=== PATIENT | female | born 1950 | race Caucasian/White ===

== ENCOUNTER 2021-10-16 11:41 | Emergency (ER) | payer MEDICARE, BC, SELFPAY ==
[2021-10-16 11:51] VITALS: BP 120/69; PULSE 83; RESP 14; TEMP 36.3; O2SAT 97; BMI 27.3
--- NOTE | 2021-10-16 12:01 | ED.GENADULT ---
HPI - General Adult General Time Seen by Provider: 12:01 Date Seen: 10/16/21 Chief complaint: Diarrhea Stated complaint: Diarrhea, dehydration concern Time Seen by Provider: 10/16/21 11:47 Source: patient and RN notes reviewed Mode of arrival: ambulatory Limitations: no limitations History of Present Illness HPI narrative: Patient is a 70-year-old female that is ambulatory to the ED of her own accord with concern of diarrhea. The clinic had advised her to come in. She states she has had about 2-3 days of diarrhea after eating. She noted 1 drop of blood maybe last night in the toilet but otherwise has not had any bleeding. She is having no severe abdominal pain. She originally had some nausea the 1st day of symptoms but that has gone away. She is able to drink about 8 glasses of water a day in she feels she is staying hydrated. No urinary symptoms. She has had no fevers or chills. She has people coming in to help her as she broke her left shoulder. She is not aware of any ill contacts or anyone around her being sick. She denies any history of colitis. She had a flexible sigmoidoscopy once early on but has had no follow-up as far as scopes. There has been no travel. She states that she can eat and drink fine but she just has diarrhea after every time she eats. She denies any symptoms of feeling lightheaded or dizzy or weak, does not feel she has any symptoms of being dehydrated. MD complaint: New onset diarrhea after eating Related Data Home Medications Medication Instructions Recorded Confirmed acetaminophen 500 mg tablet 1,000 mg PO Q6H PRN 10/16/21 10/16/21 blood sugar diagnostic (Contour 10/16/21 10/16/21 Test Strips) hydrochlorothiazide 25 mg tablet 25 mg PO DAILY 10/16/21 10/16/21 levothyroxine 112 mcg tablet 112 mcg PO DAILY 10/16/21 10/16/21 lorazepam 0.5 mg tablet 0.5 mg PO DAILY PRN anxiety 10/16/21 10/16/21 metformin 500 mg tablet 1,000 mg PO DAILY 10/16/21 10/16/21 naproxen 500 mg tablet 500 mg PO BID PRN pain 10/16/21 10/16/21 nortriptyline 25 mg capsule 25 mg PO DAILY 10/16/21 10/16/21 potassium chloride 10 mEq 10 meq PO DAILY 10/16/21 10/16/21 tablet,extended release risperidone 1 mg tablet 1 mg PO DAILY 10/16/21 10/16/21 risperidone 2 mg tablet 2 mg PO HS 10/16/21 10/16/21 simvastatin 40 mg tablet 40 mg PO HS 10/16/21 10/16/21 Allergies Allergy/AdvReac Type Severity Reaction Status Date / Time cholecalciferol (vitamin D3) Allergy Unknown Confusion Verified 10/16/21 12:20 [From Vitamin D3] cyanocobalamin (vitamin B12) Allergy Unknown Verified 10/16/21 12:20 grapefruit Allergy Unknown Verified 10/16/21 12:20 Penicillins Allergy Unknown Verified 10/16/21 12:20 Sulfa (Sulfonamide Allergy Unknown Verified 10/16/21 12:20 Antibiotics) eucalyptus AdvReac Unknown Verified 10/16/21 12:20 lisinopril AdvReac Confusion Verified 10/16/21 12:20 Review of Systems Status of ROS: Reports: 10 or more systems reviewed and unremarkable except as noted in History and below PFSH PFSH Social History Smoking Status: Former smoker Do you use any of these nicotine containing products: None Second hand tobacco smoke exposure: No How often do you have a drink containing alcohol: never How often do you have six or more drinks on one occasion: Never AUDIT-C Alcohol total score: 0 Non-prescribed substance use: denies use Exam Const: Vital Signs, click to edit/add: Vital Signs - 24 hr 10/16/21 11:51 Temperature 97.3 F L Pulse Rate [Pulse Oximeter] 83 Respiratory Rate 14 Blood Pressure [Ri ght Upper Arm] 120/69 Pulse Oximetry 97 Oxygen Delivery Me thod Room Air Documenting provider has reviewed patient's vital signs: yes Common normals: no apparent distress, oriented x3, no limitations, healthy appearing, alert and well nourished General appearance: cooperative, comfortable and well kempt Nutritional appearance: overweight HENMT: Common normals: normocephalic, head/scalp atraumatic, hearing grossly normal bilaterally, external ears normal, external nose normal, nasal mucous membranes and turbinates normal, moist oral mucous membranes and oropharynx normal Head and scalp: normocephalic and atraumatic Nose: external nose normal and nasal mucous membranes and turbinates normal External ear: external ears normal Eye: Common normals: PERRL, EOMs intact bilaterally, conjunctivae normal and no scleral icterus Conjunctiva: conjunctiva(e) normal Pupil: PERRL Neck & C-Spine: Common normals: full ROM, no lymphadenopathy, supple, no meningeal signs, no JVD and thyroid normal Thyroid: thyroid normal Resp: Common normals: normal respiratory effort, no retractions, no use of accessory muscles and clear to auscultation bilaterally Auscultation: clear to auscultation bilaterally Cardio: Common normals: no JVD, regular rate, regular rhythm, S1 normal heart sound, S2 normal heart sound, no gallops, no clicks and no murmurs Rate: regular rate Rhythm: regular rhythm Heart sounds: S1 normal and S2 normal GI: Common normals: Normal to inspection, nondistended, normoactive bowel sounds present, soft to palpation, non-tender, no hepatosplenomegaly, no masses and no bruits Palpation: soft and no hepatosplenomegaly Neuro: Common normals: oriented x3 Sensorium/orientation: alert Meningeal signs: no meningeal signs Speech: speech normal Gait (neuro): normal gait Psych: Appearance: well kempt Course Course Hospital Course: Clinically, this patient looks quite well and is given a history where she sounds stable. Reviewed the multiple etiologies for diarrhea stemming from viral infectious etiologies, bacterial pathogens, colitis. Right now at this time, she is having no warning symptoms that would tele she needs emergent imaging. She does understand if diarrhea continues or it progresses to other symptoms such as abdominal pain or fevers, abdominal imaging may be needed. In some cases of more chronic diarrhea colonoscopy may be indicated and biopsies obtained. This point in time, we have no idea what her course is going to be. We can hope that this is a self-limited viral entity that will settle down. I have discussed our options from doing some basic blood work to proceeding with CT imaging. She would like to see some basic blood work and then likely discharge to home. I think that is reasonable. I agree at this time that she does not need any IV fluids, clinically sounds quite stable from that standpoint. Reevaluation(s) Reevaluation #1: Reviewed with patient that her labs are looking stable. I do think she is fine to continue with outpatient management. We did discuss antidiarrheals but at this point I would still recommend avoidance. This certainly could be a self-limited gastroenteritis. If this is the diagnosis I would anticipate that symptoms are going to improve in the next couple days. If this is more of a colitis type picture, she may have ongoing diarrhea and will need further evaluation and follow-up. Time: 13:13 Vital Signs Vital signs: Initial Vital Signs Temperature 97.3 F L 10/16/21 11:51 Temperature Source Temporal Artery Scan 10/16/21 11:51 Pulse Rate 83 10/16/21 11:51 Pulse Rhythm 10/16/21 11:51 Respiratory Rate 14 10/16/21 11:51 Blood Pressure 120/69 10/16/21 11:51 Blood Pressure Mean 86 10/16/21 11:51 Blood Pressure Position Sitting 10/16/21 11:51 Pulse Oximetry 97 10/16/21 11:51 Oxygen Delivery Method 10/16/21 11:51 Vital Signs Temperature 97.3 F L 10/16/21 11:51 Pulse Rate 83 10/16/21 11:51 Respiratory Rate 14 10/16/21 11:51 Blood Pressure 120/69 10/16/21 11:51 Pulse Oximetry 97 10/16/21 11:51 Oxygen Delivery Method 10/16/21 11:51 Temperature 97.3 F L 10/16/21 11:51 Pulse Rate 83 10/16/21 11:51 Respiratory Rate 14 10/16/21 11:51 Blood Pressure 120/69 10/16/21 11:51 Pulse Oximetry 97 10/16/21 11:51 Oxygen Delivery Method 10/16/21 11:51 Medical Decision Making Lab Data Labs: Lab Results 10/16/21 10/16/21 Range/Units 12:33 12:33 WBC 6.81 (4.50-11.00) K/uL RBC 4.27 (4.00-5.20) m/uL Hgb 11.8 L (12.0-16.0) gm/dL Hct 36.3 (33.0-51.0) % MCV 85 (80-100) fL MCH 28 (26-34) pg MCHC 33 (32-36) gm/dL RDW Coeff of Emily 14.5 (11.5-15.5) % Plt Count 340 (140-440) K/uL Neut % (Auto) 74.6 H (42.0-72.0) % Lymph % (Auto) 15.3 L (20-44) % [place] % (Auto) 9.1 (0.0-11.0) % Eos % (Auto) 0.6 (0.0-7.0) % Baso % (Auto) 0.4 (0.0-3.0) % Neut # (Auto) 5.10 (1.7-7.0) K/uL Lymph # (Auto) 1.00 (0.90-2.90) K/uL [place] # (Auto) 0.60 (0.00-0.90) K/UL Eos # (Auto) 0.04 (0.00-0.50) K/uL Baso # (Auto) 0.03 (0.00-0.30) K/uL Abs Immat Gran (auto) 0.00 (0.00-0.30) K/uL Sodium 133 L (135-149) mmol/L Potassium 3.6 (3.6-5.1) mmol/L Chloride 97 (96-114) mmol/L Carbon Dioxide 27 (20-32) mmol/L BUN 15 (7-30) mg/dL Creatinine 0.6 (0.5-1.5) mg/dL Estimated Creat Clear 42.68 Estimated GFR 96 ml/min Glucose 128 H (60-115) mg/dL Calcium 9.2 (8.4-10.6) mg/dL Critical Care Time Critical Care Time Critical Care Time: No Discharge Plan Discharge Clinical Impression: Acute diarrhea Patient Disposition: Home, Self-Care Condition: Stable Instructions: Acute Diarrhea (ED), Nutrition Tips for Relief of Diarrhea (ED) Additional Instructions: Continue with fluids as you have been, you are doing a good job staying hydrated. As far as food is concerned, reviewed the handout as this may have some helpful tips on avoiding foods that will make diarrhea certainly worse. I do recommend that you get scheduled for clinic follow-up this week. If at any point you develop bloody diarrhea that is consistently bloody, have fever, have recurrent vomiting or severe abdominal pain with this, do need to seek re-evaluation in the ER. If your diarrhea is ongoing but no worrisome findings as outlined, do need to follow up in the clinic. Activity Level: Activity as Tolerated Prescriptions: No Action metformin 500 mg tablet 1,000 mg PO DAILY Label Comments: TAKE TWO TABLETS BY MOUTH TWICE DAILY WITH MEALS potassium chloride 10 mEq tablet extended release 10 meq PO DAILY Label Comments: TAKE ONE TABLET BY MOUTH ONE TIME DAILY WITH A MEAL. (DME) Contour Test Strips Strip MISCELLANEOUS Label Comments: USE TO TEST BLOOD GLUCOSE 2 TIMES DAILY DIRECTED simvastatin 40 mg tablet 40 mg PO HS nortriptyline 25 mg capsule 25 mg PO DAILY Label Comments: TAKE ONE CAPSULE BY MOUTH ONE TIME DAILY AT BEDTIME risperidone 2 mg tablet 2 mg PO HS Label Comments: TAKE ONE TABLET BY MOUTH ONE TIME DAILY AT BEDTIME lorazepam 0.5 mg tablet 0.5 mg PO DAILY PRN (Reason: anxiety) Label Comments: TAKE ONE TABLET BY MOUTH DAILY NEEDED hydrochlorothiazide 25 mg tablet 25 mg PO DAILY risperidone 1 mg tablet 1 mg PO DAILY naproxen 500 mg tablet 500 mg PO BID PRN (Reason: pain) Label Comments: with meals levothyroxine 112 mcg tablet 112 mcg PO DAILY Label Comments: TAKE ONE TABLET BY MOUTH ONE TIME DAILY acetaminophen 500 mg tablet 1,000 mg PO Q6H PRN Follow Up/Referrals: Rylee Curz MD [Primary Care Provider] - Stand Alone Forms: [facility] Info Instructions
[2021-10-16 12:46] LABS: Basophils Absolute Auto 0.03 K/uL (0.00-0.30); Basophils Percent Auto 0.4 % (0.0-3.0); Eosinophils Absolute Auto 0.04 K/uL (0.00-0.50); Eosinophils Percent Auto 0.6 % (0.0-7.0); Hematocrit 36.3 % (33.0-51.0); Hemoglobin* 11.8 gm/dL (12.0-16.0); Lymphocytes Percent Auto 15.3 % (20-44); Mean Corpuscular HGB Conc 33 gm/dL (32-36); Mean Corpuscular Hemoglobin 28 pg (26-34); Mean Corpuscular Volume 85 fL (80-100); Monocytes Percent Auto 9.1 % (0.0-11.0); Neutrophils Percent Auto 74.6 % (42.0-72.0); Platelet Count* 340 K/uL (140-440); RDW Coefficient of Variation % 14.5 % (11.5-15.5); Red Blood Count 4.27 m/uL (4.00-5.20); Slide Review Reflex No; White Blood Count* 6.81 K/uL (4.50-11.00)
[2021-10-16 12:56] LABS: Chloride* 97 mmol/L (96-114); Potassium* 3.6 mmol/L (3.6-5.1); Sodium* 133 mmol/L (135-149)
[2021-10-16 12:59] LABS: Blood Urea Nitrogen* 15 mg/dL (7-30); Carbon Dioxide* 27 mmol/L (20-32); Creatinine* 0.6 mg/dL (0.5-1.5); Est. Creatinine Clearance* 42.68; Estimated Glomerular Filt Rate 96 ml/min
[2021-10-16 13:00] LABS: Calcium* 9.2 mg/dL (8.4-10.6); Glucose* 128 mg/dL (60-115)
== END 2021-10-16 13:19 | disposition home or self-care (01) ==
PROVIDERS: Emergency Provider Family Medicine; PCP Family Medicine
DX: R19.7 Diarrhea, unspecified (principal)
CPT/HCPCS: 36415; 80048; 85025; 99282; 99283

== ENCOUNTER 2022-03-17 22:42 | Outpatient (CLI) | payer MEDICARE, BC, SELFPAY | END 2022-03-17 22:43 | disposition home or self-care (01) | LOC: AMB 03-18 02:01 | PROVIDERS: PCP Family Medicine; Visit Provider Family Medicine | DX: S09.90XA Unspecified injury of head, initial encounter (principal); W18.30XA Fall on same level, unspecified, initial encounter; Y92.009 Unspecified place in unspecified non-institutional (private) residence as the place of occurrence of the external cause | CPT/HCPCS: A0425; A0427 ==

== ENCOUNTER 2022-03-17 23:26 | Emergency (ER) | payer MEDICARE, BC, SELFPAY ==
[2022-03-17 23:32] VITALS: BP 112/68; PULSE 74; RESP 14; TEMP 36.7; O2SAT 99; BMI 28.3
[2022-03-17 23:33] VITALS: O2SAT 95
--- NOTE | 2022-03-17 23:34 | CRLHL7_ITS ---
For Patients: As a result of the Century Cures Act, medical imaging exams and procedure reports are released immediately into your electronic medical record. You may view this report before your referring provider. If you have questions, please contact your health care provider. INDICATION: Fall, head pain. TECHNIQUE: CT head without contrast. COMPARISON: None. FINDINGS: CSF spaces: Within normal limits for age. Brain parenchyma and extra-axial spaces: 6 mm hyperdense focus within the awan radiata of the posterior left frontal lobe adjacent to the lateral ventricle with subtle surrounding hypoattenuation. No midline shift or herniation. No intraventricular extension.The gaffney-white differentiation is normal. Mild bilateral periventricular and deep white matter areas of hypoattenuation, consistent with chronic small vessel ischemic disease. No extra-axial fluid collection. Skull base and calvarium: The visualized paranasal sinuses and mastoid air cells demonstrate no acute or significant findings. The visualized orbits are grossly unremarkable. No skull fractures. Hyperostosis frontalis. Atherosclerotic calcification of the bilateral carotid siphons. IMPRESSION: 6 mm hyperdense focus within the left posterior frontal lobe awan radiata, concerning for a small intraparenchymal hemorrhage with mild surrounding edema. No intraventricular extension or significant mass effect. Findings discussed with Dr. Villarreal at 10:25 PM PST on 03/17/2022. Please note that all CT scans at this facility use dose modulation, iterative reconstruction, and/or weight-based dosing when appropriate to reduce radiation dose to as low as reasonably achievable. Dictated by Mat Long MD @ 03/18/2022 12:25:44 AM (Electronically Signed)
--- NOTE | 2022-03-17 23:34 | CRLHL7_ITS ---
For Patients: As a result of the Century Cures Act, medical imaging exams and procedure reports are released immediately into your electronic medical record. You may view this report before your referring provider. If you have questions, please contact your health care provider. INDICATION: Neck pain. TECHNIQUE: CT cervical spine without contrast. COMPARISON: None. FINDINGS: Vertebrae: Alignment is normal apart from trace anterolisthesis of C4 on C5. There are no fractures or suspicious bony lesions. 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 Mild multilevel degenerative changes of the disc spaces and facet joints. Extraspinal findings: Right apical calcified granuloma. Presumed cerumen within the bilateral external auditory canals. IMPRESSION: 1. No sign of acute injury. 2. Multilevel degenerative spondylosis. Please note that all CT scans at this facility use dose modulation, iterative reconstruction, and/or weight-based dosing when appropriate to reduce radiation dose to as low as reasonably achievable. Dictated by Mat Long MD @ 03/18/2022 12:28:53 AM (Electronically Signed)
[2022-03-17 23:44] VITALS: BP 110/68; PULSE 85; RESP 14; O2SAT 96
[2022-03-18 00:30] VITALS: BP 114/68; PULSE 72; RESP 16; O2SAT 96
--- NOTE | 2022-03-18 00:55 | ED.GENADULT ---
HPI - General Adult General Chief complaint: Dizziness/Vertigo Stated complaint: Dizziness Time Seen by Provider: 03/17/22 23:28 Source: patient and EMS Mode of arrival: EMS Limitations: no limitations History of Present Illness HPI narrative: Patient is a 71-year-old female coming in today after falling at home. She states that she was getting up to turn off the lights to go to bed when she became very lightheaded and fell backwards striking her head on the way down. She is complaining of a very mild headache. Denies any neck pain or back pain. Per EMS, when they arrived her blood pressure was rather low at 68 systolic. She has received about 200 mL of normal saline and her blood pressure upon arrival is in the 1 teens. She is no longer dizzy. She does feel a little bit weaker than normal. Patient's past medical history is significant for coronary artery disease, diabetes, hypertension, hyperlipidemia, schizophrenia, hypothyroidism, vitamin-D deficiency, osteopenia. She lives independently with a roommate. Related Data Home Medications Medication Instructions Recorded Confirmed acetaminophen 500 mg tablet 1,000 mg PO Q6H PRN 10/16/21 10/16/21 blood sugar diagnostic (Contour 10/16/21 10/16/21 Test Strips) hydrochlorothiazide 25 mg tablet 25 mg PO DAILY 10/16/21 10/16/21 levothyroxine 112 mcg tablet 112 mcg PO DAILY 10/16/21 10/16/21 lorazepam 0.5 mg tablet 0.5 mg PO DAILY PRN anxiety 10/16/21 10/16/21 metformin 500 mg tablet 1,000 mg PO DAILY 10/16/21 10/16/21 naproxen 500 mg tablet 500 mg PO BID PRN pain 10/16/21 10/16/21 nortriptyline 25 mg capsule 25 mg PO DAILY 10/16/21 10/16/21 potassium chloride 10 mEq 10 meq PO DAILY 10/16/21 10/16/21 tablet,extended release risperidone 1 mg tablet 1 mg PO DAILY 10/16/21 10/16/21 risperidone 2 mg tablet 2 mg PO HS 10/16/21 10/16/21 simvastatin 40 mg tablet 40 mg PO HS 10/16/21 10/16/21 Allergies Allergy/AdvReac Type Severity Reaction Status Date / Time cholecalciferol (vitamin D3) Allergy Unknown Confusion Verified 03/17/22 23:37 [From Vitamin D3] cyanocobalamin (vitamin B12) Allergy Unknown Verified 03/17/22 23:37 grapefruit Allergy Unknown Verified 03/17/22 23:37 Penicillins Allergy Unknown Verified 03/17/22 23:37 Sulfa (Sulfonamide Allergy Unknown Verified 03/17/22 23:37 Antibiotics) eucalyptus AdvReac Unknown Verified 03/17/22 23:37 lisinopril AdvReac Confusion Verified 03/17/22 23:37 Review of Systems Status of ROS: Reports: 10 or more systems reviewed and unremarkable except as noted in History and below [facility] Social History Smoking Status: Former smoker Do you use any of these nicotine containing products: None Second hand tobacco smoke exposure: No How often do you have a drink containing alcohol: never How often do you have six or more drinks on one occasion: Never AUDIT-C Alcohol total score: 0 Non-prescribed substance use: denies use Exam Narrative: Exam Narrative: Well-nourished well-developed patient in no acute distress. Alert and oriented x3. Answers questions appropriately. Mood and affect are appropriate. Thoughts are goal oriented and rational. No tangential or magical thinking noted. Patient speaks in full sentences without needing to catch her breath. GCS is 15. HEENT: Normocephalic, small area of erythema/early bruising to the back of the head. Pupils are equally round reactive to light. Extraocular muscles are intact. Conjunctivae are moist without any icterus noted. Moist mucous membranes. Posterior pharynx is normal. Neck is soft without any lymphadenopathy or thyromegaly. No masses are appreciated. No tenderness to palpation at the neck. Good range of motion with flexion, extension, side way bending and rotation without discomfort. Cardiovascular: Heart is regular rate and rhythm S1 and S2 are present without any murmurs. Lungs: Clear to auscultation bilaterally no wheezes rhonchi or rales are appreciated. Patient takes deep breaths without any discomfort. Abdomen: Soft and nontender nondistended with normal bowel sounds. No guarding or rebound. Extremities: Bilateral lower extremities are without edema. Normal DP and PT pulses. Skin: Well perfused without any obvious rashes. Back: Small ecchymosis to the low/mid thoracic region, , however area is not tender. She has no tenderness over the thoracic or lumbar spine. There are no step-offs appreciated. Const: Vital Signs, click to edit/add: Vital Signs - 24 hr 03/17/22 23:32 03/17/22 23:33 03/18/22 01:00 Temperature 98.1 F 97.8 F Pulse Rate Pulse Rate [Pulse Oximeter] 74 77 Respiratory Rate 14 18 Blood Pressure [Le ft Upper Arm] 112/68 121/71 Pulse Oximetry 99 95 94 Oxygen Delivery Me thod Room Air Room Air 03/18/22 00:58 03/18/22 01:00 03/17/22 23:44 Temperature Pulse Rate 76 74 Pulse Rate [Pulse Oximeter] 85 Respiratory Rate 14 Blood Pressure [Le ft Upper Arm] 110/68 Pulse Oximetry 95 96 96 Oxygen Delivery Me thod Room Air Room Air 03/18/22 00:30 Temperature Pulse Rate Pulse Rate [Pulse Oximeter] 72 Respiratory Rate 16 Blood Pressure [Le ft Upper Arm] 114/68 Pulse Oximetry 96 Oxygen Delivery Me thod Room Air Course Course Hospital Course: Patient proceeded immediately to head and neck CT. Head CT did show a 6 mm intraparenchymal hemorrhage, report below. Neck CT was unremarkable. EKG, read by me, shows normal sinus rhythm with a pulse of 71 and a left axis deviation. CBC shows a slightly elevated white cell count 13.6, hemoglobin is low at 10.6. Lactate was elevated at 2.6. Negative COVID and flu. Normal troponin. Remainder of labs pending at this time. Spoke with Dr. Vazquez at [facility] who has it in available medical/surg bed with both Trauma and Neurosurgery consultations available, patient was accepted for transfer. Vital Signs Vital signs: Initial Vital Signs Temperature 98.1 F 03/17/22 23:32 Temperature Source Temporal Artery Scan 03/17/22 23:32 Pulse Rate 74 03/17/22 23:32 Respiratory Rate 14 03/17/22 23:32 Blood Pressure 112/68 03/17/22 23:32 Blood Pressure Mean 82 03/17/22 23:32 Blood Pressure Position Supine 03/17/22 23:32 Pulse Oximetry 99 03/17/22 23:32 Oxygen Delivery Method 03/17/22 23:32 Vital Signs Temperature 98.1 F 03/17/22 23:32 Pulse Rate 74 03/17/22 23:32 Respiratory Rate 14 03/17/22 23:32 Blood Pressure 112/68 03/17/22 23:32 Pulse Oximetry 99 03/17/22 23:32 Oxygen Delivery Method 03/17/22 23:32 Temperature 97.8 F 03/18/22 01:00 Pulse Rate 77 03/18/22 01:00 Respiratory Rate 18 03/18/22 01:00 Blood Pressure 121/71 03/18/22 01:00 Pulse Oximetry 94 03/18/22 01:00 Oxygen Delivery Method 03/18/22 01:00 Medical Decision Making MDM Narrative Medical decision making narrative: 71-year-old female with an episode of dizziness, continued mild weakness and an intraparenchymal hemorrhage. Patient will be transferred for further management. Medical Records Medical records reviewed: Yes I reviewed the patient's medical records Lab Data Lab results reviewed: Yes I reviewed the patient's lab results Labs: Lab Results 03/17/22 03/17/22 03/17/22 Range/Units 23:34 23:34 23:34 WBC 13.60 H (4.50-11.00) K/uL RBC 4.08 (4.00-5.20) m/uL Hgb 10.6 L (12.0-16.0) gm/dL Hct 31.8 L (33.0-51.0) % MCV 78 L (80-100) fL MCH 26 (26-34) pg MCHC 33 (32-36) gm/dL RDW Coeff of Emily 14.7 (11.5-15.5) % Plt Count 343 (140-440) K/uL Neut % (Auto) 88.1 H (42.0-72.0) % Lymph % (Auto) 3.8 L (20-44) % Banner % (Auto) 7.4 (0.0-11.0) % Eos % (Auto) 0.4 (0.0-7.0) % Baso % (Auto) 0.1 (0.0-3.0) % Neut # (Auto) 12.00 H (1.7-7.0) K/uL Lymph # (Auto) 0.50 L (0.90-2.90) K/uL Banner # (Auto) 1.00 H (0.00-0.90) K/UL Eos # (Auto) 0.10 (0.00-0.50) K/uL Baso # (Auto) 0.00 (0.00-0.30) K/uL Lactate 2.6 H (0.5-1.9) mmol/L SARS-CoV-2 (PCR) (Negative) Influenza Type A (PCR) (Negative) Influenza Type B (PCR) (Negative) POC Troponin I 0.02 (0.01-0.04) ng/ml 03/17/22 Range/Units 23:34 WBC (4.50-11.00) K/uL RBC (4.00-5.20) m/uL Hgb (12.0-16.0) gm/dL Hct (33.0-51.0) % MCV (80-100) fL MCH (26-34) pg MCHC (32-36) gm/dL RDW Coeff of Emily (11.5-15.5) % Plt Count (140-440) K/uL Neut % (Auto) (42.0-72.0) % Lymph % (Auto) (20-44) % Banner % (Auto) (0.0-11.0) % Eos % (Auto) (0.0-7.0) % Baso % (Auto) (0.0-3.0) % Neut # (Auto) (1.7-7.0) K/uL Lymph # (Auto) (0.90-2.90) K/uL Banner # (Auto) (0.00-0.90) K/UL Eos # (Auto) (0.00-0.50) K/uL Baso # (Auto) (0.00-0.30) K/uL Lactate (0.5-1.9) mmol/L SARS-CoV-2 (PCR) Negative SARS-CoV-2 (Negative) Influenza Type A (PCR) Negative PCR FLU A (Negative) Influenza Type B (PCR) Negative PCR FLU B (Negative) POC Troponin I (0.01-0.04) ng/ml Imaging Data CT scan - head: Attestation: I have reviewed the pertinent imaging results. Radiologist's impression: CT head without contrast. COMPARISON: None. FINDINGS: CSF spaces: Within normal limits for age. Brain parenchyma and extra-axial spaces: 6 mm hyperdense focus within the awan radiata of the posterior left frontal lobe adjacent to the lateral ventricle with subtle surrounding hypoattenuation. No midline shift or herniation. No intraventricular extension.The gaffney-white differentiation is normal. Mild bilateral periventricular and deep white matter areas of hypoattenuation, consistent with chronic small vessel ischemic disease. No extra-axial fluid collection. Skull base and calvarium: The visualized paranasal sinuses and mastoid air cells demonstrate no acute or significant findings. The visualized orbits are grossly unremarkable. No skull fractures. Hyperostosis frontalis. Atherosclerotic calcification of the bilateral carotid siphons. IMPRESSION: 6 mm hyperdense focus within the left posterior frontal lobe awan radiata, concerning for a small intraparenchymal hemorrhage with mild surrounding edema. No intraventricular extension or significant mass effect. Cervical spine CT: Attestation: I have reviewed the pertinent imaging results. Radiologist's impression: CT cervical spine without contrast. COMPARISON: None. FINDINGS: Vertebrae: Alignment is normal apart from trace anterolisthesis of C4 on C5. There are no fractures or suspicious bony lesions. 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 Mild multilevel degenerative changes of the disc spaces and facet joints. Extraspinal findings: Right apical calcified granuloma. Presumed cerumen within the bilateral external auditory canals. IMPRESSION: 1. No sign of acute injury. 2. Multilevel degenerative spondylosis. ECG Data Attestation: I personally reviewed and interpreted this ECG as follows: Discharge Plan Discharge Clinical Impression: Intraparenchymal hemorrhage of brain, Weakness Patient Disposition: Xfer Other Discharge Location: [facility] Condition: Stable Prescriptions: No Action metformin 500 mg tablet 1,000 mg PO DAILY Label Comments: TAKE TWO TABLETS BY MOUTH TWICE DAILY WITH MEALS potassium chloride 10 mEq tablet extended release 10 meq PO DAILY Label Comments: TAKE ONE TABLET BY MOUTH ONE TIME DAILY WITH A MEAL. (DME) Contour Test Strips Strip MISCELLANEOUS Label Comments: USE TO TEST BLOOD GLUCOSE 2 TIMES DAILY DIRECTED simvastatin 40 mg tablet 40 mg PO HS nortriptyline 25 mg capsule 25 mg PO DAILY Label Comments: TAKE ONE CAPSULE BY MOUTH ONE TIME DAILY AT BEDTIME risperidone 2 mg tablet 2 mg PO HS Label Comments: TAKE ONE TABLET BY MOUTH ONE TIME DAILY AT BEDTIME lorazepam 0.5 mg tablet 0.5 mg PO DAILY PRN (Reason: anxiety) Label Comments: TAKE ONE TABLET BY MOUTH DAILY NEEDED hydrochlorothiazide 25 mg tablet 25 mg PO DAILY risperidone 1 mg tablet 1 mg PO DAILY naproxen 500 mg tablet 500 mg PO BID PRN (Reason: pain) Label Comments: with meals levothyroxine 112 mcg tablet 112 mcg PO DAILY Label Comments: TAKE ONE TABLET BY MOUTH ONE TIME DAILY acetaminophen 500 mg tablet 1,000 mg PO Q6H PRN Follow Up/Referrals: Rylee Cruz MD [Primary Care Provider] - Stand Alone Forms: [employer] Info Instructions
[2022-03-18 00:58] VITALS: PULSE 76; O2SAT 95
[2022-03-18 01:00] VITALS: BP 121/71; PULSE 74; PULSE 77; RESP 18; TEMP 36.6; O2SAT 94; O2SAT 96
[2022-03-18 01:06] LABS: Troponin, Point-of-Care* 0.02 ng/ml (0.01-0.04)
[2022-03-18 01:08] LABS: Lactate* 2.6 mmol/L (0.5-1.9)
[2022-03-18 01:11] LABS: Basophils Percent Auto 0.1 % (0.0-3.0); Eosinophils Percent Auto 0.4 % (0.0-7.0); Hematocrit 31.8 % (33.0-51.0); Hemoglobin* 10.6 gm/dL (12.0-16.0); Immature Granulocytes Pct Auto 0.2 %; Lymphocytes Percent Auto 3.8 % (20-44); Mean Corpuscular HGB Conc 33 gm/dL (32-36); Mean Corpuscular Hemoglobin 26 pg (26-34); Mean Corpuscular Volume 78 fL (80-100); Monocytes Percent Auto 7.4 % (0.0-11.0); Neutrophils Percent Auto 88.1 % (42.0-72.0); Platelet Count* 343 K/uL (140-440); RDW Coefficient of Variation % 14.7 % (11.5-15.5); Red Blood Count 4.08 m/uL (4.00-5.20)
[2022-03-18 01:16] LABS: PCR FLU A Negative PCR FLU A (Negative); PCR FLU B Negative PCR FLU B (Negative); SARS PCR* Negative SARS-CoV-2 (Negative)
[2022-03-18 01:17] LABS: Slide Review Reflex No
--- NOTE | 2022-03-18 01:18 | ED.NURSE ---
Dispatch called for EMS transport to [facility] ER. This nurse called report to [facility] ER charge nurse.
[2022-03-18 01:28] LABS: Albumin* 3.4 g/dL (3.3-5.0); Chloride* 100 mmol/L (96-114); Sodium* 131 mmol/L (135-149)
[2022-03-18 01:29] LABS: C.Difficile Negative (Negative); CDIFFEPI 027 PRESUMPTIVE NEGATIVE (Negative)
[2022-03-18 01:29] LABS: Potassium* 3.3 mmol/L (3.6-5.1)
[2022-03-18 01:31] LABS: Creatinine* 0.4 mg/dL (0.5-1.5); Est. Creatinine Clearance* 38.37; Estimated Glomerular Filt Rate 105 ml/min
[2022-03-18 01:32] LABS: Alanine Aminotransferase* 22 U/L (4-35); Alkaline Phosphatase* 52 U/L (40-150); Aspartate Amino Transferase* 19 U/L (12-35); Bilirubin Direct* 0.1 mg/dL (0.0-0.5); Bilirubin Total* 0.3 mg/dL (0.1-1.5); Blood Urea Nitrogen* 11 mg/dL (7-30); Calcium* 8.2 mg/dL (8.4-10.6); Carbon Dioxide* 23 mmol/L (20-32); Glucose* 132 mg/dL (60-115)
--- NOTE | 2022-03-18 01:32 | ED.NURSE ---
Next of kin updated with patient transfer information. Patient notified.
[2022-03-18 01:35] LABS: C Reactive Protein* < 0.5 mg/dL (0.5-1.0)
[2022-03-18 01:52] LABS: Erythrocyte SedimentationRate* 11 mm/hr (2-20)
== END 2022-03-18 01:41 | disposition other institution (70) ==
PROVIDERS: Emergency Provider Family Medicine; PCP Family Medicine
DX: I61.8 Other nontraumatic intracerebral hemorrhage (principal)
CPT/HCPCS: 36415; 70450; 72125; 80048; 80076; 81001; 83605; 84484; 85025; 85651; 86140; 87086; 87493; 87631; 93005; 94761; 99284; 99285

== ENCOUNTER 2022-03-18 01:23 | Outpatient (CLI) | payer MEDICARE, BC, SELFPAY | END 2022-03-18 01:24 | disposition home or self-care (01) | LOC: AMB 03:54 | PROVIDERS: PCP Family Medicine; Visit Provider Family Medicine | DX: S06.30AS Unspecified focal traumatic brain injury with loss of consciousness status unknown, sequela (principal) | CPT/HCPCS: A0425; A0427 ==

== ENCOUNTER 2022-03-22 07:01 | Outpatient (CLI) | payer MEDICARE, BC, SELFPAY | END 2022-03-22 07:02 | disposition home or self-care (01) | LOC: AMB 17:37 | PROVIDERS: PCP Family Medicine; Visit Provider Family Medicine | DX: R53.1 Weakness (principal) | CPT/HCPCS: A0425; A0427 ==

== ENCOUNTER 2022-03-22 07:33 | Emergency (ER) | payer MEDICARE, BC, SELFPAY ==
[2022-03-22] VITALS (17 sets, daily range): BP systolic 112–135; BP diastolic 62–78; PULSE 78–219; RESP 16–18; TEMP 36.7; O2SAT 84–99; BMI 27.9
--- NOTE | 2022-03-22 08:08 | CRLHL7_ITS ---
For Patients: As a result of the Century Cures Act, medical imaging exams and procedure reports are released immediately into your electronic medical record. You may view this report before your referring provider. If you have questions, please contact your health care provider. INDICATION: SYNCOPE TECHNIQUE: Head CT without contrast. COMPARISON: CT head March 17, 2022. FINDINGS: Similar appearance of 6 mm hyperdense focus within the left posterior frontal lobe awan radiata, with mild surrounding edema. There are nonspecific low attenuation white matter changes consistent with chronic microvascular disease. No evidence of extra-axial fluid collection. No midline shift. The basilar cisterns are patent. The visualized paranasal sinuses and mastoid air cells demonstrate no acute or significant findings. The visualized orbits are grossly unremarkable. No skull fractures. IMPRESSION: Similar appearance of 6 mm hyperdense focus within the left posterior frontal lobe awan radiata, with mild surrounding edema. Finding is suspicious for intraparenchymal hemorrhage. Underlying mass lesion or vascular malformation (ie AVM), cannot be excluded. Consider CTA head and/or MRI to further evaluate if clinically indicated. Please note that all CT scans at this facility use dose modulation, iterative reconstruction, and/or weight-based dosing when appropriate to reduce radiation dose to as low as reasonably achievable. Dictated by Martín Adame MD @ 03/22/2022 8:54:03 AM (Electronically Signed)
--- NOTE | 2022-03-22 08:43 | ED_ITS ---
HPI - Weakness General Chief complaint: Weakness Stated complaint: Weakness Time Seen by Provider: 03/22/22 07:53 History of Present Illness HPI Narrative: Pt is a 71 year old woman who fell 5 days ago and suffered a small intraparenchymal hemorrhage in the frontal awan radiata who presents today with a presyncopal event while on the toilet. Pt got up this morning feeling fine. She sat on the toilet and after having a bowel movement felt extremely weak. Pt had no LOC. Pt had no palpitations. Pt was unable to get up and, as a result, her friend who lives with called an ambulance who brought her to the hospital. Pt was noted to be hypotensive at the scene but blood pressure is now improved. Pt has no complaints currently and does not feel dizzy. Pt was hospitalized after the fall leading to her intraparenchymal hemorrhage at [facility] but no intervention was needed. Pt has been feeling fine since discharge. Related Data Home Medications Medication Instructions Recorded Confirmed acetaminophen 500 mg tablet 1,000 mg PO Q6H PRN 10/16/21 03/22/22 blood sugar diagnostic (Contour 10/16/21 10/16/21 Test Strips) hydrochlorothiazide 25 mg tablet 25 mg PO DAILY 10/16/21 03/22/22 levothyroxine 112 mcg tablet 112 mcg PO DAILY 10/16/21 03/22/22 lorazepam 0.5 mg tablet 0.5 mg PO DAILY PRN anxiety 10/16/21 03/22/22 metformin 500 mg tablet 1,000 mg PO DAILY 10/16/21 03/22/22 naproxen 500 mg tablet 500 mg PO BID PRN pain 10/16/21 10/16/21 nortriptyline 25 mg capsule 25 mg PO DAILY 10/16/21 03/22/22 potassium chloride 10 mEq 10 meq PO DAILY 10/16/21 03/22/22 tablet,extended release risperidone 1 mg tablet 1 mg PO DAILY 10/16/21 03/22/22 risperidone 2 mg tablet 2 mg PO HS 10/16/21 03/22/22 simvastatin 40 mg tablet 40 mg PO HS 10/16/21 03/22/22 Allergies Allergy/AdvReac Type Severity Reaction Status Date / Time cholecalciferol (vitamin D3) Allergy Unknown Confusion Verified 03/22/22 07:50 [From Vitamin D3] cyanocobalamin (vitamin B12) Allergy Unknown Verified 03/22/22 07:50 grapefruit Allergy Unknown Verified 03/22/22 07:50 Penicillins Allergy Unknown Verified 03/22/22 07:50 Sulfa (Sulfonamide Allergy Unknown Verified 03/22/22 07:50 Antibiotics) eucalyptus AdvReac Unknown Verified 03/22/22 07:50 lisinopril AdvReac Confusion Verified 03/22/22 07:50 Review of Systems Status of ROS: Reports: 10 or more systems reviewed and unremarkable except as noted in History and below [facility] Medical History (Updated 03/22/22 @ 10:30 by Everardo Avendaño MD) Anxiety Diabetes mellitus Hyperlipidemia Hypertension Hypothyroidism Intraparenchymal hemorrhage of brain Tremor Social History Smoking Status: Former smoker Do you use any of these nicotine containing products: None Second hand tobacco smoke exposure: No How often do you have a drink containing alcohol: never How often do you have six or more drinks on one occasion: Never AUDIT-C Alcohol total score: 0 Non-prescribed substance use: denies use Exam Narrative: Exam Narrative: EXAM GENERAL: Patient appears comfortable and well. Left upper extremity resting tremor noted. EYES: No scleral icterus. THYROID: no thyroid nodules or thyromegaly. LYMPH: No supraclavicular or cervical lymphadenopathy. SKIN: Visible skin seen during exam normal or with benign process only. EXT: No dependent lower extremity pedal edema. HEART: Regular rate and rhythm with no murmurs, rubs, or gallops. LUNGS: Clear to auscultation bilaterally with no crackles or wheezes. ABD: Soft, non tender, non distended. PSYCH: Good eye contact, speech is not pressured. Neurologic: CN2-12 intact no focal defects. Const: Vital Signs, click to edit/add: Vital Signs - 24 hr 03/22/22 07:43 03/22/22 07:49 03/22/22 08:00 Temperature 98.0 F Pulse Rate 83 85 Pulse Rate [Right Pulse Oximeter] 96 Pulse Rate [orthos tatic lying Pulse Oximeter] Pulse Rate [orthos tatic sitting Puls e Oximeter] Pulse Rate [orthos tatic standing Pul se Oximeter] Respiratory Rate 18 Blood Pressure Blood Pressure [Ri ght Upper Arm] 115/67 Blood Pressure [or thostatic lying Ri ght Arm] Blood Pressure [or thostatic sitting Right Arm] Blood Pressure [or thostatic standing Right Arm] Pulse Oximetry 98 96 95 Oxygen Delivery Me thod Room Air 03/22/22 08:15 03/22/22 08:35 03/22/22 08:40 Temperature Pulse Rate 87 89 92 Pulse Rate [Right Pulse Oximeter] Pulse Rate [orthos tatic lying Pulse Oximeter] Pulse Rate [orthos tatic sitting Puls e Oximeter] Pulse Rate [orthos tatic standing Pul se Oximeter] Respiratory Rate 16 Blood Pressure 118/67 Blood Pressure [Ri ght Upper Arm] Blood Pressure [or thostatic lying Ri ght Arm] Blood Pressure [or thostatic sitting Right Arm] Blood Pressure [or thostatic standing Right Arm] Pulse Oximetry 97 96 97 Oxygen Delivery Me thod 03/22/22 08:45 03/22/22 09:55 03/22/22 09:00 Temperature Pulse Rate 87 82 Pulse Rate [Right Pulse Oximeter] Pulse Rate [orthos tatic lying Pulse Oximeter] 92 Pulse Rate [orthos tatic sitting Puls e Oximeter] 97 Pulse Rate [orthos tatic standing Pul se Oximeter] 101 H Respiratory Rate Blood Pressure Blood Pressure [Ri ght Upper Arm] Blood Pressure [or thostatic lying Ri ght Arm] 135/71 Blood Pressure [or thostatic sitting Right Arm] 126/73 Blood Pressure [or thostatic standing Right Arm] 112/62 Pulse Oximetry 97 96 Oxygen Delivery Me thod 03/22/22 09:01 03/22/22 09:15 03/22/22 09:30 Temperature Pulse Rate 87 84 78 Pulse Rate [Right Pulse Oximeter] Pulse Rate [orthos tatic lying Pulse Oximeter] Pulse Rate [orthos tatic sitting Puls e Oximeter] Pulse Rate [orthos tatic standing Pul se Oximeter] Respiratory Rate Blood Pressure 127/64 Blood Pressure [Ri ght Upper Arm] Blood Pressure [or thostatic lying Ri ght Arm] Blood Pressure [or thostatic sitting Right Arm] Blood Pressure [or thostatic standing Right Arm] Pulse Oximetry 89 97 97 Oxygen Delivery Me thod 03/22/22 09:32 03/22/22 09:45 03/22/22 09:49 Temperature Pulse Rate 219 H 92 96 Pulse Rate [Right Pulse Oximeter] Pulse Rate [orthos tatic lying Pulse Oximeter] Pulse Rate [orthos tatic sitting Puls e Oximeter] Pulse Rate [orthos tatic standing Pul se Oximeter] Respiratory Rate Blood Pressure 135/71 126/73 Blood Pressure [Ri ght Upper Arm] Blood Pressure [or thostatic lying Ri ght Arm] Blood Pressure [or thostatic sitting Right Arm] Blood Pressure [or thostatic standing Right Arm] Pulse Oximetry 84 L 99 97 Oxygen Delivery Me thod 03/22/22 09:51 03/22/22 10:01 Temperature Pulse Rate 103 H 93 Pulse Rate [Right Pulse Oximeter] Pulse Rate [orthos tatic lying Pulse Oximeter] Pulse Rate [orthos tatic sitting Puls e Oximeter] Pulse Rate [orthos tatic standing Pul se Oximeter] Respiratory Rate Blood Pressure 112/62 128/78 Blood Pressure [Ri ght Upper Arm] Blood Pressure [or thostatic lying Ri ght Arm] Blood Pressure [or thostatic sitting Right Arm] Blood Pressure [or thostatic standing Right Arm] Pulse Oximetry 99 95 Oxygen Delivery Me thod Course Course Hospital Course: Pt seen and examined. CT of head without contrast, cbc, electrolytes, d dimer, ekg, troponin, lactate, amylase ordered. Normal saline bolus given. Reevaluation(s) Reevaluation #1: Pt still feeling fine. CT of head unchanged from previous. D dimer relatively low at 0.79. Troponin neg. WBC 13.75, Hgb 11.2. Lactate 2.7. Pt given bolus of fluids. Orthostatics collected. Time: 09:49 Vital Signs Vital signs: Initial Vital Signs Temperature 98.0 F 03/22/22 07:43 Temperature Source Temporal Artery Scan 03/22/22 07:43 Pulse Rate 96 03/22/22 07:43 Respiratory Rate 18 03/22/22 07:43 Blood Pressure 115/67 03/22/22 07:43 Blood Pressure Mean 83 03/22/22 07:43 Blood Pressure Position Sitting 03/22/22 07:43 Pulse Oximetry 98 03/22/22 07:43 Oxygen Delivery Method 03/22/22 07:43 Vital Signs Temperature 98.0 F 03/22/22 07:43 Pulse Rate 96 03/22/22 07:43 Respiratory Rate 18 03/22/22 07:43 Blood Pressure 115/67 03/22/22 07:43 Pulse Oximetry 98 03/22/22 07:43 Oxygen Delivery Method 03/22/22 07:43 Temperature 98.0 F 03/22/22 07:43 Pulse Rate 93 03/22/22 10:01 Respiratory Rate 16 03/22/22 08:40 Blood Pressure 128/78 03/22/22 10:01 Pulse Oximetry 95 03/22/22 10:01 Oxygen Delivery Method 03/22/22 07:43 MDM - Weakness MDM Narrative Medical decision making narrative: Pt presents with a presyncopal episode on the toilet. Pt comes in with stable vital signs and a normal exam. Labs reviewed by me showed mild leukocytosis and mild anemia. D dimer borderline but with normal sat and resp effort. PE is unlikely. EKG negative upon my review. Head CT shows unchanged intraparenchymal hemorrhage. Pt feeling well and ambulates well. We will let her go home with PCP follow up. Differential Diagnosis Differential diagnosis: Likely acute myocardial infarction, anemia, hypoglycemia, hypothyroidism, rhabdomyolysis, sepsis and dehydration Lab Data Labs: Lab Results 03/22/22 03/22/22 03/22/22 Range/Units 08:06 08:50 08:50 WBC 13.75 H (4.50-11.00) K/uL RBC 4.34 (4.00-5.20) m/uL Hgb 11.2 L (12.0-16.0) gm/dL Hct 35.1 (33.0-51.0) % MCV 81 (80-100) fL MCH 26 (26-34) pg MCHC 32 (32-36) gm/dL RDW Coeff of Emily 15.5 (11.5-15.5) % Plt Count 409 (140-440) K/uL Neut % (Auto) 88.9 H (42.0-72.0) % Lymph % (Auto) 5.2 L (20-44) % [place] % (Auto) 5.3 (0.0-11.0) % Eos % (Auto) 0.2 (0.0-7.0) % Baso % (Auto) 0.1 (0.0-3.0) % Neut # (Auto) 12.20 H (1.7-7.0) K/uL Lymph # (Auto) 0.70 L (0.90-2.90) K/uL [place] # (Auto) 0.70 (0.00-0.90) K/UL Eos # (Auto) 0.00 (0.00-0.50) K/uL Baso # (Auto) 0.00 (0.00-0.30) K/uL D-Dimer Quant (PE/DVT) 0.79 H (0.00-0.50) ug/ml Sodium (135-149) mmol/L Potassium (3.6-5.1) mmol/L Chloride (96-114) mmol/L Carbon Dioxide (20-32) mmol/L BUN (7-30) mg/dL Creatinine (0.5-1.5) mg/dL Estimated Creat Clear Estimated GFR ml/min Glucose (60-115) mg/dL Lactate (0.5-1.9) mmol/L Calcium (8.4-10.6) mg/dL Total Bilirubin (0.1-1.5) mg/dL AST (12-35) U/L ALT (4-35) U/L Alkaline Phosphatase (40-150) U/L Troponin I (0.01-0.04) ng/mL Total Protein (6.0-8.3) g/dL Albumin (3.3-5.0) g/dL Amylase (18-89) U/L Urine Color (Yellow) Urine Appearance (Clear) Urine pH (5.0-8.5) Ur Specific [place] (1.000-1.030) Urine Protein (Negative) Urine Glucose (UA) (Negative) Urine Ketones (Negative) Urine Blood (Negative) Urine Nitrite (Negative) Urine Bilirubin (Negative) Urine Urobilinogen (0.2-1.0) Ur Leukocyte Esterase (Negative) SARS-CoV-2 (PCR) Negative SARS-CoV-2 (Negative) Influenza Type A (PCR) Negative PCR FLU A (Negative) Influenza Type B (PCR) Negative PCR FLU B (Negative) RSV (PCR) Negative PCR RSV (Negative) 03/22/22 03/22/22 03/22/22 Range/Units 08:50 08:50 09:38 WBC (4.50-11.00) K/uL RBC (4.00-5.20) m/uL Hgb (12.0-16.0) gm/dL Hct (33.0-51.0) % MCV (80-100) fL MCH (26-34) pg MCHC (32-36) gm/dL RDW Coeff of Emily (11.5-15.5) % Plt Count (140-440) K/uL Neut % (Auto) (42.0-72.0) % Lymph % (Auto) (20-44) % [place] % (Auto) (0.0-11.0) % Eos % (Auto) (0.0-7.0) % Baso % (Auto) (0.0-3.0) % Neut # (Auto) (1.7-7.0) K/uL Lymph # (Auto) (0.90-2.90) K/uL [place] # (Auto) (0.00-0.90) K/UL Eos # (Auto) (0.00-0.50) K/uL Baso # (Auto) (0.00-0.30) K/uL D-Dimer Quant (PE/DVT) (0.00-0.50) ug/ml Sodium 134 L (135-149) mmol/L Potassium 3.7 (3.6-5.1) mmol/L Chloride 101 (96-114) mmol/L Carbon Dioxide 24 (20-32) mmol/L BUN 14 (7-30) mg/dL Creatinine 0.6 (0.5-1.5) mg/dL Estimated Creat Clear 38.37 Estimated GFR 95 ml/min Glucose 162 H (60-115) mg/dL Lactate 2.7 H (0.5-1.9) mmol/L Calcium 8.9 (8.4-10.6) mg/dL Total Bilirubin 0.3 (0.1-1.5) mg/dL AST 20 (12-35) U/L ALT 22 (4-35) U/L Alkaline Phosphatase 53 (40-150) U/L Troponin I < 0.01 L (0.01-0.04) ng/mL Total Protein 6.5 (6.0-8.3) g/dL Albumin 3.8 (3.3-5.0) g/dL Amylase 69 (18-89) U/L Urine Color Yellow (Yellow) Urine Appearance Clear (Clear) Urine pH 7.5 (5.0-8.5) Ur Specific [place] 1.020 (1.000-1.030) Urine Protein Negative (Negative) Urine Glucose (UA) Negative (Negative) Urine Ketones Negative (Negative) Urine Blood Negative (Negative) Urine Nitrite Negative (Negative) Urine Bilirubin Negative (Negative) Urine Urobilinogen 0.2 (0.2-1.0) Ur Leukocyte Esterase Negative (Negative) SARS-CoV-2 (PCR) (Negative) Influenza Type A (PCR) (Negative) Influenza Type B (PCR) (Negative) RSV (PCR) (Negative) Discharge Plan Discharge Clinical Impression: Pre-syncope Condition: Stable Instructions: Near Syncope (ED) Activity Level: No Restrictions Discharge Diet: Regular Prescriptions: No Action metformin 500 mg tablet 1,000 mg PO DAILY Label Comments: TAKE TWO TABLETS BY MOUTH TWICE DAILY WITH MEALS potassium chloride 10 mEq tablet extended release 10 meq PO DAILY Label Comments: TAKE ONE TABLET BY MOUTH ONE TIME DAILY WITH A MEAL. (DME) Contour Test Strips Strip MISCELLANEOUS Label Comments: USE TO TEST BLOOD GLUCOSE 2 TIMES DAILY DIRECTED simvastatin 40 mg tablet 40 mg PO HS nortriptyline 25 mg capsule 25 mg PO DAILY Label Comments: TAKE ONE CAPSULE BY MOUTH ONE TIME DAILY AT BEDTIME risperidone 2 mg tablet 2 mg PO HS Label Comments: TAKE ONE TABLET BY MOUTH ONE TIME DAILY AT BEDTIME lorazepam 0.5 mg tablet 0.5 mg PO DAILY PRN (Reason: anxiety) Label Comments: TAKE ONE TABLET BY MOUTH DAILY NEEDED hydrochlorothiazide 25 mg tablet 25 mg PO DAILY risperidone 1 mg tablet 1 mg PO DAILY naproxen 500 mg tablet 500 mg PO BID PRN (Reason: pain) Label Comments: with meals levothyroxine 112 mcg tablet 112 mcg PO DAILY Label Comments: TAKE ONE TABLET BY MOUTH ONE TIME DAILY acetaminophen 500 mg tablet 1,000 mg PO Q6H PRN Follow Up/Referrals: Rylee Cruz MD [Primary Care Provider] - Stand Alone Forms: [email or web address] Info Instructions
[2022-03-22] MEDS: 0.9 % SODIUM CHLORIDE 1000 ml 1,000 ML IV (08:57)
[2022-03-22 08:59] LABS: Lactate* 2.7 mmol/L (0.5-1.9)
[2022-03-22 09:00] LABS: Basophils Percent Auto 0.1 % (0.0-3.0); Eosinophils Percent Auto 0.2 % (0.0-7.0); Hematocrit 35.1 % (33.0-51.0); Hemoglobin* 11.2 gm/dL (12.0-16.0); Immature Granulocytes Pct Auto 0.3 %; Lymphocytes Percent Auto 5.2 % (20-44); Mean Corpuscular HGB Conc 32 gm/dL (32-36); Mean Corpuscular Hemoglobin 26 pg (26-34); Mean Corpuscular Volume 81 fL (80-100); Monocytes Percent Auto 5.3 % (0.0-11.0); Neutrophils Percent Auto 88.9 % (42.0-72.0); Platelet Count* 409 K/uL (140-440); RDW Coefficient of Variation % 15.5 % (11.5-15.5); Red Blood Count 4.34 m/uL (4.00-5.20); White Blood Count* 13.75 K/uL (4.50-11.00)
[2022-03-22 09:01] LABS: Slide Review Reflex No
[2022-03-22 09:04] LABS: PCR FLU A Negative PCR FLU A (Negative); PCR FLU B Negative PCR FLU B (Negative); PCR RSV Negative PCR RSV (Negative)
[2022-03-22 09:17] LABS: SARS PCR* Negative SARS-CoV-2 (Negative)
[2022-03-22 09:17] LABS: Albumin* 3.8 g/dL (3.3-5.0)
[2022-03-22 09:18] LABS: Chloride* 101 mmol/L (96-114); Potassium* 3.7 mmol/L (3.6-5.1); Sodium* 134 mmol/L (135-149)
[2022-03-22 09:20] LABS: Bilirubin Total* 0.3 mg/dL (0.1-1.5); Creatinine* 0.6 mg/dL (0.5-1.5); Est. Creatinine Clearance* 38.37; Estimated Glomerular Filt Rate 95 ml/min
[2022-03-22 09:21] LABS: Alanine Aminotransferase* 22 U/L (4-35); Alkaline Phosphatase* 53 U/L (40-150); Aspartate Amino Transferase* 20 U/L (12-35); Blood Urea Nitrogen* 14 mg/dL (7-30); Calcium* 8.9 mg/dL (8.4-10.6); Carbon Dioxide* 24 mmol/L (20-32); Glucose* 162 mg/dL (60-115); Total Protein* 6.5 g/dL (6.0-8.3)
[2022-03-22 09:22] LABS: D Dimer Quantitative* 0.79 ug/ml (0.00-0.50)
[2022-03-22 09:36] LABS: Amylase* 69 U/L (18-89)
[2022-03-22 09:40] LABS: Troponin I* < 0.01 ng/mL (0.01-0.04)
[2022-03-22 09:52] LABS: Appearance Urine Clear (Clear); Bilirubin Urine Negative (Negative); Blood Urine Negative (Negative); Color Urine Yellow (Yellow); Glucose Urine Negative (Negative); Ketones Urine Negative (Negative); Leukocyte Esterase Urine Negative (Negative); Nitrite Urine Negative (Negative); Protein Urine Negative (Negative); Urobilinogen Urine 0.2 (0.2-1.0); pH Urine 7.5 (5.0-8.5)
--- NOTE | 2022-03-22 10:46 | PC.NURSE ---
Ambulated around unit with walker and a gait belt. Patient stated that she has PT/OT and HHC at home already. Has a walker that is to be delivered any day. Lives with a roommate as well. Patient was discharged home with friend, Sharri. All questions answered.
== END 2022-03-22 10:49 | disposition home or self-care (01) ==
PROVIDERS: Emergency Provider Internal Medicine; PCP Family Medicine
DX: R55 Syncope and collapse (principal)
CPT/HCPCS: 36415; 70450; 80053; 81003; 82150; 83605; 84484; 85025; 85379; 87502; 87634; 87635; 93005; 96360; 99283; 99284; 99285; J7030

== ENCOUNTER 2022-12-04 02:30 | Outpatient (CLI) | payer MEDICARE, BC, SELFPAY | END 2022-12-04 02:31 | disposition home or self-care (01) | LOC: AMB 12-08 14:27 | PROVIDERS: PCP Family Medicine; Visit Provider Family Medicine | DX: R53.1 Weakness (principal) | CPT/HCPCS: A0998 ==

== ENCOUNTER 2022-12-04 10:00 | Outpatient (CLI) | payer MEDICARE, BC, SELFPAY | END 2022-12-04 10:01 | disposition home or self-care (01) | LOC: AMB 12-08 14:30 | PROVIDERS: PCP Family Medicine; Visit Provider Emergency Medicine | DX: R53.1 Weakness (principal) | CPT/HCPCS: A0425; A0427; A0998 ==

== ENCOUNTER 2022-12-04 10:24 | Emergency (ER) | payer MEDICARE, BC, SELFPAY ==
[2022-12-04] VITALS (9 sets, daily range): BP systolic 111–137; BP diastolic 68–83; PULSE 82–103; RESP 10–19; TEMP 36.2; O2SAT 7–98; BMI 27.2
[2022-12-04 11:16] LABS: Troponin, Point-of-Care* 0.02 ng/ml (0.01-0.04)
[2022-12-04 11:20] LABS: Lactate* 2.7 mmol/L (0.5-1.9)
--- NOTE | 2022-12-04 11:21 | ED_ITS ---
HPI - General Adult General Chief complaint: Weakness Stated complaint: Altered Mental status Time Seen by Provider: 12/04/22 11:06 Source: patient and EMS Mode of arrival: EMS Limitations: no limitations History of Present Illness HPI narrative: Patient is a 72-year-old woman who arrives via EMS after a couple of falls, noting some generalized weakness. She says this is not a new problem for her, she was here back in February she says and at that time was given some exercises to do to work on strengthening. She notes that she has kind of fallen off the wagon with those exercises and has noted increased generalized weakness and weakness in her legs. She had a fall last night, EMS was called and she did not want come in. She says this morning she had gotten up to go to the bathroom, on the way back started to feel lightheaded and went to sit down on the bed, slipped off the edge and landed on the ground. She was not able to get up and EMS was called again. She denies any injuries from either of these falls. She does not have any focal weakness, denies any recent illness, fevers, chest pain, palpitations, fainting, shortness of breath, abdominal or back pain, vomiting, black or bloody stools. She says she has problems intermittently with diarrhea if she isn't careful what she eats. She lives with a roommate of 30 years, woman in her 80s, who she says is in very good health. She does not smoke or drink. Related Data Home Medications Medication Instructions Recorded Confirmed acetaminophen 500 mg tablet 1,000 mg PO Q6H PRN 10/16/21 03/22/22 blood sugar diagnostic (Contour 10/16/21 10/16/21 Test Strips) hydrochlorothiazide 25 mg tablet 25 mg PO DAILY 10/16/21 03/22/22 levothyroxine 112 mcg tablet 112 mcg PO DAILY 10/16/21 03/22/22 lorazepam 0.5 mg tablet 0.5 mg PO DAILY PRN anxiety 10/16/21 03/22/22 metformin 500 mg tablet 1,000 mg PO DAILY 10/16/21 03/22/22 naproxen 500 mg tablet 500 mg PO BID PRN pain 10/16/21 10/16/21 nortriptyline 25 mg capsule 25 mg PO DAILY 10/16/21 03/22/22 potassium chloride 10 mEq 10 meq PO DAILY 10/16/21 03/22/22 tablet,extended release risperidone 1 mg tablet 1 mg PO DAILY 10/16/21 03/22/22 risperidone 2 mg tablet 2 mg PO HS 10/16/21 03/22/22 simvastatin 40 mg tablet 40 mg PO 10/16/21 03/22/22 Allergies Allergy/AdvReac Type Severity Reaction Status Date / Time cholecalciferol (vitamin D3) Allergy Unknown Confusion Verified 03/22/22 07:50 [From Vitamin D3] cyanocobalamin (vitamin B12) Allergy Unknown Verified 03/22/22 07:50 grapefruit Allergy Unknown Verified 03/22/22 07:50 Penicillins Allergy Unknown Verified 03/22/22 07:50 Sulfa (Sulfonamide Allergy Unknown Verified 03/22/22 07:50 Antibiotics) eucalyptus AdvReac Unknown Verified 03/22/22 07:50 lisinopril AdvReac Confusion Verified 03/22/22 07:50 Review of Systems Status of ROS: Reports: 10 or more systems reviewed and unremarkable except as noted in History and below [facility] Medical History Hyperlipidemia ?E78.5 - Hyperlipidemia, unspecified (ICD-10) Tremor ?R25.1 - Tremor, unspecified (ICD-10) Diabetes mellitus ?E11.9 - Type 2 diabetes mellitus without complications (ICD-10) Hypothyroidism ?E03.9 - Hypothyroidism, unspecified (ICD-10) Hypertension ?I10 - Essential (primary) hypertension (ICD-10) Anxiety ?F41.9 - Anxiety disorder, unspecified (ICD-10) Intraparenchymal hemorrhage of brain ?I61.9 - Nontraumatic intracerebral hemorrhage, unspecified (ICD-10) Social History Smoking Status: Former smoker Do you use any of these nicotine containing products: None Second hand tobacco smoke exposure: No How often do you have a drink containing alcohol: never How often do you have six or more drinks on one occasion: Never AUDIT-C Alcohol total score: 0 Non-prescribed substance use: denies use Exam Const: Vital Signs, click to edit/add: Vital Signs - 24 hr 12/04/22 10:30 12/04/22 10:30 12/04/22 11:00 Temperature 97.2 F L Pulse Rate [Right Pulse Oximeter] 103 H 95 95 Respiratory Rate 18 19 19 Blood Pressure [Ri ght Upper Arm] 132/76 112/79 112/74 Pulse Oximetry 98 93 96 Oxygen Delivery Me thod Room Air Room Air Room Air 12/04/22 11:30 12/04/22 12:00 12/04/22 12:30 Temperature Pulse Rate [Right Pulse Oximeter] 91 82 89 Respiratory Rate 11 L 10 L 14 Blood Pressure [Ri ght Upper Arm] 111/69 118/68 121/72 Pulse Oximetry 96 98 97 Oxygen Delivery Me thod Room Air Room Air Room Air 12/04/22 12:55 Temperature Pulse Rate [Right Pulse Oximeter] 87 Respiratory Rate 16 Blood Pressure [Ri ght Upper Arm] 137/83 Pulse Oximetry 7 L Oxygen Delivery Me thod Room Air Course Course ED Course: Following initial evaluation, I have ordered an IV and a L of normal saline. EKG was done by my review shows normal sinus rhythm, ventricular rate of 99 beats per minute. No acute ST segment changes, T-waves are unremarkable. Point of care troponin is 0.02. Thus far, labs are notable for a white count of 8.92, hemoglobin of 10.4, baseline seems to run between 10 and half to 11. Her sodium was mildly low 129, chloride 95, potassium normal. BUN and creatinine normal. Blood sugar was 203, known history of diabetes on metformin. Lactate was elevated at 2.7, will repeat this after fluids. No complaints on history or findings on exam to suggest likely sepsis. LFTs unremarkable, CRP is 1.2. COVID and TSH are still pending, as is a UA. She has had a meal here and has been drinking fluids without difficulty. COVID was negative, TSH was depressed at .138, and free T4 was elevated at 3.2. UA was unremarkable aside from ketones. I repeated a lactate after fluids and is improved. She was ambulatory here without difficulty, would prefer to go home which I think is reasonable. I did discuss her lab findings with her. She does not show any evidence of severe symptomology from her elevated T4, discussed with her that this does need to be followed up, worked up further and likely treated, but this can be done through her primary clinic. If at any time she is acutely worsening, develops new symptoms such as fever, palpitations, lightheadedness or fainting, chest pain, difficulty breathing etcetera return to the emergency department. Primary care follow-up in the next week for further evaluation of hyperthyroidism. Vital Signs Vital signs: Initial Vital Signs Temperature 97.2 F L 12/04/22 10:30 Temperature Source Temporal Artery Scan 12/04/22 10:30 Pulse Rate 103 H 12/04/22 10:30 Respiratory Rate 18 12/04/22 10:30 Respiratory Effort Normal 12/04/22 10:30 Respiratory Depth Normal 12/04/22 10:30 Blood Pressure 132/76 12/04/22 10:30 Blood Pressure Mean 94 12/04/22 10:30 Blood Pressure Position Sitting 12/04/22 10:30 Pulse Oximetry 98 12/04/22 10:30 Oxygen Delivery Method Room Air 12/04/22 10:30 Vital Signs Temperature 97.2 F L 12/04/22 10:30 Pulse Rate 103 H 12/04/22 10:30 Respiratory Rate 18 12/04/22 10:30 Blood Pressure 132/76 12/04/22 10:30 Pulse Oximetry 98 12/04/22 10:30 Oxygen Delivery Method Room Air 12/04/22 10:30 Temperature 97.2 F L 12/04/22 10:30 Pulse Rate 87 12/04/22 12:55 Respiratory Rate 16 12/04/22 12:55 Blood Pressure 137/83 12/04/22 12:55 Pulse Oximetry 7 L 12/04/22 12:55 Oxygen Delivery Method Room Air 12/04/22 12:55 Medical Decision Making Lab Data Labs: Lab Results 12/04/22 12/04/22 12/04/22 Range/Units 10:49 11:14 11:20 WBC 8.92 (4.50-11.00) K/uL RBC 4.49 (4.00-5.20) m/uL Hgb 10.4 L (12.0-16.0) gm/dL Hct 32.9 L (33.0-51.0) % MCV 73 L (80-100) fL MCH 23 L (26-34) pg MCHC 32 (32-36) gm/dL RDW Coeff of Emily 17.1 H (11.5-15.5) % Plt Count 411 (140-440) K/uL Neut % (Auto) 80.1 H (42.0-72.0) % Lymph % (Auto) 8.3 L (20-44) % [place] % (Auto) 11.0 (0.0-11.0) % Eos % (Auto) 0.2 (0.0-7.0) % Baso % (Auto) 0.3 (0.0-3.0) % Neut # (Auto) 7.10 H (1.7-7.0) K/uL Lymph # (Auto) 0.70 L (0.90-2.90) K/uL [place] # (Auto) 1.00 H (0.00-0.90) K/UL Eos # (Auto) 0.02 (0.00-0.50) K/uL Baso # (Auto) 0.03 (0.00-0.30) K/uL Abs Immat Gran (auto) 0.01 (0.00-0.30) K/uL Imm/Tot Granulo (auto) 0.1 % Sodium 129 L (135-149) mmol/L Potassium 4.5 (3.6-5.1) mmol/L Chloride 95 L (96-114) mmol/L Carbon Dioxide 22 (20-32) mmol/L Anion Gap 12 (7-15) mEq/L BUN 7 (7-30) mg/dL Creatinine 0.5 (0.5-1.5) mg/dL Estimated Creat Clear 37.81 Estimated GFR 99 ml/min Glucose 203 H (60-115) mg/dL Lactate 2.7 H (0.5-1.9) mmol/L Calcium 9.1 (8.4-10.6) mg/dL Total Bilirubin 0.7 (0.1-1.5) mg/dL Direct Bilirubin 0.3 (0.0-0.5) mg/dL AST 67 H (12-35) U/L ALT 22 (4-35) U/L Alkaline Phosphatase 47 (40-150) U/L C-Reactive Protein 1.2 H (0.5-1.0) mg/dL Total Protein 7.1 (6.0-8.3) g/dL Albumin 3.9 (3.3-5.0) g/dL TSH 0.138 L (0.270-4.200) uIU/mL Free T4 3.20 H (0.70-1.85) ng/dL Urine Color Yellow (Yellow) Urine Appearance Clear (Clear) Urine pH 8.0 (5.0-8.5) Ur Specific [place] 1.015 (1.000-1.030) Urine Protein Negative (Negative) Urine Glucose (UA) Negative (Negative) Urine Ketones 2+ A (Negative) Urine Blood Negative (Negative) Urine Nitrite Negative (Negative) Urine Bilirubin Negative (Negative) Urine Urobilinogen 0.2 (0.2-1.0) Ur Leukocyte Esterase Trace A (Negative) Urine RBC 0-2 (0-2) Urine WBC 2-5 (0-5) Ur Squamous Epith Cells Few (None-Few) Amorphous Sediment Moderate A (None) Urine Bacteria None (None) SARS-CoV-2 (PCR) Negative SARS-CoV-2 (Negative) Influenza Type A (PCR) Negative PCR FLU A (Negative) Influenza Type B (PCR) Negative PCR FLU B (Negative) RSV (PCR) Negative PCR RSV (Negative) POC Troponin I 0.02 (0.01-0.04) ng/ml 12/04/22 Range/Units 12:48 WBC (4.50-11.00) K/uL RBC (4.00-5.20) m/uL Hgb (12.0-16.0) gm/dL Hct (33.0-51.0) % MCV (80-100) fL MCH (26-34) pg MCHC (32-36) gm/dL RDW Coeff of Emily (11.5-15.5) % Plt Count (140-440) K/uL Neut % (Auto) (42.0-72.0) % Lymph % (Auto) (20-44) % [place] % (Auto) (0.0-11.0) % Eos % (Auto) (0.0-7.0) % Baso % (Auto) (0.0-3.0) % Neut # (Auto) (1.7-7.0) K/uL Lymph # (Auto) (0.90-2.90) K/uL [place] # (Auto) (0.00-0.90) K/UL Eos # (Auto) (0.00-0.50) K/uL Baso # (Auto) (0.00-0.30) K/uL Abs Immat Gran (auto) (0.00-0.30) K/uL Imm/Tot Granulo (auto) % Sodium (135-149) mmol/L Potassium (3.6-5.1) mmol/L Chloride (96-114) mmol/L Carbon Dioxide (20-32) mmol/L Anion Gap (7-15) mEq/L BUN (7-30) mg/dL Creatinine (0.5-1.5) mg/dL Estimated Creat Clear Estimated GFR ml/min Glucose (60-115) mg/dL Lactate 2.0 H (0.5-1.9) mmol/L Calcium (8.4-10.6) mg/dL Total Bilirubin (0.1-1.5) mg/dL Direct Bilirubin (0.0-0.5) mg/dL AST (12-35) U/L ALT (4-35) U/L Alkaline Phosphatase (40-150) U/L C-Reactive Protein (0.5-1.0) mg/dL Total Protein (6.0-8.3) g/dL Albumin (3.3-5.0) g/dL TSH (0.270-4.200) uIU/mL Free T4 (0.70-1.85) ng/dL Urine Color (Yellow) Urine Appearance (Clear) Urine pH (5.0-8.5) Ur Specific [place] (1.000-1.030) Urine Protein (Negative) Urine Glucose (UA) (Negative) Urine Ketones (Negative) Urine Blood (Negative) Urine Nitrite (Negative) Urine Bilirubin (Negative) Urine Urobilinogen (0.2-1.0) Ur Leukocyte Esterase (Negative) Urine RBC (0-2) Urine WBC (0-5) Ur Squamous Epith Cells (None-Few) Amorphous Sediment (None) Urine Bacteria (None) SARS-CoV-2 (PCR) (Negative) Influenza Type A (PCR) (Negative) Influenza Type B (PCR) (Negative) RSV (PCR) (Negative) POC Troponin I (0.01-0.04) ng/ml Discharge Plan Discharge Clinical Impression: Hyperthyroidism, Weakness Patient Disposition: Home, Self-Care Condition: Improved Instructions: Hyperthyroidism (ED) Additional Instructions: Please follow-up with your regular clinic in the next week for further evaluation/possible treatment of elevated thyroid hormone levels. If you have worsening weakness, recurrent falls, develop new symptoms such as fever, chest pain, difficulty breathing, palpitations, fainting etcetera return to the emergency department. Prescriptions: No Action metformin 500 mg tablet 1,000 mg PO DAILY Patient Comments: TAKE TWO TABLETS BY MOUTH TWICE DAILY WITH MEALS potassium chloride 10 mEq tablet extended release 10 meq PO DAILY Patient Comments: TAKE ONE TABLET BY MOUTH ONE TIME DAILY WITH A MEAL. (DME) Contour Test Strips Strip MISCELLANEOUS Patient Comments: USE TO TEST BLOOD GLUCOSE 2 TIMES DAILY DIRECTED simvastatin 40 mg tablet 40 mg PO HS nortriptyline 25 mg capsule 25 mg PO DAILY Patient Comments: TAKE ONE CAPSULE BY MOUTH ONE TIME DAILY AT BEDTIME risperidone 2 mg tablet 2 mg PO HS Patient Comments: TAKE ONE TABLET BY MOUTH ONE TIME DAILY AT BEDTIME lorazepam 0.5 mg tablet 0.5 mg PO DAILY PRN (Reason: anxiety) Patient Comments: TAKE ONE TABLET BY MOUTH DAILY NEEDED hydrochlorothiazide 25 mg tablet 25 mg PO DAILY risperidone 1 mg tablet 1 mg PO DAILY naproxen 500 mg tablet 500 mg PO BID PRN (Reason: pain) Patient Comments: with meals levothyroxine 112 mcg tablet 112 mcg PO DAILY Patient Comments: TAKE ONE TABLET BY MOUTH ONE TIME DAILY acetaminophen 500 mg tablet 1,000 mg PO Q6H PRN Follow Up/Referrals: Rylee Cruz MD [Primary Care Provider] - Stand Alone Forms: [employer] Info Instructions
[2022-12-04 11:26] LABS: Basophils Absolute Auto 0.03 K/uL (0.00-0.30); Basophils Percent Auto 0.3 % (0.0-3.0); Eosinophils Absolute Auto 0.02 K/uL (0.00-0.50); Eosinophils Percent Auto 0.2 % (0.0-7.0); Hematocrit 32.9 % (33.0-51.0); Hemoglobin* 10.4 gm/dL (12.0-16.0); Immature Granulocytes Abs Auto 0.01 K/uL (0.00-0.30); Immature Granulocytes Pct Auto 0.1 %; Lymphocytes Percent Auto 8.3 % (20-44); Mean Corpuscular HGB Conc 32 gm/dL (32-36); Mean Corpuscular Hemoglobin 23 pg (26-34); Mean Corpuscular Volume 73 fL (80-100); Neutrophils Percent Auto 80.1 % (42.0-72.0); Platelet Count* 411 K/uL (140-440); RDW Coefficient of Variation % 17.1 % (11.5-15.5); Red Blood Count 4.49 m/uL (4.00-5.20); White Blood Count* 8.92 K/uL (4.50-11.00)
[2022-12-04] MEDS: 0.9 % SODIUM CHLORIDE 1000 ml 1,000 ML IV (11:27)
[2022-12-04 11:30] LABS: Slide Review Reflex No
[2022-12-04 11:46] LABS: Chloride* 95 mmol/L (96-114)
[2022-12-04 11:47] LABS: Albumin* 3.9 g/dL (3.3-5.0); Sodium* 129 mmol/L (135-149)
[2022-12-04 11:48] LABS: Potassium* 4.5 mmol/L (3.6-5.1)
[2022-12-04 11:49] LABS: Creatinine* 0.5 mg/dL (0.5-1.5); Est. Creatinine Clearance* 37.81; Estimated Glomerular Filt Rate 99 ml/min
[2022-12-04 11:50] LABS: Alanine Aminotransferase* 22 U/L (4-35); Alkaline Phosphatase* 47 U/L (40-150); Anion Gap 12 mEq/L (7-15); Aspartate Amino Transferase* 67 U/L (12-35); Bilirubin Direct* 0.3 mg/dL (0.0-0.5); Bilirubin Total* 0.7 mg/dL (0.1-1.5); Blood Urea Nitrogen* 7 mg/dL (7-30); Carbon Dioxide* 22 mmol/L (20-32); Glucose* 203 mg/dL (60-115); Total Protein* 7.1 g/dL (6.0-8.3)
[2022-12-04 11:51] LABS: Calcium* 9.1 mg/dL (8.4-10.6)
[2022-12-04 11:53] LABS: C Reactive Protein* 1.2 mg/dL (0.5-1.0)
[2022-12-04 12:21] LABS: TSH With Reflex to FT4* 0.138 uIU/mL (0.270-4.200)
[2022-12-04 12:23] LABS: PCR FLU A Negative PCR FLU A (Negative); PCR FLU B Negative PCR FLU B (Negative); PCR RSV Negative PCR RSV (Negative)
[2022-12-04 12:32] LABS: SARS PCR* Negative SARS-CoV-2 (Negative)
[2022-12-04 12:51] LABS: Appearance Urine Clear (Clear); Bilirubin Urine Negative (Negative); Blood Urine Negative (Negative); Color Urine Yellow (Yellow); Glucose Urine Negative (Negative); Ketones Urine 2+ (Negative); Leukocyte Esterase Urine Trace (Negative); Nitrite Urine Negative (Negative); Protein Urine Negative (Negative); Specific Gravity Urine 1.015 (1.000-1.030); Urobilinogen Urine 0.2 (0.2-1.0)
[2022-12-04 13:08] LABS: Amorphous Sediment Urine Moderate; RBC Urine 0-2 (0-2); Squamous Epithelial Cell Urine Few (None-Few)
== END 2022-12-04 14:28 | disposition home or self-care (01) ==
PROVIDERS: Emergency Provider Emergency Medicine; PCP Family Medicine
DX: E03.9 Hypothyroidism, unspecified (principal); R53.1 Weakness
CPT/HCPCS: 36415; 80048; 80076; 81001; 83605; 84439; 84443; 84484; 85025; 86140; 87631; 93005; 99284; J7030

== ENCOUNTER 2023-04-26 08:32 | Outpatient (CLI) | payer MEDICARE, BC, SELFPAY | END 2023-04-26 08:33 | disposition home or self-care (01) | LOC: AMB 04-30 12:23 | PROVIDERS: PCP Family Medicine; Visit Provider Emergency Medicine Emergency Medical Services | DX: R55 Syncope and collapse (principal); R19.7 Diarrhea, unspecified | CPT/HCPCS: A0425; A0427 ==

== ENCOUNTER 2023-04-26 09:01 | Emergency (ER) | payer MEDICARE, BC, SELFPAY ==
[2023-04-26] VITALS (15 sets, daily range): BP systolic 126–162; BP diastolic 76–87; PULSE 65–78; RESP 18; TEMP 36.6; O2SAT 98–100; BMI 26.5
--- NOTE | 2023-04-26 09:58 | ED.GENADULT ---
HPI - General Adult General Chief complaint: Syncope/Fainted Stated complaint: near syncope Time Seen by Provider: 04/26/23 09:45 History of Present Illness HPI narrative: This 72-year-old female comes in by ambulance because of a near syncopal event. She was on the toilet with some diarrhea and became lightheaded. She did not lose consciousness. EMS reported that her blood pressure was low upon their arrival. At the time of my visit she feels back to normal and has normal vital signs. She states that she has been having episodes of diarrhea and has had symptoms like this in the past when sitting on the toilet. Related Data Home Medications Medication Instructions Recorded Confirmed acetaminophen 500 mg tablet 1,000 mg PO Q6H PRN 10/16/21 03/22/22 blood sugar diagnostic (Contour 10/16/21 04/26/23 Test Strips) hydrochlorothiazide 25 mg tablet 25 mg PO DAILY 10/16/21 04/26/23 levothyroxine 112 mcg tablet 112 mcg PO DAILY 10/16/21 04/26/23 lorazepam 0.5 mg tablet 0.5 mg PO DAILY PRN anxiety 10/16/21 03/22/22 metformin 500 mg tablet 1,000 mg PO DAILY 10/16/21 04/26/23 naproxen 500 mg tablet 500 mg PO BID PRN pain 10/16/21 10/16/21 nortriptyline 25 mg capsule 25 mg PO DAILY 10/16/21 04/26/23 potassium chloride 10 mEq 10 meq PO DAILY 10/16/21 04/26/23 tablet,extended release risperidone 1 mg tablet 1 mg PO DAILY 10/16/21 04/26/23 risperidone 2 mg tablet 2 mg PO HS 10/16/21 03/22/22 simvastatin 40 mg tablet 40 mg PO HS 10/16/21 04/26/23 levothyroxine 100 mcg tablet 100 mcg PO QAM 04/26/23 04/26/23 Previous Rx's Medication Instructions Recorded ferrous sulfate 325 mg (65 mg 325 mg PO DAILY #10 tabs 04/26/23 iron) tablet (Iron (ferrous sulfate)) Allergies Allergy/AdvReac Type Severity Reaction Status Date / Time cholecalciferol (vitamin D3) Allergy Unknown Confusion Verified 04/26/23 09:10 [From Vitamin D3] cyanocobalamin (vitamin B12) Allergy Unknown Verified 04/26/23 09:10 grapefruit Allergy Unknown Verified 04/26/23 09:10 Penicillins Allergy Unknown Verified 04/26/23 09:10 Sulfa (Sulfonamide Allergy Unknown Verified 04/26/23 09:10 Antibiotics) eucalyptus AdvReac Unknown Verified 04/26/23 09:10 lisinopril AdvReac Confusion Verified 04/26/23 09:10 Review of Systems Status of ROS: Reports: 10 or more systems reviewed and unremarkable except as noted in History and below Narrative: Constitutional: No fevers, no weight gain or loss. Eyes: No discharge. No vision changes. HENT: No congestion, no sore throat, no ear pain. Cardiovascular: No chest pain, no palpitations. Respiratory: No shortness of breath, no wheezes, no cough. Gastrointestinal: No abdominal pain, no vomiting. Recurrent diarrhea. Genitourinary: No dysuria, no hematuria. Musculoskeletal: Normal range of motion. Skin: No rashes, no pruritis. Neurological: No weakness, sensory change, speech change. Endo/Heme/Allergies: No bruising or bleeding. No polydipsia. Pysch: no suicidality, no anxiety, no insomnia. All other systems reviewed and are negative. [facility] Medical History Hyperlipidemia ?E78.5 - Hyperlipidemia, unspecified (ICD-10) Tremor ?R25.1 - Tremor, unspecified (ICD-10) Diabetes mellitus ?E11.9 - Type 2 diabetes mellitus without complications (ICD-10) Hypothyroidism ?E03.9 - Hypothyroidism, unspecified (ICD-10) Hypertension ?I10 - Essential (primary) hypertension (ICD-10) Anxiety ?F41.9 - Anxiety disorder, unspecified (ICD-10) Intraparenchymal hemorrhage of brain ?I61.9 - Nontraumatic intracerebral hemorrhage, unspecified (ICD-10) Social History Smoking Status: Former smoker Do you use any of these nicotine containing products: None Second hand tobacco smoke exposure: No How often do you have a drink containing alcohol: never How often do you have six or more drinks on one occasion: Never AUDIT-C Alcohol total score: 0 Non-prescribed substance use: denies use Exam Narrative: Exam Narrative: Constitutional: Well-developed, well-nourished, no acute distress. HEENT: Normocephalic, atraumatic. Neck: Normal range of motion. Nontender. Supple. Heart: Regular. No murmurs. Normal rate. Intact distal pulses. Lungs: Clear to auscultation. No chest discomfort. No wheezes, rhonchi, or rales. Abdomen: Normal bowel sounds. Nontender. No rebound tenderness. Genitalia: Deferred. Back: No midline tenderness. Normal range of motion. Extremities: Normal range of motion. No injury. Skin: Intact. No rash. Warm. No erythema or pallor. Neurologic: No altered sensation. No weakness. Alert and oriented. Tremor in her left arm. Psychiatric: No suicidality. No anxiety or depression. No insomnia. Nursing notes and vitals signs are reviewed. Const: Vital Signs, click to edit/add: Vital Signs - 24 hr 04/26/23 09:06 04/26/23 09:20 04/26/23 09:30 Temperature 97.8 F Pulse Rate 78 75 Pulse Rate [Right Pulse Oximeter] 75 Respiratory Rate 18 Blood Pressure Blood Pressure [Ri ght Upper Arm] 131/76 Pulse Oximetry 99 99 99 Oxygen Delivery Me thod Room Air 04/26/23 09:31 04/26/23 09:45 04/26/23 10:00 Temperature Pulse Rate 65 66 67 Pulse Rate [Right Pulse Oximeter] Respiratory Rate Blood Pressure 126/76 Blood Pressure [Ri ght Upper Arm] Pulse Oximetry 99 99 99 Oxygen Delivery De thod 04/26/23 10:01 04/26/23 10:15 04/26/23 10:30 Temperature Pulse Rate 68 67 67 Pulse Rate [Right Pulse Oximeter] Respiratory Rate Blood Pressure 139/84 Blood Pressure [Ri ght Upper Arm] Pulse Oximetry 99 100 98 Oxygen Delivery De thod 04/26/23 10:31 04/26/23 10:45 04/26/23 11:00 Temperature Pulse Rate 67 71 71 Pulse Rate [Right Pulse Oximeter] Respiratory Rate Blood Pressure 147/84 H Blood Pressure [Ri ght Upper Arm] Pulse Oximetry 98 100 99 Oxygen Delivery De thod 04/26/23 11:01 04/26/23 11:02 04/26/23 11:15 Temperature Pulse Rate 73 72 70 Pulse Rate [Right Pulse Oximeter] Respiratory Rate Blood Pressure 162/87 H Blood Pressure [Ri ght Upper Arm] Pulse Oximetry 99 99 100 Oxygen Delivery Me thod Course Vital Signs Vital signs: Initial Vital Signs Temperature 97.8 F 04/26/23 09:06 Temperature Source Temporal Artery Scan 04/26/23 09:06 Pulse Rate 75 04/26/23 09:06 Pulse Rhythm Regular 04/26/23 09:06 Respiratory Rate 18 04/26/23 09:06 Blood Pressure 131/76 04/26/23 09:06 Blood Pressure Mean 94 04/26/23 09:06 Blood Pressure Position Semi-Fowlers 04/26/23 09:06 Pulse Oximetry 99 04/26/23 09:06 Oxygen Delivery Method Room Air 04/26/23 09:06 Vital Signs Temperature 97.8 F 04/26/23 09:06 Pulse Rate 75 04/26/23 09:06 Respiratory Rate 18 04/26/23 09:06 Blood Pressure 131/76 04/26/23 09:06 Pulse Oximetry 99 04/26/23 09:06 Oxygen Delivery Method Room Air 04/26/23 09:06 Temperature 97.8 F 04/26/23 09:06 Pulse Rate 70 04/26/23 11:15 Respiratory Rate 18 04/26/23 09:06 Blood Pressure 162/87 H 04/26/23 11:01 Pulse Oximetry 100 04/26/23 11:15 Oxygen Delivery Method Room Air 04/26/23 09:06 Medications Administered Medications: Discontinued Medications Generic Name Dose Route Start Last Admin Trade Name Freq PRN Reason Stop Dose Admin Sodium Chloride 1,000 mls @ 1,000 mls/hr 04/26/23 10:00 04/26/23 11:05 0.9 % Sodium Chloride 1000 Ml IV 04/26/23 10:59 Infused .Q1H LARRY Infusion Medical Decision Making MDM Narrative Medical decision making narrative: This patient comes in because of a lightheadedness episode that occurred while on the toilet with diarrhea. She states that she has been having recurrent diarrhea episodes. She also has had lightheadedness during passage of stool. An IV is established with the patient did receive a L of normal saline intravenously. She was able to get up and ambulate to the bathroom without any difficulty. Labs are acquired and they do return with finding that contributes to her symptoms. Her hemoglobin today is at 8.5. The previous result we have is from 5 months ago where she was at 10.4. Additionally her mean cell volume is rather low suggesting iron deficiency anemia. The patient does not report any blood loss. She is okay to be discharged home and I did provide a prescription for iron tablets but indicated that she will need to have further workup regarding this from her primary physician. I advised her to return if symptoms are recurrent or worsening. Lab Data Labs: Lab Results 04/26/23 Range/Units 10:16 WBC 9.08 (4.50-11.00) K/uL RBC 4.15 (4.00-5.20) m/uL Hgb 8.5 L (12.0-16.0) gm/dL Hct 28.0 L (33.0-51.0) % MCV 68 L (80-100) fL MCH 21 L (26-34) pg MCHC 30 L (32-36) gm/dL RDW Coeff of Emily 19.3 H (11.5-15.5) % Plt Count 513 H (140-440) K/uL Neut % (Auto) 81.9 H (42.0-72.0) % Lymph % (Auto) 6.9 L (20-44) % [place] % (Auto) 8.9 (0.0-11.0) % Eos % (Auto) 1.2 (0.0-7.0) % Baso % (Auto) 0.9 (0.0-3.0) % Neut # (Auto) 7.40 H (1.7-7.0) K/uL Lymph # (Auto) 0.60 L (0.90-2.90) K/uL [place] # (Auto) 0.80 (0.00-0.90) K/UL Eos # (Auto) 0.11 (0.00-0.50) K/uL Baso # (Auto) 0.08 (0.00-0.30) K/uL Abs Immat Gran (auto) 0.02 (0.00-0.30) K/uL Imm/Tot Granulo (auto) 0.2 % Sodium 130 L (135-149) mmol/L Potassium 3.3 L (3.6-5.1) mmol/L Chloride 98 (96-114) mmol/L Carbon Dioxide 25 (20-32) mmol/L Anion Gap 7 (7-15) mEq/L BUN 15 (7-30) mg/dL Creatinine 0.4 L (0.5-1.5) mg/dL Estimated Creat Clear 39.63 Estimated GFR 104 ml/min Glucose 135 H (60-115) mg/dL Calcium 8.9 (8.4-10.6) mg/dL ECG Data Attestation: I personally reviewed and interpreted this ECG as follows: Interpretation: Normal sinus rhythm. Rate is 74 beats per minute. There are no ST or T-wave abnormalities. Discharge Plan Discharge Clinical Impression: Episodic lightheadedness, Anemia, Acute diarrhea Patient Disposition: Home w/ Parent or Adult Condition: Stable Additional Instructions: Take medication as prescribed. Follow up with primary physician for further workup of anemia. Return if symptoms are recurrent or worsening. Prescriptions: New ferrous sulfate [Iron (ferrous sulfate)] 325 mg (65 mg iron) tablet 325 mg PO DAILY Qty: 10 0RF No Action metformin 500 mg tablet 1,000 mg PO DAILY Patient Comments: TAKE TWO TABLETS BY MOUTH TWICE DAILY WITH MEALS potassium chloride 10 mEq tablet extended release 10 meq PO DAILY Patient Comments: TAKE ONE TABLET BY MOUTH ONE TIME DAILY WITH A MEAL. (DME) Contour Test Strips Strip MISCELLANEOUS Patient Comments: USE TO TEST BLOOD GLUCOSE 2 TIMES DAILY DIRECTED simvastatin 40 mg tablet 40 mg PO HS nortriptyline 25 mg capsule 25 mg PO DAILY Patient Comments: TAKE ONE CAPSULE BY MOUTH ONE TIME DAILY AT BEDTIME risperidone 2 mg tablet 2 mg PO HS Patient Comments: TAKE ONE TABLET BY MOUTH ONE TIME DAILY AT BEDTIME lorazepam 0.5 mg tablet 0.5 mg PO DAILY PRN (Reason: anxiety) Patient Comments: TAKE ONE TABLET BY MOUTH DAILY NEEDED hydrochlorothiazide 25 mg tablet 25 mg PO DAILY risperidone 1 mg tablet 1 mg PO DAILY naproxen 500 mg tablet 500 mg PO BID PRN (Reason: pain) Patient Comments: with meals levothyroxine 112 mcg tablet 112 mcg PO DAILY Patient Comments: TAKE ONE TABLET BY MOUTH ONE TIME DAILY acetaminophen 500 mg tablet 1,000 mg PO Q6H PRN levothyroxine 100 mcg tablet 100 mcg PO QAM Follow Up/Referrals: Rylee Cruz MD [Primary Care Provider] - Stand Alone Forms: [employer] Info Instructions
[2023-04-26] MEDS: 0.9 % SODIUM CHLORIDE 1000 ml 1,000 ML IV (10:05)
[2023-04-26 10:29] LABS: Basophils Absolute Auto 0.08 K/uL (0.00-0.30); Basophils Percent Auto 0.9 % (0.0-3.0); Eosinophils Absolute Auto 0.11 K/uL (0.00-0.50); Eosinophils Percent Auto 1.2 % (0.0-7.0); Hemoglobin* 8.5 gm/dL (12.0-16.0); Immature Granulocytes Abs Auto 0.02 K/uL (0.00-0.30); Immature Granulocytes Pct Auto 0.2 %; Lymphocytes Percent Auto 6.9 % (20-44); Mean Corpuscular HGB Conc 30 gm/dL (32-36); Mean Corpuscular Hemoglobin 21 pg (26-34); Mean Corpuscular Volume 68 fL (80-100); Monocytes Percent Auto 8.9 % (0.0-11.0); Neutrophils Percent Auto 81.9 % (42.0-72.0); Platelet Count* 513 K/uL (140-440); RDW Coefficient of Variation % 19.3 % (11.5-15.5); Red Blood Count 4.15 m/uL (4.00-5.20); White Blood Count* 9.08 K/uL (4.50-11.00)
[2023-04-26 10:30] LABS: Slide Review Reflex No
[2023-04-26 10:40] LABS: Chloride* 98 mmol/L (96-114); Potassium* 3.3 mmol/L (3.6-5.1); Sodium* 130 mmol/L (135-149)
[2023-04-26 10:43] LABS: Anion Gap 7 mEq/L (7-15); Blood Urea Nitrogen* 15 mg/dL (7-30); Calcium* 8.9 mg/dL (8.4-10.6); Carbon Dioxide* 25 mmol/L (20-32); Creatinine* 0.4 mg/dL (0.5-1.5); Est. Creatinine Clearance* 39.63; Estimated Glomerular Filt Rate 104 ml/min; Glucose* 135 mg/dL (60-115)
== END 2023-04-26 12:05 | disposition home or self-care (01) ==
PROVIDERS: Emergency Provider Emergency Medicine Emergency Medical Services; PCP Family Medicine
DX: R42 Dizziness and giddiness (principal); D64.9 Anemia, unspecified; R19.7 Diarrhea, unspecified
CPT/HCPCS: 36415; 80048; 85025; 93005; 96360; 99284; J7030

== ENCOUNTER 2023-04-28 14:45 | Outpatient (CLI) | payer MEDICARE, BC, SELFPAY | END 2023-04-28 14:46 | disposition home or self-care (01) | LOC: AMB 05-01 11:47 | PROVIDERS: PCP Family Medicine; Visit Provider Emergency Medicine | DX: R53.1 Weakness (principal) | CPT/HCPCS: A0425; A0427 ==

== ENCOUNTER 2023-04-28 15:22 | Emergency (ER) | payer MEDICARE, BC, SELFPAY ==
[2023-04-28] VITALS (12 sets, daily range): BP systolic 159–186; BP diastolic 87–115; PULSE 71–99; RESP 16; TEMP 36.4; O2SAT 89–100; BMI 29.3
[2023-04-28 16:34] LABS: Basophils Absolute Auto 0.05 K/uL (0.00-0.30); Basophils Percent Auto 0.6 % (0.0-3.0); Eosinophils Absolute Auto 0.35 K/uL (0.00-0.50); Hematocrit 28.6 % (33.0-51.0); Hemoglobin* 8.8 gm/dL (12.0-16.0); Immature Granulocytes Abs Auto 0.02 K/uL (0.00-0.30); Immature Granulocytes Pct Auto 0.2 %; Lymphocytes Percent Auto 14.3 % (20-44); Mean Corpuscular HGB Conc 31 gm/dL (32-36); Mean Corpuscular Hemoglobin 20 pg (26-34); Mean Corpuscular Volume 66 fL (80-100); Monocytes Percent Auto 10.3 % (0.0-11.0); Neutrophils Absolute Auto 6.17 K/uL (1.7-7.0); Neutrophils Percent Auto 70.6 % (42.0-72.0); Platelet Count* 557 K/uL (140-440); RDW Coefficient of Variation % 19.7 % (11.5-15.5); Red Blood Count 4.31 m/uL (4.00-5.20); White Blood Count* 8.74 K/uL (4.50-11.00)
[2023-04-28 16:39] LABS: Slide Review Reflex No
--- NOTE | 2023-04-28 16:39 | ED_ITS ---
HPI - General Adult General Chief complaint: Weakness Stated complaint: generalized weakness Time Seen by Provider: 04/28/23 15:26 Source: patient Mode of arrival: ambulatory Limitations: no limitations History of Present Illness HPI narrative: 72-year-old female coming in today complaining of not feeling well. She stated that she was at home today felt very weak. [place] weak yesterday as well. Today while she was sitting in her chair she felt very lightheaded. She went to lay down in her friend called the ambulance. She denies chest pain or shortness of breath. She was seen here 2 days ago with similar symptoms and was found have a hemoglobin of 8.5 which was about a 2 point drop from previous. She denies any dark tarry stools, no blood in her stool or urine. She has not been vomiting. States her appetite has been normal. She denies chest pain or shortness of breath. She denies a headache. She denies fevers or chills. She denies coughing. Does endorse increased urinary frequency, no dysuria or urgency. She is very concerned about her low hemoglobin today. She did start taking iron tablets 2 days ago and has noticed that her stool has turned dark since. Related Data Home Medications Medication Instructions Recorded Confirmed acetaminophen 500 mg tablet 1,000 mg PO Q6H PRN 10/16/21 04/28/23 blood sugar diagnostic (Contour 10/16/21 04/26/23 Test Strips) hydrochlorothiazide 25 mg tablet 25 mg PO DAILY 10/16/21 04/28/23 lorazepam 0.5 mg tablet 0.5 mg PO DAILY PRN anxiety 10/16/21 04/28/23 metformin 500 mg tablet 1,000 mg PO DAILY 10/16/21 04/28/23 naproxen 500 mg tablet 500 mg PO BID PRN pain 10/16/21 10/16/21 nortriptyline 25 mg capsule 25 mg PO DAILY 10/16/21 04/28/23 potassium chloride 10 mEq 10 meq PO DAILY 10/16/21 04/28/23 tablet,extended release risperidone 1 mg tablet 1 mg PO DAILY 10/16/21 04/28/23 risperidone 2 mg tablet 2 mg PO HS 10/16/21 04/28/23 simvastatin 40 mg tablet 40 mg PO HS 10/16/21 04/28/23 levothyroxine 100 mcg tablet 100 mcg PO QAM 04/26/23 04/28/23 Previous Rx's Medication Instructions Recorded ferrous sulfate 325 mg (65 mg 325 mg PO DAILY #10 tabs 04/26/23 iron) tablet (Iron (ferrous sulfate)) cephalexin 500 mg capsule 500 mg PO TID 5 days #15 caps 04/28/23 Allergies Allergy/AdvReac Type Severity Reaction Status Date / Time cholecalciferol (vitamin D3) Allergy Unknown Confusion Verified 04/28/23 15:41 [From Vitamin D3] cyanocobalamin (vitamin B12) Allergy Unknown Verified 04/28/23 15:41 grapefruit Allergy Unknown Verified 04/28/23 15:41 Penicillins Allergy Unknown Verified 04/28/23 15:41 Sulfa (Sulfonamide Allergy Unknown Verified 04/28/23 15:41 Antibiotics) eucalyptus AdvReac Unknown Verified 04/28/23 15:41 lisinopril AdvReac Confusion Verified 04/28/23 15:41 Review of Systems Status of ROS: Reports: 10 or more systems reviewed and unremarkable except as noted in History and below [facility] Medical History Hyperlipidemia ?E78.5 - Hyperlipidemia, unspecified (ICD-10) Tremor ?R25.1 - Tremor, unspecified (ICD-10) Diabetes mellitus ?E11.9 - Type 2 diabetes mellitus without complications (ICD-10) Hypothyroidism ?E03.9 - Hypothyroidism, unspecified (ICD-10) Hypertension ?I10 - Essential (primary) hypertension (ICD-10) Anxiety ?F41.9 - Anxiety disorder, unspecified (ICD-10) 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 Alert and oriented. Answers questions appropriately. Mood and affect are appropriate. Thoughts are goal oriented and rational. No tangential or magical thinking noted. Patient speaks in full sentences without needing to catch her breath. She does appear pale. HEENT: Normocephalic atraumatic. Pupils are equally round reactive to light. Extraocular muscles are intact. Conjunctivae are moist without any icterus noted, conjunctivae are pale. Moist mucous membranes. Posterior pharynx is normal. Neck is soft without any lymphadenopathy or thyromegaly. No masses are appreciated. Cardiovascular: Heart is regular rate and rhythm S1 and S2 are present without any murmurs. Lungs: Clear to auscultation bilaterally no wheezes rhonchi or rales are appreciated. Patient takes deep breaths without any discomfort. Abdomen: Soft and nontender nondistended with normal bowel sounds. No guarding or rebound. Extremities: Bilateral lower extremities are without edema. Skin: Well perfused without any obvious rashes. Const: Vital Signs, click to edit/add: Vital Signs - 24 hr 04/28/23 15:34 04/28/23 15:35 04/28/23 15:35 Temperature 97.5 F L Pulse Rate 78 75 Pulse Rate [Pulse Oximeter] 99 Respiratory Rate 16 Blood Pressure 175/87 H Blood Pressure [Ri ght Upper Arm] 175/87 H Pulse Oximetry 89 99 92 Oxygen Delivery Me thod Room Air 04/28/23 15:45 04/28/23 16:00 04/28/23 16:08 Temperature Pulse Rate 74 73 Pulse Rate [Pulse Oximeter] Respiratory Rate Blood Pressure Blood Pressure [Ri ght Upper Arm] Pulse Oximetry 98 98 97 Oxygen Delivery Me thod 04/28/23 16:15 04/28/23 16:28 04/28/23 16:30 Temperature Pulse Rate 77 74 71 Pulse Rate [Pulse Oximeter] Respiratory Rate Blood Pressure 159/115 H Blood Pressure [Ri ght Upper Arm] Pulse Oximetry 97 99 99 Oxygen Delivery Nm thod 04/28/23 16:32 04/28/23 16:45 04/28/23 17:01 Temperature Pulse Rate 73 73 72 Pulse Rate [Pulse Oximeter] Respiratory Rate Blood Pressure 170/93 H Blood Pressure [Ri ght Upper Arm] Pulse Oximetry 98 98 97 Oxygen Delivery Nm thod 04/28/23 17:02 Temperature Pulse Rate 74 Pulse Rate [Pulse Oximeter] Respiratory Rate Blood Pressure 186/112 H Blood Pressure [Ri ght Upper Arm] Pulse Oximetry 100 Oxygen Delivery Me thod Course Course ED Course: Patient was placed on a compliance monitor, IV was established and labs were drawn. EKG, read by me, shows normal sinus rhythm with a pulse of 70. Hemoglobin shows slight improvement at a 0.8, hematocrit 28.6, platelet count 557. Sodium was unchanged at 130, potassium improved to 3.7. Chloride slightly low at 93. Normal kidney function. Normal troponin. TSH mildly elevated at 5.15. UA did show evidence of a UTI with 3+ leukocyte esterase, greater than 100 wbc's. While on the compliance monitor it appeared that the patient had about a 30 beat run of V-tach. She was asymptomatic at the time and monitor continue to read her pulse at 70. Did discuss this with cardiology, Dr. Penaloza at [facility], who was able to see the printout of that run and it was decided that this was not in fact V-tach but was artifact. Vital Signs Vital signs: Initial Vital Signs Pulse Rate 78 04/28/23 15:34 Blood Pressure 175/87 H 04/28/23 15:34 Blood Pressure Mean 116 H 04/28/23 15:34 Pulse Oximetry 89 04/28/23 15:34 Vital Signs Pulse Rate 78 04/28/23 15:34 Blood Pressure 175/87 H 04/28/23 15:34 Pulse Oximetry 89 04/28/23 15:34 Temperature 97.5 F L 04/28/23 15:35 Pulse Rate 74 04/28/23 17:02 Respiratory Rate 16 04/28/23 15:35 Blood Pressure 186/112 H 04/28/23 17:02 Pulse Oximetry 100 04/28/23 17:02 Oxygen Delivery Method Room Air 04/28/23 15:35 Medical Decision Making MDM Narrative Medical decision making narrative: 72-year-old female with generalized feelings of weakness going on for a few days now, episodes of lightheadedness. She does have a UTI. At this time will treat with an antibiotic. As far as her hemoglobin, it is stable at this time she will follow up with her primary care provider and discuss a colonoscopy. Medical Records Medical records reviewed: Yes I reviewed the patient's medical records Lab Data Lab results reviewed: Yes I reviewed the patient's lab results Labs: Lab Results 04/28/23 04/28/23 Range/Units 16:27 17:00 WBC 8.74 (4.50-11.00) K/uL RBC 4.31 (4.00-5.20) m/uL Hgb 8.8 L (12.0-16.0) gm/dL Hct 28.6 L (33.0-51.0) % MCV 66 L (80-100) fL MCH 20 L (26-34) pg MCHC 31 L (32-36) gm/dL RDW Coeff of Emily 19.7 H (11.5-15.5) % Plt Count 557 H (140-440) K/uL Neut % (Auto) 70.6 (42.0-72.0) % Lymph % (Auto) 14.3 L (20-44) % [place] % (Auto) 10.3 (0.0-11.0) % Eos % (Auto) 4.0 (0.0-7.0) % Baso % (Auto) 0.6 (0.0-3.0) % Neut # (Auto) 6.17 (1.7-7.0) K/uL Lymph # (Auto) 1.20 (0.90-2.90) K/uL [place] # (Auto) 0.90 (0.00-0.90) K/UL Eos # (Auto) 0.35 (0.00-0.50) K/uL Baso # (Auto) 0.05 (0.00-0.30) K/uL Abs Immat Gran (auto) 0.02 (0.00-0.30) K/uL Imm/Tot Granulo (auto) 0.2 % Sodium 130 L (135-149) mmol/L Potassium 3.7 (3.6-5.1) mmol/L Chloride 93 L (96-114) mmol/L Carbon Dioxide 26 (20-32) mmol/L Anion Gap 11 (7-15) mEq/L BUN 14 (7-30) mg/dL Creatinine 0.5 (0.5-1.5) mg/dL Estimated Creat Clear 37.81 Estimated GFR 99 ml/min Glucose 114 (60-115) mg/dL Calcium 9.4 (8.4-10.6) mg/dL Troponin I < 0.01 L (0.01-0.04) ng/mL TSH 5.150 H (0.270-4.20) uIU/mL Urine Color Yellow (Yellow) Urine Appearance Slightly Cloudy A (Clear) Urine pH 7.5 (5.0-8.5) Ur Specific [place] 1.020 (1.000-1.030) Urine Protein Negative (Negative) Urine Glucose (UA) Negative (Negative) Urine Ketones Negative (Negative) Urine Blood Trace-lysed A (Negative) Urine Nitrite Negative (Negative) Urine Bilirubin Negative (Negative) Urine Urobilinogen 0.2 (0.2-1.0) Ur Leukocyte Esterase 3+ A (Negative) Urine RBC 5-10 A (0-2) Urine WBC >100 A (0-5) Ur Squamous Epith Cells Few (None-Few) Urine Bacteria Moderate A (None) ECG Data Attestation: I personally reviewed and interpreted this ECG as follows: Discharge Plan Discharge Clinical Impression: Anemia, Acute UTI Patient Disposition: Home, Self-Care Condition: Stable Additional Instructions: Discussed getting colonoscopy with your primary care provider tomorrow. Take all antibiotics for a bladder infection as directed. Make sure to rest, stay well-hydrated, and eat nutritious meals. Prescriptions: New cephalexin 500 mg capsule 500 mg PO TID 5 Days Qty: 15 0RF No Action metformin 500 mg tablet 1,000 mg PO DAILY Patient Comments: TAKE TWO TABLETS BY MOUTH TWICE DAILY WITH MEALS potassium chloride 10 mEq tablet extended release 10 meq PO DAILY Patient Comments: TAKE ONE TABLET BY MOUTH ONE TIME DAILY WITH A MEAL. (DME) Contour Test Strips Strip MISCELLANEOUS Patient Comments: USE TO TEST BLOOD GLUCOSE 2 TIMES DAILY DIRECTED simvastatin 40 mg tablet 40 mg PO HS nortriptyline 25 mg capsule 25 mg PO DAILY Patient Comments: TAKE ONE CAPSULE BY MOUTH ONE TIME DAILY AT BEDTIME risperidone 2 mg tablet 2 mg PO HS Patient Comments: TAKE ONE TABLET BY MOUTH ONE TIME DAILY AT BEDTIME lorazepam 0.5 mg tablet 0.5 mg PO DAILY PRN (Reason: anxiety) Patient Comments: TAKE ONE TABLET BY MOUTH DAILY NEEDED hydrochlorothiazide 25 mg tablet 25 mg PO DAILY risperidone 1 mg tablet 1 mg PO DAILY naproxen 500 mg tablet 500 mg PO BID PRN (Reason: pain) Patient Comments: with meals acetaminophen 500 mg tablet 1,000 mg PO Q6H PRN levothyroxine 100 mcg tablet 100 mcg PO QAM ferrous sulfate [Iron (ferrous sulfate)] 325 mg (65 mg iron) tablet 325 mg PO DAILY Qty: 10 0RF Follow Up/Referrals: Rylee Cruz MD [Primary Care Provider] - Stand Alone Forms: [employer] Info Instructions
[2023-04-28 16:48] LABS: Chloride* 93 mmol/L (96-114); Potassium* 3.7 mmol/L (3.6-5.1); Sodium* 130 mmol/L (135-149)
[2023-04-28 16:51] LABS: Anion Gap 11 mEq/L (7-15); Blood Urea Nitrogen* 14 mg/dL (7-30); Carbon Dioxide* 26 mmol/L (20-32); Creatinine* 0.5 mg/dL (0.5-1.5); Est. Creatinine Clearance* 37.81; Estimated Glomerular Filt Rate 99 ml/min
[2023-04-28 16:52] LABS: Calcium* 9.4 mg/dL (8.4-10.6); Glucose* 114 mg/dL (60-115)
[2023-04-28 17:04] LABS: Troponin I* < 0.01 ng/mL (0.01-0.04)
[2023-04-28 17:09] LABS: Appearance Urine Slightly Cloudy (Clear); Bilirubin Urine Negative (Negative); Blood Urine Trace-lysed (Negative); Color Urine Yellow (Yellow); Glucose Urine Negative (Negative); Ketones Urine Negative (Negative); Leukocyte Esterase Urine 3+ (Negative); Nitrite Urine Negative (Negative); Protein Urine Negative (Negative); Urobilinogen Urine 0.2 (0.2-1.0); pH Urine 7.5 (5.0-8.5)
[2023-04-28 17:17] LABS: Bacteria Urine Moderate; Squamous Epithelial Cell Urine Few (None-Few); WBC Urine >100 (0-5)
== END 2023-04-28 17:55 | disposition home or self-care (01) ==
PROVIDERS: Emergency Provider Family Medicine; PCP Family Medicine
DX: N39.0 Urinary tract infection, site not specified (principal); D64.9 Anemia, unspecified
CPT/HCPCS: 36415; 80048; 81001; 84443; 84484; 85025; 87086; 87186; 93005; 94761; 99284

== ENCOUNTER 2023-05-01 03:47 | Outpatient (CLI) | payer MEDICARE, BC, SELFPAY | END 2023-05-01 03:48 | disposition home or self-care (01) | LOC: AMB 05-03 18:37 | PROVIDERS: PCP Family Medicine; Visit Provider Family Medicine | DX: R41.82 Altered mental status, unspecified (principal) | CPT/HCPCS: A0425; A0427 ==

== ENCOUNTER 2023-05-01 04:17 | Inpatient (IN) | payer MEDICARE, BC, SELFPAY ==
[2023-05-01] VITALS (48 sets, daily range): BP systolic 131–201; BP diastolic 68–104; PULSE 78–106; RESP 16–22; TEMP 36.4–37.3; O2SAT 93–97; BMI 25.8
--- NOTE | 2023-05-01 04:29 | ED_ITS ---
HPI - Altered Mental Status General Time Seen by Provider: 04:29 Date Seen: 05/01/23 Chief Complaint: Altered Mental Status Stated Complaint: UTI Time Seen by Provider: 05/01/23 04:29 Source: patient, EMS and RN notes reviewed Mode of arrival: EMS Limitations: altered mental status History of Present Illness HPI narrative: Kyle is a 72-year-old female with recent treatment for UTI with cephalexin who is brought to the emergency room by [facility] after being found by a friend with weakness and confusion. Kyle was initially seen on April 25 with diarrhea and at that time had a low hemoglobin of 8.5. She returned on April 27 was found to have a urinary tract infection and was placed on Keflex. Patient agrees that she has been taking her medications. She is unable to give me any lengthy answers to my questions. It appears that she has had low sodium in the past. She denies diarrhea tonight. She denies any abdominal pain nausea or vomiting. She does smell of urine as if she has been incontinent. Kyle denies that she fell. She was checked on by a friend who lives upstairs in her home and there are no reports of any trauma. She denies fevers or coughs. She is having a hard time answering complicated questions. Note hemoglobin on April 25 was 8.5 which had been a drop from over 10 in November of 2022. A recheck of hemoglobin on April 27 was 8.8. Urine culture grew out Pseudomonas aeruginosa sensitive to cefepime, imipenem and Levaquin. According to chart patient has a history of it intracranial bleed. Related Data Home Medications Medication Instructions Recorded Confirmed acetaminophen 500 mg tablet 1,000 mg PO Q6H PRN 10/16/21 05/01/23 blood sugar diagnostic (Contour 10/16/21 04/26/23 Test Strips) hydrochlorothiazide 25 mg tablet 25 mg PO DAILY 10/16/21 05/01/23 lorazepam 0.5 mg tablet 0.5 mg PO DAILY PRN anxiety 10/16/21 05/01/23 metformin 500 mg tablet 1,000 mg PO BID 10/16/21 05/01/23 nortriptyline 25 mg capsule 25 mg PO HS 10/16/21 05/01/23 potassium chloride 10 mEq 10 meq PO DAILY 10/16/21 05/01/23 tablet,extended release risperidone 1 mg tablet 1 mg PO DAILY 10/16/21 05/01/23 risperidone 2 mg tablet 2 mg PO HS 10/16/21 05/01/23 simvastatin 40 mg tablet 40 mg PO HS 10/16/21 05/01/23 levothyroxine 100 mcg tablet 100 mcg PO QAM 04/26/23 05/01/23 aspirin 81 mg tablet,delayed 81 mg PO DAILY 05/01/23 05/01/23 release (Adult Aspirin Regimen) Previous Rx's Medication Instructions Recorded ferrous sulfate 325 mg (65 mg 325 mg PO DAILY #10 tabs 04/26/23 iron) tablet (Iron (ferrous sulfate)) cephalexin 500 mg capsule 500 mg PO TID 5 days #15 caps 04/28/23 Allergies Allergy/AdvReac Type Severity Reaction Status Date / Time cholecalciferol (vitamin D3) Allergy Unknown Confusion Verified 04/28/23 15:41 [From Vitamin D3] cyanocobalamin (vitamin B12) Allergy Unknown Verified 04/28/23 15:41 grapefruit Allergy Unknown Verified 04/28/23 15:41 Penicillins Allergy Unknown Verified 04/28/23 15:41 Sulfa (Sulfonamide Allergy Unknown Verified 04/28/23 15:41 Antibiotics) eucalyptus AdvReac Unknown Verified 04/28/23 15:41 lisinopril AdvReac Confusion Verified 04/28/23 15:41 Review of Systems Status of ROS: Reports: 10 or more systems reviewed and unremarkable except as noted in History and below Const: Denies: fever or chills ENMT: Denies: throat pain or neck pain Cardio: Denies: chest pain or shortness of breath with exertion Resp: Denies: shortness of breath or cough GI: Denies: abdominal pain, nausea or vomiting : Denies: painful urination, urinary frequency or urinary urgency Musculo: Denies: neck pain PFSH PFS Medical History Hyperlipidemia ?E78.5 - Hyperlipidemia, unspecified (ICD-10) Tremor ?R25.1 - Tremor, unspecified (ICD-10) Diabetes mellitus ?E11.9 - Type 2 diabetes mellitus without complications (ICD-10) Hypothyroidism ?E03.9 - Hypothyroidism, unspecified (ICD-10) Hypertension ?I10 - Essential (primary) hypertension (ICD-10) Anxiety ?F41.9 - Anxiety disorder, unspecified (ICD-10) Intraparenchymal hemorrhage of brain ?I61.9 - Nontraumatic intracerebral hemorrhage, unspecified (ICD-10) Social History Smoking Status: Former smoker Do you use any of these nicotine containing products: None Second hand tobacco smoke exposure: No How often do you have a drink containing alcohol: never How often do you have six or more drinks on one occasion: Never AUDIT-C Alcohol total score: 0 Non-prescribed substance use: denies use service: No Exam Narrative: Exam Narrative: Kyle alanis presents by EMS. She is answering questions but certainly seems somewhat confused and is not able to follow any complex or 2 part questions. Her eyes are clear. If I flip her lower lids she does have some pallor in the conjunctiva. Otherwise pupils are equal round reactive. Head is without evidence of trauma. No tenderness. No cervical midline tenderness. Her lips are very dry and cracked. Her neck is supple. There is no other rash noted on her neck her upper chest. No evidence of strawberry type tongue. Heart with a tachycardic rate but normal rhythm. Lungs are clear bilaterally. Abdomen is soft nontender. She is moving her lower extremities. Able to follow commands. No sore CVA tenderness with percussion Const: Vital Signs, click to edit/add: Vital Signs - 24 hr 05/01/23 04:24 05/01/23 04:26 05/01/23 04:30 Temperature 97.5 F L Pulse Rate Pulse Rate [Right Pulse Oximeter] 100 97 95 Respiratory Rate 18 18 18 Blood Pressure Blood Pressure [Le ft Upper Arm] 153/95 H 156/98 H 155/80 H Pulse Oximetry 97 97 96 Oxygen Delivery Me thod Room Air Room Air 05/01/23 04:40 05/01/23 04:50 05/01/23 04:52 Temperature Pulse Rate 101 H Pulse Rate [Right Pulse Oximeter] 94 95 Respiratory Rate 18 18 Blood Pressure 201/104 H Blood Pressure [Le ft Upper Arm] 165/95 H 159/87 H Pulse Oximetry 95 96 97 Oxygen Delivery Me thod Room Air Room Air 05/01/23 04:53 05/01/23 04:55 05/01/23 05:00 Temperature Pulse Rate 96 94 Pulse Rate [Right Pulse Oximeter] 93 Respiratory Rate 18 Blood Pressure 159/87 H Blood Pressure [Le ft Upper Arm] 157/89 H Pulse Oximetry 96 95 96 Oxygen Delivery Me thod Room Air 05/01/23 05:00 05/01/23 05:01 05/01/23 05:10 Temperature Pulse Rate 93 92 94 Pulse Rate [Right Pulse Oximeter] Respiratory Rate Blood Pressure 157/89 H Blood Pressure [Le ft Upper Arm] Pulse Oximetry 96 95 95 Oxygen Delivery Me thod 05/01/23 05:11 05/01/23 05:20 05/01/23 05:22 Temperature Pulse Rate 94 101 H 100 Pulse Rate [Right Pulse Oximeter] Respiratory Rate Blood Pressure 158/91 H 157/89 H Blood Pressure [Le ft Upper Arm] Pulse Oximetry 95 95 95 Oxygen Delivery Me thod 05/01/23 05:30 05/01/23 05:45 05/01/23 05:46 Temperature Pulse Rate 106 H 95 96 Pulse Rate [Right Pulse Oximeter] Respiratory Rate Blood Pressure Blood Pressure [Le ft Upper Arm] Pulse Oximetry 97 96 96 Oxygen Delivery Me thod 05/01/23 05:50 05/01/23 05:52 05/01/23 06:00 Temperature Pulse Rate 103 H 100 97 Pulse Rate [Right Pulse Oximeter] Respiratory Rate Blood Pressure 167/84 H Blood Pressure [Le ft Upper Arm] Pulse Oximetry 94 96 94 Oxygen Delivery Me thod 05/01/23 06:02 05/01/23 06:10 05/01/23 06:11 Temperature Pulse Rate 98 100 98 Pulse Rate [Right Pulse Oximeter] Respiratory Rate Blood Pressure 140/76 H 139/68 Blood Pressure [Le ft Upper Arm] Pulse Oximetry 95 94 93 Oxygen Delivery Me thod 05/01/23 06:20 05/01/23 06:21 05/01/23 06:30 Temperature Pulse Rate 100 99 103 H Pulse Rate [Right Pulse Oximeter] Respiratory Rate Blood Pressure 142/74 H Blood Pressure [Le ft Upper Arm] Pulse Oximetry 93 93 93 Oxygen Delivery Me thod 05/01/23 06:31 05/01/23 06:40 05/01/23 06:42 Temperature Pulse Rate 103 H 99 99 Pulse Rate [Right Pulse Oximeter] Respiratory Rate Blood Pressure 164/88 H 149/81 H Blood Pressure [Le ft Upper Arm] Pulse Oximetry 93 94 94 Oxygen Delivery Me thod 05/01/23 06:50 05/01/23 06:51 05/01/23 07:00 Temperature Pulse Rate 102 H 102 H 101 H Pulse Rate [Right Pulse Oximeter] Respiratory Rate Blood Pressure 159/88 H Blood Pressure [Le ft Upper Arm] Pulse Oximetry 95 95 96 Oxygen Delivery Me thod 05/01/23 07:01 05/01/23 07:10 05/01/23 07:11 Temperature Pulse Rate 102 H 99 100 Pulse Rate [Right Pulse Oximeter] Respiratory Rate Blood Pressure 151/84 H 144/74 H Blood Pressure [Le ft Upper Arm] Pulse Oximetry 93 94 94 Oxygen Delivery Me thod Documenting provider has reviewed patient's vital signs: yes Course Course ED Course: At this time differential diagnosis includes but is not limited to sepsis, viral infection, dehydration, C diff, stroke, anemia, acute coronary event. Patient will be given fluids cautiously while awaiting hemoglobin. Will check CBC, comprehensive panel, CRP, blood cultures, urinalysis. Reevaluation(s) Reevaluation #1: Patient seems to be improved after IV fluids. Have noted that patient was placed on Keflex. While Pseudomonas on her culture is sensitive to 4th generation cephalosporin it is not appropriate to be treated with 1st generation cephalosporin. There force will speak to hospitalist about the use of 4th generation cephalosporin verses imipenem. Blood cultures are pending. There is no evidence of sepsis at this time with normal blood pressure. Consultations Consultation #1: I did consult with hospitalist from [facility]. At this time he does recommend i mipenem for antibiotic. Will await oncoming hospitalist at 0700 hours to admit patient. Vital Signs Vital signs: Initial Vital Signs Temperature 97.5 F L 05/01/23 04:24 Temperature Source Temporal Artery Scan 05/01/23 04:24 Pulse Rate 100 05/01/23 04:24 Pulse Rhythm Regular 05/01/23 04:24 Respiratory Rate 18 05/01/23 04:24 Blood Pressure 153/95 H 05/01/23 04:24 Blood Pressure Mean 114 H 05/01/23 04:24 Blood Pressure Position Semi-Fowlers 05/01/23 04:24 Pulse Oximetry 97 05/01/23 04:24 Oxygen Delivery Method Room Air 05/01/23 04:24 Vital Signs Temperature 97.5 F L 05/01/23 04:24 Pulse Rate 100 05/01/23 04:24 Respiratory Rate 18 05/01/23 04:24 Blood Pressure 153/95 H 05/01/23 04:24 Pulse Oximetry 97 05/01/23 04:24 Oxygen Delivery Method Room Air 05/01/23 04:24 Temperature 97.5 F L 05/01/23 04:24 Pulse Rate 100 05/01/23 07:11 Respiratory Rate 18 05/01/23 05:00 Blood Pressure 144/74 H 05/01/23 07:11 Pulse Oximetry 94 05/01/23 07:11 Oxygen Delivery Method Room Air 05/01/23 05:00 Medications Administered Medications: Discontinued Medications Generic Name Dose Route Start Last Admin Trade Name Freq PRN Reason Stop Dose Admin Sodium Chloride 500 mls @ 500 mls/hr 05/01/23 04:37 05/01/23 06:08 0.9 % Sodium Chloride 500 Ml IV 05/01/23 05:36 Infused .Q1H ONE Infusion Imipenem/Cilastatin Sodium 500 100 mls @ 200 mls/hr 05/01/23 05:40 05/01/23 06:44 mg/ Sodium Chloride IVPB 05/01/23 05:41 Infused ONCE ONE Infusion MDM - Altered Mental Status MDM Narrative Medical decision making narrative: 1. UTI-patient was treated for UTI on April 27 with Keflex. First generation cephalosporin is not active against Pseudomonas which is what has grown out on the culture. Patient will be treated with imipenem 500 mg IV in the ED. patient is penicillin allergic. I did consult with hospitalist in regards to antibiotic choices as 4th generation cephalosporin also had activity against this parti cular bacteria on culture. Patient will be given a total of 1 L normal saline as well. At this time she has no fever, no evidence of hypotension and therefore not considered to be septic but certainly she is ill from this infection as white count is elevated compared to 48 hours ago and patient is tachycardic and somewhat confused. A head CT was accomplished as patient does have a history of intracranial bleed according to her chart. This was noted to show a 6 mm hyperdense lesion. Concerns regarding a VM verses mass noted by radiologist but then states that this is likely stable. 2. Weakness-likely secondary to UTI. Seems to be improved after fluids. 3. Anemia-9.4 hemoglobin today which is actually an improvement from April 27. 4. Hyponatremia-this appears to be a chronic problem looking back at previous values. Sodium today 131. 5. Disposition-admit to [facility] for ongoing observation and IV antibiotics. Await the blood culture. This patient admitted under the care of Dr. Canchola Second lactate scheduled for 0700 hours should have been a reflex order. However, this is not appearing in the system and therefore I have ordered a 2nd lactate at 0734. Medical Records Attestation: I reviewed the patient's medical records. Lab Data Attestation: I reviewed the patient's lab results. Labs: Lab Results 05/01/23 05/01/23 Range/Units 04:37 04:40 WBC 11.29 H (4.50-11.00) K/uL RBC 4.60 (4.00-5.20) m/uL Hgb 9.4 L (12.0-16.0) gm/dL Hct 30.3 L (33.0-51.0) % MCV 66 L (80-100) fL MCH 20 L (26-34) pg MCHC 31 L (32-36) gm/dL RDW Coeff of Emily 19.9 H (11.5-15.5) % Plt Count 615 H (140-440) K/uL Neut % (Auto) 93.8 H (42.0-72.0) % Lymph % (Auto) 2.0 L (20-44) % [place] % (Auto) 3.8 (0.0-11.0) % Eos % (Auto) 0.0 (0.0-7.0) % Baso % (Auto) 0.2 (0.0-3.0) % Neut # (Auto) 10.60 H (1.7-7.0) K/uL Lymph # (Auto) 0.20 L (0.90-2.90) K/uL [place] # (Auto) 0.40 (0.00-0.90) K/UL Eos # (Auto) 0.00 (0.00-0.50) K/uL Baso # (Auto) 0.00 (0.00-0.30) K/uL Abs Immat Gran (auto) 0.00 (0.00-0.30) K/uL Imm/Tot Granulo (auto) 0.2 % Sodium 131 L (135-149) mmol/L Potassium 3.6 (3.6-5.1) mmol/L Chloride 98 (96-114) mmol/L Carbon Dioxide 24 (20-32) mmol/L Anion Gap 9 (7-15) mEq/L BUN 27 (7-30) mg/dL Creatinine 0.4 L (0.5-1.5) mg/dL Estimated GFR 104 ml/min Glucose 177 H (60-115) mg/dL Lactate 2.6 H (0.5-1.9) mmol/L Calcium 9.2 (8.4-10.6) mg/dL Total Bilirubin 0.3 (0.1-1.5) mg/dL AST 23 (12-35) U/L ALT 20 (4-35) U/L Alkaline Phosphatase 56 (40-150) U/L C-Reactive Protein 3.0 H (0.5-1.0) mg/dL Total Protein 7.5 (6.0-8.3) g/dL Albumin 3.9 (3.3-5.0) g/dL POC Troponin I 0.01 (0.01-0.04) ng/ml Imaging Data CT scan - head: Attestation: I have reviewed the pertinent imaging results. Radiologist's impression: Mild global parenchymal volume loss. Similar appearance of 6 millimeter hyperdense focus within the left posterior frontal lobe awan radiata, with mild surrounding hypodensity. There are nonspecific low attenuation white matter changes consistent with chronic microvascular disease. No sign of mass effect, hemorrhage, or midline shift. The visualized paranasal sinuses and mastoid air cells demonstrate no acute or significant findings. The visualized orbits are grossly unremarkable. No skull fractures. IMPRESSION: 1. No evidence of acute intracranial abnormality. 2. Similar appearance of 6 mm hyperdense focus within the left posterior frontal lobe awan radiata, with mild surrounding hypodensity. Underlying mass lesion or vascular malformation (ie AVM), cannot be excluded. Consider CTA head and/or MRI to further evaluate if clinically indicated. Alternatively, given stability finding may relate to calcification secondary to remote insult. ECG Data Attestation: I personally reviewed and interpreted this ECG as follows: ECG interpretation date: 05/01/23 Interpretation: EKG by my read shows sinus tachycardia at a rate of 104. I do not note any acute ST or T-wave changes [place] and QT intervals within normal limits Critical Care Time Critical Care Time Critical Care Time: Yes Attestation: The patient required my highest level preparedness to intervene emergently and I personally spent this critical care time directly and personally managing the patient. This critical care time included: Obtaining a history; Examining the patient; Pulse oximetry; Ordering and reviewing of studies; Arranging urgent treatment with development of a management plan; Evaluation of patients resp onse to treatment; Frequent reassessment discussions with other providers. This critical care time was performed to assess and manage the high probability of imminent life-threatening deterioration that could result in multiorgan failure. It was exclusive of separate billable procedures and treating other patients and teaching time. Total Critical Care Time in Minutes: 30 Discharge Plan Discharge Clinical Impression: Acute alteration in mental status, Weakness UTI (urinary tract infection) Qualifiers: Urinary tract infection type: site unspecified Anemia Qualifiers: Anemia type: unspecified type Qualified Code(s): D64.9 - Anemia, unspecified Patient Disposition: Admitted As Observation Condition: Stable
[2023-05-01 04:51] LABS: Lactate* 2.6 mmol/L (0.5-1.9)
[2023-05-01 04:52] LABS: Basophils Percent Auto 0.2 % (0.0-3.0); Hematocrit 30.3 % (33.0-51.0); Hemoglobin* 9.4 gm/dL (12.0-16.0); Immature Granulocytes Pct Auto 0.2 %; Mean Corpuscular HGB Conc 31 gm/dL (32-36); Mean Corpuscular Hemoglobin 20 pg (26-34); Mean Corpuscular Volume 66 fL (80-100); Monocytes Percent Auto 3.8 % (0.0-11.0); Neutrophils Percent Auto 93.8 % (42.0-72.0); Platelet Count* 615 K/uL (140-440); RDW Coefficient of Variation % 19.9 % (11.5-15.5); White Blood Count* 11.29 K/uL (4.50-11.00)
[2023-05-01 04:53] LABS: Slide Review Reflex No
[2023-05-01] MEDS: 0.9 % SODIUM CHLORIDE 500 ML 500 ML IV (05:00)
[2023-05-01 05:06] LABS: Albumin* 3.9 g/dL (3.3-5.0); Chloride* 98 mmol/L (96-114); Sodium* 131 mmol/L (135-149)
[2023-05-01 05:07] LABS: Potassium* 3.6 mmol/L (3.6-5.1)
[2023-05-01 05:09] LABS: Alanine Aminotransferase* 20 U/L (4-35); Alkaline Phosphatase* 56 U/L (40-150); Anion Gap 9 mEq/L (7-15); Aspartate Amino Transferase* 23 U/L (12-35); Bilirubin Total* 0.3 mg/dL (0.1-1.5); Blood Urea Nitrogen* 27 mg/dL (7-30); Carbon Dioxide* 24 mmol/L (20-32); Creatinine* 0.4 mg/dL (0.5-1.5); Estimated Glomerular Filt Rate 104 ml/min; Glucose* 177 mg/dL (60-115); Total Protein* 7.5 g/dL (6.0-8.3)
--- NOTE | 2023-05-01 05:09 | CT_ITS ---
Patient: MICHELLE ALONSO Facility:?[facility] Patient ID:?[id number] Site Patient ID:?[id number]. Site :?[id number] Study:?CT-Head W/O-05/01/2023 5:50:36 AM Ordering Physician:GREGORIO Final Report: INDICATION: Altered mentation TECHNIQUE: Head CT without contrast. COMPARISON: CT head March 22, 2022. FINDINGS: Mild global parenchymal volume loss. Similar appearance of 6 millimeter hyperdense focus within the left posterior frontal lobe awan radiata, with mild surrounding hypodensity. There are nonspecific low attenuation white matter changes consistent with chronic microvascular disease. No sign of mass effect, hemorrhage, or midline shift. The visualized paranasal sinuses and mastoid air cells demonstrate no acute or significant findings. The visualized orbits are grossly unremarkable. No skull fractures. IMPRESSION: 1. No evidence of acute intracranial abnormality. 2. Similar appearance of 6 mm hyperdense focus within the left posterior frontal lobe awan radiata, with mild surrounding hypodensity. Underlying mass lesion or vascular malformation (ie AVM), cannot be excluded. Consider CTA head and/or MRI to further evaluate if clinically indicated. Alternatively, given stability finding may relate to calcification secondary to remote insult. Please note that all CT scans at this facility use dose modulation, iterative reconstruction, and/or weight-based dosing when appropriate to reduce radiation dose to as low as reasonably achievable. Dictated by Martín Adame MD @ 05/01/2023 6:43:41 AM Signed by:?Martín Adame MD @05/01/2023 6:43:41 AM (Electronic Signature)
[2023-05-01 05:10] LABS: Calcium* 9.2 mg/dL (8.4-10.6)
[2023-05-01 05:33] LABS: Troponin, Point-of-Care* 0.01 ng/ml (0.01-0.04)
--- NOTE | 2023-05-01 05:35 | ED.NURSE ---
pt with radio journalist to ct
[2023-05-01 07:46] LABS: Lactate* 2.8 mmol/L (0.5-1.9)
[2023-05-01] MEDS: 0.9 % SODIUM CHLORIDE 1000 ml 1,000 ML 125 ML IV ×2 (08:54→19:30)
[2023-05-01] MEDS: LEVOTHYROXINE 100 MCG TABLET PO (08:54)
[2023-05-01] MEDS: SODIUM CHLORIDE 0.9 % (FLUSH) 10 ML SYRINGE 5 ML IVF (09:01)
[2023-05-01] MEDS: POTASSIUM CHLORIDE 10 MEQ CAPSULE ER PO (09:11)
[2023-05-01] MEDS: ASPIRIN 81 MG TABLET EC PO (09:11)
[2023-05-01] MEDS: risperiDONE 1 MG TABLET PO (09:12)
[2023-05-01] MEDS: PIPERACILLIN/TAZOBACTAM 2.25 GM in 0.9 % SODIUM CHLORIDE Mini-bag 100 ML IVPB ×3 (09:46→21:37)
[2023-05-01 12:01] LABS: Appearance Urine Cloudy (Clear); Bilirubin Urine Negative (Negative); Blood Urine Negative (Negative); Color Urine Dark yellow (Yellow); Glucose Urine Negative (Negative); Ketones Urine Negative (Negative); Leukocyte Esterase Urine Negative (Negative); Nitrite Urine Negative (Negative); Protein Urine 1+ (Negative); Specific Gravity Urine 1.025 (1.000-1.030); Urobilinogen Urine 0.2 (0.2-1.0); pH Urine 5.5 (5.0-8.5)
[2023-05-01 12:28] LABS: Amorphous Sediment Urine Moderate; Bacteria Urine Moderate; RBC Urine 0-2 (0-2); Squamous Epithelial Cell Urine Few (None-Few)
--- NOTE | 2023-05-01 15:11 | P.IMHP_ITS ---
Hospitalist- H&P: HPI History of Present Illness Date Seen: 05/01/23 Chief complaint: UTI Narrative: Kyle Yañez is a 72 year old woman was brought into the emergency department by EMS after her roommate found her in her room confused and weak. This is the patient's 3rd visit to the emergency department in the last 5 days. Presented with similar symptoms previously. Thought to have urinary tract infection when she presented on 04/28/2023, placed empirically on cephalexin orally. When she comes in today it is apparent that she did in fact have a urinary tract infection, urine culture grew out Pseudomonas aeruginosa, not sensitive to cephalexin. It appears patient has had a urinary tract infection which has been inadequately treated. Review of Systems Status of ROS: Reports: 10 or more systems reviewed and unremarkable except as noted in History and below Narrative: Difficult to obtain meaningful review of systems from patient due to her altered mental status. Very slow to respond to questions. Seems to respond appropriately to the questions when she does respond. Denies recent trauma or injury. No recent blood loss. Uncertain if she has had a fever. Denies rigors or diaphoresis. Acknowledges increasing weakness and inability to even transfer or ambulate safely. No recent falls. Denies angina or anginal equivalent, syncope or near syncope, nausea or vomiting, palpitations or chest fluttering, diaphoresis, dyspnea at rest, paroxysmal nocturnal dyspnea, orthopnea. Acknowledges increased urinary incontinence, urgency, frequency. Denies hematuria. Denies blood loss of any sort. Denies flank pain or abdominal pain. Lives with a room mate who I understand is planning on moving out in a short period of time. Patient has relied on the roommate to help her with her cares in needs. Unclear what patient's plans for living are after her roommate moves out. [facility] Medical History (Updated 05/01/23 @ 15:32 by Lexa Mccann MD) Chronic diarrhea ?K52.9 - Noninfective gastroenteritis and colitis, unspecified (ICD-10) Unstable gait ?R26.81 - Unsteadiness on feet (ICD-10) History of intracranial hemorrhage ?Z86.79 - Personal history of other diseases of the circulatory system (ICD- 10) Osteopenia ?M85.80 - Other specified disorders of bone density and structure, unspecified site (ICD-10) Vitamin D deficiency ?E55.9 - Vitamin D deficiency, unspecified (ICD-10) Chronic schizophrenia ?F20.9 - Schizophrenia, unspecified (ICD-10) Diabetes mellitus type 2 in nonobese ?E11.9 - Type 2 diabetes mellitus without complications (ICD-10) Hyperlipidemia ?E78.5 - Hyperlipidemia, unspecified (ICD-10) Tremor ?R25.1 - Tremor, unspecified (ICD-10) Diabetes mellitus ?E11.9 - Type 2 diabetes mellitus without complications (ICD-10) Hypothyroidism ?E03.9 - Hypothyroidism, unspecified (ICD-10) Hypertension ?I10 - Essential (primary) hypertension (ICD-10) Anxiety ?F41.9 - Anxiety disorder, unspecified (ICD-10) Intraparenchymal hemorrhage of brain ?I61.9 - Nontraumatic intracerebral hemorrhage, unspecified (ICD-10) Surgical History History of tonsillectomy and adenoidectomy ?Z90.89 - Acquired absence of other organs (ICD-10) History of breast biopsy ?Z98.890 - Other specified postprocedural states (ICD-10) Family History Mother Alcohol dependence Asthma Heart disease Paternal Grandfather Alcohol dependence Paternal Grandmother Diabetes Brother Down syndrome Alzheimers disease Father Heart disease Maternal Grandmother High blood pressure Social History What is your current living situation?: I presently have a place to live Problems where you live: no known problems Problems where you live details: N/A In the past 12 months, utilities in danger of being shut off: no In past 12 months, lack of transportation kept you from medical appts, meetings, work, or getting things needed for daily living: no In the past 12 mos, have been you worried that your food would run out before you had money to buy more?: never true In the past 12 mos, the food you bought just didn't last and you didn't have money to buy more?: never true Highest level of school completed/degree received: Master's degree Smoking Status: Former smoker Do you use any of these nicotine containing products: None Second hand tobacco smoke exposure: No How often do you have a drink containing alcohol: never How often do you have six or more drinks on one occasion: Never AUDIT-C Alcohol total score: 0 Non-prescribed substance use: denies use Caffeine: Yes (1 cup daily) How often does anyone, including family, friends and others, physically hurt you : never How often does anyone, including family, friends and others, insult or talk down to you: never How often does anyone, including family, friends and others, threaten you with harm: never How often does anyone, including family, friends and others, scream or curse at you: never service: No Meds Home Medications and Allergies Home Medications Medication Instructions Recorded Confirmed Type acetaminophen 500 mg tablet 1,000 mg PO Q6H PRN 10/16/21 05/01/23 History blood sugar diagnostic (Contour 10/16/21 04/26/23 History Test Strips) hydrochlorothiazide 25 mg tablet 25 mg PO DAILY 10/16/21 05/01/23 History lorazepam 0.5 mg tablet 0.5 mg PO DAILY PRN anxiety 10/16/21 05/01/23 History metformin 500 mg tablet 1,000 mg PO BID 10/16/21 05/01/23 History nortriptyline 25 mg capsule 25 mg PO HS 10/16/21 05/01/23 History potassium chloride 10 mEq 10 meq PO DAILY 10/16/21 05/01/23 History tablet,extended release risperidone 1 mg tablet 1 mg PO DAILY 10/16/21 05/01/23 History risperidone 2 mg tablet 2 mg PO HS 10/16/21 05/01/23 History simvastatin 40 mg tablet 40 mg PO HS 10/16/21 05/01/23 History levothyroxine 100 mcg tablet 100 mcg PO QAM 04/26/23 05/01/23 History aspirin 81 mg tablet,delayed 81 mg PO DAILY 05/01/23 05/01/23 History release (Adult Aspirin Regimen) Allergies Allergy/AdvReac Type Severity Reaction Status Date / Time cholecalciferol (vitamin D3) Allergy Unknown Confusion Verified 04/28/23 15:41 [From Vitamin D3] cyanocobalamin (vitamin B12) Allergy Unknown Verified 04/28/23 15:41 grapefruit Allergy Unknown Verified 04/28/23 15:41 Penicillins Allergy Unknown Verified 04/28/23 15:41 Sulfa (Sulfonamide Allergy Unknown Verified 04/28/23 15:41 Antibiotics) eucalyptus AdvReac Unknown Verified 04/28/23 15:41 lisinopril AdvReac Confusion Verified 04/28/23 15:41 Exam Narrative: Exam Narrative: I examined patient emergency department. No acute distress. Appears comfortable. Vision and hearing are grossly normal. Alert and oriented to self, place, not so much to time or situation. She tells me she thought that EMS was just going to help her get up but instead they brought her in for assessment. Friendly, cooperative. Very slow to respond to questions. Sometimes her answers trial off and she does not fully answer a question. External auditory canals and tympanic membranes normal. Midline nasal septum. Dry buccal mucosa. Dentition in fair repair. Neck is supple. Midline trachea. No JVD or hepatojugular reflux. No lymphadenopathy in the pre or postauricular chains anterior or posterior cervical chains, supraclavicular or infraclavicular fossa, or axilla bilaterally. Lungs are clear to auscultation without wheezing, rhonchi, or rales. Chest wall excursions are full. No CVA tenderness. Heart tones with regular rhythm, normal S1-S2. Soft systolic murmur across precordium. No gallops or rubs. PMI is not laterally displaced. Abdomen with active bowel sounds, soft, nontender. No rebound or guarding. Able to transfer from supine to sitting independently. Moves all 4 extremities. No tremor, asterixis, or ataxia. Skin is warm, dry, intact. No petechiae, cyanosis, rashes, or jaundice. No icterus or conjunctival injection. Const: Vital Signs, click to edit/add: Vital Signs - 24 hr 05/01/23 04:24 05/01/23 04:26 05/01/23 04:30 Temperature 97.5 F L Pulse Rate Pulse Rate [Pulse Oximeter] Pulse Rate [Right Pulse Oximeter] 100 97 95 Respiratory Rate 18 18 18 Blood Pressure Blood Pressure [Le ft Upper Arm] 153/95 H 156/98 H 155/80 H Blood Pressure [Ri ght Arm] Pulse Oximetry 97 97 96 Oxygen Delivery Me thod Room Air Room Air 05/01/23 04:40 05/01/23 04:50 05/01/23 04:52 Temperature Pulse Rate 101 H Pulse Rate [Pulse Oximeter] Pulse Rate [Right Pulse Oximeter] 94 95 Respiratory Rate 18 18 Blood Pressure 201/104 H Blood Pressure [Le ft Upper Arm] 165/95 H 159/87 H Blood Pressure [Ri ght Arm] Pulse Oximetry 95 96 97 Oxygen Delivery Me thod Room Air Room Air 05/01/23 04:53 05/01/23 04:55 05/01/23 05:00 Temperature Pulse Rate 96 94 Pulse Rate [Pulse Oximeter] Pulse Rate [Right Pulse Oximeter] 93 Respiratory Rate 18 Blood Pressure 159/87 H Blood Pressure [Le ft Upper Arm] 157/89 H Blood Pressure [Ri ght Arm] Pulse Oximetry 96 95 96 Oxygen Delivery Me od Room Air 05/01/23 05:00 05/01/23 05:01 05/01/23 05:10 Temperature Pulse Rate 93 92 94 Pulse Rate [Pulse Oximeter] Pulse Rate [Right Pulse Oximeter] Respiratory Rate Blood Pressure 157/89 H Blood Pressure [Le ft Upper Arm] Blood Pressure [Ri ght Arm] Pulse Oximetry 96 95 95 Oxygen Delivery Pa thod 05/01/23 05:11 05/01/23 05:20 05/01/23 05:22 Temperature Pulse Rate 94 101 H 100 Pulse Rate [Pulse Oximeter] Pulse Rate [Right Pulse Oximeter] Respiratory Rate Blood Pressure 158/91 H 157/89 H Blood Pressure [Le ft Upper Arm] Blood Pressure [Ri ght Arm] Pulse Oximetry 95 95 95 Oxygen Delivery Me thod 05/01/23 05:30 05/01/23 05:45 05/01/23 05:46 Temperature Pulse Rate 106 H 95 96 Pulse Rate [Pulse Oximeter] Pulse Rate [Right Pulse Oximeter] Respiratory Rate Blood Pressure Blood Pressure [Le ft Upper Arm] Blood Pressure [Ri ght Arm] Pulse Oximetry 97 96 96 Oxygen Delivery Me thod 05/01/23 05:50 05/01/23 05:52 05/01/23 06:00 Temperature Pulse Rate 103 H 100 97 Pulse Rate [Pulse Oximeter] Pulse Rate [Right Pulse Oximeter] Respiratory Rate Blood Pressure 167/84 H Blood Pressure [Le ft Upper Arm] Blood Pressure [Ri ght Arm] Pulse Oximetry 94 96 94 Oxygen Delivery Pa thod 05/01/23 06:02 05/01/23 06:10 05/01/23 06:11 Temperature Pulse Rate 98 100 98 Pulse Rate [Pulse Oximeter] Pulse Rate [Right Pulse Oximeter] Respiratory Rate Blood Pressure 140/76 H 139/68 Blood Pressure [Le ft Upper Arm] Blood Pressure [Ri ght Arm] Pulse Oximetry 95 94 93 Oxygen Delivery Pa thod 05/01/23 06:20 05/01/23 06:21 05/01/23 06:30 Temperature Pulse Rate 100 99 103 H Pulse Rate [Pulse Oximeter] Pulse Rate [Right Pulse Oximeter] Respiratory Rate Blood Pressure 142/74 H Blood Pressure [Le ft Upper Arm] Blood Pressure [Ri ght Arm] Pulse Oximetry 93 93 93 Oxygen Delivery Pa thod 05/01/23 06:31 05/01/23 06:40 05/01/23 06:42 Temperature Pulse Rate 103 H 99 99 Pulse Rate [Pulse Oximeter] Pulse Rate [Right Pulse Oximeter] Respiratory Rate Blood Pressure 164/88 H 149/81 H Blood Pressure [Le ft Upper Arm] Blood Pressure [Ri ght Arm] Pulse Oximetry 93 94 94 Oxygen Delivery Pa thod 05/01/23 06:50 05/01/23 06:51 05/01/23 07:00 Temperature Pulse Rate 102 H 102 H 101 H Pulse Rate [Pulse Oximeter] Pulse Rate [Right Pulse Oximeter] Respiratory Rate Blood Pressure 159/88 H Blood Pressure [Le ft Upper Arm] Blood Pressure [Ri ght Arm] Pulse Oximetry 95 95 [facility] 07:01 05/01/23 07:10 05/01/23 07:11 Temperature Pulse Rate 102 H 99 100 Pulse Rate [Pulse Oximeter] Pulse Rate [Right Pulse Oximeter] Respiratory Rate Blood Pressure 151/84 H 144/74 H Blood Pressure [Le ft Upper Arm] Blood Pressure [Ri ght Arm] Pulse Oximetry 93 94 94 Oxygen Delivery Pa thod 05/01/23 07:12 05/01/23 07:20 05/01/23 07:22 Temperature Pulse Rate 99 101 H 103 H Pulse Rate [Pulse Oximeter] Pulse Rate [Right Pulse Oximeter] Respiratory Rate Blood Pressure 153/83 H Blood Pressure [Le ft Upper Arm] Blood Pressure [Ri ght Arm] Pulse Oximetry 94 95 95 Oxygen Delivery Pa thod 05/01/23 07:30 05/01/23 07:31 05/01/23 07:41 Temperature Pulse Rate 100 99 Pulse Rate [Pulse Oximeter] Pulse Rate [Right Pulse Oximeter] Respiratory Rate Blood Pressure 142/78 H 191/97 H Blood Pressure [Le ft Upper Arm] Blood Pressure [Ri ght Arm] Pulse Oximetry 94 93 Oxygen Delivery Me thod 05/01/23 07:43 05/01/23 07:45 05/01/23 08:19 Temperature 98.9 F Pulse Rate 98 99 Pulse Rate [Pulse Oximeter] 97 Pulse Rate [Right Pulse Oximeter] Respiratory Rate 18 Blood Pressure 144/77 H Blood Pressure [Le ft Upper Arm] Blood Pressure [Ri ght Arm] 136/77 Pulse Oximetry 96 94 97 Oxygen Delivery Pa thod Room Air 05/01/23 11:00 Temperature 98.6 F Pulse Rate Pulse Rate [Pulse Oximeter] 98 Pulse Rate [Right Pulse Oximeter] Respiratory Rate 20 Blood Pressure Blood Pressure [Le ft Upper Arm] Blood Pressure [Ri ght Arm] 131/83 Pulse Oximetry 95 Oxygen Delivery Pa thod Room Air Hospitalist - H&P: Result Labs Labs: Short CBC 05/01/23 Range/Units 04:40 WBC 11.29 H (4.50-11.00) K/uL Hgb 9.4 L (12.0-16.0) gm/dL Hct 30.3 L (33.0-51.0) % Plt Count 615 H (140-440) K/uL BMP 05/01/23 04:40 Sodium 131 L Potassium 3.6 Chloride 98 Carbon Dioxide 24 BUN 27 Creatinine 0.4 L Glucose 177 H Calcium 9.2 Liver Function 05/01/23 Range/Units 04:40 Total Bilirubin 0.3 (0.1-1.5) mg/dL AST 23 (12-35) U/L ALT 20 (4-35) U/L Alkaline Phosphatase 56 (40-150) U/L Albumin 3.9 (3.3-5.0) g/dL Urine 05/01/23 Range/Units Unknown Urine Color Dark yellow (Yellow) Urine Appearance Cloudy A (Clear) Urine pH 5.5 (5.0-8.5) Ur Specific [place] 1.025 (1.000-1.030) Urine Protein 1+ A (Negative) Urine Glucose (UA) Negative (Negative) ECG ECG interpretation date: 05/01/[address] scan - head: Attestation: I have reviewed the pertinent imaging results. Radiologist's impression: IMPRESSION: 1. No evidence of acute intracranial abnormality. 2. Similar appearance of 6 mm hyperdense focus within the left posterior frontal lobe awan radiata, with mild surrounding hypodensity. Underlying mass lesion or vascular malformation (ie AVM), cannot be excluded. Consider CTA head and/or MRI to further evaluate if clinically indicated. Alternatively, given stability finding may relate to calcification secondary to remote insult. Assessment and Plan Assessment and plan (1) UTI (urinary tract infection): Problem comment: - Pseudomonas aeruginosa, attempted treatment with cephalexin before obtaining urine culture ID and sensitivities - has UTI, tachycardia, altered mental status, leukocytosis - admit to hospital - received a single dose of imipenem IV in the emergency department - change to Zosyn, renally dosed - IV fluids Status: Acute (2) Altered mental status: Problem comment: - under reviewed outside records I do not see baseline cognitive impairment making me suspicious that her altered mental status in this acute setting is related to metabolic encephalopathy as a part of her early sepsis presentation Status: Acute (3) Chronic diarrhea: Status: Acute (4) Dehydration: Status: Acute (5) Weakness: Status: Acute (6) Anemia: Problem comment: - etiology not yet determined, but certainly hypochromic microcytic with widened RDW - check iron studies and stool for occult blood for now - serial hemoglobins for now Status: Acute (7) Protein calorie malnutrition: Problem comment: - Nutritional Services consultation Status: Acute Plan 1. Reviewed impression with patient 2. Continue supportive efforts 3. Involve physical therapy, dialysis social worker, occupational therapy 4. Patient agreeable with above stated plans and recommendations. Total Time Spent Total Time Spent: 60 minutes
[2023-05-01 17:34] LABS: Fecal Occult Blood* Positive (Negative)
--- NOTE | 2023-05-01 17:47 | PC.NURSE ---
End of Shift: Patient pleasant and cooperative, oriented to name and . Patient vitally stable, lungs clear, BS WNL, IV running NS at 125. Patient 1 assist/walker, patient denies pain. Patient incontinent of bowel and bladder but also used the toilet. Patient tolerating regular diet. Patient has been up in chair and also napping in bed. Patient is delayed at times when responding to questions.
[2023-05-01 17:56] LABS: Iron* 24 ug/dL (37-170)
[2023-05-01 18:05] LABS: Percent Iron Saturation 6 % (20-50); Total Iron Binding Capacity 404 ug/dL (265-497)
[2023-05-01] MEDS: risperiDONE 1 MG TABLET 2 MG PO (21:00)
[2023-05-01] MEDS: NORTRIPTYLINE HCL 25 MG CAPSULE PO (21:00)
[2023-05-01] MEDS: ENOXAPARIN 40 MG/0.4 ML INJ SUBCUT (21:01)
[2023-05-02 02:55] VITALS: BP 149/93; PULSE 87; RESP 18; TEMP 37.1; O2SAT 95
[2023-05-02] MEDS: PIPERACILLIN/TAZOBACTAM 2.25 GM in 0.9 % SODIUM CHLORIDE Mini-bag 100 ML IVPB ×4 (03:41→21:43)
[2023-05-02] MEDS: LEVOTHYROXINE 100 MCG TABLET PO (05:57)
[2023-05-02 06:32] LABS: HCO3 VBG 25 mmol/L (21-28); PCO2 VBG 46 mmHG (40-50); PO2 VBG 36.2 mmHG (25-47); pH VBG 7.348 (7.32-7.43)
[2023-05-02 06:36] LABS: Hematocrit 25.3 % (33.0-51.0); Mean Corpuscular HGB Conc 30 gm/dL (32-36); Mean Corpuscular Hemoglobin 21 pg (26-34); Mean Corpuscular Volume 68 fL (80-100); Platelet Count* 437 K/uL (140-440); White Blood Count* 8.17 K/uL (4.50-11.00)
--- NOTE | 2023-05-02 06:37 | PC.NURSE ---
End of shift [id number]: Alert to self but pleasant and cooperative. Hypertensive, VS otherwise stable. Pt has left arm and hand weakness. MD updated. Turn and repo while in bed. A1 w/ walker and gait belt to the bathroom. Pt needs prompting. No BM this shift. Bed alarm in place.
[2023-05-02 06:49] LABS: Albumin* 2.9 g/dL (3.3-5.0); Chloride* 104 mmol/L (96-114); Potassium* 3.5 mmol/L (3.6-5.1); Sodium* 133 mmol/L (135-149)
[2023-05-02 06:52] LABS: Anion Gap 5 mEq/L (7-15); Carbon Dioxide* 24 mmol/L (20-32); Creatinine* 0.5 mg/dL (0.5-1.5); Est. Creatinine Clearance* 39.63; Estimated Glomerular Filt Rate 99 ml/min
[2023-05-02 06:53] LABS: Blood Urea Nitrogen* 23 mg/dL (7-30); Calcium* 7.9 mg/dL (8.4-10.6); Glucose* 108 mg/dL (60-115); Magnesium* 1.9 mg/dL (1.5-2.6); Phosphorus* 3.1 mg/dL (2.5-4.5)
[2023-05-02 06:54] LABS: Hemoglobin* 7.6 gm/dL (12.0-16.0)
[2023-05-02 06:55] LABS: Slide Review Reflex No
[2023-05-02 07:43] VITALS: BP 134/78; PULSE 77; RESP 16; TEMP 37.1; O2SAT 93
[2023-05-02] MEDS: risperiDONE 1 MG TABLET PO (08:47)
[2023-05-02] MEDS: SODIUM CHLORIDE 0.9 % (FLUSH) 10 ML SYRINGE 5 ML IVF ×3 (08:47→21:43)
[2023-05-02] MEDS: ASPIRIN 81 MG TABLET EC PO (08:47)
[2023-05-02] MEDS: POTASSIUM CHLORIDE 10 MEQ CAPSULE ER PO (08:47)
[2023-05-02 12:09] LABS: Hematocrit 26.1 % (33.0-51.0); Mean Corpuscular HGB Conc 30 gm/dL (32-36); Mean Corpuscular Hemoglobin 21 pg (26-34); Mean Corpuscular Volume 69 fL (80-100); Platelet Count* 409 K/uL (140-440); Red Blood Count 3.81 m/uL (4.00-5.20); White Blood Count* 8.14 K/uL (4.50-11.00)
[2023-05-02 12:11] LABS: Hemoglobin* 7.8 gm/dL (12.0-16.0)
[2023-05-02 12:12] LABS: Slide Review Reflex No
[2023-05-02 12:17] VITALS: BP 130/72; PULSE 79; RESP 16; TEMP 36.9; O2SAT 94
[2023-05-02] MEDS: 0.9 % SODIUM CHLORIDE 1000 ml 1,000 ML 125 ML IV (12:21)
[2023-05-02] MEDS: POTASSIUM BICARB 25 MEQ EFFERVESCENT TAB PO (12:24)
[2023-05-02 15:36] VITALS: BP 143/82; PULSE 93; RESP 16; TEMP 36.8; O2SAT 93
--- NOTE | 2023-05-02 16:07 | PM.IMPN1 ---
Progress Note: A&P Assessment and plan (1) UTI (urinary tract infection): Problem details: - Pseudomonas aeruginosa, attempted treatment with cephalexin before obtaining urine culture ID and sensitivities - has UTI, tachycardia, altered mental status, leukocytosis consistent with early sepsis presentation - admit to hospital - received a single dose of imipenem IV in the emergency department - change to Zosyn, renally dosed - repeat urine culture negative thus far - saline lock IV and DC IV fluids. Advance diet as tolerated. Status: Acute (2) Altered mental status: Problem details: - under reviewed outside records I do not see baseline cognitive impairment making me suspicious that her altered mental status in this acute setting is related to metabolic encephalopathy as a part of her early sepsis presentation - 05/02/2023: Cognition improving compared to admission. Suspect acute toxic metabolic encephalopathy in association with her early sepsis presentation Status: Acute (3) Chronic diarrhea: Status: Acute (4) Dehydration: Problem details: - improved with IV fluids Status: Acute (5) Weakness: Problem details: - improved Status: Acute (6) Anemia: Problem details: - hypochromic microcytic with widened RDW - iron studies and stool for occult blood suggest gastrointestinal blood loss and iron deficiency anemia - serial hemoglobin assessments, with hemoglobin decreased to 7.6 and more recently 7.8, stabilizing - patient agreeable to esophagogastroduodenoscopy tomorrow Status: Acute (7) Protein calorie malnutrition: Problem details: - Nutritional Services consultation Status: Acute Plan 1. Patient agreeable with above stated plans and recommendations Time Spent With Patient Total time spent: 45 minutes Subjective Date Seen: 05/02/23 Interval history: History of present illness: 72 year old woman was brought into the emergency department by EMS after her roommate found her in her room confused and weak. This is the patient's 3rd visit to the emergency department in the last 5 days. Presented with similar symptoms previously. Thought to have urinary tract infection when she presented on 04/28/2023, placed empirically on cephalexin orally. When she comes in today it is apparent that she did in fact have a urinary tract infection, urine culture grew out Pseudomonas aeruginosa, not sensitive to cephalexin. It appears patient has had a urinary tract infection which has been inadequately treated. Hospital day 2. Patient states she is starting to feel little better. Still somewhat weak. Less confused. Able to engage more meaningfully in conversation today. Less pausing as she speaks and listens. Even lasts a little when speaking with me. Unaware of any blood loss of any sort including melena which we observe yesterday evening. Denies abdominal pain, nausea, vomiting. Denies dyspepsia. Tolerating increased activity with nursing, physical therapy, occupational therapy. Exam Narrative: Exam Narrative: Examine her in her hospital room. Appears comfortable in no acute distress. Hearing is somewhat diminished but adequate and vision is adequate as well. Alert and oriented to self, place, time, and in part to situation. Lungs are clear to auscultation. No CVA tenderness Heart tones with regular rhythm. Abdomen with active bowel sounds. Soft, nontender. Ambulates with walker and standby assist. Const: Vital Signs, click to edit/add: Vital Signs - 24 hr 05/01/23 19:33 05/01/23 23:28 05/02/23 02:55 Temperature 98.6 F 98.6 F 98.7 F Pulse Rate [Pulse Oximeter] 80 78 87 Respiratory Rate 16 18 18 Blood Pressure [Ri ght Arm] 169/84 H 162/88 H 149/93 H Pulse Oximetry 95 94 95 Oxygen Delivery Me thod Room Air Room Air Room Air 05/02/23 07:43 05/02/23 12:17 05/02/23 15:36 Temperature 98.8 F 98.4 F 98.2 F Pulse Rate [Pulse Oximeter] 77 79 93 Respiratory Rate 16 16 16 Blood Pressure [Ri ght Arm] 134/78 130/72 143/82 H Pulse Oximetry 93 94 93 Oxygen Delivery Me thod Room Air Room Air Room Air Documenting provider has reviewed patient's vital signs: yes Labs Labs: Laboratory Results - last 24 hr 05/01/23 05/01/23 05/02/23 04:40 15:32 05:49 WBC 8.17 RBC 3.70 L Hgb 7.6 L* Hct 25.3 L MCV 68 L MCH 21 L MCHC 30 L Plt Count 437 VBG pH 7.348 VBG pCO2 46 VBG pO2 36.2 VBG HCO3 25 Sodium 133 L Potassium 3.5 L Chloride 104 Carbon Dioxide 24 Anion Gap 5 L BUN 23 Creatinine 0.5 Estimated Creat Clear 39.63 Estimated GFR 99 Glucose 108 Calcium 7.9 L Phosphorus 3.1 Magnesium 1.9 Iron 24 L TIBC 404 % Saturation 6 L C-Reactive Protein 4.0 H Albumin 2.9 L Stool Occult Blood Positive A 05/02/23 11:53 WBC 8.14 RBC 3.81 L Hgb 7.8 L* Hct 26.1 L MCV 69 L MCH 21 L MCHC 30 L Plt Count 409 VBG pH VBG pCO2 VBG pO2 VBG HCO3 Sodium Potassium Chloride Carbon Dioxide Anion Gap BUN Creatinine Estimated Creat Clear Estimated GFR Glucose Calcium Phosphorus Magnesium Iron TIBC % Saturation C-Reactive Protein Albumin Stool Occult Blood
[2023-05-02] MEDS: PANTOPRAZOLE SODIUM 40 MG INJ IVP (16:41)
--- NOTE | 2023-05-02 17:42 | PC.NURSE ---
Shift Summary 15-19: Patient pleasant and cooperative. Up with one assist, walker and gait belt. Vitals stable, denies SOB or chest pain. Poor appetite with lunch, offered dinner and has refused for now. Able to feed self independently. Using call light appropriately.
[2023-05-02] MEDS: ACETAMINOPHEN 325 MG TABLET 650 MG PO (18:02)
[2023-05-02 18:47] LABS: Hemoglobin* 8.1 gm/dL (12.0-16.0)
[2023-05-02 19:32] VITALS: BP 161/76; PULSE 79; RESP 18; TEMP 36.3; O2SAT 97
[2023-05-02] MEDS: risperiDONE 1 MG TABLET 2 MG PO (21:02)
[2023-05-02] MEDS: NORTRIPTYLINE HCL 25 MG CAPSULE PO (21:02)
[2023-05-02 22:56] VITALS: BP 125/66; PULSE 72; RESP 16; TEMP 36.6; O2SAT 95
[2023-05-03] MEDS: PIPERACILLIN/TAZOBACTAM 2.25 GM in 0.9 % SODIUM CHLORIDE Mini-bag 100 ML IVPB ×2 (04:04→10:53)
[2023-05-03 04:06] VITALS: BP 135/89; PULSE 98; RESP 18; TEMP 36.8; O2SAT 92
[2023-05-03] MEDS: LEVOTHYROXINE 100 MCG TABLET PO (05:58)
--- NOTE | 2023-05-03 06:57 | PC.NURSE ---
End of shift [id number]: A&O with some forgetfulness but pleasant and cooperative. VSS w/ sats >90% on RA. Some right arm weakness. Up with A1 walker and GB. Voiding q2h. Occasionally incontinent of urine. No bowel movements this shift. Using call light appropriately.
[2023-05-03 07:02] LABS: Chloride* 106 mmol/L (96-114); Potassium* 3.3 mmol/L (3.6-5.1); Sodium* 133 mmol/L (135-149)
[2023-05-03 07:05] LABS: Anion Gap 4 mEq/L (7-15); Carbon Dioxide* 23 mmol/L (20-32); Creatinine* 0.4 mg/dL (0.5-1.5); Est. Creatinine Clearance* 39.63; Estimated Glomerular Filt Rate 104 ml/min
[2023-05-03 07:06] LABS: Blood Urea Nitrogen* 12 mg/dL (7-30); Glucose* 127 mg/dL (60-115)
[2023-05-03 07:49] VITALS: BP 126/71; PULSE 81; RESP 18; TEMP 36.8; O2SAT 97
[2023-05-03] MEDS: SODIUM CHLORIDE 0.9 % (FLUSH) 10 ML SYRINGE 5 ML IVF (07:50)
[2023-05-03] MEDS: PANTOPRAZOLE SODIUM 40 MG INJ IVP (07:50)
[2023-05-03] MEDS: ASPIRIN 81 MG TABLET EC PO (07:51)
[2023-05-03] MEDS: POTASSIUM CHLORIDE 10 MEQ CAPSULE ER PO (07:51)
[2023-05-03] MEDS: risperiDONE 1 MG TABLET PO (07:51)
--- NOTE | 2023-05-03 09:36 | P.ANES_ITS ---
Anesthesia Charges Start Date/Time Anesthesia Start Date: 05/03/23 Anesthesia Start Time: 09:18 Stop Date/Time Anesthesia Stop Date: 05/03/23 Anesthesia Stop Time: 09:32 Summary Extremes of Age - Over 70 or under 1: [employer]
--- NOTE | 2023-05-03 11:13 | W.ANESCHARGE ---
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
--- NOTE | 2023-05-03 14:06 | P.DS_ITS ---
DS: Providers Provider Date Seen: 05/03/23 Date of admission: 05/01/23 10:14 Primary care physician: Rylee Cruz MD Admitting Clinician: Lexa Mccann MD Consults: 05/01/23 08:07 Consult to Nutrition [CONS] Routine Comment: Reason for consult:: Miscellaneous Comment: PCM Consult to Occupational Therapy [CONS] Routine Comment: Reason(s) for OT Consult:: Evaluate and Treat Any Restrictions?:: No Restrictions Comment: AMS Consult to Physical Therapy [CONS] Routine Comment: Reason(s) for PT Consult:: Evaluate and Treat Any Restrictions?:: No Restrictions Attending Physician on discharge: Lexa Mccann MD Date of Discharge: 05/03/23 DS: Diagnosis Discharge Diagnosis (1) Altered mental status: Status: Acute Problem details: - under reviewed outside records I do not see baseline cognitive impairment making me suspicious that her altered mental status in this acute setting is related to metabolic encephalopathy as a part of her early sepsis presentation - 05/02/2023: Cognition improving compared to admission. Suspect acute toxic metabolic encephalopathy in association with her early sepsis presentation. - 05/03/2023: Cognition back to baseline. (2) Weakness: Status: Acute Problem details: - improving - will need home health care with PT and OT assessment and treatment (3) Dehydration: Status: Acute Problem details: - improved with IV fluids (4) UTI (urinary tract infection): Status: Acute Problem details: - Pseudomonas aeruginosa UTI, attempted empiric treatment with cephalexin before obtaining urine culture ID and sensitivities - has known UTI, tachycardia, altered mental status, leukocytosis consistent with early sepsis presentation - admit to hospital - received a single dose of imipenem/cilastatin IV in the emergency department - changed to Zosyn, renally dosed - repeat urine culture negative thus far - changed to ciprofloxacin 250 mg po bid x 10 days at discharge (5) Anemia: Status: Acute Problem details: - hypochromic microcytic with widened RDW - iron studies and stool for occult blood suggest gastrointestinal blood loss and iron deficiency anemia - 1 x episode of melena while in hospital - serial hemoglobin assessments, with hemoglobin decreased to 7.6 and stabilizing at 8 mg/dl on day of discharge - Inpatient esophagogastroduodenoscopy 05/03/2023 demonstrated to active bleeding or stigmata of recent UGI bleed - started PPI in hospital and will continue in outpatient setting for at least 4 weeks - consider additional outpatient testing and/or iron infusion treatment (6) GI bleed: Status: Acute Problem details: - iron deficiency anemia, with hemoglobin stabilized at 8 mg/dl in hospital (05/01/2023-05/03/2023) - 1 x episode of melena in hospital (05/01/2023) - Esophagogastroduodenoscopy (05/03/2023) did not reveal source of bleed - consider outpatient iron infusion therapy and additional testing (7) Protein calorie malnutrition: Status: Acute Problem details: - Nutritional Services consultation (8) Chronic diarrhea: Status: Acute DS: Summary Hospital Course Hospital Course: Details as specified above Status at Discharge Functional status at discharge: uses cane/walker Overall status at discharge: patient is progressing back to baseline Time Spent with Patient Time attestation: Total time spent providing and/or coordinating discharge services: Time spent: Greater than 30 minutes Exam 2 Narrative: Exam Narrative: Examine her in her hospital room. Appears comfortable in no acute distress. Hearing is somewhat diminished but adequate and vision is adequate as well. Alert and oriented to self, place, time, and in part to situation. Lungs are clear to auscultation. No CVA tenderness Heart tones with regular rhythm. Abdomen with active bowel sounds. Soft, nontender. Ambulates with walker and standby assist. Const: Vital Signs, click to edit/add: Vital Signs - 24 hr 05/02/23 15:36 05/02/23 19:32 05/02/23 22:56 Temperature 98.2 F 97.4 F L 97.9 F Pulse Rate [Pulse Oximeter] 93 79 72 Respiratory Rate 16 18 16 Blood Pressure [Ri ght Arm] 143/82 H 161/76 H 125/66 Pulse Oximetry 93 97 95 Oxygen Delivery Me thod Room Air Room Air Room Air 05/03/23 04:06 05/03/23 07:49 Temperature 98.3 F 98.2 F Pulse Rate [Pulse Oximeter] 98 81 Respiratory Rate 18 18 Blood Pressure [Ri ght Arm] 135/89 126/71 Pulse Oximetry 92 97 Oxygen Delivery Me thod Room Air Room Air DS: Data Data Completed and Pending Labs on day of discharge: Labs from last 24 hours 05/03/23 05/02/23 06:20 18:42 Hgb 8.1 L Sodium 133 L Potassium 3.3 L Chloride 106 Carbon Dioxide 23 Anion Gap 4 L BUN 12 Creatinine 0.4 L Estimated Creat Clear 39.63 Estimated GFR 104 Glucose 127 H Calcium 8.0 L Blood Type A Positive Antibody Screen NEGATIVE Preliminary micro results at discharge 05/01/23 05:30 Blood Culture - Preliminary Blood NO GROWTH AFTER 48 HOURS 05/01/23 04:40 Blood Culture - Preliminary Blood NO GROWTH AFTER 48 HOURS Discharge Plan Discharge Disposition: Home, Self-Care Date of Admission: 05/01/23 10:14 Attending Provider on Discharge: Lexa Mccann Primary Care Provider: Rylee Cruz Condition: Stable Anticipated Discharge Date/Time: 05/03/23 12:15 Discharge Medications: New omeprazole 20 mg capsule,delayed release(DR/EC) 20 mg PO DAILY Qty: 30 2RF ciprofloxacin HCl 250 mg tablet 250 mg PO BID Qty: 20 0RF Continued metformin 500 mg tablet 1,000 mg PO BID potassium chloride 10 mEq tablet extended release 10 meq PO DAILY simvastatin 40 mg tablet 40 mg PO HS nortriptyline 25 mg capsule 25 mg PO HS risperidone 2 mg tablet 2 mg PO HS lorazepam 0.5 mg tablet 0.5 mg PO DAILY PRN (Reason: anxiety) risperidone 1 mg tablet 1 mg PO DAILY acetaminophen 500 mg tablet 1,000 mg PO Q6H PRN levothyroxine 100 mcg tablet 100 mcg PO QAM ferrous sulfate [Iron (ferrous sulfate)] 325 mg (65 mg iron) tablet 325 mg PO DAILY Qty: 10 0RF Held aspirin [Adult Aspirin Regimen] 81 mg tablet,delayed release (DR/EC) 81 mg PO DAILY Hold Instructions: Resume on 05/17/23. May resume in 2 weeks, unless otherwise instructed by your physician(s) Discontinued hydrochlorothiazide 25 mg tablet 25 mg PO DAILY cephalexin 500 mg capsule 500 mg PO TID 5 Days Qty: 15 0RF No Action (DME) Contour Test Strips Strip MISCELLANEOUS Patient Comments: USE TO TEST BLOOD GLUCOSE 2 TIMES DAILY DIRECTED Discharge Orders: Discharge Order (Routine); Ordered 05/03/23 Ordered By: Lexa Mccann Patient Education: Ciprofloxacin (By mouth), Omeprazole (By mouth), Iron Rich Diet (DC), Iron Deficiency Anemia (GEN), Urinary Tract Infection in Older Adults (DC) Additional Instructions: 1. Home health care referral, PT and OT to evaluate and treat. Activity Level: Activity as Tolerated Discharge Diet: Regular Follow Up Appointments: Rylee Cruz MD [Primary Care Provider] - 05/14/23 9:30 am ([facility] post-hospitalization follow-up: pseudomonas UTI and GI bleed with blood loss anemia - please obtain pre-visit CBC) Forms: [facility] Info Instructions
--- NOTE | 2023-05-03 14:24 | PC.SOCIAL ---
Discharge planning- Per therapy, pt needs home care for nursing, PT, and OT. Pt reports she has a bath aide through [facility]. 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 Pt is receiving bathing assistance. The agency does not have skilled home care for Nursing, PT, and OT. Completed face to face home care order form. Phone call to Magaly at [facility] and there are no openings. Secure e-mail to Estefanía Hernandez with [facility] to inquire on home care availability. [facility] can accept pt for home care services and will reach out to pt to set up initial appointment. Phone call to pt to provide information on home care. Secure e-mailed discharge summary and packet to Estefanía at [facility] [employer]. Social work will follow up as needed.
== END 2023-05-03 13:52 | disposition home or self-care (01) | DRG 871 ==
LOC: ED 05:47 → MEDSURG 08:01
PROVIDERS: Admitting Provider Internal Medicine; Emergency Provider Family Medicine; PCP Family Medicine; Visit Provider Internal Medicine
DX: A41.9 Sepsis, unspecified organism (principal); G93.41 Metabolic encephalopathy; N39.0 Urinary tract infection, site not specified; E46 Unspecified protein-calorie malnutrition; K92.1 Melena; D50.0 Iron deficiency anemia secondary to blood loss (chronic); B96.5 Pseudomonas (aeruginosa) (mallei) (pseudomallei) as the cause of diseases classified elsewhere; F20.9 Schizophrenia, unspecified; E11.9 Type 2 diabetes mellitus without complications; I10 Essential (primary) hypertension; F41.9 Anxiety disorder, unspecified; E03.9 Hypothyroidism, unspecified; Z68.27 Body mass index [BMI] 27.0-27.9, adult
CPT/HCPCS: 00731; 36415; 43239; 70450; 80048; 80053; 80069; 81001; 82270; 82803; 83540; 83550; 83605; 83735; 84443; 84484; 85018; 85025; 85027; 86140; 86850; 86900; 86901; 87040; 87086; 87186; 88305; 93005; 94761; 97116; 97161; 97165; 97530; 97535; 99100; 99284; 99285; 99291; A9270; C9113; J0743; J1650; J2543; J2704; J7030

== ENCOUNTER 2023-05-04 06:48 | Outpatient (CLI) | payer MEDICARE, BC, SELFPAY | END 2023-05-04 06:49 | disposition home or self-care (01) | LOC: AMB 05-05 06:58 | PROVIDERS: PCP Family Medicine; Visit Provider Family Medicine | DX: R53.1 Weakness (principal) | CPT/HCPCS: A0425; A0429 ==

== ENCOUNTER 2023-05-04 07:28 | Observation (INO) | payer MEDICARE, BC, SELFPAY ==
[2023-05-04] VITALS (25 sets, daily range): BP systolic 118–163; BP diastolic 78–100; PULSE 77–127; RESP 16–20; TEMP 36.1–36.8; O2SAT 90–98; BMI 26.3
--- NOTE | 2023-05-04 08:29 | ED.WEAKNESS ---
HPI - Weakness General Date Seen: 05/04/23 Chief complaint: Weakness Stated complaint: weakness Time Seen by Provider: 05/04/23 07:58 Source: patient Mode of arrival: EMS Limitations: no limitations History of Present Illness HPI Narrative: Patient is a 72-year-old female with a history of diabetes, hypothyroidism presenting to the emergency department for weakness. She was discharged from the hospital yesterday. She states at that time she was still feeling weak but they thought that if she got supportive home she would be able to function. Woke up this morning and was too weak to get out of bed again. She was incontinent of urine because she states she was unable to get up fast enough to make it to the bathroom. She says that the sensation comes on suddenly. Nursing staff here states she has very weak for them into having a lot of difficulty standing and pivoting for them. Patient is home with her friend but her friend is not able to help her as much as the patient needs current they. Patient also states she feels like her mentation is delayed compared to baseline. These are the same symptoms she was here for over the past 3 days when she was admitted. This time she is not feels safe at home and is agreeable for sniff placement in the short term. She would like to get strong enough to be able to go back home. Denies chest pain, headache, shortness of breath, abdominal pain, diarrhea, constipation, fevers, chills, numbness, nausea. This is now her 4th ED visit in 8 days. Related Data Home Medications Medication Instructions Recorded Confirmed acetaminophen 500 mg tablet 1,000 mg PO Q6H PRN 10/16/21 05/01/23 blood sugar diagnostic (Contour 10/16/21 04/26/23 Test Strips) lorazepam 0.5 mg tablet 0.5 mg PO DAILY PRN anxiety 10/16/21 05/01/23 metformin 500 mg tablet 1,000 mg PO BID 10/16/21 05/04/23 nortriptyline 25 mg capsule 25 mg PO HS 10/16/21 05/04/23 potassium chloride 10 mEq 10 meq PO DAILY 10/16/21 05/04/23 tablet,extended release risperidone 1 mg tablet 1 mg PO DAILY 10/16/21 05/04/23 risperidone 2 mg tablet 2 mg PO HS 10/16/21 05/04/23 simvastatin 40 mg tablet 40 mg PO HS 10/16/21 05/04/23 levothyroxine 100 mcg tablet 100 mcg PO QAM 04/26/23 05/04/23 aspirin 81 mg tablet,delayed 81 mg PO DAILY 05/01/23 05/01/23 release (Adult Aspirin Regimen) amlodipine 5 mg tablet 5 mg PO DAILY 05/04/23 05/04/23 atorvastatin 20 mg tablet 20 mg PO QPM 05/04/23 05/04/23 hydrochlorothiazide 25 mg tablet 25 mg PO DAILY 05/04/23 05/04/23 Previous Rx's Medication Instructions Recorded ferrous sulfate 325 mg (65 mg 325 mg PO DAILY #10 tabs 04/26/23 iron) tablet (Iron (ferrous sulfate)) ciprofloxacin HCl 250 mg tablet 250 mg PO BID #20 tabs 05/03/23 omeprazole 20 mg capsule,delayed 20 mg PO DAILY #30 caps 05/03/23 release Allergies Allergy/AdvReac Type Severity Reaction Status Date / Time cholecalciferol (vitamin D3) Allergy Unknown Confusion Verified 04/28/23 15:41 [From Vitamin D3] cyanocobalamin (vitamin B12) Allergy Unknown Verified 04/28/23 15:41 grapefruit Allergy Unknown Verified 04/28/23 15:41 Penicillins Allergy Unknown Verified 04/28/23 15:41 Sulfa (Sulfonamide Allergy Unknown Verified 04/28/23 15:41 Antibiotics) eucalyptus AdvReac Unknown Verified 04/28/23 15:41 lisinopril AdvReac Confusion Verified 04/28/23 15:41 Review of Systems Status of ROS: Reports: 10 or more systems reviewed and unremarkable except as noted in History and below [facility] Medical History Altered mental status ?R41.82 - Altered mental status, unspecified (ICD-10) Chronic diarrhea ?K52.9 - Noninfective gastroenteritis and colitis, unspecified (ICD-10) Unstable gait ?R26.81 - Unsteadiness on feet (ICD-10) History of intracranial hemorrhage ?Z86.79 - Personal history of other diseases of the circulatory system (ICD-10) Osteopenia ?M85.80 - Other specified disorders of bone density and structure, unspecified site (ICD-10) Vitamin D deficiency ?E55.9 - Vitamin D deficiency, unspecified (ICD-10) Chronic schizophrenia ?F20.9 - Schizophrenia, unspecified (ICD-10) Diabetes mellitus type 2 in nonobese ?E11.9 - Type 2 diabetes mellitus without complications (ICD-10) Hyperlipidemia ?E78.5 - Hyperlipidemia, unspecified (ICD-10) Tremor ?R25.1 - Tremor, unspecified (ICD-10) Diabetes mellitus ?E11.9 - Type 2 diabetes mellitus without complications (ICD-10) Hypothyroidism ?E03.9 - Hypothyroidism, unspecified (ICD-10) Hypertension ?I10 - Essential (primary) hypertension (ICD-10) Anxiety ?F41.9 - Anxiety disorder, unspecified (ICD-10) Intraparenchymal hemorrhage of brain ?I61.9 - Nontraumatic intracerebral hemorrhage, unspecified (ICD-10) Surgical History History of tonsillectomy and adenoidectomy ?Z90.89 - Acquired absence of other organs (ICD-10) History of breast biopsy ?Z98.890 - Other specified postprocedural states (ICD-10) Family History Mother Alcohol dependence Asthma Heart disease Paternal Grandfather Alcohol dependence Paternal Grandmother Diabetes Brother Down syndrome Alzheimers disease Father Heart disease Maternal Grandmother High blood pressure Social History What is your current living situation?: I presently have a place to live Problems where you live: no known problems Problems where you live details: N/A In the past 12 months, utilities in danger of being shut off: no In past 12 months, lack of transportation kept you from medical appts, meetings, work, or getting things needed for daily living: no In the past 12 mos, have been you worried that your food would run out before you had money to buy more?: never true In the past 12 mos, the food you bought just didn't last and you didn't have money to buy more?: never true Highest level of school completed/degree received: Master's degree Smoking Status: Former smoker Do you use any of these nicotine containing products: None Second hand tobacco smoke exposure: No How often do you have a drink containing alcohol: never How often do you have six or more drinks on one occasion: Never AUDIT-C Alcohol total score: 0 Non-prescribed substance use: denies use Caffeine: Yes (1 cup daily) How often does anyone, including family, friends and others, physically hurt you: never How often does anyone, including family, friends and others, insult or talk down to you: never How often does anyone, including family, friends and others, threaten you with harm: never How often does anyone, including family, friends and others, scream or curse at you: never service: No Exam Narrative: Exam Narrative: Const: Well-nourished, Well-developed, in mild distress Eyes: PERRL, no conjunctival injection, and symmetrical lids HENT: Atraumatic external nose and ears. Moist mucous membranes. Neck: Symmetric, trachea midline, No thyromegaly. CVS: RRR, No murmurs or gallops. Peripheral pulses 2+ and equal in all extremities RESP: Unlabored respiratory effort. Clear to auscultation bilaterally. GI: Nontender/Nondistended, No rebound or guarding. MSK:Extremities w/o deformity, Normal Active ROM Skin: Warm, Dry. No rashes or lesions. Neuro: Normal Muscle tone, No focal neurological deficits. Psych: Awake, Alert, & Oriented x3. Slight delay in responses Const: Vital Signs, click to edit/add: Vital Signs - 24 hr 05/04/23 07:38 05/04/23 08:46 05/04/23 08:47 Temperature 97.7 F Pulse Rate 87 86 Pulse Rate [Right Pulse Oximeter] 87 Respiratory Rate 18 Blood Pressure 163/100 H Blood Pressure [Ri ght Upper Arm] 151/91 H Pulse Oximetry 95 96 96 Oxygen Delivery Me thod Room Air 05/04/23 09:00 05/04/23 09:01 05/04/23 09:02 Temperature Pulse Rate 95 103 H 101 H Pulse Rate [Right Pulse Oximeter] Respiratory Rate Blood Pressure 160/98 H Blood Pressure [Ri ght Upper Arm] Pulse Oximetry 94 96 95 Oxygen Delivery Me thod 05/04/23 09:22 05/04/23 09:30 05/04/23 09:45 Temperature Pulse Rate 91 89 89 Pulse Rate [Right Pulse Oximeter] Respiratory Rate Blood Pressure Blood Pressure [Ri ght Upper Arm] Pulse Oximetry 90 97 96 Oxygen Delivery Me thod 05/04/23 10:00 05/04/23 10:01 05/04/23 10:30 Temperature Pulse Rate 78 80 82 Pulse Rate [Right Pulse Oximeter] Respiratory Rate Blood Pressure 149/89 H Blood Pressure [Ri ght Upper Arm] Pulse Oximetry 94 97 95 Oxygen Delivery Me thod 05/04/23 11:00 05/04/23 11:01 05/04/23 11:47 Temperature 98.2 F Pulse Rate 84 82 Pulse Rate [Right Pulse Oximeter] Respiratory Rate Blood Pressure 159/92 H Blood Pressure [Ri ght Upper Arm] Pulse Oximetry 93 93 Oxygen Delivery Me thod 05/04/23 11:47 Temperature Pulse Rate Pulse Rate [Right Pulse Oximeter] Respiratory Rate 16 Blood Pressure Blood Pressure [Ri ght Upper Arm] Pulse Oximetry Oxygen Delivery Me thod Course Vital Signs Vital signs: Initial Vital Signs Temperature 97.7 F 05/04/23 07:38 Temperature Source Temporal Artery Scan 05/04/23 07:38 Pulse Rate 87 05/04/23 07:38 Respiratory Rate 18 05/04/23 07:38 Blood Pressure 151/91 H 05/04/23 07:38 Blood Pressure Mean 111 H 05/04/23 07:38 Blood Pressure Position Sitting 05/04/23 07:38 Pulse Oximetry 95 05/04/23 07:38 Oxygen Delivery Method Room Air 05/04/23 07:38 Vital Signs Temperature 97.7 F 05/04/23 07:38 Pulse Rate 87 05/04/23 07:38 Respiratory Rate 18 05/04/23 07:38 Blood Pressure 151/91 H 05/04/23 07:38 Pulse Oximetry 95 05/04/23 07:38 Oxygen Delivery Method Room Air 05/04/23 07:38 Temperature 98.2 F 05/04/23 11:47 Pulse Rate 82 05/04/23 11:01 Respiratory Rate 16 05/04/23 11:47 Blood Pressure 159/92 H 05/04/23 11:01 Pulse Oximetry 93 05/04/23 11:01 Oxygen Delivery Method Room Air 05/04/23 07:38 Medications Administered Medications: Discontinued Medications Generic Name Dose Route Start Last Admin Trade Name Freq PRN Reason Stop Dose Admin Lactated Ringer's 1,000 mls @ 1,000 mls/hr 05/04/23 08:22 05/04/23 10:15 Lactated Ringers 1000 Ml IV 05/04/23 09:21 Infused .Q1H ONE Infusion MDM - Weakness MDM Narrative Medical decision making narrative: Patient is a 72-year-old female presenting to emergency department for increased weakness. She was discharged from hospital yesterday for a UTI and similar symptoms. She continues to be weak and does not feel like she is safe at home. She is agreeable for short-term rehab to get strength up so she can go back home. At this time I will do a CBC, CMP, go/flu/RSV, troponin, EKG. Patient given L fluids. She is mildly tachycardic. With her tachycardia she meets 1 of sepsis criteria but we will also order a lactate and blood cultures. Heart rate improved after the fluids. CBC and CMP returned showing no acute concerning abnormalities. Lactate was within normal limits. Her sodium potassium actually look improved compared to previously along with her hemoglobin. And is mildly low labs seem very unlikely to be causing her symptoms. Her troponin returned at 0.07. EKG shows no signs of STEMI. Will repeat this troponin to make sure it is not rising. I do not believe any imaging is necessary at this time as she has had no falls and she was just discharged in the hospital yesterday. Urinalysis does not appear to show a persistent UTI. Would not treat with antibiotics at this time. COVID test flu/RSV is negative. Repeat troponin is stable at 0.07. Heart rate also improved into the 80s after the L of fluids. She will be admitted to the hospitalist service. She is agreeable to this plan Lab Data Labs: Lab Results 05/04/23 05/04/23 05/04/23 Range/Units 08:14 08:53 09:45 WBC 10.44 (4.50-11.00) K/uL RBC 5.02 (4.00-5.20) m/uL Hgb 10.2 L (12.0-16.0) gm/dL Hct 33.3 (33.0-51.0) % MCV 66 L (80-100) fL MCH 20 L (26-34) pg MCHC 31 L (32-36) gm/dL RDW Coeff of Emily 21.2 H (11.5-15.5) % Plt Count 534 H (140-440) K/uL Neut % (Auto) 82.7 H (42.0-72.0) % Lymph % (Auto) 6.6 L (20-44) % Merrick % (Auto) 10.0 (0.0-11.0) % Eos % (Auto) 0.1 (0.0-7.0) % Baso % (Auto) 0.3 (0.0-3.0) % Neut # (Auto) 8.60 H (1.7-7.0) K/uL Lymph # (Auto) 0.70 L (0.90-2.90) K/uL Merrick # (Auto) 1.00 H (0.00-0.90) K/UL Eos # (Auto) 0.01 (0.00-0.50) K/uL Baso # (Auto) 0.03 (0.00-0.30) K/uL Abs Immat Gran (auto) 0.03 (0.00-0.30) K/uL Imm/Tot Granulo (auto) 0.3 % Diff Slide Review Acceptable Review (Acceptable) Sodium 132 L (135-149) mmol/L Potassium 3.4 L (3.6-5.1) mmol/L Chloride 99 (96-114) mmol/L Carbon Dioxide 23 (20-32) mmol/L Anion Gap 10 (7-15) mEq/L BUN 6 L (7-30) mg/dL Creatinine 0.3 L (0.5-1.5) mg/dL Estimated GFR 112 ml/min Glucose 158 H (60-115) mg/dL Lactate 1.9 (0.5-1.9) mmol/L Calcium 8.7 (8.4-10.6) mg/dL Total Bilirubin 0.5 (0.1-1.5) mg/dL AST 27 (12-35) U/L ALT 20 (4-35) U/L Alkaline Phosphatase 65 (40-150) U/L Troponin I 0.07 H* (0.01-0.04) ng/mL Total Protein 7.5 (6.0-8.3) g/dL Albumin 3.9 (3.3-5.0) g/dL Urine Color Yellow (Yellow) Urine Appearance Clear (Clear) Urine pH 7.0 (5.0-8.5) Ur Specific Battiest 1.020 (1.000-1.030) Urine Protein Negative (Negative) Urine Glucose (UA) Negative (Negative) Urine Ketones 3+ A (Negative) Urine Blood 1+ A (Negative) Urine Nitrite Negative (Negative) Urine Bilirubin Negative (Negative) Urine Urobilinogen 0.2 (0.2-1.0) Ur Leukocyte Esterase Trace A (Negative) Urine RBC 2-5 A (0-2) Urine WBC 0-2 (0-5) Ur Squamous Epith Cells Few (None-Few) Urine Bacteria Moderate A (None) SARS-CoV-2 (PCR) Negative SARS-CoV-2 (Negative) Influenza Type A (PCR) Negative PCR FLU A (Negative) Influenza Type B (PCR) Negative PCR FLU B (Negative) RSV (PCR) Negative PCR RSV (Negative) 05/04/23 Range/Units 11:04 WBC (4.50-11.00) K/uL RBC (4.00-5.20) m/uL Hgb (12.0-16.0) gm/dL Hct (33.0-51.0) % MCV (80-100) fL MCH (26-34) pg MCHC (32-36) gm/dL RDW Coeff of Emily (11.5-15.5) % Plt Count (140-440) K/uL Neut % (Auto) (42.0-72.0) % Lymph % (Auto) (20-44) % Merrick % (Auto) (0.0-11.0) % Eos % (Auto) (0.0-7.0) % Baso % (Auto) (0.0-3.0) % Neut # (Auto) (1.7-7.0) K/uL Lymph # (Auto) (0.90-2.90) K/uL Merrick # (Auto) (0.00-0.90) K/UL Eos # (Auto) (0.00-0.50) K/uL Baso # (Auto) (0.00-0.30) K/uL Abs Immat Gran (auto) (0.00-0.30) K/uL Imm/Tot Granulo (auto) % Diff Slide Review (Acceptable) Sodium (135-149) mmol/L Potassium (3.6-5.1) mmol/L Chloride (96-114) mmol/L Carbon Dioxide (20-32) mmol/L Anion Gap (7-15) mEq/L BUN (7-30) mg/dL Creatinine (0.5-1.5) mg/dL Estimated GFR ml/min Glucose (60-115) mg/dL Lactate (0.5-1.9) mmol/L Calcium (8.4-10.6) mg/dL Total Bilirubin (0.1-1.5) mg/dL AST (12-35) U/L ALT (4-35) U/L Alkaline Phosphatase (40-150) U/L Troponin I 0.07 H* (0.01-0.04) ng/mL Total Protein (6.0-8.3) g/dL Albumin (3.3-5.0) g/dL Urine Color (Yellow) Urine Appearance (Clear) Urine pH (5.0-8.5) Ur Specific Battiest (1.000-1.030) Urine Protein (Negative) Urine Glucose (UA) (Negative) Urine Ketones (Negative) Urine Blood (Negative) Urine Nitrite (Negative) Urine Bilirubin (Negative) Urine Urobilinogen (0.2-1.0) Ur Leukocyte Esterase (Negative) Urine RBC (0-2) Urine WBC (0-5) Ur Squamous Epith Cells (None-Few) Urine Bacteria (None) SARS-CoV-2 (PCR) (Negative) Influenza Type A (PCR) (Negative) Influenza Type B (PCR) (Negative) RSV (PCR) (Negative) ECG Data Attestation: I personally reviewed and interpreted this ECG as follows: Prior ECG tracings: available for review Interpretation: Sinus tachycardia at the rate of 123 beats per minute, normal intervals, normal axis, no ST or T-wave abnormalities. Appears similar to previous EKGs on file Discharge Plan Discharge Clinical Impression: Weakness Patient Disposition: Admitted As Observation Condition: Stable Prescriptions: No Action metformin 500 mg tablet 1,000 mg PO BID potassium chloride 10 mEq tablet extended release 10 meq PO DAILY (DME) Contour Test Strips Strip MISCELLANEOUS Patient Comments: USE TO TEST BLOOD GLUCOSE 2 TIMES DAILY DIRECTED simvastatin 40 mg tablet 40 mg PO HS nortriptyline 25 mg capsule 25 mg PO HS risperidone 2 mg tablet 2 mg PO HS lorazepam 0.5 mg tablet 0.5 mg PO DAILY PRN (Reason: anxiety) risperidone 1 mg tablet 1 mg PO DAILY acetaminophen 500 mg tablet 1,000 mg PO Q6H PRN levothyroxine 100 mcg tablet 100 mcg PO QAM ferrous sulfate [Iron (ferrous sulfate)] 325 mg (65 mg iron) tablet 325 mg PO DAILY Qty: 10 0RF aspirin [Adult Aspirin Regimen] 81 mg tablet,delayed release (DR/EC) 81 mg PO DAILY Hold Instructions: Resume on 05/17/23. May resume in 2 weeks, unless otherwise instructed by your physician(s) omeprazole 20 mg capsule,delayed release(DR/EC) 20 mg PO DAILY Qty: 30 2RF ciprofloxacin HCl 250 mg tablet 250 mg PO BID Qty: 20 0RF atorvastatin 20 mg tablet 20 mg PO QPM amlodipine 5 mg tablet 5 mg PO DAILY hydrochlorothiazide 25 mg tablet 25 mg PO DAILY Follow Up/Referrals: Rylee Cruz MD [Primary Care Provider] -
[2023-05-04 09:01] LABS: Lactate* 1.9 mmol/L (0.5-1.9)
[2023-05-04 09:04] LABS: Basophils Absolute Auto 0.03 K/uL (0.00-0.30); Basophils Percent Auto 0.3 % (0.0-3.0); Eosinophils Absolute Auto 0.01 K/uL (0.00-0.50); Eosinophils Percent Auto 0.1 % (0.0-7.0); Hematocrit 33.3 % (33.0-51.0); Hemoglobin* 10.2 gm/dL (12.0-16.0); Immature Granulocytes Abs Auto 0.03 K/uL (0.00-0.30); Immature Granulocytes Pct Auto 0.3 %; Lymphocytes Percent Auto 6.6 % (20-44); Mean Corpuscular HGB Conc 31 gm/dL (32-36); Mean Corpuscular Hemoglobin 20 pg (26-34); Mean Corpuscular Volume 66 fL (80-100); Neutrophils Percent Auto 82.7 % (42.0-72.0); Platelet Count* 534 K/uL (140-440); RDW Coefficient of Variation % 21.2 % (11.5-15.5); Red Blood Count 5.02 m/uL (4.00-5.20); White Blood Count* 10.44 K/uL (4.50-11.00)
[2023-05-04] MEDS: LACTATED RINGERS 1000 ML 1,000 ML IV (09:05)
[2023-05-04 09:15] LABS: Slide Review Reflex Yes
[2023-05-04 09:18] LABS: Albumin* 3.9 g/dL (3.3-5.0); Chloride* 99 mmol/L (96-114); Potassium* 3.4 mmol/L (3.6-5.1); Sodium* 132 mmol/L (135-149)
[2023-05-04 09:20] LABS: Anion Gap 10 mEq/L (7-15); Bilirubin Total* 0.5 mg/dL (0.1-1.5); Carbon Dioxide* 23 mmol/L (20-32); Creatinine* 0.3 mg/dL (0.5-1.5); Estimated Glomerular Filt Rate 112 ml/min
[2023-05-04 09:20] LABS: PCR FLU A Negative PCR FLU A (Negative); PCR FLU B Negative PCR FLU B (Negative); PCR RSV Negative PCR RSV (Negative); SARS PCR* Negative SARS-CoV-2 (Negative)
[2023-05-04 09:21] LABS: Alanine Aminotransferase* 20 U/L (4-35); Alkaline Phosphatase* 65 U/L (40-150); Aspartate Amino Transferase* 27 U/L (12-35); Blood Urea Nitrogen* 6 mg/dL (7-30); Calcium* 8.7 mg/dL (8.4-10.6); Glucose* 158 mg/dL (60-115); Total Protein* 7.5 g/dL (6.0-8.3)
[2023-05-04 09:25] LABS: Slide Review Acceptable Review (Acceptable)
[2023-05-04 09:35] LABS: Troponin I* 0.07 ng/mL (0.01-0.04)
[2023-05-04 09:53] LABS: Appearance Urine Clear (Clear); Bilirubin Urine Negative (Negative); Blood Urine 1+ (Negative); Color Urine Yellow (Yellow); Glucose Urine Negative (Negative); Ketones Urine 3+ (Negative); Leukocyte Esterase Urine Trace (Negative); Nitrite Urine Negative (Negative); Protein Urine Negative (Negative); Urobilinogen Urine 0.2 (0.2-1.0)
[2023-05-04 10:02] LABS: Bacteria Urine Moderate; Squamous Epithelial Cell Urine Few (None-Few); WBC Urine 0-2 (0-5)
[2023-05-04 11:56] LABS: Troponin I* 0.07 ng/mL (0.01-0.04)
--- NOTE | 2023-05-04 13:37 | PM.IMHP1 ---
Hospitalist- H&P: HPI History of Present Illness Time Seen by Provider: 13:15 Date Seen: 05/04/23 Chief complaint: weakness Narrative: Kyle Yañez is a 72 year old female who presented to the ER for the 4th time in the last week, having just been discharged yesterday from an overnight stay for Pseudomonas aeruginosa urinary tract infection. She was given ciprofloxacin to be taken twice a day upon discharge yesterday, and had picked it up, but had not started it yet. Yesterday she was doing well when she got home, and I read that she had ambulated 80 ft with a walker and standby assist yesterday, but by evening she was having trouble with weakness again and could not get into bed. She denies any other symptoms. Her friend, Kamilla, helped her at home. By morning she could not get out of bed and so she was brought to the emergency department. She denies any chest pain or shortness of breath. She has not had any heart symptoms. While admitting her, we put her on telemetry and shortly afterward, while she was getting up to use the bathroom, she suddenly had a heart rate in the 180s. We obtained a 2nd EKG and the results show atrial fibrillation with rapid ventricular response. Blood pressure was in the 160s over 110s. She is responding to IV metoprolol. Review of Systems Status of ROS: Reports: 10 or more systems reviewed and unremarkable except as noted in History and below [facility] Medical History (Updated 05/04/23 @ 14:51 by Marline Wallace MD) GI bleed ?K92.2 - Gastrointestinal hemorrhage, unspecified (ICD-10) Protein calorie malnutrition ?E46 - Unspecified protein-calorie malnutrition (ICD-10) Anemia ?D64.9 - Anemia, unspecified (ICD-10) Altered mental status ?R41.82 - Altered mental status, unspecified (ICD-10) Chronic diarrhea ?K52.9 - Noninfective gastroenteritis and colitis, unspecified (ICD-10) Unstable gait ?R26.81 - Unsteadiness on feet (ICD-10) History of intracranial hemorrhage ?Z86.79 - Personal history of other diseases of the circulatory system (ICD-10) Osteopenia ?M85.80 - Other specified disorders of bone density and structure, unspecified site (ICD-10) Vitamin D deficiency ?E55.9 - Vitamin D deficiency, unspecified (ICD-10) Chronic schizophrenia ?F20.9 - Schizophrenia, unspecified (ICD-10) Diabetes mellitus type 2 in nonobese ?E11.9 - Type 2 diabetes mellitus without complications (ICD-10) Hyperlipidemia ?E78.5 - Hyperlipidemia, unspecified (ICD-10) Tremor ?R25.1 - Tremor, unspecified (ICD-10) Diabetes mellitus ?E11.9 - Type 2 diabetes mellitus without complications (ICD-10) Hypothyroidism ?E03.9 - Hypothyroidism, unspecified (ICD-10) Hypertension ?I10 - Essential (primary) hypertension (ICD-10) Anxiety ?F41.9 - Anxiety disorder, unspecified (ICD-10) Intraparenchymal hemorrhage of brain ?I61.9 - Nontraumatic intracerebral hemorrhage, unspecified (ICD-10) Surgical History History of tonsillectomy and adenoidectomy ?Z90.89 - Acquired absence of other organs (ICD-10) History of breast biopsy ?Z98.890 - Other specified postprocedural states (ICD-10) Family History Mother Alcohol dependence Asthma Heart disease Paternal Grandfather Alcohol dependence Paternal Grandmother Diabetes Brother Down syndrome Alzheimers disease Father Heart disease Maternal Grandmother High blood pressure Social History What is your current living situation?: I presently have a place to live Problems where you live: no known problems Problems where you live details: N/A In the past 12 months, utilities in danger of being shut off: no In past 12 months, lack of transportation kept you from medical appts, meetings, work, or getting things needed for daily living: no In the past 12 mos, have been you worried that your food would run out before you had money to buy more?: never true In the past 12 mos, the food you bought just didn't last and you didn't have money to buy more?: never true Highest level of school completed/degree received: Master's degree Smoking Status: Former smoker Do you use any of these nicotine containing products: None Second hand tobacco smoke exposure: No How often do you have a drink containing alcohol: never How often do you have six or more drinks on one occasion: Never AUDIT-C Alcohol total score: 0 Non-prescribed substance use: denies use Caffeine: Yes (1 cup daily) How often does anyone, including family, friends and others, physically hurt you: never How often does anyone, including family, friends and others, insult or talk down to you: never How often does anyone, including family, friends and others, threaten you with harm: never How often does anyone, including family, friends and others, scream or curse at you: never service: No Meds Home Medications and Allergies Home Medications Medication Instructions Recorded Confirmed Type acetaminophen 500 mg tablet 1,000 mg PO Q6H PRN 10/16/21 05/01/23 History blood sugar diagnostic (Contour 10/16/21 04/26/23 History Test Strips) lorazepam 0.5 mg tablet 0.5 mg PO DAILY PRN anxiety 10/16/21 05/04/23 History metformin 500 mg tablet 1,000 mg PO BID 10/16/21 05/04/23 History nortriptyline 25 mg capsule 25 mg PO HS 10/16/21 05/04/23 History potassium chloride 10 mEq 10 meq PO DAILY 10/16/21 05/04/23 History tablet,extended release risperidone 1 mg tablet 1 mg PO DAILY 10/16/21 05/04/23 History risperidone 2 mg tablet 2 mg PO HS 10/16/21 05/04/23 History levothyroxine 100 mcg tablet 100 mcg PO QAM 04/26/23 05/04/23 History aspirin 81 mg tablet,delayed 81 mg PO DAILY 05/01/23 05/04/23 History release (Adult Aspirin Regimen) amlodipine 5 mg tablet 5 mg PO DAILY 05/04/23 05/04/23 History atorvastatin 20 mg tablet 20 mg PO QPM 05/04/23 05/04/23 History Allergies Allergy/AdvReac Type Severity Reaction Status Date / Time cholecalciferol (vitamin D3) Allergy Unknown Confusion Verified 04/28/23 15:41 [From Vitamin D3] cyanocobalamin (vitamin B12) Allergy Unknown Verified 04/28/23 15:41 grapefruit Allergy Unknown Verified 04/28/23 15:41 Penicillins Allergy Unknown Verified 04/28/23 15:41 Sulfa (Sulfonamide Allergy Unknown Verified 04/28/23 15:41 Antibiotics) eucalyptus AdvReac Unknown Verified 04/28/23 15:41 lisinopril AdvReac Confusion Verified 04/28/23 15:41 Exam Narrative: Exam Narrative: General: No acute distress. Awake alert oriented x3. HEENT: Normocephalic atraumatic, pupils equally round and reactive to light and accommodation. Oropharynx clear. Mucous membranes are moist. No cervical lymphadenopathy, thyromegaly or carotid bruits. No JVD. Cardiovascular: Regular rate and rhythm. No murmurs, gallops, or rubs. Chest: No increased work of breathing. Clear to auscultation bilaterally. No crackles or wheezes. Abdomen: Bowel sounds present. Soft, nondistended, nontender. No hepatosplenomegaly or masses. Extremities: No edema, no cyanosis or clubbing. Skin: No jaundice, no pallor, no rashes. Neuro: Generally weak without focal deficits. Romberg is negative. Cranial nerves 2-12 are intact. Extraocular movements are full. No nystagmus. No facial asymmetry. Tongue is midline. Peripheral vision and vision are grossly intact. Strength is 4/5 in all 4 extremities. DTRs intact and symmetric. Light touch sensation is intact in face body and extremities. Coordination is intact in upper and lower extremities. Const: Vital Signs, click to edit/add: Vital Signs - 24 hr 05/04/23 07:38 05/04/23 08:46 05/04/23 08:47 Temperature 97.7 F Pulse Rate 87 86 Pulse Rate [Right Pulse Oximeter] 87 Pulse Rate [Right Radial] Respiratory Rate 18 Blood Pressure 163/100 H Blood Pressure [Ri ght Arm] Blood Pressure [Ri ght Upper Arm] 151/91 H Pulse Oximetry 95 96 96 Oxygen Delivery Me thod Room Air 05/04/23 09:00 05/04/23 09:01 05/04/23 09:02 Temperature Pulse Rate 95 103 H 101 H Pulse Rate [Right Pulse Oximeter] Pulse Rate [Right Radial] Respiratory Rate Blood Pressure 160/98 H Blood Pressure [Ri ght Arm] Blood Pressure [Ri ght Upper Arm] Pulse Oximetry 94 96 95 Oxygen Delivery Me thod 05/04/23 09:22 05/04/23 09:30 05/04/23 09:45 Temperature Pulse Rate 91 89 89 Pulse Rate [Right Pulse Oximeter] Pulse Rate [Right Radial] Respiratory Rate Blood Pressure Blood Pressure [Ri ght Arm] Blood Pressure [Ri ght Upper Arm] Pulse Oximetry 90 [address] [facility] 05/04/23 10:00 05/04/23 10:01 05/04/23 10:30 Temperature Pulse Rate 78 80 82 Pulse Rate [Right Pulse Oximeter] Pulse Rate [Right Radial] Respiratory Rate Blood Pressure 149/89 H Blood Pressure [Ri ght Arm] Blood Pressure [Ri ght Upper Arm] Pulse Oximetry 94 [address] [facility] [facility] 05/04/23 11:00 05/04/23 11:01 05/04/23 11:02 Temperature Pulse Rate 84 82 83 Pulse Rate [Right Pulse Oximeter] Pulse Rate [Right Radial] Respiratory Rate Blood Pressure 159/92 H Blood Pressure [Ri ght Arm] Blood Pressure [Ri ght Upper Arm] Pulse Oximetry [address] [facility] [facility] 05/04/23 11:30 05/04/23 11:47 05/04/23 11:47 Temperature 98.2 F Pulse Rate 82 Pulse Rate [Right Pulse Oximeter] Pulse Rate [Right Radial] Respiratory Rate 16 Blood Pressure Blood Pressure [Ri ght Arm] Blood Pressure [Ri ght Upper Arm] Pulse Oximetry [address] [facility] [facility] 05/04/23 12:01 05/04/23 12:02 05/04/23 13:04 Temperature 98.1 F Pulse Rate 94 87 Pulse Rate [Right Pulse Oximeter] Pulse Rate [Right Radial] 89 Respiratory Rate 16 Blood Pressure 155/91 H Blood Pressure [Ri ght Arm] 150/87 H Blood Pressure [Ri ght Upper Arm] Pulse Oximetry [address] [facility] 05/04/23 13:12 Temperature Pulse Rate Pulse Rate [Right Pulse Oximeter] Pulse Rate [Right Radial] Respiratory Rate 16 Blood Pressure Blood Pressure [Ri ght Arm] Blood Pressure [Ri ght Upper Arm] Pulse Oximetry 98 Oxygen Delivery [facility] Room Air Hospitalist - H&P: Result Labs Labs: Short CBC 05/04/23 Range/Units 08:53 WBC 10.44 (4.50-11.00) K/uL Hgb 10.2 L (12.0-16.0) gm/dL Hct 33.3 (33.0-51.0) % Plt Count 534 H (140-440) K/uL BMP 05/04/23 08:53 Sodium 132 L Potassium 3.4 L Chloride 99 Carbon Dioxide 23 BUN 6 L Creatinine 0.3 L Glucose 158 H Calcium 8.7 Cardiac Enzymes 05/04/23 05/04/23 Range/Units 08:53 11:04 Troponin I 0.07 H* 0.07 H* (0.01-0.04) ng/mL Liver Function 05/04/23 Range/Units 08:53 Total Bilirubin 0.5 (0.1-1.5) mg/dL AST 27 (12-35) U/L ALT 20 (4-35) U/L Alkaline Phosphatase 65 (40-150) U/L Albumin 3.9 (3.3-5.0) g/dL Urine 05/04/23 Range/Units 09:45 Urine Color Yellow (Yellow) Urine Appearance Clear (Clear) Urine pH 7.0 (5.0-8.5) Ur Specific [place] 1.020 (1.000-1.030) Urine Protein Negative (Negative) Urine Glucose (UA) Negative (Negative) 05/04/2023 EKG from the emergency department: Sinus tachycardia, 103 beats per minute, otherwise normal EKG. 05/04/2023 EKG on the floor at 1:14 p.m.: Atrial fibrillation with rapid ventricular response, 154 beats per minute, left axis deviation, nonspecific ST and T-wave abnormality. Assessment and Plan Assessment and plan (1) Paroxysmal atrial fibrillation: Problem comment: - New onset. I suspect this is the cause of her suddenly worsening weakness and mildly elevated troponin. Will treat with rate control, she is responding well to IV metoprolol and i have ordered oral metoprolol as well. Additionally, will need to address stroke prevention/anticoagulation. She had an episode of melana on 04/30 or 05/01 for which she had an EGD on 05/02 (which was normal, without evidence of bleeding). Since this was recent, she's had no further w/u for this. Her Hgb is up to 10 today, and she remains on a PPI. Status: Acute (2) Weakness: Problem comment: - improving - will need PT and OT reassessment and treatment. May need SNF for rehab. Status: Acute (3) Hypokalemia: Problem comment: - mild, asymptomatic. Continue daily potassium supplementation and give an extra dose today. Recheck in the morning. Status: Acute (4) Hyponatremia: Problem comment: - stable. This is mild and I do not think it is the cause of her weakness. Status: Acute (5) UTI (urinary tract infection): Problem comment: - Pseudomonas aeruginosa UTI, attempted empiric treatment with cephalexin before obtaining urine culture ID and sensitivities - has known UTI, tachycardia, altered mental status, leukocytosis consistent with early sepsis presentation - admit to hospital - received a single dose of imipenem/cilastatin IV in the emergency department - changed to Zosyn, renally dosed - repeat urine culture negative thus far - changed to ciprofloxacin 250 mg po bid x 10 days at discharge 05/02 - 05/03 continue ciprofloxacin twice a day Status: Acute (6) Protein calorie malnutrition: Problem comment: - Nutritional Services consultation during last hospitalization initiated. Status: Chronic (7) GI bleed: Problem comment: - iron deficiency anemia, with hemoglobin stabilized at 8 mg/dl in hospital (05/01/2023-05/03/2023) - 1 x episode of melena in hospital (05/01/2023) - Esophagogastroduodenoscopy (05/03/2023) did not reveal source of bleed - consider outpatient iron infusion therapy and additional testing - this complicates need for anticoagulation for paroxysmal atrial fibrillation. Status: Acute (8) Anemia: Problem comment: - hypochromic microcytic with widened RDW - iron studies and stool for occult blood suggest gastrointestinal blood loss and iron deficiency anemia - 1 x episode of melena while in hospital - serial hemoglobin assessments, with hemoglobin decreased to 7.6 and stabilizing at 8 mg/dl on day of discharge - Inpatient esophagogastroduodenoscopy 05/03/2023 demonstrated to active bleeding or stigmata of recent UGI bleed - started PPI in hospital and will continue in outpatient setting for at least 4 weeks - consider additional outpatient testing and/or iron infusion treatment - hemoglobin improving. Status: Acute
[2023-05-04] MEDS: METOPROLOL TARTRATE 1 MG/ML inj 5 MG IVP ×2 (14:22→15:37)
[2023-05-04] MEDS: POTASSIUM BICARB 25 MEQ EFFERVESCENT TAB PO (14:22)
[2023-05-04] MEDS: METOPROLOL TARTRATE 25 MG TABLET PO (14:32)
[2023-05-04] MEDS: MAGNESIUM IV 2 GM/50 ML PIGGYBACK IVPB (15:37)
[2023-05-04 15:52] LABS: Magnesium* 1.6 mg/dL (1.5-2.6)
--- NOTE | 2023-05-04 18:28 | PC.NURSE ---
End of shift. pt is pleasant: A&Ox3 off on date and she has a delay with answering some questions. she has a old sore left shoulder. Up with A1 walker and GB . Occasionally incontinent of urine, brief is on, No bowel movements this shift. Using call light appropriately. she can feed her self BS was 147
[2023-05-04] MEDS: METOPROLOL SUCCINATE (XL) 50 MG TAB PO (21:06)
[2023-05-04] MEDS: CIPROFLOXACIN 250 MG TABLET PO (21:06)
[2023-05-04] MEDS: METFORMIN 500 MG TABLET 1000 MG PO (21:06)
[2023-05-04] MEDS: SIMVASTATIN 40 MG TABLET PO (21:07)
[2023-05-04] MEDS: risperiDONE 1 MG TABLET 2 MG PO (21:07)
[2023-05-04] MEDS: SODIUM CHLORIDE 0.9 % (FLUSH) 10 ML SYRINGE 5 ML IVF (21:07)
[2023-05-04] MEDS: NORTRIPTYLINE HCL 25 MG CAPSULE PO (21:41)
[2023-05-05] VITALS (10 sets, daily range): BP systolic 105–172; BP diastolic 54–88; PULSE 67–86; RESP 16–20; TEMP 36.3–36.9; O2SAT 92–98
[2023-05-05 07:11] LABS: Basophils Absolute Auto 0.03 K/uL (0.00-0.30); Basophils Percent Auto 0.5 % (0.0-3.0); Eosinophils Absolute Auto 0.11 K/uL (0.00-0.50); Eosinophils Percent Auto 1.8 % (0.0-7.0); Hematocrit 27.6 % (33.0-51.0); Hemoglobin* 8.6 gm/dL (12.0-16.0); Immature Granulocytes Abs Auto 0.01 K/uL (0.00-0.30); Immature Granulocytes Pct Auto 0.2 %; Lymphocytes Percent Auto 17.3 % (20-44); Mean Corpuscular HGB Conc 31 gm/dL (32-36); Mean Corpuscular Hemoglobin 21 pg (26-34); Mean Corpuscular Volume 66 fL (80-100); Monocytes Percent Auto 11.8 % (0.0-11.0); Neutrophils Absolute Auto 4.25 K/uL (1.7-7.0); Neutrophils Percent Auto 68.4 % (42.0-72.0); Platelet Count* 508 K/uL (140-440); RDW Coefficient of Variation % 20.9 % (11.5-15.5); Red Blood Count 4.18 m/uL (4.00-5.20)
[2023-05-05 07:20] LABS: Slide Review Reflex No
[2023-05-05 07:22] LABS: Chloride* 99 mmol/L (96-114); Potassium* 3.4 mmol/L (3.6-5.1); Sodium* 132 mmol/L (135-149)
[2023-05-05 07:25] LABS: Anion Gap 6 mEq/L (7-15); Carbon Dioxide* 27 mmol/L (20-32); Creatinine* 0.4 mg/dL (0.5-1.5); Est. Creatinine Clearance* 39.63; Estimated Glomerular Filt Rate 104 ml/min
--- NOTE | 2023-05-05 07:25 | PC.NURSE ---
End of shift 1900 ? 0730 ? Pt appeared drowsy, oriented x4 but observed to take?long pauses when answering questions from RN and appeared to be searching for words. Pt easily roused by name but required instructions to be repeated many times before acting. Pt up to bathroom with standby assistance, walker, gait belt. Incontinent of bladder during shift. Pt denied pain, SOB, nausea, dizziness. Tolerating RA, regular diet, fluids. Pt observed to sleep during shift, appears to be resting comfortably at end of shift. Mentation seen to improve with conversation style speech used with little to no delay at end of shift. ?
[2023-05-05 07:26] LABS: Blood Urea Nitrogen* 13 mg/dL (7-30); Calcium* 8.5 mg/dL (8.4-10.6); Glucose* 130 mg/dL (60-115)
[2023-05-05 07:28] LABS: C Reactive Protein* 8.5 mg/dL (0.5-1.0)
[2023-05-05] MEDS: METFORMIN 500 MG TABLET 1000 MG PO ×2 (08:54→21:15)
[2023-05-05] MEDS: OMEPRAZOLE 20 MG CAPSULE DR PO (08:54)
[2023-05-05] MEDS: CIPROFLOXACIN 250 MG TABLET PO ×2 (08:54→21:15)
[2023-05-05] MEDS: SODIUM CHLORIDE 0.9 % (FLUSH) 10 ML SYRINGE 5 ML IVF ×2 (08:54→21:18)
[2023-05-05] MEDS: POTASSIUM CHLORIDE 10 MEQ CAPSULE ER PO (08:54)
[2023-05-05] MEDS: LEVOTHYROXINE 100 MCG TABLET PO (08:54)
[2023-05-05] MEDS: FERROUS SULFATE 325 MG TABLET PO (08:54)
[2023-05-05] MEDS: METOPROLOL SUCCINATE (XL) 50 MG TAB PO ×2 (08:55→21:15)
[2023-05-05] MEDS: risperiDONE 1 MG TABLET PO (08:55)
--- NOTE | 2023-05-05 13:09 | P.IMPN_ITS ---
Progress Note: A&P Assessment and plan (1) Paroxysmal atrial fibrillation: Problem details: - New onset. I suspect this is the cause of her suddenly worsening weakness and mildly elevated troponin. Will treat with rate control, she is responding well to IV metoprolol and i have ordered oral metoprolol as well. - Additionally, will need to address stroke prevention/anticoagulation. She had an episode of melana on 04/30 or 05/01 for which she had an EGD on 05/02 (which was normal, without evidence of bleeding). Since this was recent, she's had no further w/u for this. Her Hgb is 8.6 today, and she remains on a PPI. This is down from yesterday, but stable overall. I'm wondering if her Hgb of 10 yesterday was lab error. I will hold off on starting coumadin and recheck her Hgb again tomorrow. Since Hgb is so low and she had melena within the last week, I am thinking it may be better to have her wait to start warfarin and discuss GI work up and anticoagulation with a PCP as an outpatient. Status: Acute (2) Hyponatremia: Problem details: - stable. This is mild and I do not think it is the cause of her weakness. Status: Acute (3) Hypokalemia: Problem details: - mild, asymptomatic. Continue daily potassium supplementation and give extra doses today. Recheck in the morning along with a magnesium level. Status: Acute (4) Anemia: Problem details: - hypochromic microcytic with widened RDW - iron studies and stool for occult blood suggest gastrointestinal blood loss and iron deficiency anemia - 1 x episode of melena while in hospital - serial hemoglobin assessments, with hemoglobin decreased to 7.6 and stabilizing at 8 mg/dl on day of discharge - Inpatient esophagogastroduodenoscopy 05/03/2023 demonstrated to active bleeding or stigmata of recent UGI bleed - started PPI in hospital and will continue in outpatient setting for at least 4 weeks - consider additional outpatient testing and/or iron infusion treatment - hemoglobin fluctuating, monitor, hold on starting warfarin for now. Status: Acute (5) GI bleed: Problem details: - iron deficiency anemia, with hemoglobin stabilized at 8 mg/dl in hospital (05/01/2023-05/03/2023) - 1 x episode of melena in hospital (05/01/2023) - Esophagogastroduodenoscopy (05/03/2023) did not reveal source of bleed - consider outpatient iron infusion therapy and additional testing - this complicates need for anticoagulation for paroxysmal atrial fibrillation. Status: Acute (6) Protein calorie malnutrition: Problem details: - Nutritional Services consultation during last hospitalization initiated. Status: Chronic (7) Dehydration: Problem details: - resolved with IV fluids Status: Resolved (8) Weakness: Problem details: - improving - PT and OT recommending SNF for rehab. Status: Acute (9) UTI (urinary tract infection): Problem details: - Pseudomonas aeruginosa UTI, attempted empiric treatment with cephalexin before obtaining urine culture ID and sensitivities - has known UTI, tachycardia, altered mental status, leukocytosis consistent with early sepsis presentation - admit to hospital - received a single dose of imipenem/cilastatin IV in the emergency department - changed to Zosyn, renally dosed - repeat urine culture negative thus far - changed to ciprofloxacin 250 mg po bid x 10 days at discharge 05/02 - 05/03 continue ciprofloxacin twice a day Status: Acute (10) Mild cognitive impairment: Problem details: 05/03/23 MOCA Status: Acute Time Spent With Patient Total time spent: Today I spent 35 minutes rounding on the patient. Greater than 50% included discussing care with the patient, team, reviewing data, updating and managing the care plan. Subjective Time Seen by Provider: 10:40 Date Seen: 05/05/23 Interval history: Kyle says she feels well today. We discussed afib, stroke prevention, recent melena, concern for GI bleed, anemia, recent EGD, warfarin and the risk for GI bleed and bleeding with falls, fall risk, and weakness. She told me that her goals in life at this point are to spend as much time as she can with [facility]. She would like to take warfarin for stroke prevention in the setting of afib and understands that there is an increased risk of GI bleeding, especially since she's had recent anemia without an identified cause of GI bleed. We also spent 10 minutes discussing need for SNF for short term rehab, and she is agreeable as long as it is [facility]. I asked her to consider what other SNFs she'd agree to if [facility] doesn't have a bed. Exam Narrative: Exam Narrative: General: No acute distress. Awake alert oriented x3. Cardiovascular: Regular rate and rhythm. No murmurs, gallops, or rubs. Chest: No increased work of breathing. Clear to auscultation bilaterally. No crackles or wheezes. Abdomen: Bowel sounds present. Soft, nondistended, nontender. No hepatosplenomegaly or masses. Extremities: No edema, no cyanosis or clubbing. Const: Vital Signs, click to edit/add: Vital Signs - 24 hr 05/04/23 13:12 05/04/23 15:00 05/04/23 15:00 Temperature Pulse Rate 122 H Pulse Rate [Right Radial] Respiratory Rate 16 16 Blood Pressure [Ri ght Arm] Pulse Oximetry 98 98 Oxygen Delivery Hi thod Room Air Room Air 05/04/23 15:00 05/04/23 16:42 05/04/23 19:00 Temperature 98.0 F 96.9 F L Pulse Rate 77 Pulse Rate [Right Radial] 127 H 83 Respiratory Rate 16 20 Blood Pressure [Ri ght Arm] 139/97 H 118/78 Pulse Oximetry 95 97 Oxygen Delivery Hi thod Room Air Room Air 05/04/23 23:00 05/04/23 23:00 05/05/23 02:44 Temperature 97.3 F L Pulse Rate 81 Pulse Rate [Right Radial] 76 Respiratory Rate 20 16 Blood Pressure [Ri ght Arm] 125/78 Pulse Oximetry [address] [facility] 05/05/23 06:58 05/05/23 07:45 05/05/23 07:45 Temperature 98.4 F Pulse Rate 73 Pulse Rate [Right Radial] 86 Respiratory Rate 16 16 Blood Pressure [Ri ght Arm] 172/88 H Pulse Oximetry [address] [facility] Room Air 05/05/23 07:47 05/05/23 11:12 Temperature 98.0 F Pulse Rate Pulse Rate [Right Radial] 86 75 Respiratory Rate 16 16 Blood Pressure [Ri ght Arm] 105/62 Pulse Oximetry [address] [facility] Labs Labs: Laboratory Results - last 24 hr 05/04/23 05/04/23 05/05/23 08:53 15:17 05:32 WBC 6.20 RBC 4.18 Hgb 8.6 L Hct 27.6 L MCV 66 L MCH 21 L MCHC 31 L RDW Coeff of Emily 20.9 H Plt Count 508 H Neut % (Auto) 68.4 Lymph % (Auto) 17.[address] [facility] % (Auto) 11.8 H Eos % (Auto) 1.8 Baso % (Auto) 0.5 Neut # (Auto) 4.25 Lymph # (Auto) 1.10 [facility] # (Auto) 0.70 Eos # (Auto) 0.11 Baso # (Auto) 0.03 Abs Immat Gran (auto) 0.01 Imm/Tot Granulo (auto) 0.2 Sodium 132 L Potassium 3.4 L Chloride 99 Carbon Dioxide 27 Anion Gap 6 L BUN 13 Creatinine 0.4 L Estimated Creat Clear 39.63 Estimated GFR 104 Glucose 130 H Calcium 8.5 Magnesium 1.6 C-Reactive Protein 8.5 H Lab Acknowledgement Test Added
[2023-05-05] MEDS: POTASSIUM BICARB 25 MEQ EFFERVESCENT TAB PO ×2 (14:16→16:23)
--- NOTE | 2023-05-05 19:59 | PC.NURSE ---
End of shift. pt is still pleasant: A&Ox3 she is more alert today and is answering questions better. SL is patent. . she has a old sore left shoulder. Up with A1 walker and GB brief is on, No bowel movements this shift. Using call light appropriately. she is eating, drinking and voiding. BS wnl and no insulin. PT and OT worked with her.
[2023-05-05] MEDS: NORTRIPTYLINE HCL 25 MG CAPSULE PO (21:15)
[2023-05-05] MEDS: SIMVASTATIN 40 MG TABLET PO (21:16)
[2023-05-05] MEDS: risperiDONE 1 MG TABLET 2 MG PO (21:18)
[2023-05-05] MEDS: ACETAMINOPHEN 325 MG TABLET 650 MG PO (21:29)
[2023-05-06] VITALS (7 sets, daily range): BP systolic 101–156; BP diastolic 60–80; PULSE 65–75; RESP 15–70; TEMP 36.1–36.6; O2SAT 95–98; BMI 26.7
--- NOTE | 2023-05-06 06:07 | PC.NURSE ---
End of shift 1900 ? 0730 ? Pt alert, oriented x4. Mentation and speech pattern appears to be significantly improved from previous day. Pt up to bathroom with standby assistance, walker, gait belt. Continent of bladder, incontinent of bowels during shift. Pt denied pain, SOB, nausea, dizziness. Tolerating RA, regular diet, fluids. Pt observed to sleep during shift, appears to be resting comfortably at end of shift. ?
[2023-05-06 06:26] LABS: Basophils Absolute Auto 0.04 K/uL (0.00-0.30); Basophils Percent Auto 0.6 % (0.0-3.0); Eosinophils Absolute Auto 0.36 K/uL (0.00-0.50); Eosinophils Percent Auto 5.1 % (0.0-7.0); Hematocrit 27.9 % (33.0-51.0); Hemoglobin* 8.5 gm/dL (12.0-16.0); Immature Granulocytes Abs Auto 0.09 K/uL (0.00-0.30); Immature Granulocytes Pct Auto 1.3 %; Lymphocytes Percent Auto 17.7 % (20-44); Mean Corpuscular HGB Conc 31 gm/dL (32-36); Mean Corpuscular Hemoglobin 21 pg (26-34); Mean Corpuscular Volume 67 fL (80-100); Monocytes Percent Auto 10.1 % (0.0-11.0); Neutrophils Absolute Auto 4.63 K/uL (1.7-7.0); Neutrophils Percent Auto 65.2 % (42.0-72.0); Platelet Count* 507 K/uL (140-440); Red Blood Count 4.14 m/uL (4.00-5.20)
[2023-05-06 06:29] LABS: Slide Review Reflex No
[2023-05-06 06:49] LABS: INR 1.04 (0.91-1.10); Prothrombin Time 14.2 Seconds
[2023-05-06 06:55] LABS: Chloride* 102 mmol/L (96-114); Sodium* 133 mmol/L (135-149)
[2023-05-06 06:56] LABS: Potassium* 4.1 mmol/L (3.6-5.1)
[2023-05-06 06:58] LABS: Anion Gap 1 mEq/L (7-15); Carbon Dioxide* 30 mmol/L (20-32); Creatinine* 0.6 mg/dL (0.5-1.5); Est. Creatinine Clearance* 39.63; Estimated Glomerular Filt Rate 95 ml/min
[2023-05-06 06:59] LABS: Blood Urea Nitrogen* 19 mg/dL (7-30); Calcium* 8.5 mg/dL (8.4-10.6); Glucose* 119 mg/dL (60-115)
[2023-05-06] MEDS: LEVOTHYROXINE 100 MCG TABLET PO (07:45)
[2023-05-06] MEDS: OMEPRAZOLE 20 MG CAPSULE DR PO (08:42)
[2023-05-06] MEDS: POTASSIUM CHLORIDE 10 MEQ CAPSULE ER PO (08:42)
[2023-05-06] MEDS: risperiDONE 1 MG TABLET PO (08:43)
[2023-05-06] MEDS: FERROUS SULFATE 325 MG TABLET PO (08:43)
[2023-05-06] MEDS: METOPROLOL SUCCINATE (XL) 50 MG TAB PO ×2 (08:43→20:24)
[2023-05-06] MEDS: CIPROFLOXACIN 250 MG TABLET PO ×2 (08:45→20:24)
[2023-05-06] MEDS: SODIUM CHLORIDE 0.9 % (FLUSH) 10 ML SYRINGE 5 ML IVF ×2 (08:45→20:23)
[2023-05-06] MEDS: METFORMIN 500 MG TABLET 1000 MG PO ×2 (08:45→20:23)
--- NOTE | 2023-05-06 12:10 | PC.SOCIAL ---
Addendum entered by MARY Valadez 05/06/23 16:30: Received a voicemail from Yaima at [facility] [employer]. at [phone]. Yaima informs that home care has not been able to complete initial home care meeting with pt due to pt coming back to hospital so quickly. Yaima requests an update on discharge plans when they are known. Pt was set to get Nursing, PT, and OT with [facility] [employer]. Social work will update home care when discharge plans are known. Original Note: Discharge planning- Met with pt and discussed discharge plans. Per therapy, pt recommended for SNF for therapy. Pt is aware that she will have to private pay for SNF due to not having a 3 night inpatient stay. Pt agrees to pay. Pt would like [facility] since she [place] [address] from the facility. Pt will consider [facility] in [place], if necessary. Pt is aware that [facility] requires $10,000.00 upon admission. Contacted the following SNF's for possible placement. 1. [facility]- Phone call to Denise Wallace in admissions at [phone]. They have openings and will assess. Secure e-mailed referral to Denise Wallace. 2. [facility] [place]- Phone call to Peggy in admissions at [phone]. Left voicemail and e-mail inquiring on bed availability. Social work will continue to follow up as needed.
--- NOTE | 2023-05-06 12:40 | PM.IMPN1 ---
Progress Note: A&P Assessment and plan (1) Paroxysmal atrial fibrillation: Problem details: - New onset. I suspect this is the cause of her suddenly worsening weakness and mildly elevated troponin. Will treat with rate control, she is responding well to IV metoprolol and i have ordered oral metoprolol as well. - Additionally, will need to address stroke prevention/anticoagulation. She had an episode of melana on 04/30 or 05/01 for which she had an EGD on 05/02 (which was normal, without evidence of bleeding). Since this was recent, she's had no further w/u for this. Her Hgb is 8.6 today, and she remains on a PPI. This is down from yesterday, but stable overall. I'm wondering if her Hgb of 10 yesterday was lab error. I will hold off on starting coumadin and recheck her Hgb again tomorrow. Since Hgb is so low and she had melena within the last week, I am thinking it may be better to have her wait to start warfarin and discuss GI work up and anticoagulation with a PCP as an outpatient. - Discussed recommendation for outpatient GI w/u with patient. Will need to have discussion with PCP about anticoagulation and when it may be safe to start this. Status: Acute (2) Hyponatremia: Problem details: - stable. This is mild and I do not think it is the cause of her weakness. Status: Acute (3) Hypokalemia: Problem details: - Resolved. Status: Resolved (4) Anemia: Problem details: - hypochromic microcytic with widened RDW - iron studies and stool for occult blood suggest gastrointestinal blood loss and iron deficiency anemia - 1 x episode of melena while in hospital - serial hemoglobin assessments, with hemoglobin decreased to 7.6 and stabilizing at 8 mg/dl on day of discharge - Inpatient esophagogastroduodenoscopy 05/03/2023 demonstrated to active bleeding or stigmata of recent UGI bleed - started PPI in hospital and will continue in outpatient setting for at least 4 weeks - consider additional outpatient testing and/or iron infusion treatment - hemoglobin fluctuating, monitor, hold on starting warfarin for now. Status: Acute (5) GI bleed: Problem details: - iron deficiency anemia, with hemoglobin stabilized at 8 mg/dl in hospital (05/01/2023-05/03/2023) - 1 x episode of melena in hospital (05/01/2023) - Esophagogastroduodenoscopy (05/03/2023) did not reveal source of bleed - consider outpatient iron infusion therapy and additional testing - this complicates need for anticoagulation for paroxysmal atrial fibrillation. Status: Acute (6) Protein calorie malnutrition: Problem details: - Nutritional Services consultation during last hospitalization initiated. Status: Chronic (7) Dehydration: Problem details: - resolved with IV fluids Status: Resolved (8) Weakness: Problem details: - improving - PT and OT recommending SNF for rehab. Status: Acute (9) UTI (urinary tract infection): Problem details: - Pseudomonas aeruginosa UTI, attempted empiric treatment with cephalexin before obtaining urine culture ID and sensitivities - has known UTI, tachycardia, altered mental status, leukocytosis consistent with early sepsis presentation - admit to hospital - received a single dose of imipenem/cilastatin IV in the emergency department - changed to Zosyn, renally dosed - repeat urine culture negative thus far - changed to ciprofloxacin 250 mg po bid x 10 days at discharge 05/02 - 05/03 continue ciprofloxacin twice a day Status: Acute (10) Mild cognitive impairment: Problem details: 05/03/23 MOCA Status: Acute Plan 72-year-old female with weakness new onset paroxysmal atrial fibrillation. She is rate controlled on metoprolol, but I am holding off on anticoagulation due to GI bleed on 05/01/2023. She had an EGD on 05/03/2023 that was within normal limits, but I think would benefit from more of a GI workup prior to starting anticoagulation. It is recommended by PT and OT that she have residential facility for rehab. She is agreeable with this. Social Work is helping with discharge planning and we are seeking a bed at a residential facility. No safe discharge plan at present. Subjective Time Seen by Provider: 07:52 Date Seen: 05/06/23 Interval history: Kyle is feeling well today. No melena or BRBPR last night. Is agreeable to go to [facility]. Exam Narrative: Exam Narrative: General: No acute distress. Awake alert oriented x3. Cardiovascular: Regular rate and rhythm. No murmurs, gallops, or rubs. Chest: No increased work of breathing. Clear to auscultation bilaterally. No crackles or wheezes. Abdomen: Bowel sounds present. Soft, nondistended, nontender. No hepatosplenomegaly or masses. Extremities: No edema, no cyanosis or clubbing. Const: Vital Signs, click to edit/add: Vital Signs - 24 hr 05/05/23 16:27 05/05/23 16:30 05/05/23 16:30 Temperature 97.6 F Pulse Rate Pulse Rate [Right Radial] 72 72 Respiratory Rate 16 16 16 Blood Pressure [Ri ght Arm] 116/65 Pulse Oximetry 92 92 Oxygen Delivery Me thod Room Air Room Air 05/05/23 16:52 05/05/23 19:00 05/05/23 23:00 Temperature 97.6 F 97.7 F Pulse Rate 73 Pulse Rate [Right Radial] 74 69 Respiratory Rate 20 16 Blood Pressure [Ri ght Arm] 131/74 133/54 L Pulse Oximetry 96 98 Oxygen Delivery Me thod Room Air Room Air 05/05/23 23:00 05/05/23 23:00 05/06/23 04:06 Temperature 97.1 F L Pulse Rate 67 Pulse Rate [Right Radial] 67 Respiratory Rate 16 20 Blood Pressure [Ri ght Arm] 122/74 Pulse Oximetry 98 95 Oxygen Delivery Me thod Room Air Room Air 05/06/23 07:00 05/06/23 07:00 05/06/23 07:45 Temperature 97.8 F Pulse Rate 65 Pulse Rate [Right Radial] 75 Respiratory Rate 18 Blood Pressure [Ri ght Arm] 101/60 Pulse Oximetry 95 95 Oxygen Delivery Me thod Room Air Room Air 05/06/23 11:34 Temperature 96.9 F L Pulse Rate Pulse Rate [Right Radial] Respiratory Rate 70 H Blood Pressure [Ri ght Arm] 123/77 Pulse Oximetry 96 Oxygen Delivery Me thod Labs Labs: Laboratory Results - last 24 hr 05/06/23 05:55 WBC 7.10 RBC 4.14 Hgb 8.5 L Hct 27.9 L MCV 67 L MCH 21 L MCHC 31 L RDW Coeff of Emily 21.0 H Plt Count 507 H Neut % (Auto) 65.2 Lymph % (Auto) 17.7 L Valley % (Auto) 10.1 Eos % (Auto) 5.1 Baso % (Auto) 0.6 Neut # (Auto) 4.63 Lymph # (Auto) 1.30 Valley # (Auto) 0.70 Eos # (Auto) 0.36 Baso # (Auto) 0.04 Abs Immat Gran (auto) 0.09 Imm/Tot Granulo (auto) 1.3 INR 1.04 Sodium 133 L Potassium 4.1 Chloride 102 Carbon Dioxide 30 Anion Gap 1 L BUN 19 Creatinine 0.6 Estimated Creat Clear 39.63 Estimated GFR 95 Glucose 119 H Calcium 8.5 Magnesium 2.0
--- NOTE | 2023-05-06 18:41 | PC.NURSE ---
Discharge note: The patient is A&Ox3... VSS on RA. No reports of pain throughout the shift. Telemetry NSR. Incontinent/continent of bladder and bowel throughout the day. Large incontinent BM was observed by Mackenzie ROCA. PO fluid intake is assuring throughout the day. No reports of burning or frequency with urination. SCDs on when the patient is in bed. The patient hopes to go to [facility] for a rehab stay... pending acceptance per social work... this was discussed thoroughly with the patient. Call light within reach, will make needs known. Friend is to transport patient if she is accepted to [facility]... see sticky note on patient list. Makeda SANCHEZ BSN
[2023-05-06] MEDS: SIMVASTATIN 40 MG TABLET PO (20:23)
[2023-05-06] MEDS: risperiDONE 1 MG TABLET 2 MG PO (20:24)
[2023-05-06] MEDS: NORTRIPTYLINE HCL 25 MG CAPSULE PO (20:25)
[2023-05-07 03:00] VITALS: BP 135/79; PULSE 66; RESP 16; TEMP 36.6; O2SAT 96
[2023-05-07 07:00] VITALS: BP 134/73; PULSE 67; RESP 16; TEMP 36.6; O2SAT 95; O2SAT 96
--- NOTE | 2023-05-07 07:11 | PC.NURSE ---
End of shift [id number]: Pleasant and cooperative with cares. Alert, oriented to person, date and place. Right sides weakness, patient has at baseline. Denies any pain or shortness of breath. Transfers with SBA with walker and gait belt.
[2023-05-07] MEDS: CIPROFLOXACIN 250 MG TABLET PO (09:07)
[2023-05-07] MEDS: METOPROLOL SUCCINATE (XL) 50 MG TAB PO (09:07)
[2023-05-07] MEDS: ACETAMINOPHEN 325 MG TABLET 650 MG PO (09:08)
[2023-05-07] MEDS: POTASSIUM CHLORIDE 10 MEQ CAPSULE ER PO (09:08)
[2023-05-07] MEDS: FERROUS SULFATE 325 MG TABLET PO (09:08)
[2023-05-07] MEDS: LEVOTHYROXINE 100 MCG TABLET PO (09:08)
[2023-05-07] MEDS: METFORMIN 500 MG TABLET 1000 MG PO (09:08)
[2023-05-07] MEDS: OMEPRAZOLE 20 MG CAPSULE DR PO (09:08)
[2023-05-07 09:21] LABS: Hemoglobin* 8.5 gm/dL (12.0-16.0)
[2023-05-07] MEDS: SODIUM CHLORIDE 0.9 % (FLUSH) 10 ML SYRINGE 5 ML IVF (10:10)
[2023-05-07] MEDS: risperiDONE 1 MG TABLET PO (10:10)
[2023-05-07] MEDS: FERROUS SULFATE 325 MG TABLET 650 MG PO (10:13)
--- NOTE | 2023-05-07 11:20 | PC.SOCIAL ---
Addendum entered by MARY Valadez 05/07/23 11:44: Completed preadmission screening. Confirmation #[id number]. Phone call to Yaima at [employer] at [phone] and left a voicemail providing an update on discharge plans. Secure e-mailed discharge orders and PAS to Denise Wallace at [facility]. Provided Denise with information on pt's home care with [facility]. Received information that pt has an open case with [facility] ELZA, Deedee Cade. Sent secure e-mail to Deedee Cade at [facility] providing her with an update on pt's discharge plans. Original Note: Discharge planning- Received a phone call from Denise Wallace at [facility]. They can accept pt for admission for today before 2:00 pm. [facility] asks if pt wants shared or private room. Shared room=$536.39/day, and private room=$598.07/day. Discussed with pt and she would like a shared room. Provided update to Denise [facility]. Phone call to pt's friend Carrie to provide an update and secure transportation. Carrie will go to pt's home and get clothing and come to the hospital. Carrie is aware that the provider has to complete orders prior to discharge. Provided update to MD and charge nurse.
--- NOTE | 2023-05-07 14:27 | P.DS_ITS ---
DS: Providers Provider Date Seen: 05/07/23 Date of admission: 05/04/23 12:49 Primary care physician: Rylee Cruz MD Admitting Clinician: Marline Wallace MD Consults: 05/04/23 13:30 Consult to Occupational Therapy [CONS] Routine Comment: Reason(s) for OT Consult:: Evaluate and Treat Any Restrictions?:: No Restrictions Consult to Physical Therapy [CONS] Routine Comment: Reason(s) for PT Consult:: Evaluate and Treat Any Restrictions?:: No Restrictions Consult to Wireless Internet Installer [CONS] Routine Comment: Reason for Consult:: Possible SNF placement Attending Physician on discharge: Claudine Varma MD [employer] Date of Discharge: 05/07/23 DS: Diagnosis Discharge Diagnosis (1) Paroxysmal atrial fibrillation: Status: Acute Problem details: - New onset. I suspect this is the cause of her suddenly worsening weakness and mildly elevated troponin. Rate control on discharge with oral metoprolol. Not discharged on anticoagulation. - Additionally, will need to address stroke prevention/anticoagulation. She had an episode of melana on 04/30 and 05/01 for which she had an EGD on 05/02 (which was normal, without evidence of bleeding). Since this was recent, she's had no further w/u for this. Her Hgb is stable at 8.5, and she remains on a PPI. - Itt may be better to have her wait to start warfarin and discuss GI work up and anticoagulation with a PCP as an outpatient.able overall. I'm wonde - Discussed recommendation for outpatient GI w/u with patient. Will need to have discussion with PCP about anticoagulation and when it may be safe to start this. (2) Anemia: Status: Acute Problem details: - hypochromic microcytic with widened RDW - iron studies and stool for occult blood suggest gastrointestinal blood loss and iron deficiency anemia - 1 x episode of melena while in hospital - Inpatient esophagogastroduodenoscopy 05/03/2023 demonstrated no active bleeding or stigmata of recent UGI bleed - started PPI in hospital and will continue in outpatient setting for at least 4 weeks - consider additional outpatient testing and/or iron infusion treatment -discharged on oral iron replacement, dosed q.o.d.. (3) GI bleed: Status: Acute Problem details: - iron deficiency anemia, with hemoglobin stabilized at 8 mg/dl in hospital (05/01/2023-05/03/2023) - 1 x episode of melena in hospital (05/01/2023) - Esophagogastroduodenoscopy (05/03/2023) did not reveal source of bleed - consider outpatient iron infusion therapy and additional testing - this complicates need for anticoagulation for paroxysmal atrial fibrillation. (4) Weakness: Status: Acute Problem details: - improving - PT and OT recommending SNF for rehab. (5) UTI (urinary tract infection): Status: Acute Problem details: - Pseudomonas aeruginosa UTI from culture 05/01. Had keflex (not sensitive) initially, presented for inpatient care for this and other reasons and got unasyn and then zosyn and then cipro. Has had full treatment by discharge. (6) Mild cognitive impairment: Status: Acute Problem details: 05/03/23 MOCA DS: Summary Hospital Course Hospital Course: FINAL DIAGNOSIS/FOLLOW UP ISSUES: 1. Anemia with GI bleed. Hemoglobin was 8.5 on discharge. EGD while inpatient was reassuring. Discharged on oral iron. Held any anticoagulation for her AFib pending further evaluation and observation of this anemia. Recommend General surgery or Gastroenterology follow-up 2. New onset parts is more AFib. Rate controlled on oral metoprolol at discharge. Recommend Cardiology consult 3. Generalized weakness for which therapies at SNF should be able to assess and manage. UTI his been diagnosed, treated by discharge. BRIEF HOSPITAL COURSE: Patient was admitted for 4 days. Synopsis of acute inpatient issues are outlined above. Chronic medical conditions with notable findings outlined above. DISCHARGE MEDICATIONS: See Reconciled list - SIGNIFICANT CHANGES: Metoprolol 50 mg b.i.d. Ferrous sulfate 650 mg Q 48 hour Anticoagulation on hold Specific instructions to the patient and follow-up are outlined below. REVIEW OF SYSTEMS No new chest pain or dyspnea Pain controlled No voiding difficulties Tolerating diet challenge PHYSICAL EXAM: CONSTITUTIONAL: Alert, oriented. Seems to be improving daily. VITAL SIGNS: see record. HEENT: Normocephalic, atraumatic. PERRL, EOMI, conjunctivae pink, no scleral icterus. Ears and nose externally normal. Pharynx normal. NECK: No JVD. No carotid bruit, no thyromegaly, no adenopathy. CHEST: Clear to auscultation bilaterally. HEART: S1 and S2 normal. Edema ABDOMEN: Soft, nontender. Normal bowel sounds. MUSCULOSKELETAL: No gross joint deformity or swelling. NEURO: Cranial nerves intact. Grossly intact. No asymmetric findings. SKIN: No rashes, petechiae, concerning changes PSYCHIATRIC: Mood euthymic. DISPOSITION: SNF Time spent on discharge 37 minutes. Status at Discharge Functional status at discharge: uses cane/walker Overall status at discharge: patient is progressing back to baseline Time Spent with Patient Time attestation: Total time spent providing and/or coordinating discharge services: Time spent: Greater than 30 minutes Exam Const: Vital Signs, click to edit/add: Vital Signs - 24 hr 05/06/23 15:00 05/06/23 15:00 05/06/23 15:00 Temperature 97.9 F Pulse Rate 71 Pulse Rate [Left P ulse Oximeter] Pulse Rate [Right Radial] 70 Respiratory Rate 16 Blood Pressure [Le ft Arm] Blood Pressure [Ri ght Arm] 116/66 Pulse Oximetry 95 95 Oxygen Delivery [facility] Room Air Room Air 05/06/23 19:00 05/06/23 23:00 05/06/23 23:00 Temperature 97.1 F L Pulse Rate 71 Pulse Rate [Left P ulse Oximeter] 69 74 Pulse Rate [Right Radial] Respiratory Rate 18 16 Blood Pressure [Le ft Arm] 140/75 H Blood Pressure [Ri ght Arm] Pulse Oximetry 98 Oxygen Delivery [facility] Room Air 05/06/23 23:00 05/06/23 23:00 05/07/23 03:00 Temperature 97.6 F 97.8 F Pulse Rate Pulse Rate [Left P ulse Oximeter] 74 66 Pulse Rate [Right Radial] Respiratory Rate 16 15 16 Blood Pressure [Le ft Arm] 156/80 H Blood Pressure [Ri ght Arm] 135/79 Pulse Oximetry 95 95 96 Oxygen Delivery [facility] Room Air Room Air Room Air 05/07/23 07:00 05/07/23 07:00 Temperature 97.9 F Pulse Rate Pulse Rate [Left P ulse Oximeter] 67 Pulse Rate [Right Radial] Respiratory Rate 16 16 Blood Pressure [Le ft Arm] Blood Pressure [Ri ght Arm] 134/73 Pulse Oximetry 96 95 Oxygen Delivery [facility] Room Air Room Air DS: Data Data Completed and Pending Labs on day of discharge: Labs from last 24 hours 05/07/23 09:15 Hgb 8.5 L Preliminary micro results at discharge 05/04/23 09:20 Blood Culture - Preliminary Blood NO GROWTH AFTER 72 HOURS 05/04/23 08:53 Blood Culture - Preliminary Blood NO GROWTH AFTER 72 HOURS Discharge Plan Discharge Disposition: er [facility] Date of Admission: 05/04/23 12:49 Attending Provider on Discharge: Claudine Varma Primary Care Provider: Rylee Cruz Condition: Stable Discharge Medications: New metoprolol succinate 50 mg Tablet Extended Release 24 Hr 50 mg PO BID Qty: 60 0RF ferrous sulfate 325 mg (65 mg iron) Tablet 650 mg PO Q48H Qty: 15 0RF Continued metformin 500 mg tablet 1,000 mg PO BID potassium chloride 10 mEq tablet extended release 10 meq PO DAILY (DME) Contour Test Strips Strip MISCELLANEOUS Patient Comments: USE TO TEST BLOOD GLUCOSE 2 TIMES DAILY DIRECTED nortriptyline 25 mg capsule 25 mg PO HS risperidone 2 mg tablet 2 mg PO HS lorazepam 0.5 mg tablet 0.5 mg PO DAILY PRN (Reason: anxiety) risperidone 1 mg tablet 1 mg PO DAILY acetaminophen 500 mg tablet 1,000 mg PO Q6H PRN levothyroxine 100 mcg tablet 100 mcg PO QAM omeprazole 20 mg capsule,delayed release(DR/EC) 20 mg PO DAILY Qty: 30 2RF atorvastatin 20 mg tablet 20 mg PO QPM amlodipine 5 mg tablet 5 mg PO DAILY Discontinued ferrous sulfate [Iron (ferrous sulfate)] 325 mg (65 mg iron) tablet 325 mg PO DAILY Qty: 10 0RF aspirin [Adult Aspirin Regimen] 81 mg tablet,delayed release (DR/EC) 81 mg PO DAILY Hold Instructions: Resume on 05/17/23. May resume in 2 weeks, unless otherwise instructed by your physician(s) ciprofloxacin HCl 250 mg tablet 250 mg PO BID Qty: 20 0RF Discharge Orders: Discharge Order (Routine); Ordered 05/07/23 Ordered By: Claudine Varma Additional Instructions: UTI - no further antibiotic needed Atrial Fibrillation - rate controlled/paroxysmal; at discharge she was in normal sinus rhythm. However, she is NOT ON ANTICOAGULATION AT DISCHARGE; this is because she had blood in her stool and is anemic. She will need anticoagulation (warfarin, eliquis) in the future; her primary care doctor can decide which agent and when. Anemia: stable at discharge. hgb this am was 8.5. Iron supplementation is indicated and is best given EVERY OTHER DAY. Activity Level: Activity as Tolerated Discharge Diet: Regular Follow Up Appointments: Rylee Cruz MD [Primary Care Provider] - Forms: [employer] Info Instructions Admit to: SNF Discharge Potential: Good Length of Stay: 30-90 days Can use facility standing orders?: Yes Code Status: Full Code Rehab Potential: Good Therapy: Physical Therapy and Occupational Therapy Therapy Orders: Evaluate and Treat Oxygen: No Urinary Catheter: No Orders are good >30 days: Yes
--- NOTE | 2023-05-07 15:23 | PC.NURSE ---
Discharge Note: The patient discharged to [facility] this afternoon. Report was given to Josephine @ [facility]. The patient reported mild pain in her L shoulder.. this is chronic for her. Alert and orientated although she is forgetful. Packet was given to the patient to give to [facility]. Makeda SANCHEZ BSN
== END 2023-05-07 12:45 ==
LOC: ED 12:17 → MEDSURG 12:50
PROVIDERS: Family Medicine; Admitting Provider Family Medicine; Emergency Provider Student in an Organized Health Care Education/Training Program; PCP Family Medicine; Visit Provider Family Medicine
DX: R79.89 Other specified abnormal findings of blood chemistry (principal); D64.9 Anemia, unspecified; R53.1 Weakness; I48.0 Paroxysmal atrial fibrillation; N39.0 Urinary tract infection, site not specified; B96.5 Pseudomonas (aeruginosa) (mallei) (pseudomallei) as the cause of diseases classified elsewhere; E46 Unspecified protein-calorie malnutrition; D72.829 Elevated white blood cell count, unspecified; R00.0 Tachycardia, unspecified; E87.6 Hypokalemia; E86.0 Dehydration; K92.2 Gastrointestinal hemorrhage, unspecified; G31.84 Mild cognitive impairment of uncertain or unknown etiology; E87.1 Hypo-osmolality and hyponatremia; E03.9 Hypothyroidism, unspecified; E11.9 Type 2 diabetes mellitus without complications; F20.9 Schizophrenia, unspecified; E78.5 Hyperlipidemia, unspecified; M85.80 Other specified disorders of bone density and structure, unspecified site; K21.9 Gastro-esophageal reflux disease without esophagitis; I10 Essential (primary) hypertension; F41.9 Anxiety disorder, unspecified; Z11.52 Encounter for screening for COVID-19; Z79.82 Long term (current) use of aspirin; Z79.01 Long term (current) use of anticoagulants; Z79.84 Long term (current) use of oral hypoglycemic drugs; Z90.89 Acquired absence of other organs; Z87.891 Personal history of nicotine dependence; Z86.79 Personal history of other diseases of the circulatory system; Z98.890 Other specified postprocedural states
CPT/HCPCS: 36415; 80048; 80053; 81001; 82962; 83605; 83735; 84484; 85018; 85025; 85610; 86140; 87040; 87086; 87631; 93005; 93306; 96361; 96365; 96366; 96375; 96376; 97116; 97161; 97165; 97530; 97535; 99283; 99284; 99285; G0378; A9270; J3475; J7120

== ENCOUNTER 2023-05-28 09:06 | Outpatient (CLI) | payer MEDICARE, BC, SELFPAY ==
--- OUTSIDE RECORDS SUMMARY | 2023-05-28 09:09 | XMS_ITS | Clinical Summary ---
Author Name Unknown Organization [facility] [employer] Address [place], [place] [address] Care Team Providers Care Trimmer Machine Name Role Phone Jovanni Aguayo MD Unavailable [phone] Rylee Cruz MD Primary Care Prov ider Allergies Active Allergy Reactions Criticality Noted Date Comments Eucalyptus Oil 06/22/2008 Grapefruit *Unknown 10/19/2009 Lisinopril Confusion 12/15/2007 Had anxiety and confusion Penicillins 05/27/2006 Sulfa (Sulfonamide Antibiotics) 05/27/2006 Cyanocobalamin (Vitamin B12) 009 Calcium Phos,Dibas-Vitamin D3 Confusion 2008 Medications Medication Sig Dispensed Refills Start Date End Date Status acetaminophen (TYLENOL EXTRA STRGTH) 500 mg tablet Take 1,000 mg by mouth every 6 hours if needed for Pain. Active nystatin (MYCOSTATIN) ointmentIndication s:Intertrigo APPLY TOPICALLY TO AFFECTED AREA(S) TWO TIMES DAILY FOR 14 DAYS. Strength: 100,000 unit/gram. HOLD until patient calls 30 g 3 3 Active WalkerIndications: Gait instability Walker with 5 inch wheels for home use. Please deliver 1 Each 3 Active aspirin (ECOTRIN) 81 mg enteric coated tablet Take 1 tablet. by mouth once daily with a meal. 0 3 Active Walker - 4 wheelsIndications: Gait instability Rollator, for home use. Length of need: 99 months 1 Each 3 Active blood glucose control, normal (Contour Control Solution, Nml) solnIndications:Di abetes mellitus without complication (HC) HOLD until patient calls As directed. 90 Each 3 3 Active blood sugar diagnostic (Ascensia CONTOUR) stripIndications:D iabetes mellitus without complication (HC) USE TO TEST BLOOD GLUCOSE 2 TIMES DAILY DIRECTED. HOLD until patient calls 200 Each 3 3 Active blood sugar diagnostic (Blood Glucose Test) stripIndications:D iabetes mellitus without complication (HC) Test 2 times per day. Has new meter please disp strips for new meter when refill 100 Each 3 Active lancets (Microlet Lancet)Indications :Diabetes mellitus without complication (HC) Testing twice daily. HOLD until patient calls 200 Each 3 Active LORazepam (ATIVAN) 0.5 mg tabIndications:Anx iety disorder, unspecified type Take 1 Tablet (0.5 mg) by mouth once daily if needed for Anxiety. 30 Tablet 3 Active metFORMIN (GLUCOPHAGE) 500 mg tabletIndications: Diabetes mellitus without complication (HC) Take 2 Tablets (1,000 mg) by mouth two times daily with meals. 360 Tablet 1 4 Active potassium chloride (Klor-Con 10) 10 mEq extended-release tabletIndications: Essential hypertension,Hypok alemia Take 1 Tablet (10 mEq) by mouth once daily with a meal. 90 Tablet 3 4 Active levothyroxine (SYNTHROID) 100 mcg tabletIndications: Acquired hypothyroidism Take 1 Tablet (100 mcg) by mouth before breakfast. 90 Tablet 3 4 Active ferrous sulfate 325 mg delayed release tabletIndications: Iron deficiency anemia, unspecified iron deficiency anemia type Take 1 Tablet (325 mg) by mouth once daily with a meal. 90 Tablet 3 4 Active cephalexin (KEFLEX) 500 mg capsule Take 500 mg by mouth three times daily. 4 Active amLODIPine (NORVASC) 5 mg tabletIndications: HTN (hypertension) Take 1 Tablet (5 mg) by mouth once daily. 90 Tablet 4 Active atorvastatin (LIPITOR) 20 mg tabletIndications: Mixed hyperlipidemia Take 1 Tablet (20 mg) by mouth at bedtime. 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 90 Tablet 1 3 05/27/19 24 Discontinued risperiDONE (RISPERDAL) 2 mg tabletIndications: Schizophrenia, chronic condition (HC) Take 1 Tablet (2 mg) by mouth at bedtime. 90 Tablet 1 3 05/27/19 24 Discontinued hydroCHLOROthiazid e (HCTZ) 25 mg tabletIndications: Essential hypertension Take 1 Tablet (25 mg) by mouth once daily. 90 Tablet 3 4 04/29/19 24 Discontinued(*Me dication adjustment) simvastatin (ZOCOR) 40 mg tabletIndications: Hyperlipidemia, unspecified hyperlipidemia type Take 1 Tablet (40 mg) by mouth at bedtime. 90 Tablet 3 4 04/29/19 24 Discontinued(*Me dication adjustment) Active Problems Problem Noted Date Diagnosed Date Iron deficiency anemia 04/17/2023 Gait abnormality 04/17/2023 Tremor 04/17/2023 Chronic diarrhea 04/17/2023 Diarrhea 03/18/2022 Intracranial bleed 03/18/2022 Controlled substance agreement signed 06/26/2021 Overview: Signed 06-12-2021 Lizette Blancas MD[facility] [facility] Osteopenia of multiple sites 01/23/2019 Overview: DEXA 02/2018 repeat 3-5 yrs ACP (advance care planning) 12/24/2014 Routine general medical exam ination at a health care facility 09/14/2013 Overview: dexa normal 2013 with little change form previous exam. Consider repeat age 69; Erin Gomes M.D. 09/14/2013 12:01 PM Encounter for long-term (current) use of other m edications 04/15/2012 Overview: Controlled sub agreement MH 04/02 Vitamin D deficiency 08/06/2011 Impacted cerumen 08/06/2011 Unspecified hypothyroidism 03/03/2007 Type II or unspecified type diabetes mellitus without mention of complication, not stated as uncontrolled 05/27/2006 Unspecified schizophrenia, chronic condition(295 .92) 05/27/2006 Unspecified essential hypertension 05/27/2006 Other and unspecified hyperlipidemia 05/27/2006 Resolved Problems Problem Noted Date Diagnosed Date Resolved Date Controlled substance agreement signed 03/15/2017 06/12/2021 Overview: Signed 03/05/2017 Dr Lizette Mccloud Psychiatry Controlled substance agreement signed 08/16/2016 06/12/2021 Overview: 04/29/[address] Aguayo/pschiatry/ Encounter for long-term (cur rent) use of other medications 02/19/2011 01/04/2013 Overview: Antipsychotic, benzodiazepine. No contract. No abuse known. OK to refill benzodiazepine monthly as needed unless this changes. Routine general medical exam ination at a health care facility 06/22/2008 01/04/2013 Overview: Dexa scan normal 2007. Repeat in 2012 Type II or unspecified type diabetes mellitus without mention of complication, not stated as uncontrolled 06/18/2005 09/24/2006 Intraparenchymal hematoma of brain 04/17/2023 Encounters Date Type Department Care Team Description 05/26/2023 Refill [facility] [address] [place] [address] Lizette Mccloud MD Refill Request (Risperidone, Risperidone) 05/19/2023 Refill [facility] [address] [place] [address] Lizette Mccloud MD Refill Request (Nortriptyline) 05/15/2023 Lab Requisition [facility] [phone] Richi Busch MD 05/13/2023 Lab Requisition [facility] [phone] Richi Busch MD 05/09/2023 Lab Requisition [facility] [phone] Richi Busch MD 05/05/2023 12:30 PM CDT Ancillary Procedure [facility] [address] [place] [address] 05/05/2023 Travel 05/03/2023 Lab Requisition [facility] [phone] Everardo Avendaño MD 05/01/2023 Orders Only [facility] Scanner 1 scan: (1-Ord) [facility], CT HEAD/BRAIN WO, 05/01/2023 04/29/2023 1:50 PM CDT Phone Office Visit [facility] [address] [place] [address] Padmini Rodriguez PA Results (lab); Phone Visit (No vitals taken) 04/29/2023 Travel 04/15/2023 11:10 AM RECRUITING ASSISTANT Office Visit [facility] [address] [place] [address] Padmini Rodriguez PA Medicare ANNUAL (subsequent) Visit (And labs) 04/15/[address] [facility] [place] [address] [address] [place] López MD neuro referral 04/15/2023 Travel 04/10/2023 Refill [facility] [address] [place] [address] Rylee Cruz MD Refill Request (Hydrochlorothiazi de) 03/09/2023 Refill [facility] [address] [place] [address] Rylee Cruz MD Refill Request (Hydrochlorothiazi de, Simvastatin) 03/07/2023 Telephone [facility] [address] [place] [address] Felisha Martinez DO Results 03/06/2023 Refill [facility] [address] [place] [address] Felisha Martinez, Refill Request from Last 3 Months Immunizations Name Administration Dates Next Due AMB INFLUENZA IIV3 (AGE 65+ YRS) PF (Flu Clinic Only) 11/21/2017,11/21/2016 AMB Influenza, IIV3 (Age >=3 years)(Flu Clinic Only) 11/26/2012,12/06/2010 AMB Influenza, IIV4 PF (=>6 mos Flulaval,Fluzone Fluarix)(Flu Clinic Only) 2013 Amb Influenza, Inact (High-d ose) (Flu Clinic Only) 11/30/2015,12/03/2014 COVID-19 Vaccine Spikevax (M oderna 50mcg/0.5mL) 12YO+ [id number] Formula PF 04/15/2023 COVID-19 vaccine (Moderna 100mcg/0.5mL) PF, MDV 06/01/2020,05/04/2020 COVID-19 vaccine (Pfizer-Bio NTech 30mcg/0.3mL) 12YO+ BIVALENT PF, MDV 03/12/2022 Influenza A (H1N1), Inactivated 01/28/2009 Influenza A (H1N1), Inactiva shannan (Age >=3 Years) 01/28/2009 Influenza, IIV3 (Age 6-35 mos) 12/06/2010,2009 Influenza, IIV3 (Age >=3 years) 11/07/19 12,10/19/2009,11/15/2008,2007,12/09/2006,01/02/2006,12/05/2004,1 Influenza, IIV4 01/28/2009 Influenza, Inactivated AIIV4 (Age 65+ Years) Preserv Free 12/07/2022,11/29/2021,11/23/2020,2019 Influenza, Inactivated IIV3 (Age 65+ Years) Preserv Free 11/19/2018 Pneumococcal Poly,23-Valent (Pneumovax) 01/10/2016 Pneumococcal conj 13-Valent (Prevnar 13) 12/24/2014 Td (Age >=7 Years) 10/30/1994 Td, Preservative Free (age > = 7 Years) 03/03/2007 Tdap 08/11/2013 Zoster (Shingrix-RZV, recombinant) 07/21/2018, Zoster (Zostavax-ZVL, live) 07/31/2010 Family History Medical History Relation Name Comments Down syndrome Brother Other Brother Alzheimer's Heart Disease Father Did from CAD Cancer Maternal Grandfather stomach Hypertension Maternal Grandmother Alcohol/Drug Mother Asthma Mother Heart Disease Mother from hear t failure Other Mother migraines/Alzhe susan's Alcohol/Drug Paternal Grandfather Diabetes Paternal Grandmother Cancer-breast No Family History Relation Name Status Comments Brother Father Maternal Grandfather Maternal Grandmother Mother Paternal Grandfather Paternal Grandmother Social History Tobacco Use Types Packs/Day Years Used Date Smoking Tobacco: Former Smokeless Tobacco: Never Tobacco Cessation:Counseling Given: Yes Alcohol Use Standard Drinks/Week Comments No 0 (1 standard drink = 0.6 oz pur e alcohol) PHQ-2 Answer Date Recorded PHQ-2 TOTAL SCORE 0 04/15/2023 Social Connections Answer Date Recorded Frequency of Communication with Friends and Fami ly 0 12/24/2022 Financial Resource Strain Answer Date R ecorded Difficulty of Paying Living Expenses 3 12/24/2022 Difficulty of Paying Living Expenses Not on file 12/24/2022 Food Insecurity Answer Date Recorded Worried About Running Out of Food in the Last Ye ar 1 12/24/2022 Transportation Needs Answer Date Record ed Lack of Transportation (Medical) 1 12/24/2022 Housing Stability Answer Date Recorded Unable to Pay for Housing in the Last Year 1 12/24/2022 Sex and Gender Information Value Date Recorded Sex Assigned at Not on file Gender Identity Not on file Sexual Orientation Not on file Obstetrics History Last Filed Vital Signs Vital Sign Reading Time Taken Comments Blood Pressure 117/76 04/15/2023 11:11 AM RECRUITING ASSISTANT Pulse 84 04/15/2023 11:11 AM RECRUITING ASSISTANT Temperature 36.3 ??C (97.4 ??F) 04/09/2022 11:[address] Respiratory Rate 14 04/09/2022 11:56 AM RECRUITING ASSISTANT Oxygen Saturation 97% 04/15/2023 11:11 AM RECRUITING ASSISTANT Inhaled Oxygen Concentration - - Weight 65.8 kg (145 lb) 04/15/2023 11:11 AM RECRUITING ASSISTANT Height 157.5 cm (5' 2) 04/15/2023 11:11 AM RECRUITING ASSISTANT Body Mass Index 26.52 04/15/2023 11:11 AM RECRUITING ASSISTANT Plan of Treatment Upcoming Encounters Date Type Department Care Team (Late st Contact Info) Description 06/03/2023 10:40 AM CDT Nurse/Clinic Staff Only [facility] [address] [place] [address] 06/03/2023 11:00 AM CDT Orders Only [facility] [address] [place] [address] Lab, [place] 06/26/2023 11:20 AM CDT Office Visit [facility] [place] [facility] [address] [place] [address] [place] López MD [address] [place] [address] Health Maintenance Due Date Last Done Comments Mammogram for age 45-75 01/03/2023 01/04/20, 11/13/2018, 08/06/2017, Additional history exists Tetanus booster 08/12/2023 08/11/2013, 02/18, 10/30/1994 Influenza for age 65+ 10/20/2023 12/07/2022 , 11/29/2021, 11/23/2020, Additional history exists Fecal testing non-DNA (FIT,FOBT,iFOBT) for age 45-75 12/13/2023 12/12/2022, 03/16/2021, 02/22/2020, Additional history exists BMI (ht and wt on same day) for age 18+ 04/15/2024 04/15/2023, 05/28/2022, 03/12/2022, Additional history exists Depression screening for age 12+ 04/15/2024 04/15/2023, 04/15/2023, 11/12/2022, Additional history exists Medicare Wellness for age 65+ 04/15/2024, 02/23/2021, 01/26/2020, Additional history exists Lipids for age 45-75 04/15/2028 04/15/2023, 03/12/2022, 01/19/2021, Additional history exists Tdap Completed 08/11/2013 Hepatitis C screening for ag e 18-79 Completed 09/10/2013 Pneumococcal series for age 65+ Completed 6, 12/24/2014 DEXA/DXA scan for age 65+ Completed 2018, 09/10/2013, 03/27/2007 Zoster (shingles) series for age 50+ Completed 07/21/2018, 05/05/2018, 07/31/2010 COVID-19 vaccine series Completed 04/15/19, 03/12/2022, 01/13/2021, Additional history exists Procedures Procedure Name Priority Date/Time Associated Diagnosis Comments SODIUM Routine 05/21/2023 7:42 AM CDT Iron deficiency anemia secondary to blood loss (chronic) Hypo-osmolality and hyponatremia HEMOGLOBIN Routine 05/21/2023 7:42 AM CDT Iron deficiency anemia secondary to blood loss (chronic) Hypo-osmolality and hyponatremia RED CELL MORPHOLOGY Routine 05/14/2023 8 :29 AM CDT Iron deficiency anemia secondary to blood loss (chronic) FERRITIN Routine 05/14/2023 8:29 AM CDT Paroxysmal atrial fibrillation (HC) Essential (primary) hypertension Hypothyroidism, unspecified Iron deficiency anemia secondary to blood loss (chronic) TSH Routine 05/14/2023 8:29 AM CDT Paroxysmal atrial fibrillation (HC) Essential (primary) hypertension Hypothyroidism, unspecified Iron deficiency anemia secondary to blood loss (chronic) BASIC METABOLIC PANEL Routine 05/14/2023 8:29 AM CDT Paroxysmal atrial fibrillation (HC) Essential (primary) hypertension Hypothyroidism, unspecified Iron deficiency anemia secondary to blood loss (chronic) CBC W PLT NO DIFF Routine 05/14/2023 8:2 9 AM CDT Iron deficiency anemia secondary to blood loss (chronic) ECHO TTE COMPLETE WO CONTRAST Routine 05/05/2023 2:09 PM CDT Atrial fibrillation (HC) LAB TRACKING EVENT Routine 05/03/2023 9: 25 AM CDT PATH TISSUE EXAM Routine 05/03/2023 9:25 AM CDT SCAN-CT INTERPRETATION 12:00 AM CDT TISSUE TRANSGLUTAMINASE IGA Routine 04/15/2023 12:20 PM RECRUITING ASSISTANT Chronic diarrhea CWS PATH REVIEW HEMATOLOGY Routine 04/15/2023 12:20 PM RECRUITING ASSISTANT Chronic diarrhea RED CELL MORPHOLOGY Routine 04/15/2023 1 2:20 PM RECRUITING ASSISTANT Chronic diarrhea PLATELET ESTIMATE Routine 04/15/2023 12: 20 PM RECRUITING ASSISTANT Chronic diarrhea CBC WITH AUTO DIFFERENTIAL Routine 04/15/2023 12:20 PM RECRUITING ASSISTANT Chronic diarrhea TSH Routine 04/15/2023 12:20 PM RECRUITING ASSISTANT Acquired hypothyroidism LIPID PANEL W REFLEX MEASURED LDL Routine 04/15/2023 12:20 PM RECRUITING ASSISTANT Type II or unspecified type diabetes mellitus without mention of complication, not stated as uncontrolled CBC WITH AUTO DIFFERENTIAL Routine 04/15/2023 12:20 PM RECRUITING ASSISTANT Chronic diarrhea COMP METABOLIC PANEL Routine 04/15/2023 12:20 PM RECRUITING ASSISTANT Chronic diarrhea C-REACTIVE PROTEIN Routine 04/15/2023 12 :20 PM RECRUITING ASSISTANT Chronic diarrhea CELIAC CASCADE PANEL Routine 04/15/2023 12:20 PM RECRUITING ASSISTANT Chronic diarrhea OCCULT BLOOD IFOBT STOOL Routine 12/12/2022 2:46 PM CDT Screening for colorectal cancer XR MAMMO RASHIDA BILAT SCREEN Routine 01/03/2022 11:15 AM RECRUITING ASSISTANT Visit for screening mammogram XR DXA BONE DENSITY 2 SITES AXIAL Routine 03/06/2018 11:09 AM RECRUITING ASSISTANT Menopause ANTI HCV Routine 09/10/2013 12:57 PM CDT Need for hepatitis C screening test from Last 3 Months or Most Recently Relevant to Health Maintenance Results * (ABNORMAL) HEMOGLOBIN (05/21/2023 7:42 AM CDT) [facility] HEMOGLOBIN 8.6(L) 12.0 - 16.0 g/dL 05/21/2023 9:07 AM CDT [facility] MCV 69(L) 80 - 100 fL 05/21/2023 9:07 AM CDT [facility] Blood BLOOD SPECIMEN / Unknown Venipuncture / Unknown 05/21/2023 7:42 AM CDT 05/21/2023 9:00 AM CDT Richi Busch MD HEMATOLOGY Performing Organization Address City/[facility]/ZIP Co de Phone Number [facility] [address] [place] [address] * SODIUM (05/21/2023 7:42 AM CDT) [facility] SODIUM 137 136 - 145 mmol/L 05/21/2023 9:23 AM CDT [facility] Blood BLOOD SPECIMEN / Unknown Venipuncture / Unknown 05/21/2023 7:42 AM CDT 05/21/2023 9:00 AM CDT Richi Busch MD CHEMISTRY Performing Organization Address City/[facility]/ZIP Co de Phone Number [facility] [address] [place] [address] * (ABNORMAL) RED CELL MORPHOLOGY (05/14/2023 8:29 AM CDT) Only the most recent of2 resultswithin the time period is included. ACANTHOCYTES Moderate 05/14/2023 10:48 AM CDT [facility] ELLIPTOCYTES Moderate 05/14/2023 10:48 AM CDT [facility] TARGET CELLS Moderate 05/14/2023 10:48 AM CDT [facility] RBC COMMENT Present(A) RBC morphology appears normal, RBC morphology within normal limits for newborns. 05/14/2023 10:48 AM CDT [facility] Blood BLOOD SPECIMEN / Unknown Venipuncture / Unknown 05/14/2023 8:29 AM CDT 05/14/2023 9:17 AM CDT Richi Busch MD HEMATOLOGY Performing Organization Address [facility] Co de Phone Number [facility] [address] [place] [address] * TSH (05/14/2023 8:29 AM CDT) Only the most recent of2 resultswithin the time period is included. TSH 2.57 0.27 - 4.20 uIU/mL 05/14/2023 10:28 AM CDT [facility] Blood BLOOD SPECIMEN / Unknown Venipuncture / Unknown 05/14/2023 8:29 AM CDT 05/14/2023 9:17 AM CDT Narrative [facility] - 05/14/2023 10:28 AM CDT In Adults, TSH values between 5.00 and 10.00 uIU/ml do not necessarily indicate the presence of Hypothyroidism. Correlation with clinical findings such as presence of goiter and/or Thyroperoxidase (TPO) Antibody may be helpful. For more information please refer to ZANE 2004; 291: 228-238. Richi Busch MD CHEMISTRY Performing Organization Address [facility]/ZIP Co de Phone Number [facility] [address] [place] [address] * (ABNORMAL) CBC W PLT NO DIFF (05/14/2023 8:29 AM CDT) WHITE BLOOD COUNT 8.5 4.5 - 11.0 thou/cu mm 05/14/2023 10:48 AM T [facility] RED BLOOD COUNT 3.99(L) 4.00 - 5.20 mil/cu mm 05/14/2023 10:48 AM [facility] HEMOGLOBIN 8.2(L) 12.0 - 16.0 g/dL 05/14/2023 10:48 AM [facility] HEMATOCRIT 26.5(L) 33.0 - 51.0 % 05/14/2023 10:48 AM [facility] MCV 66(L) 80 - 100 fL 05/14/2023 10:48 AM [facility] MCH 20.6(L) 26.0 - 34.0 pg 05/14/2023 10:48 AM [facility] MCHC 30.9(L) 32.0 - 36.0 g/dL 05/14/2023 10:48 AM [facility] RDW 21.4(H) 11.5 - 15.5 % 05/14/2023 10:48 AM [facility] PLATELET COUNT 734(H) 140 - 440 thou/cu mm 05/14/2023 10:48 AM [facility] MPV 9.5 6.5 - 11.0 fL 05/14/2023 10:48 AM [facility] Blood BLOOD SPECIMEN / Unknown Venipuncture / Unknown 05/14/2023 8:29 AM CDT 05/14/2023 9:17 AM CDT Richi Busch MD HEMATOLOGY [facility] [address] [place] [address] * FERRITIN (05/14/2023 8:29 AM CDT) FERRITIN 78.1 15.0 - 150.0 ng/mL 05/14/2023 1:21 PM T [facility] Blood BLOOD SPECIMEN / Unknown Venipuncture / Unknown 05/14/2023 8:29 AM CDT 05/14/2023 9:18 AM CDT Richi Busch MD CHEMISTRY [facility] [address] [place] [id number], * (ABNORMAL) BASIC METABOLIC PANEL (05/14/2023 8:29 AM CDT) SODIUM 129(L) 136 - 145 mmol/L 05/14/2023 10:28 AM [facility] POTASSIUM 4.1 3.5 - 5.1 mmol/L 05/14/2023 10:28 AM [facility] CHLORIDE 95(L) 98 - 107 mmol/L 05/14/2023 10:28 AM [facility] CO2,TOTAL 24 22 - 29 mmol/L 05/14/2023 10:28 AM [facility] ANION GAP 10 5 - 18 05/14/2023 10:28 AM [facility] GLUCOSE 163(H) 70 - 99 mg/dL 05/14/2023 10:28 AM [facility] CALCIUM 8.5(L) 8.8 - 10.2 mg/dL 05/14/2023 10:28 AM [facility] BUN 12 8 - 23 mg/dL 05/14/2023 10:28 AM [facility] CREATININE 0.41(L) 0.50 - 0.90 mg/dL 05/14/2023 10:28 AM [facility] BUN/CREAT RATIO 29(H) 10 - 20 10:28 AM [facility] eGFR >90 >90 mL/min/1.7 3m2 05/14/2023 10:28 AM [facility] Comment:As of 2021, eG FR is calculated by the CKD-EPI creatinine equation without race adjustment. ??eGFR can be influenced by muscle mass, exercise, and diet. ??The reported eGFR is an estimation only and is only applicable if the renal function is stable. Blood BLOOD SPECIMEN / Unknown Venipuncture / Unknown 05/14/2023 8:29 AM CDT 05/14/2023 9:17 AM CDT Richi Busch MD CHEMISTRY [facility] [address] [place] [address] * ECHO TTE COMPLETE WO CONTRAST (05/05/2023 2:09 PM CDT) AORTIC VALVE MEAN PG 3 mmHg EJECTION FRACTION 46 % PEAK TR VELOCITY 2.0 m/s LVEDD 5.0 cm Anatomical Region Laterality Modality Ultrasound 05/05/2023 12:0 5 PM CDT Narrative 05/05/2023 2:20 PM CDT ECHOCARDIOGRAM Kyle YAÑEZ ? Accession#: ?? [id number] : ?1950 72 years Study Date: ?? 05/05/2023 12:05:14 PM Gender: F ?BP: ? 105/62 mmHg Height: 157.00 cm ?BSA: ?1.67 m? ? ? Weight: 66.00 kg ? Tech: ? MCS ? Referring MD: ANTONINA GILL Site: ? [facility] [place] Location: Mobile [facility] Patient Location: Inpatient. Procedure: 2D, Color Doppler and Spectral Doppler. Indication for study: A-fib Cardiac Rhythm: Regular.Study quality: Fair. Final Impressions: 1. Normal left ventricular size, normal wall thickness, mildly reduced global systolic function, calculated EF of 46 %. 2. No significant valvular abnormalities. 3. No pericardial effusion. 4. Normal estimated pulmonary pressures by tricuspid regurgitation velocity and right atrial pressure (16 mmHg plus RAP). Comparison There are no prior studies on this patient for comparison purposes. Chamber Sizes and Function Normal left ventricular size, normal wall thickness, mildly reduced global systolic function, calculated EF of 46 %. Left atrial size is normal. Right ventricular cavity size is normal, global systolic RV function is normal. RV wall thickness is normal. The right atrium is normal. Right atrial volume index is 14 ml/m? ? ?. Right atrial area is 11 cm? ? ?. The pulmonary artery is of normal size and origin. The sinus of Valsalva is normal sized. The ascending aorta is normal sized. Valves, RV Pressures and Diastolic Function The aortic valve is trileaflet, no stenosis and no regurgitation. The mitral valve is normal in structure, no mitral regurgitation. Normal diastolic function. The tricuspid valve is normal in structure. Tricuspid regurgitation is trace regurgitation. The tricuspid regurgitant velocity is 2.0 m/s, the estimated right ventricular systolic pressure is 16 mmHg plus right atrial pressure. There is normal estimated pulmonary pressure by tricuspid regurgitation velocity and right atrial pressure. The pulmonic valve is normal. Trace pulmonary regurgitation. Masses, Effusion, Shunts There is no pericardial effusion. The inferior vena cava is normal sized, respiratory size variation greater than 50%. No left to right shunting was detected by limited color flow Doppler interrogation of the interatrial septum. MEASUREMENTS AND CALCULATIONS 2-D Measurements and LV Function: LVID (d) 5.0 cm Planimetered EF 46 % LVID (s) 4.2 cm LV FS% (2D) ? 16 % IVS (d) ??0.5 cm LVOT diameter ?? 2.0 cm LVPW (d) 0.8 cm HR ?71 bpm Ao Sinus 3.5 cm LA Vol index ?24 ml/m2 Asc Ao ?? 3.5 cm RA Vol index ?14 ml/m2 LA ? 3.4 cm RA area ? 11 cm?RV Max 4C (d) ?? 3.7 cm Diastology: Mitral ?Tissue Doppler E Peak 0.6 m/s ??e', Septum ? 0.04 m/s A Peak 0.9 m/s ??e', Lateral ?0.06 m/s E/A ?0.7 ?E/e' Average ?? 12.43 DT ? 216 msec Aortic Valve: Vmax ? 1.2 m/s ??SIOMNA (V) ?? 2.27 cm? ? ? VTI ?0.19 m ?? SIMONA (I) ?? 2.26 cm? ? ? LVOT V max ? 0.8 m/s ??Max PG ?5 mmHg LVOT VTI ? 0.13 m ?? Mean PG ?? 3 mmHg SV ? 44 ml ?Dim Index 0.69 SV index ? 26 ml/m? ? ? CO ?3.1 l/min AV Ejection Time 0.23 sec CI ?1.9 l/min/m? ? ? AV Flow Rate ? 188 ml/s Mitral Valve: MVA ?3.5 cm? ? ? MV P 1/2 63 msec Tricuspid Valve and estimated PA pressures: TR Vmax 2.0 m/s TAPSE 1.8 cm TR maxG 16 mmHg . This study was interpreted by an [facility] accredited facility. CC: HIM (med records) [facility], Med/Surg - IP [facility]. ??Final ?? Procedure Note Gio Lara MD - 05/05/2023 ECHOCARDIOGRAM Kyle YAÑEZ : 1950 72 years Study Date: 05/05/2023 12:05:14 PM Gender: F BP: 105/62 mmHg Height: 157.00 cm BSA: 1.67 m? ? ? Weight: 66.00 kg Tech: MCS Referring MD: ANTONINA GILL Site: [facility] Reading Location: Mobile [facility] Patient Location: Inpatient. Procedure: 2D, Color Doppler and Spectral Doppler. Indication for study: A-fib Cardiac Rhythm: Regular.Study quality: Fair. Final Impressions: 1. Normal left ventricular size, normal wall thickness, mildly reducedglobal systolic function, calculated EF of 46 %. 2. No significant valvular abnormalities. 3. No pericardial effusion. 4. Normal estimated pulmonary pressures by tricuspid regurgitationvelocity and right atrial pressure (16 mmHg plus RAP). Comparison There are no prior studies on this patient for comparison purposes. Chamber Sizes and Function Normal left ventricular size, normal wall thickness, mildly reduced globalsystolic function, calculated EF of 46 %. Left atrial size is normal.Right ventricular cavity size is normal, global systolic RV function isnormal. RV wall thickness is normal. The right atrium is normal. Rightatrial volume index is 14 ml/m? ? ?. Right atrial area is 11 cm? ? ?. Thepulmonary artery is of normal size and origin. The sinus of Valsalva isnormal sized. The ascending aorta is normal sized. Valves, RV Pressures and Diastolic Function The aortic valve is trileaflet, no stenosis and no regurgitation. Themitral valve is normal in structure, no mitral regurgitation. Normaldiastolic function. The tricuspid valve is normal in structure. Tricuspidregurgitation is trace regurgitation. The tricuspid regurgitant velocityis 2.0 m/s, the estimated right ventricular systolic pressure is 16 mmHgplus right atrial pressure. There is normal estimated pulmonary pressureby tricuspid regurgitation velocity and right atrial pressure. Thepulmonic valve is normal. Trace pulmonary regurgitation. Masses, Effusion, Shunts There is no pericardial effusion. The inferior vena cava is normal sized,respiratory size variation greater than 50%. No left to right shunting wasdetected by limited color flow Doppler interrogation of the interatrialseptum. MEASUREMENTS AND CALCULATIONS 2-D Measurements and LV Function: LVID (d) 5.0 cm Planimetered EF 46 % LVID (s) 4.2 cm LV FS% (2D) 16 % IVS (d) 0.5 cm LVOT diameter 2.0 cm LVPW (d) 0.8 cm HR 71 bpm Ao Sinus 3.5 cm LA Vol index 24 ml/m2 Asc Ao 3.5 cm RA Vol index 14 ml/m2 LA 3.4 cm RA area 11 cm? ? ? RV Max 4C (d) 3.7 cm Diastology: Mitral Tissue Doppler E Peak 0.6 m/s e', Septum 0.04 m/s A Peak 0.9 m/s e', Lateral 0.06 m/s E/A 0.7 E/e' Average 12.43 DT 216 msec Aortic Valve: Vmax 1.2 m/s SIMONA (V) 2.27 cm? ? ? VTI 0.19 m SIMONA (I) 2.26 cm? ? ? LVOT V max 0.8 m/s Max PG 5 mmHg LVOT VTI 0.13 m Mean PG 3 mmHg SV 44 ml Dim Index 0.69 SV index 26 ml/m? ? ? CO 3.1 l/min AV Ejection Time 0.23 sec CI 1.9 l/min/m? ? ? AV Flow Rate 188 ml/s Mitral Valve: MVA 3.5 cm? ? ? MV P 1/2 63 msec Tricuspid Valve and estimated PA pressures: TR Vmax 2.0 m/s TAPSE 1.8 cm TR maxG 16 mmHg . This study was interpreted by an [facility] accredited facility. CC: HIM (med records) [facility], Med/Surg - IP [facility]. Final Antonina Gill MD ECHO ORD * LAB TRACKING EVENT (05/03/2023 9:25 AM CDT) Other (Other) Client Collect / Unknown 05/03/2023 9:25 AM CDT 05/03/2023 9:28 PM CDT Everardo Avendaño MD LAB BILL ONLY [facility] [address] [place] [address], * PATH TISSUE EXAM (05/03/2023 9:25 AM CDT) Case Report Pathology Report ?Case: [id number] ? Authorizing Provider: ??Everardo Avendaño MD ?Collected: ? 05/03/2023 0925 ? Ordering Location: ? L [facility]TR[facility] ?Received: ?05/04/2023 0620 ? Pathologist: ? Jaya Sheppard ? IV, MD ? Specimen: ? 05/06/2023 2:16 PM CDT [facility] Final Diagnosis A) STOMACH, BIOPSY: 1. Normal gastric body mucosa 2. Negative for Helicobacter 05/06/2023 2:16 PM CDT [facility] Clinical Information Ms. Yañez is a 72 y.o. who presents with iron deficiency anemia. EGD findings include: -Normal exam 05/06/2023 2:16 PM CDT [facility] Gross Description A) Received in formalin are 2 woody mucosal fragments ranging from 2 mm to 6 mm in greatest dimension, which are entirely submitted in one cassette. It is labeled with the patient's name and designated stomach-body, polyp. Anuja Beckham 05/04/2023 10:59 AM 05/06/2023 2:[address] [facility] Microscopic Description The final diagnosis is based on microscopic examination of appropriate sections of all specimens. 05/06/2023 2:16 PM CDT [facility] Additional Information Interpreted at [facility] - [address] [facility] [address] [address] 05/06/2023 2:[address] [facility] Other 05/03/2023 9:25 AM CDT 05/04/2023 6:20 AM CDT Everardo Avendaño MD PATHOLOGY/CYTOLOGY [facility] [address] * SCAN-CT INTERPRETATION (05/01/2023 12:00 AM CDT) Anatomical Region Laterality Modality Other Scanner OTHER * CWS PATH REVIEW HEMATOLOGY (04/15/2023 12:20 PM RECRUITING ASSISTANT) PATH COMMENT Comment 04/18/2023 7:08 AM RECRUITING ASSISTANT [facility] Comment: Recommend evaluation for iron deficiency. Reviewed by Zuri Rodriguez MT, MS (ASCP) on 04/17/2023 Blood BLOOD SPECIMEN / Unknown Venipuncture / Unknown 04/15/2023 12:20 PM RECRUITING ASSISTANT 04/15/2023 12:21 PM RECRUITING ASSISTANT Padmini JEFFERY LABORATORY [facility] [address] [place] [address], [place] * CELIAC CASCADE PANEL (04/15/2023 12:20 PM RECRUITING ASSISTANT) Pathologist [facility] IGA 251.90 84.50 - 499.00 mg/dL 04/16/2023 7:56 AM RECRUITING ASSISTANT [facility] Blood BLOOD SPECIMEN / Unknown Venipuncture / Unknown 04/15/2023 12:20 PM RECRUITING ASSISTANT 04/15/2023 12:21 PM RECRUITING ASSISTANT Narrative [facility] - 04/16/2023 7:56 AM RECRUITING ASSISTANT Reflexed to Tissue Transglutaminase IgA Padmini JEFFERY SEND OUTS Performing Organization Address City/[facility]/ZIP Co de Phone Number [facility] [address] [place] [address], [place] * (ABNORMAL) CBC WITH AUTO DIFFERENTIAL (04/15/2023 12:20 PM RECRUITING ASSISTANT) [facility] WHITE BLOOD COUNT 8.2 4.5 - 11.0 thou/cu mm 04/15/2023 12:49 PM RECRUITING ASSISTANT [facility] RED BLOOD COUNT 4.27 4.00 - 5.20 mil/cu mm 04/15/2023 12:49 PM RECRUITING ASSISTANT [facility] HEMOGLOBIN 9.0(L) 12.0 - 16.0 g/dL 04/15/2023 12:49 PM RECRUITING ASSISTANT [facility] HEMATOCRIT 28.2(L) 33.0 - 51.0 % 04/15/2023 12:49 PM RECRUITING ASSISTANT [facility] MCV 66(L) 80 - 100 fL 04/15/2023 12:49 PM MCH 21.1(L) 26.0 - 34.0 pg 04/15/2023 12:49 PM RECRUITING ASSISTANT [facility] MCHC 31.9(L) 32.0 - 36.0 g/dL 04/15/2023 12:49 PM RDW 19.9(H) 11.5 - 15.5 % 04/15/2023 12:49 PM PLATELET COUNT 645(H) 140 - 440 thou/cu mm 04/15/2023 12:49 PM MPV 9.1 6.5 - 11.0 fL 04/15/2023 12:49 PM % NEUT 74.6 % 04/15/2023 12:49 PM % LYMPH 13.0 % 04/15/2023 12:49 PM % MONO 9.4 % 04/15/2023 12:49 PM % EOS 2.3 % 04/15/2023 12:49 PM % BASO 0.7 % 04/15/2023 12:49 PM ABSOLUTE NEUTROPHILS 6.1 1.7 - 7.0 thou/cu mm 04/15/2023 12:49 PM ABSOLUTE LYMPHOCYTES 1.1 0.9 - 2.9 thou/cu mm 04/15/2023 12:49 PM ABSOLUTE MONOCYTES 0.8 <0.9 thou/cu mm 04/15/2023 12:49 PM ABSOLUTE EOSINOPHILS 0.2 <0.5 thou/cu mm 04/15/2023 12:49 PM ABSOLUTE BASOPHILS 0.1 <0.3 thou/cu mm 04/15/2023 12:49 PM Blood BLOOD SPECIMEN / Unknown Venipuncture / Unknown 04/15/2023 12:20 PM RECRUITING ASSISTANT 04/15/2023 12:21 PM RECRUITING ASSISTANT Padmini JEFFERY HEMATOLOGY [facility] [address] [place] [address], * (ABNORMAL) PLATELET ESTIMATE (04/15/2023 12:20 PM RECRUITING ASSISTANT) PLATELET ESTIMATE Increased (A) Adequate, No estimate 04/15/2023 12:49 PM RECRUITING ASSISTANT [facility] Blood BLOOD SPECIMEN / Unknown Venipuncture / Unknown 04/15/2023 12:20 PM RECRUITING ASSISTANT 04/15/2023 12:21 PM RECRUITING ASSISTANT Padmini JEFFERY HEMATOLOGY Performing Organization Address [facility]/State/ZIP Co de Phone Number [facility] [address] [place] [address], [place] [phone] * LIPID PANEL W REFLEX MEASURED LDL (04/15/2023 12:20 PM RECRUITING ASSISTANT) [facility] CHOLESTEROL,TOTAL 114 100 - 199 mg/dL 04/15/2023 9:21 PM RECRUITING ASSISTANT [facility] Comment: Cholesterol, Total Reference Ranges Desirable <200 mg/dL Borderline 200-239 mg/dL High >=240 mg/dL TRIGLYCERIDES 71 <150 mg/dL 04/15/2023 9:21 PM RECRUITING ASSISTANT [facility] HDL CHOLESTEROL 50 >40 mg/dL 9:21 PM RECRUITING ASSISTANT [facility] NON-HDL CHOLESTEROL 64 <145 mg/dl 04/15/2023 9:21 PM RECRUITING ASSISTANT [facility] CHOL/HDL RATIO 2.28 <4.50 04/15/2023 9:21 PM RECRUITING ASSISTANT [facility] LDL CHOLESTEROL 50 <=130 mg/dL 04/15/2023 9:21 PM RECRUITING ASSISTANT [facility] VLDL CHOLESTEROL 14 <=30 mg/dL 04/15/2023 9:21 PM RECRUITING ASSISTANT [facility] PROVIDER ORDERED STATUS RANDOM 04/15/2023 9:21 PM RECRUITING ASSISTANT [facility] Blood BLOOD SPECIMEN / Unknown Venipuncture / Unknown 04/15/2023 12:20 PM RECRUITING ASSISTANT 04/15/2023 12:21 PM RECRUITING ASSISTANT Padmini JEFFERY CHEMISTRY Performing Organization Address City/[facility]/ZIP Co de Phone Number [facility] [address] [phone], [place] * TISSUE TRANSGLUTAMINASE IGA (04/15/2023 12:20 PM RECRUITING ASSISTANT) TISSUE TRANSGLUTAMINASE IGA <1.2 <4.0 U/ml 04/17/2023 2:03 PM RECRUITING ASSISTANT [facility] Comment:Celiac disease unlik luisana unless IgA deficient. Recommend IgA levels if not already performed. Blood BLOOD SPECIMEN / Unknown Venipuncture / Unknown 04/15/2023 12:20 PM RECRUITING ASSISTANT 04/15/2023 12:21 PM RECRUITING ASSISTANT Narrative [facility] - 04/17/2023 2:03 PM RECRUITING ASSISTANT Negative ?<4.0 Weak Positive ?? 4-10 Positive ?>10.0 This test should not be solely relied upon to establish a diagnosis of celiac disease. Affected individuals who have been on a gluten-free diet prior to testing may have a negative result. These results were obtained using the [employer] Quanta Lite R h-tTG IgA ILYA assay. ??Values obtained from other manufacturers' assay methods may not be used interchangeably. Padmini JEFFERY SEND OUTS Performing Organization Address [facility] Co de Phone Number [facility] [address] [place] [address], [place] * C-REACTIVE PROTEIN (04/15/2023 12:20 PM RECRUITING ASSISTANT) C-REACTIVE PROTEIN <0.3 <0.5 mg/dL 04/15/2023 9:23 PM RECRUITING ASSISTANT [facility] Blood BLOOD SPECIMEN / Unknown Venipuncture / Unknown 04/15/2023 12:20 PM RECRUITING ASSISTANT 04/15/2023 12:21 PM RECRUITING ASSISTANT Padmini JEFFERY CHEMISTRY Performing Organization Address City/[facility]/ZIP Co de Phone Number [facility] [address] [address], [place] * (ABNORMAL) COMP METABOLIC PANEL (04/15/2023 12:20 PM [facility]) SODIUM 130(L) 136 - 145 mmol/L 04/15/2023 9:21 PM [facility] POTASSIUM 4.1 3.5 - 5.1 mmol/L 04/15/2023 9:21 PM [facility] CHLORIDE 91(L) 98 - 107 mmol/L 04/15/2023 9:21 PM [facility] CO2,TOTAL 25 22 - 29 mmol/L 04/15/2023 9:21 PM [facility] ANION GAP 14 5 - 18 04/15/2023 9:21 PM [facility] GLUCOSE 126(H) 70 - 99 mg/dL 04/15/2023 9:21 PM [facility] CALCIUM 9.5 8.8 - 10.2 mg/dL 04/15/2023 9:21 PM [facility] BUN 13 8 - 23 mg/dL 04/15/2023 9:21 PM [facility] CREATININE 0.56 0.50 - 0.90 mg/dL 04/15/2023 9:21 PM [facility] BUN/CREAT RATIO 23(H) 10 - 20 9:21 PM [facility] eGFR >90 >90 mL/min/1.7 3m2 04/15/2023 9:21 PM [facility] Comment:As of 2021, eG FR is calculated by the CKD-EPI creatinine equation without race adjustment. ??eGFR can be influenced by muscle mass, exercise, and diet. ??The reported eGFR is an estimation only and is only applicable if the renal function is stable. ALBUMIN 4.0 4.0 - 4.9 g/dL 04/15/2023 9:21 PM [facility] PROTEIN,TOTAL 6.5 6.0 - 8.0 g/dL 04/15/2023 9:21 PM [facility] BILIRUBIN,TOTAL 0.2 0.0 - 1.2 mg/dL 04/15/2023 9:21 PM RECRUITING ASSISTANT [facility] ALK PHOSPHATASE 63 35 - 104 IU/L 04/15/2023 9:21 PM RECRUITING ASSISTANT [facility] ALT (SGPT) 13 10 - 35 IU/L 04/15/2023 9:21 PM RECRUITING ASSISTANT [facility] AST (SGOT) 14 10 - 35 IU/L 04/15/2023 9:21 PM RECRUITING ASSISTANT [facility] Blood BLOOD SPECIMEN / Unknown Venipuncture / Unknown 04/15/2023 12:20 PM RECRUITING ASSISTANT 04/15/2023 12:21 PM RECRUITING ASSISTANT Padmini JEFFERY CHEMISTRY Performing Organization Address City/[facility]/ZIP Co de Phone Number [facility] [address] [place] [address], * OCCULT BLOOD IFOBT STOOL (12/12/2022 2:46 PM CDT) STOOL BLOOD ,IFOBT Negative Negative 12/17/2022 3:04 PM CDT [facility] Stool STOOL SPECIMEN / Unknown Non-Blood / Unknown 12/12/2022 2:46 PM CDT 12/17/2022 2:46 PM CDT Rylee Cruz MD LAB[facility]ATORY [facility] [address] [place] [address], * XR MAMMO RASHIDA BILAT SCREEN (01/03/2022 11:15 AM RECRUITING ASSISTANT) Anatomical Region Laterality Modality BREASTS, Breast Left, Breast Right Bilateral Mammography Impressions 01/03/2022 3:46 PM RECRUITING ASSISTANT ??There is no radiographic evidence for malignancy. ??Recommend annual mammograms. MAMMOGRAM ASSESSMENT: ??ACR 1 Negative PATIENTS: You will also receive a letter with your examination results in an easy to read format. ??If you have questions about your results, please contact your referring provider. Narrative 01/03/2022 3:46 PM RECRUITING ASSISTANT For Patients: As a result of the Cures Act, medical imaging exams and procedure reports are released immediately into your electronic medical record. You may view this report before your referring provider. If you have questions, please contact your health care provider. XR MAMMO RASHIDA BILAT SCREEN [[id number]] CLINICAL HISTORY: ??This is an asymptomatic 71 y.o. patient. INDICATION FOR EXAM: Mammogram Screening. TECHNIQUE: CC & MLO views were obtained. ??This study was evaluated with the assistance of Computer-Aided Detection. Breast Tomosynthesis was used in interpretation. COMPARISON FILM: Yes 11/13/18 [facility] [employer] 01/16/17 [facility] FINDINGS: ??The breasts are almost entirely fatty. There are no dominant masses, suspicious micro calcifications or areas of architectural distortion. Rylee Cruz MD MAMMO * (ABNORMAL) XR DXA BONE DENSITY 2 SITES AXIAL [[id number]] (03/06/2018 11:09 AM RECRUITING ASSISTANT) Anatomical Region Laterality Modality Spine, HIPS, HIPL, HIPR Other Narrative 03/19/2018 12:23 PM RECRUITING ASSISTANT Please see scanned document for results of this study. Rylee Cruz MD DEXA * ANTI HCV [[id number]] (09/10/2013 12:57 PM CDT) HEPATITIS C ANTIBODY Non-Reacti ve Non-Reacti ve 09/10/2013 8:34 PM CDT [facility] Blood specimen (specimen) BLOOD SPECIMEN / Unknown Venipuncture / Unknown 09/10/2013 12:57 PM CDT 09/10/2013 12:57 PM CDT Narrative [facility] - 09/10/2013 8:34 PM CDT Antibodies to HCV not detected; does not exclude the possibility of exposure to HCV. Erin Gomes SEND OUTS [facility]OR[facility] 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
--- NOTE | 2023-05-28 10:46 | W.ANESCHARGE ---
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
--- NOTE | 2023-05-28 11:00 | W.ANESCHARGE ---
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
== END 2023-05-28 09:07 | disposition home or self-care (01) ==
LOC: OP CLINIC 09:07
PROVIDERS: PCP Family Medicine; Visit Provider Surgery
DX: D50.9 Iron deficiency anemia, unspecified (principal); K57.30 Diverticulosis of large intestine without perforation or abscess without bleeding
CPT/HCPCS: 00811; 00812; 45378; 99100; J2704

== ENCOUNTER 2023-10-31 09:53 | Outpatient (CLI) | payer MEDICARE, BC, SELFPAY ==
--- OUTSIDE RECORDS SUMMARY | 2023-11-04 18:15 | XMS_ITS | Clinical Summary ---
Author Organization [facility] Address [place], [place] [address] Care Team Providers Care Strategies Analyst Name Role Phone Jovanni Aguayo MD Unavailable [phone] Rylee Cruz MD Primary Care Prov ider [...] (06/22/2008): Dexa scan normal 2007. Repeat in 2012 Type II or unspecified type diabetes mellitus without mention of complication, not stated as uncontrolled 06/18/2005 09/24/2006 Intraparenchymal hematoma of brain 04/17/2023 Encounters Date Type Department Care Team Description 11/04/2023 Telephone [facility] [address] [place] [address] Rylee Cruz MD Health Maintenance Update 11/04/2023 Telephone [facility] [address] [place] [address] Rylee Cruz MD Follow Up 10/31/2023 9:25 AM CDT Office Visit [facility] [address] [place] [address] Rylee Cruz MD Diabetes 10/31/2023 Orders Only [facility] Scanner 1 scan: (1-Ord) EMPIRE, CT HEAD/BRAIN WO CON, 10/31/2023 10/31/2023 Orders Only [facility] Scanner 1 scan: (1-Ord) [facility], CHEST 1 VIEW, 10/31/2023 10/31/2023 Travel 10/15/2023 Telephone [facility] - [address] [place] [phone] Richi Sullivan MD Results (TTE results) 10/14/2023 2:00 PM CDT Ancillary Procedure [facility] [address] [place] [address] 10/14/2023 Travel 10/11/2023 Refill [facility] [address] [place] [address] Padmini Rodriguez PA Refill Request (Metformin) 09/17/2023 10:45 AM CDT Phone Office Visit [facility] [address] [place] [address] Lizette Mccloud MD Phone Visit; Medication Management (Things have been topsy turvy, room mate fell and broke hip, comes home ) 09/17/2023 Travel 09/10/2023 11:00 AM CDT Office Visit [facility] [address] [place] [address] Richi Sullivan MD Follow Up (Paroxysmal atrial fibrillation ) 09/10/2023 Travel 08/23/2023 Refill [facility] [address] [place] [address] Lizette Mccloud MD Refill Request (Nortriptyline, Risperidone, Risperidone) 08/11/2023 Refill [facility] [address] [place] [address] Rylee Cruz MD Refill Request (Contour Next Test [...] 157.5 cm (5' 2) 04/15/2023 11:11 AM [facility] [employer] [facility] Body Mass Index 27.55 04/15/2023 11:11 AM [facility] [employer] Plan of Treatment Upcoming Encounters Date Type Department Care Team (Late st Contact Info) Description 11/05/2023 11:10 AM CDT Office Visit [facility] [address] [place] [address] Rylee Cruz MD [address] [place] [address] 12/31/2023 11:00 AM [facility] [employer] [facility] Office Visit [facility] [address] [place] [address] South López MD [address] [place] [address] Health Maintenance Due Date Last Done Comments [...] mention of complication, not stated as uncontrolled SCAN-CT INTERPRETATION 12:00 AM CDT SCAN-RADIOLOGY REPORT 10/31/2023 12:00 AM CDT ECHO TTE COMPLETE WO CONTRAST Routine 10/14/2023 2:34 PM CDT Paroxysmal atrial fibrillation (HC) LIPID PANEL W REFLEX MEASURED LDL Routine 04/15/2023 12:20 PM [facility] Type II or unspecified type diabetes mellitus without mention of complication, not stated as uncontrolled OCCULT BLOOD IFOBT STOOL Routine 12/12/2022 2:46 PM CDT Screening for colorectal cancer XR MAMMO RASHIDA BILAT SCREEN Routine 01/03/2022 11:15 AM [employer] Visit for screening mammogram XR DXA BONE DENSITY 2 SITES AXIAL Routine 03/06/2018 11:09 AM [facility] Menopause ANTI HCV Routine 09/10/2013 12:57 PM CDT Need for hepatitis C screening test from Last 3 Months or Most Recently Relevant to Health Maintenance Results * GLUCOSE, RANDOM (10/31/2023 9:46 AM CDT) GLUCOSE,RANDOM 118 70 - 139 mg/dL 10/31/2023 9:47 AM CDT [facility] Blood BLOOD SPECIMEN / Unknown Capillary / Unknown 10/31/2023 9:46 AM CDT 10/31/2023 9:46 AM CDT Rylee Cruz MD CHEMISTRY [facility] [address] [place] [address], * HEMOGLOBIN A1C MONITORING (POCT) (10/31/2023 8:49 AM CDT) HEMOGLOBIN A1C MONITORING (POCT) 6.1 <=6.4 % 10/31/2023 8:59 AM CDT [facility] Blood BLOOD SPECIMEN / Unknown Venipuncture / Unknown 10/31/2023 8:49 AM CDT 10/31/2023 8:49 AM CDT Narrative [facility] - 10/31/2023 8:59 AM CDT ? (<=6.9%) [...] Anemias, Splenectomy ? Rylee Cruz MD CHEMISTRY [facility] [address] [place] [address], * SCAN-RADIOLOGY REPORT (10/31/2023 12:00 AM CDT) Anatomical Region Laterality Modality Other Scanner OTHER * SCAN-CT INTERPRETATION (10/31/2023 12:00 AM CDT) Anatomical Region Laterality Modality Other Scanner OTHER * ECHO TTE COMPLETE WO CONTRAST (10/14/2023 2:34 PM CDT) AORTIC VALVE MEAN PG 7 mmHg EJECTION FRACTION 42 % LVEDD 2.9 cm EJECTION FRACTION 50 - 55% Anatomical Region Laterality Modality Ultrasound 10/14/2023 2:00 PM CDT Narrative 10/14/2023 3:02 PM CDT ECHOCARDIOGRAM KYLE YAÑEZ ? Accession#: ?? [id number] : ?1950 72 years Study Date: ?? 10/14/2023 2:00:05 PM Gender: F ?BP: ? 111/74 mmHg Height: 157.00 cm ?BSA: ?1.67 m? ? ? Weight: 66.00 kg ? Tech: ? MHR ? Referring MD: RICHI SULLIVAN Site: ? [facility] Reading Location: MOBILE OP Patient Location: [...] . This study was interpreted by an [facility] accredited facility. ??Final ?? Procedure Note Gio Santos MD - 10/14/2023 ECHOCARDIOGRAM KYLE YAÑEZ : 1950 72 years Study Date: 10/14/2023 2:00:05 PM Gender: F BP: 111/74 mmHg Height: 157.00 cm BSA: 1.67 m? ? ? Weight: 66.00 kg Tech: [facility] Referring MD: RICHI SULLIVAN Site: [facility] Reading Location: DEXTER OP Patient Location: Outpatient. Procedure: 2D, Color [...] . This study was interpreted by an [facility] accredited facility. Final Richi Sullivan MD ECHO ORD * LIPID PANEL W REFLEX MEASURED LDL (04/15/2023 12:20 PM [facility]) CHOLESTEROL,TOTAL 114 100 - 199 mg/dL 04/15/2023 9:21 PM [facility] [employer] Comment: Cholesterol, Total Reference Ranges Desirable <200 mg/dL Borderline 200-239 mg/dL High >=240 mg/dL TRIGLYCERIDES 71 <150 mg/dL 04/15/2023 9:21 PM [facility] [employer] HDL CHOLESTEROL 50 >40 mg/dL 9:21 PM [facility] NON-HDL CHOLESTEROL 64 <145 mg/dl 04/15/2023 9:21 PM [facility] CHOL/HDL RATIO 2.28 <4.50 04/15/2023 9:21 PM [facility] [facility] LDL CHOLESTEROL 50 <=130 mg/dL 04/15/2023 9:21 PM [facility] [facility] VLDL CHOLESTEROL 14 <=30 mg/dL 04/15/2023 9:21 PM [facility] [facility] PROVIDER ORDERED STATUS RANDOM 04/15/2023 9:21 PM [facility] Blood BLOOD SPECIMEN / Unknown Venipuncture / Unknown 04/15/2023 12:20 PM [facility] 04/15/2023 12:21 PM [facility] [employer] Padmini JEFFERY CHEMISTRY [facility] [address] * OCCULT BLOOD IFOBT STOOL (12/12/2022 2:46 PM CDT) STOOL BLOOD ,IFOBT Negative Negative 12/17/2022 3:04 PM CDT [facility] Stool STOOL SPECIMEN / Unknown Non-Blood / Unknown 12/12/2022 2:46 PM CDT 12/17/2022 2:46 PM CDT Rylee Cruz MD LABORATORY [facility] [address] [place] [address], * XR MAMMO RASHIDA BILAT SCREEN (01/03/2022 11:15 AM [facility]) Anatomical Region Laterality Modality BREASTS, Breast Left, Breast Right Bilateral Mammography Impressions 01/03/2022 3:46 PM [facility] ??There is no radiographic evidence for malignancy. ??Recommend annual mammograms. MAMMOGRAM ASSESSMENT: ??ACR 1 Negative PATIENTS: You will also receive a letter with your examination results in an easy to read format. ??If you have questions about your results, please contact your referring provider. Narrative 01/03/2022 3:46 PM [facility] For Patients: As a result of the Century Cures Act, medical imaging exams and procedure reports are released immediately into your electronic medical record. You may view this report before your referring provider. If you have questions, please contact your health care provider. XR MAMMO RASHIDA BILAT SCREEN [[id number]] CLINICAL HISTORY: ??This is an asymptomatic 71 y.o. patient. INDICATION FOR EXAM: Mammogram Screening. TECHNIQUE: CC & MLO views were obtained. ??This study was evaluated with the assistance of Computer-Aided Detection. Breast Tomosynthesis was used in interpretation. COMPARISON FILM: [facility] FINDINGS: ??The breasts are almost entirely fatty. There are no dominant masses, suspicious micro calcifications or areas of architectural distortion. Rylee Cruz MD MAMMO * (ABNORMAL) XR DXA BONE DENSITY 2 SITES AXIAL [25241.1] (03/06/2018 11:09 AM [facility]) Anatomical Region Laterality Modality Spine, HIPS, HIPL, HIPR Other Narrative 03/19/2018 12:23 PM [facility] Please see scanned document for results of this study. Rylee Cruz MD DEXA * ANTI HCV [58201.2] (09/10/2013 12:57 PM CDT) HEPATITIS C ANTIBODY Non-Reacti ve Non-Reacti ve 09/10/2013 8:34 PM CDT [facility] Blood specimen (specimen) BLOOD SPECIMEN / Unknown Venipuncture / Unknown 09/10/2013 12:57 PM CDT 09/10/2013 12:57 PM CDT Narrative [facility] 09/10/2013 8:34 PM CDT Antibodies to HCV not detected; does not exclude the possibility of exposure to HCV. Erin Gomes SEND OUTS [facility] [address] [place] [address] 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, 07/31/06 * Full Code (Latest Code Status on File) Date Activated Date Inactivated Comments 03/18/2022 2:59 AM 03/19/2022 7:01 PM Question Answer Comments Code Status Discussion: Unable to Assess Preferences, Provider to review later Care Teams Strategies Analyst Relationship Specialty Start Date End Date Rylee Cruz MD [address] [place] [address] PCP - General Family Practice 02/23/21 Jovanni Aguayo MD Psychiatry Psychiatry 01/10/16
== END 2023-10-31 09:54 | disposition home or self-care (01) ==
LOC: AMB 11-04 18:14
PROVIDERS: PCP Family Medicine; Visit Provider Emergency Medicine
DX: R55 Syncope and collapse (principal)
CPT/HCPCS: A0425; A0427

== ENCOUNTER 2023-10-31 10:16 | Observation (INO) | payer MEDICARE, BC, SELFPAY ==
[2023-10-31] VITALS (29 sets, daily range): BP systolic 117–147; BP diastolic 64–86; PULSE 57–83; RESP 16–20; TEMP 35.8–36.6; O2SAT 89–99; BMI 27.4; BMI 28.6
[2023-10-31 11:04] LABS: Troponin, Point-of-Care* 0.01 ng/ml (0.01-0.04)
--- NOTE | 2023-10-31 11:27 | ED_ITS ---
HPI - Syncope General Time Seen by Provider: 11:27 Date Seen: 10/31/23 Chief Complaint: Syncope/Fainted Stated Complaint: syncope Time Seen by Provider: 10/31/23 11:26 Source: patient, EMS and RN notes reviewed Mode of arrival: EMS Limitations: no limitations History of Present Illness HPI narrative: This 72-year-old female was brought in by EMS from clinic where she had a syncopal episode. Patient was at [facility] having a diabetic follow-up. They were in her E to get there, she did not take her morning pills outside of her levothyroxine. She would have taken iron, metformin, potassium and risperidone. They do have the pills here and do wonder if it is okay to take them now. At the time, she started to feel dizzy, the doctor reportedly when out of the room to get her some juice. Her blood sugar was checked and was 118 at the time. She was noted to have her head slumped forward, her friend went to her and she was not responsive at the time but reportedly still breathing. There was an episode of about 2-3 minutes where she kept having recurrent altered sensorium, sounds like syncope as she was intermittently unresponsive. It does not sound like there is any seizure activity. She recollects at the time there was a little sense of chest pressure. That is gone now. They did do an EKG in clinic showing sinus rhythm, 68 beats per minute. There were flipped T-waves inferiorly and laterally in the anterior precordial leads V3 through V6. This has subsequently resolved here. She was in the chair when this happened, remained in the chair. She notes no chest symptoms now, no shortness of breath. Feels her arms and legs are working fine. Blood pressure at the time was 96/46. Patient was hospitalized here in April of 2023 with new onset paroxysmal atrial fibrillation. Anticoagulation was not started at that time due to issues with melena, reportedly had a normal EGD at the time. She was also anemic and on studies suggested iron deficiency anemia. Again, had inpatient EGD on 05/03/2023, no abnormality noted to explain her issues at that time. 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 She does have type 2 diabetes, schizophrenia, hypertension, hyperlipidemia, hypothyroidism, vitamin-D deficiency. She does appear that she has had some hyponatremia in the past. Most recent hemoglobin A1c from today is 6.1%. EMS did repeat a blood sugar and it was 131. She notes that she has a left shoulder fracture, happened 2 years ago but has chronic pain in the shoulder. Denies pain as a significant issue at the time of her syncope, denies any acute issues with this pain currently. She has seen Cardiology over the summer in August, reportedly had an echo with an EF of 50-55%. MD complaint: loss of consciousness Related Data Home Medications ?Medication ?Instructions ?Recorded ?Confirmed acetaminophen 500 mg tablet 1,000 mg PO Q6H PRN 10/16/21 10/31/23 lorazepam 0.5 mg tablet 0.5 mg PO DAILY PRN anxiety 10/16/21 10/31/23 metformin 500 mg tablet 1,000 mg PO BIDWM 10/16/21 10/31/23 nortriptyline 25 mg capsule 25 mg PO HS 10/16/21 10/31/23 potassium chloride 10 mEq 10 meq PO DAILY 10/16/21 10/31/23 tablet,extended release risperidone 1 mg tablet 1 mg PO QAM 10/16/21 10/31/23 risperidone 2 mg tablet 2 mg PO HS 10/16/21 10/31/23 levothyroxine 100 mcg tablet 100 mcg PO QAM 04/26/23 10/31/23 atorvastatin 20 mg tablet 20 mg PO HS 05/04/23 10/31/23 apixaban 5 mg tablet (Eliquis) 5 mg PO BID 10/31/23 10/31/23 ferrous sulfate 325 mg (65 mg 325 mg PO DAILY 10/31/23 10/31/23 iron) tablet metoprolol succinate 100 mg 100 mg PO DAILY 10/31/23 10/31/23 tablet,extended release 24 hr nystatin 100,000 unit/gram topical 1 applic topical BID PRN 10/31/23 10/31/23 ointment Allergies Allergy/AdvReac Type Severity Reaction Status Date / Time cholecalciferol (vitamin D3) Allergy Unknown Confusion Verified 10/31/23 10:54 [From Vitamin D3] cyanocobalamin (vitamin B12) Allergy Unknown Verified 10/31/23 10:54 grapefruit Allergy Unknown Verified 10/31/23 10:54 Penicillins Allergy Unknown Verified 10/31/23 10:54 Sulfa (Sulfonamide Allergy Unknown Verified 10/31/23 10:54 Antibiotics) eucalyptus AdvReac Unknown Verified 10/31/23 10:54 lisinopril AdvReac Confusion Verified 10/31/23 10:54 Review of Systems Status of ROS: Reports: 6 or more systems reviewed and unremarkable except as noted in History and below [facility] Medical History Resting tremor ?G25.2 - Other specified forms of tremor (ICD-10) GI bleed ?K92.2 - Gastrointestinal hemorrhage, unspecified (ICD-10) Protein calorie malnutrition ?E46 - Unspecified protein-calorie malnutrition (ICD-10) Anemia ?D64.9 - Anemia, unspecified (ICD-10) Altered mental status ?R41.82 - Altered mental status, unspecified (ICD-10) Chronic diarrhea ?K52.9 - Noninfective gastroenteritis and colitis, unspecified (ICD-10) Unstable gait ?R26.81 - Unsteadiness on feet (ICD-10) History of intracranial hemorrhage ?Z86.79 - Personal history of other diseases of the circulatory system (ICD- 10) Osteopenia ?M85.80 - Other specified disorders of bone density and structure, unspecified site (ICD-10) Vitamin D deficiency ?E55.9 - Vitamin D deficiency, unspecified (ICD-10) Chronic schizophrenia ?F20.9 - Schizophrenia, unspecified (ICD-10) Diabetes mellitus type 2 in nonobese ?E11.9 - Type 2 diabetes mellitus without complications (ICD-10) Hyperlipidemia ?E78.5 - Hyperlipidemia, unspecified (ICD-10) Tremor ?R25.1 - Tremor, unspecified (ICD-10) Diabetes mellitus ?E11.9 - Type 2 diabetes mellitus without complications (ICD-10) Hypothyroidism ?E03.9 - Hypothyroidism, unspecified (ICD-10) Hypertension ?I10 - Essential (primary) hypertension (ICD-10) Anxiety ?F41.9 - Anxiety disorder, unspecified (ICD-10) Intraparenchymal hemorrhage of brain ?I61.9 - Nontraumatic intracerebral hemorrhage, unspecified (ICD-10) Surgical History History of tonsillectomy and adenoidectomy ?Z90.89 - Acquired absence of other organs (ICD-10) History of breast biopsy ?Z98.890 - Other specified postprocedural states (ICD-10) Family History Mother Alcohol dependence Asthma Heart disease Paternal Grandfather Alcohol dependence Paternal Grandmother Diabetes Brother Down syndrome Alzheimers disease Father Heart disease Maternal Grandmother High blood pressure Social History What is your current living situation?: I presently have a place to live Problems where you live: no known problems Problems where you live details: N/A In the past 12 months, utilities in danger of being shut off: no In past 12 months, lack of transportation kept you from medical appts, meetings, work, or getting things needed for daily living: no In the past 12 mos, have been you worried that your food would run out before you had money to buy more?: never true In the past 12 mos, the food you bought just didn't last and you didn't have money to buy more?: never true Highest level of school completed/degree received: Master's degree Smoking Status: Former smoker Do you use any of these nicotine containing products: None Second hand tobacco smoke exposure: No How often do you have a drink containing alcohol: never How often do you have six or more drinks on one occasion: Never AUDIT-C Alcohol total score: 0 Non-prescribed substance use: denies use Caffeine: Yes (1 cup daily) How often does anyone, including family, friends and others, physically hurt you : never How often does anyone, including family, friends and others, insult or talk down to you: never How often does anyone, including family, friends and others, threaten you with harm: never How often does anyone, including family, friends and others, scream or curse at you: never service: No Exam Const: Vital Signs, click to edit/add: Vital Signs - 24 hr 10/31/23 10:23 10/31/23 10:38 10/31/23 10:45 Temperature 96.5 F L Pulse Rate 59 L 57 L Pulse Rate [Pulse Oximeter] 60 Pulse Rate [orthos tatic lying] Pulse Rate [orthos tatic standing] Respiratory Rate 16 Blood Pressure Blood Pressure [Ri ght Upper Arm] 127/70 Blood Pressure [or thostatic lying Ri ght Arm] Blood Pressure [or thostatic sitting] Blood Pressure [or thostatic standing ] Pulse Oximetry 96 97 94 Oxygen Delivery Me thod Room Air 10/31/23 11:00 10/31/23 11:02 10/31/23 11:15 Temperature Pulse Rate 65 62 65 Pulse Rate [Pulse Oximeter] Pulse Rate [orthos tatic lying] Pulse Rate [orthos tatic standing] Respiratory Rate Blood Pressure 117/64 Blood Pressure [Ri ght Upper Arm] Blood Pressure [or thostatic lying Ri ght Arm] Blood Pressure [or thostatic sitting] Blood Pressure [or thostatic standing ] Pulse Oximetry 92 96 95 Oxygen Delivery Me thod 10/31/23 11:30 10/31/23 11:32 10/31/23 11:45 Temperature Pulse Rate 63 65 66 Pulse Rate [Pulse Oximeter] Pulse Rate [orthos tatic lying] Pulse Rate [orthos tatic standing] Respiratory Rate Blood Pressure 118/64 Blood Pressure [Ri ght Upper Arm] Blood Pressure [or thostatic lying Ri ght Arm] Blood Pressure [or thostatic sitting] Blood Pressure [or thostatic standing ] Pulse Oximetry 99 98 90 Oxygen Delivery Sc thod 10/31/23 12:00 10/31/23 12:02 10/31/23 12:23 Temperature Pulse Rate 61 64 Pulse Rate [Pulse Oximeter] Pulse Rate [orthos tatic lying] Pulse Rate [orthos tatic standing] Respiratory Rate Blood Pressure 131/71 145/78 H Blood Pressure [Ri ght Upper Arm] Blood Pressure [or thostatic lying Ri ght Arm] Blood Pressure [or thostatic sitting] Blood Pressure [or thostatic standing ] Pulse Oximetry 96 96 Oxygen Delivery Me thod 10/31/23 12:25 10/31/23 12:26 10/31/23 12:28 Temperature Pulse Rate 70 Pulse Rate [Pulse Oximeter] Pulse Rate [orthos tatic lying] Pulse Rate [orthos tatic standing] Respiratory Rate Blood Pressure 127/81 119/69 Blood Pressure [Ri ght Upper Arm] Blood Pressure [or thostatic lying Ri ght Arm] Blood Pressure [or thostatic sitting] Blood Pressure [or thostatic standing ] Pulse Oximetry 89 Oxygen Delivery Me thod 10/31/23 12:30 10/31/23 12:32 10/31/23 12:33 Temperature Pulse Rate 78 73 Pulse Rate [Pulse Oximeter] 78 Pulse Rate [orthos tatic lying] 72 Pulse Rate [orthos tatic standing] 83 Respiratory Rate Blood Pressure 147/79 H Blood Pressure [Ri ght Upper Arm] Blood Pressure [or thostatic lying Ri ght Arm] 145/78 H Blood Pressure [or thostatic sitting] 127/81 Blood Pressure [or thostatic standing ] 119/69 Pulse Oximetry 93 98 Oxygen Delivery Me thod 10/31/23 12:33 10/31/23 12:45 10/31/23 13:00 Temperature Pulse Rate 75 83 63 Pulse Rate [Pulse Oximeter] Pulse Rate [orthos tatic lying] Pulse Rate [orthos tatic standing] Respiratory Rate Blood Pressure Blood Pressure [Ri ght Upper Arm] Blood Pressure [or thostatic lying Ri ght Arm] Blood Pressure [or thostatic sitting] Blood Pressure [or thostatic standing ] Pulse Oximetry 96 91 97 Oxygen Delivery Me thod 10/31/23 13:01 10/31/23 13:15 10/31/23 13:30 Temperature Pulse Rate 62 67 75 Pulse Rate [Pulse Oximeter] Pulse Rate [orthos tatic lying] Pulse Rate [orthos tatic standing] Respiratory Rate Blood Pressure 139/73 Blood Pressure [Ri ght Upper Arm] Blood Pressure [or thostatic lying Ri ght Arm] Blood Pressure [or thostatic sitting] Blood Pressure [or thostatic standing ] Pulse Oximetry 96 96 95 Oxygen Delivery Me thod 10/31/23 13:45 10/31/23 13:46 Temperature Pulse Rate 72 73 Pulse Rate [Pulse Oximeter] Pulse Rate [orthos tatic lying] Pulse Rate [orthos tatic standing] Respiratory Rate Blood Pressure 139/86 Blood Pressure [Ri ght Upper Arm] Blood Pressure [or thostatic lying Ri ght Arm] Blood Pressure [or thostatic sitting] Blood Pressure [or thostatic standing ] Pulse Oximetry 97 95 Oxygen Delivery Me thod This 72-year-old female is alert, interactive, no apparent distress. Pupils equal round reactive, sclera clear, symmetrical facial function. Speech is normal. Neck is supple, no masses, no adenopathy. Lungs are clear, good air entry, no wheezing or crackles. CV sounds regular, do not hear any murmur, normal S1-S2, no S3-S4. Abdomen is soft, nontender, nondistended, no organomegaly or masses. She has no lower extremity edema. Neurologic exam is nonfocal, has normal sensation throughout, note no tremors. Strength throughout hands and forearms normal, she has limitations about the left shoulder due to her chronic fracture of that arm. Lower extremity strength normal, symmetric but did not have patient get up and ambulate at this point. She does appear pale but skin is without any rash. Documenting provider has reviewed patient's vital signs: yes Course Course ED Course: This 72-year-old female had a syncopal episode that was witnessed, no definitive seizure activity noted. She is neurologically stable at this time. Will be doing a full laboratory workup, had initial troponin which was normal. EKG done at this time is not showing any T-wave changes in the pattern that she had in the clinic. The EKGs done in clinic do not document arrhythmia that would be responsible for syncope. She will be on cardiac monitoring and pulse oximetry here, we will do a head CT, full complement of labs and get a chest x-ray as well. She currently is stable, unclear as to the etiology of this event. Reevaluation(s) Time of Reevaluation #1: 12:45 Reevaluation #1: Patient's sodium has come back at 126, this is certainly lower than what she has been, on 06/11/2023 her sodium was 136. Will initiate a 250 mL normal saline bolus, she is also orthostatic with her blood pressures, does get 11 point pulse range upward between lying and standing. Will also repeat point of care troponi n and EKG at this time. Her EKGs from clinic were at 9:00 a.m. this morning, thus we are well over 3 hours from the episode. This patient will likely need admission for observation. There is enough complexity here that I do not feel with a sodium of 126 that she should discharge to home. Will add on a TSH after talking, urinalysis requested which I did subsequently order. Consultations Consultation #1: Have reviewed with the hospital service, they accept the patient. It is possible that this patient potentially had arrhythmia that was not captured during EKG or doing actual syncopal episode. Her blood pressure did go low. This coupled with the hyponatremia, do think she should be observed and placed on cardiac monitoring while here. The hospitalist does not see Estephania on her current med list, patient is not likely on this. Her D-dimer did come back normal, follow-up troponin normal. Patient advised of plan, questions answered, she is in agreement. Time: 13:20 Vital Signs Vital signs: Initial Vital Signs Temperature 96.5 F L 10/31/23 10:23 Temperature Source Temporal Artery Scan 10/31/23 10:23 Pulse Rate 60 10/31/23 10:23 Respiratory Rate 16 10/31/23 10:23 Blood Pressure 127/70 10/31/23 10:23 Blood Pressure Mean 89 10/31/23 10:23 Blood Pressure Position Sitting 10/31/23 10:23 Pulse Oximetry 96 10/31/23 10:23 Oxygen Delivery Method Room Air 10/31/23 10:23 Vital Signs Temperature 96.5 F L 10/31/23 10:23 Pulse Rate 60 10/31/23 10:23 Respiratory Rate 16 10/31/23 10:23 Blood Pressure 127/70 10/31/23 10:23 Pulse Oximetry 96 10/31/23 10:23 Oxygen Delivery Method Room Air 10/31/23 10:23 Temperature 97.1 F L 10/31/23 17:54 Pulse Rate 61 10/31/23 17:56 Respiratory Rate 20 10/31/23 17:54 Blood Pressure 138/73 10/31/23 17:54 Pulse Oximetry 99 10/31/23 17:54 Oxygen Delivery Method Room Air 10/31/23 17:54 Medications Administered Medications: Generic Name Dose Route Start Last Admin Trade Name Freq PRN Reason Stop Dose Admin Sodium Chloride 1,000 mls @ 75 mls/hr 10/31/23 15:35 10/31/23 16:30 0.9 % Sodium Chloride 1000 Ml IV 75 mls/hr .[id number] LARRY Administration Insulin Aspart 0 unit 10/31/23 18:00 10/31/23 18:09 Insulin Aspart 100 Unit/Ml SUBCUT Not Given TIDWM LARRY Protocol Metformin HCl 1,000 mg 10/31/23 18:00 10/31/23 18:08 Metformin 500 Mg Tablet PO 1,000 mg BIDWM LARRY Administration Discontinued Medications Generic Name Dose Route Start Last Admin Trade Name Estrella PRN Reason Stop Dose Admin Sodium Chloride 250 mls @ 250 mls/hr 10/31/23 12:44 10/31/23 14:16 0.9 % Sodium Chloride 250 Ml IV 10/31/23 13:43 Infused .Q1H ONE Infusion MDM - Syncope Lab Data Attestation: I reviewed the patient's lab results. Labs: Lab Results 10/31/23 10/31/23 10/31/23 Range/Units 10:50 11:58 12:45 WBC 9.43 (4.50-11.00) K/uL RBC 3.98 L (4.00-5.20) m/uL Hgb 11.2 L (12.0-16.0) gm/dL Hct 34.5 (33.0-51.0) % MCV 87 (80-100) fL MCH 28 (26-34) pg MCHC 33 (32-36) gm/dL RDW Coeff of Emily 15.8 H (11.5-15.5) % Plt Count 287 (140-440) K/uL Neut % (Auto) 81.8 H (42.0-72.0) % Lymph % (Auto) 6.4 L (20-44) % [place] % (Auto) 10.6 (0.0-11.0) % Eos % (Auto) 0.5 (0.0-7.0) % Baso % (Auto) 0.4 (0.0-3.0) % Neut # (Auto) 7.70 H (1.7-7.0) K/uL Lymph # (Auto) 0.60 L (0.90-2.90) K/uL [place] # (Auto) 1.00 H (0.00-0.90) K/UL Eos # (Auto) 0.05 (0.00-0.50) K/uL Baso # (Auto) 0.04 (0.00-0.30) K/uL Abs Immat Gran (auto) 0.03 (0.00-0.30) K/uL Imm/Tot Granulo (auto) 0.3 % D-Dimer Quant (PE/DVT) 0.25 (0.00-0.50) ug/ml Sodium 126 L (135-149) mmol/L Potassium 4.2 (3.6-5.1) mmol/L Chloride 93 L (96-114) mmol/L Carbon Dioxide 25 (20-32) mmol/L Anion Gap 8 (7-15) mEq/L BUN 17 (7-30) mg/dL Creatinine 0.6 (0.5-1.5) mg/dL Estimated Creat Clear 39.63 Estimated GFR 95 ml/min Glucose 150 H (60-115) mg/dL Lactate 1.6 (0.5-1.9) mmol/L Calcium 8.9 (8.4-10.6) mg/dL Total Bilirubin 0.4 (0.1-1.5) mg/dL AST 23 (12-35) U/L ALT 15 (4-35) U/L Alkaline Phosphatase 62 (40-150) U/L Troponin I < 0.01 L (0.01-0.04) ng/mL C-Reactive Protein < 0.5 L (0.5-1.0) mg/dL NT-Pro-B Natriuret Pep 254 pg/mL Total Protein 6.6 (6.0-8.3) g/dL Albumin 4.0 (3.3-5.0) g/dL TSH 1.280 (0.270-4.20) uIU/mL Lab Acknowledgement POC Troponin I 0.01 0.01 (0.01-0.04) ng/ml 10/31/23 Range/Units 13:33 WBC (4.50-11.00) K/uL RBC (4.00-5.20) m/uL Hgb (12.0-16.0) gm/dL Hct (33.0-51.0) % MCV (80-100) fL MCH (26-34) pg MCHC (32-36) gm/dL RDW Coeff of Emily (11.5-15.5) % Plt Count (140-440) K/uL Neut % (Auto) (42.0-72.0) % Lymph % (Auto) (20-44) % [place] % (Auto) (0.0-11.0) % Eos % (Auto) (0.0-7.0) % Baso % (Auto) (0.0-3.0) % Neut # (Auto) (1.7-7.0) K/uL Lymph # (Auto) (0.90-2.90) K/uL [place] # (Auto) (0.00-0.90) K/UL Eos # (Auto) (0.00-0.50) K/uL Baso # (Auto) (0.00-0.30) K/uL Abs Immat Gran (auto) (0.00-0.30) K/uL Imm/Tot Granulo (auto) % D-Dimer Quant (PE/DVT) (0.00-0.50) ug/ml Sodium (135-149) mmol/L Potassium (3.6-5.1) mmol/L Chloride (96-114) mmol/L Carbon Dioxide (20-32) mmol/L Anion Gap (7-15) mEq/L BUN (7-30) mg/dL Creatinine (0.5-1.5) mg/dL Estimated Creat Clear Estimated GFR ml/min Glucose (60-115) mg/dL Lactate (0.5-1.9) mmol/L Calcium (8.4-10.6) mg/dL Total Bilirubin (0.1-1.5) mg/dL AST (12-35) U/L ALT (4-35) U/L Alkaline Phosphatase (40-150) U/L Troponin I (0.01-0.04) ng/mL C-Reactive Protein (0.5-1.0) mg/dL NT-Pro-B Natriuret Pep pg/mL Total Protein (6.0-8.3) g/dL Albumin (3.3-5.0) g/dL TSH (0.270-4.20) uIU/mL Lab Acknowledgement Test Added POC Troponin I (0.01-0.04) ng/ml Imaging Data Chest x-ray: Attestation: I have reviewed the pertinent imaging results. My impression: I do not appreciate any acute pathology on my preliminary review of her chest x- ray. Radiologist's impression: Patient: MICHELLE ALONSO Facility:?[facility] Patient ID:?[id number] Site Patient ID:?[id number]. Site :?[id number] Study:?XRay-Chest 1 VIEW PORTABLE-10/31/2023 11:47:13 AM Ordering Physician:?Huey Birmingham Final Report: Indication: Syncope and altered mental status Technique: Chest 1 view Comparison: None Findings/Impression: Cardiovascular and mediastinum: Normal heart size with aortic tortuosity. Lungs and pleural space: Lungs are clear. No sign of infiltrate or mass. No sign of pleural effusion. No pneumothorax. Bones and soft tissues: Deformity of the left proximal humerus with a mixture of sclerosis and periosteal reaction suggesting an old proximal humeral fracture. Dictated by Onel Downing MD @ 10/31/2023 12:08:51 PM (Electronic Signature) CT scan - head: Attestation: I have reviewed the pertinent imaging results. Radiologist's impression: Patient: MICHELLE ALONSO Facility:?[facility] Patient ID:?[id number] Site Patient ID:?[id number]. Site :?[id number] Study:?CT-Head W/O-10/31/2023 12:15:55 PM Ordering Physician:?Huey Birmingham Final Report: INDICATION: Syncope. COMPARISON: Multiple prior studies including 05/01/2023 and 03/17/2022. TECHNIQUE: CT of the head without intravenous contrast. Please note that all CT scans at this facility use dose modulation, iterative reconstruction, and/or weight-based dosing when appropriate to reduce radiation dose to as low as reasonably achievable. FINDINGS: Persistent left awan radiata hyperdense linear (best appreciated on the coronal and sagittal 2D reformations) focus with surrounding hypoattenuation. The linear hyperattenuating element is not significantly changed compared to prior examinations (this characteristic is best assessed on the sagittal and coronal 2D reformations, compared to the axial series). Preserved acosta-white matter differentiation. Bilateral cerebral white matter hypoattenuation is consistent with chronic ischemic gliotic change. No hydrocephalus. No mass or mass effect. No intracranial hemorrhage. Intact skull base and cranial vault. 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 Visualized orbits are without significant incidental findings. Visualized paranasal sinuses and mastoid air cells are clear. IMPRESSION: No acute findings. Incidental findings described in the body of the report. Please note that all CT scans at this facility use dose modulation, iterative reconstruction, and/or weight-based dosing when appropriate to reduce radiation dose to as low as reasonably achievable. Dictated by Dariusz Randolph MD @ 10/31/2023 1:08:36 PM (Electronic Signature) ECG Data Attestation: I personally reviewed and interpreted this ECG as follows: (Sinus bradycardia with premature atrial complex, rate 59 beats per minute. Seems to have flipped T-waves in 1 and aVL, flat V4 through V6 but not flipped as in prior EKG in clinic. Lead 2 has isolated flipped T-waves in the inferior lead.) ECG interpretation date: 10/31/23 ECG interpretation time: 11:30 Prior ECG tracings: available for review Interpretation: EKG timed 1:13 p.m. shows normal sinus rhythm, 63 beats per minute. Nonspecific T-wave changes, appear flat now on V4 through V5, flipped in 1 in aVL. Discharge Plan Discharge Clinical Impression: Syncope, Acute hyponatremia
--- NOTE | 2023-10-31 11:28 | CRLHL7_ITS ---
For Patients: As a result of the Cures Act, medical imaging exams and procedure reports are released immediately into your electronic medical record. You may view this report before your referring provider. If you have questions, please contact your health care provider. Indication: Syncope and altered mental status Technique: Chest 1 view Comparison: None Findings/Impression: Cardiovascular and mediastinum: Normal heart size with aortic tortuosity. Lungs and pleural space: Lungs are clear. No sign of infiltrate or mass. No sign of pleural effusion. No pneumothorax. Bones and soft tissues: Deformity of the left proximal humerus with a mixture of sclerosis and periosteal reaction suggesting an old proximal humeral fracture. Dictated by Onel Downing MD @ 10/31/2023 12:08:51 PM (Electronically Signed)
--- NOTE | 2023-10-31 11:28 | CRLHL7_ITS ---
For Patients: As a result of the Century Cures Act, medical imaging exams and procedure reports are released immediately into your electronic medical record. You may view this report before your referring provider. If you have questions, please contact your health care provider. INDICATION: Syncope. COMPARISON: Multiple prior studies including 05/01/2023 and 03/17/2022. TECHNIQUE: CT of the head without intravenous contrast. Please note that all CT scans at this facility use dose modulation, iterative reconstruction, and/or weight-based dosing when appropriate to reduce radiation dose to as low as reasonably achievable. FINDINGS: Persistent left awan radiata hyperdense linear (best appreciated on the coronal and sagittal 2D reformations) focus with surrounding hypoattenuation. The linear hyperattenuating element is not significantly changed compared to prior examinations (this characteristic is best assessed on the sagittal and coronal 2D reformations, compared to the axial series). Preserved acosta-white matter differentiation. Bilateral cerebral white matter hypoattenuation is consistent with chronic ischemic gliotic change. No hydrocephalus. No mass or mass effect. No intracranial hemorrhage. Intact skull base and cranial vault. 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 Visualized orbits are without significant incidental findings. Visualized paranasal sinuses and mastoid air cells are clear. IMPRESSION: No acute findings. Incidental findings described in the body of the report. Please note that all CT scans at this facility use dose modulation, iterative reconstruction, and/or weight-based dosing when appropriate to reduce radiation dose to as low as reasonably achievable. Dictated by Dariusz Randolph MD @ 10/31/2023 1:08:36 PM (Electronically Signed)
[2023-10-31 12:06] LABS: Basophils Absolute Auto 0.04 K/uL (0.00-0.30); Basophils Percent Auto 0.4 % (0.0-3.0); Eosinophils Absolute Auto 0.05 K/uL (0.00-0.50); Eosinophils Percent Auto 0.5 % (0.0-7.0); Hematocrit 34.5 % (33.0-51.0); Hemoglobin* 11.2 gm/dL (12.0-16.0); Immature Granulocytes Abs Auto 0.03 K/uL (0.00-0.30); Immature Granulocytes Pct Auto 0.3 %; Lymphocytes Percent Auto 6.4 % (20-44); Mean Corpuscular HGB Conc 33 gm/dL (32-36); Mean Corpuscular Hemoglobin 28 pg (26-34); Mean Corpuscular Volume 87 fL (80-100); Monocytes Percent Auto 10.6 % (0.0-11.0); Neutrophils Percent Auto 81.8 % (42.0-72.0); Platelet Count* 287 K/uL (140-440); RDW Coefficient of Variation % 15.8 % (11.5-15.5); Red Blood Count 3.98 m/uL (4.00-5.20); White Blood Count* 9.43 K/uL (4.50-11.00)
--- OUTSIDE RECORDS SUMMARY | 2023-10-31 12:06 | XMS_ITS | Clinical Summary ---
Author Organization [facility] Address [place], [place] [address] Care Team Providers Care Digital Advisor Name Role Phone Jovanni Aguayo MD Unavailable [phone] Rylee Cruz MD Primary Care Prov ider Allergies Active Allergy Reactions Criticality Noted Date Comments Eucalyptus Oil 06/22/2008 Grapefruit *Unknown 10/19/2009 Lisinopril Confusion 12/15/2007 Had anxiety and confusion anxiety, confusion Penicillins 05/27/2006 Sulfa (Sulfonamide Antibiotics) 05/27/2006 Cyanocobalamin (Vitamin B12) 009 Calcium Phos,Dibas-Vitamin D3 Confusion 2008 Medications Medication Sig Dispensed Refills Start Date End Date Status acetaminophen (TYLENOL EXTRA STRGTH) 500 mg tablet Take 1,000 mg by mouth every 6 hours if needed for Pain. Active nystatin (MYCOSTATIN) ointmentIndications: Intertrigo APPLY TOPICALLY TO AFFECTED AREA(S) TWO TIMES DAILY FOR 14 DAYS. Strength: 100,000 unit/gram. HOLD until patient calls 30 g 3 03/12/2022 Active WalkerIndications:Ga it instability Walker with 5 inch wheels for home use. Please deliver 1 Each 03/20/2022 Active Walker - 4 wheelsIndications:Ga it instability Rollator, for home use. Length of need: 99 months 1 Each 04/03/2022 Active blood glucose control, normal (Contour Control Solution, Nml) solnIndications:Diab etes mellitus without complication (HC) HOLD until patient calls As directed. 90 Each 3 07/24/2022 Active blood sugar diagnostic (Ascensia CONTOUR) stripIndications:Katlyn betes mellitus without complication (HC) USE TO TEST BLOOD GLUCOSE 2 TIMES DAILY DIRECTED. HOLD until patient calls 200 Each 3 07/24/2022 Active lancets (Microlet Lancet)Indications:D iabetes mellitus without complication (HC) Testing twice daily. HOLD until patient calls 200 Each 07/24/2022 Active LORazepam (ATIVAN) 0.5 mg tabIndications:Anxie ty disorder, unspecified type Take 1 Tablet (0.5 mg) by mouth once daily if needed for Anxiety. 30 Tablet 11/12/2022 Active atorvastatin (LIPITOR) 20 mg tabletIndications:Mi xed hyperlipidemia Take 1 Tablet (20 mg) by mouth at bedtime. 90 Tablet 3 04/29/2023 Active ferrous sulfate 325 mg delayed release tabletIndications:Ir on deficiency anemia, unspecified iron deficiency anemia type Take 1 Tablet (325 mg) by mouth once daily with a meal. 90 Tablet 3 06/11/2023 Active blood sugar diagnostic (Contour Next Test Strips) stripIndications:Katlyn betes mellitus without complication (HC) Test 2 times per day 200 Each 3 08/12/2023 Active apixaban (ELIQUIS) 5 mg tabletIndications:Pa roxysmal atrial fibrillation (HC) Take 1 Tablet (5 mg) by mouth two times daily. 180 Tablet 09/10/2023 Active metoprolol succinate (TOPROL XL) 100 mg Sustained-Release tabletIndications:Pa roxysmal atrial fibrillation (HC) Take 1 Tablet (100 mg) by mouth once daily. 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 90 Tablet 09/17/2023 Active risperiDONE (RISPERDAL) 2 mg tabletIndications:Sc hizophrenia, chronic condition (HC) Take 1 Tablet (2 mg) by mouth at bedtime. 90 Tablet 09/17/2023 Active potassium chloride (Klor-Con 10) 10 mEq extended-release tabletIndications:Es sential hypertension,Hypokal emia Take 1 Tablet (10 mEq) by mouth once daily with a meal. 90 Tablet 3 10/31/2023 Active metFORMIN (GLUCOPHAGE) 500 mg tabletIndications:Di abetes mellitus without complication (HC) Take 2 Tablets (1,000 mg) by mouth two times daily with meals. 360 Tablet 3 10/31/2023 Active levothyroxine (SYNTHROID) 100 mcg tabletIndications:Ac quired hypothyroidism Take 1 Tablet (100 mcg) by mouth before breakfast. 90 Tablet 3 10/31/2023 Active potassium chloride (Klor-Con 10) 10 mEq extended-release tabletIndications:Es sential hypertension,Hypokal emia Take 1 Tablet (10 mEq) by mouth once daily with a meal. 90 Tablet 3 04/15/2023 4 Discontinue d(Reorder (E-cancel not sent)) levothyroxine (SYNTHROID) 100 mcg tabletIndications:Ac quired hypothyroidism Take 1 Tablet (100 mcg) by mouth before breakfast. 90 Tablet 3 04/15/2023 4 Discontinue d(Reorder (E-cancel not sent)) omeprazole 20 mg tabletIndications:Ch ronic GERD Take 1 Tablet (20 mg) by mouth once daily before a meal. 90 Tablet 3 06/11/2023 4 Discontinue d(*Med complete/Re gimen complete/Le star of care change) metFORMIN (GLUCOPHAGE) 1,000 mg tabletIndications:Di abetes mellitus without complication (HC) Take 1 Tablet (1,000 mg) by mouth two times daily with meals. 180 Tablet 1 06/11/2023 4 Discontinue d(*Patient states no longer taking) metFORMIN (GLUCOPHAGE) 500 mg tabletIndications:Di abetes mellitus without complication (HC) TAKE TWO TABLETS TWICE DAILY WITH MEALS 360 Tablet 10/13/2023 4 Discontinue d(Reorder (E-cancel not sent)) Active Problems Problem Noted Date Diagnosed Date Iron deficiency anemia 04/17/2023 Gait abnormality 04/17/2023 Tremor 04/17/2023 Chronic diarrhea 04/17/2023 Diarrhea 03/18/2022 Intracranial bleed 03/18/2022 Controlled substance agreement signed 06/26/2021 Overview (06/26/2021): Signed 06-12-2021 Lizette Blancas MD-Nf Psychiatry Osteopenia of multiple sites 01/23/2019 Overview (01/23/2019): DEXA 02/2018 repeat 3-5 yrs ACP (advance care planning) 12/24/2014 Routine general medical exam ination at a health care facility 09/14/2013 Overview (09/14/2013): dexa normal 2013 with little change form previous exam. Consider repeat age 69; Erin Gomes M.D. 09/14/2013 12:01 PM Encounter for long-term (current) use of other m edications 04/15/2012 Overview (04/15/2012): Controlled sub agreement 04/02 Vitamin D deficiency 08/06/2011 Impacted cerumen 08/06/2011 Unspecified hypothyroidism 03/03/2007 Type II or unspecified type diabetes mellitus without mention of complication, not stated as uncontrolled 05/27/2006 Unspecified schizophrenia, chronic condition(295 .92) 05/27/2006 Unspecified essential hypertension 05/27/2006 Other and unspecified hyperlipidemia 05/27/2006 Resolved Problems Problem Noted Date Diagnosed Date Resolved Date Controlled substance agreement signed 03/15/2017 06/12/2021 Overview (03/15/2017): Signed 03/05/2017 Dr Lizette Mccloud Psychiatry Controlled substance agreement signed 08/16/2016 06/12/2021 Overview (08/16/2016): 04/29/[address] Aguayo/pschiabebe/ Encounter for long-term (cur rent) use of other medications 02/19/2011 01/04/2013 Overview (02/19/2011): Antipsychotic, benzodiazepine. No contract. No abuse known. OK to refill benzodiazepine monthly as needed unless this changes. Routine general medical exam ination at a health care facility 06/22/2008 01/04/2013 Overview (06/22/2008): Dexa scan normal 2007. Repeat in 2013 Type II or unspecified type diabetes mellitus without mention of complication, not stated as uncontrolled 06/18/2005 09/24/2006 Intraparenchymal hematoma of brain 04/17/2023 Encounters Date Type Department Care Team Description 10/31/2023 9:25 AM CDT Office Visit [facility] [address] [place] [address] Rylee Cruz MD Diabetes 10/31/2023 Travel 10/15/2023 Telephone [facility] - [address] [place] [id number] Richi Sullivan MD Results (TTE results) 10/14/2023 2:00 PM CDT Ancillary Procedure [facility] [address] [place] [address] 10/14/2023 Travel 10/11/2023 Refill [facility] [address] [place] [address] Padmini Rodriguez PA Refill Request (Metformin) 09/17/2023 10:45 AM CDT Phone Office Visit [facility] [address] [place] [address] Lizette Mccloud MD Phone Visit; Medication Management (Things have been topsy turvy, room mate fell and broke hip, comes home ) 09/17/2023 Travel 09/10/2023 11:00 AM CDT Office Visit [facility] [address] [place] [address] Richi Sullivan MD Follow Up (Paroxysmal atrial fibrillation ) 09/10/2023 Travel 08/23/2023 Refill [facility] [address] [place] [address] Lizette Mccloud MD Refill Request (Nortriptyline, Risperidone, Risperidone) 08/11/2023 Refill [facility] [address] [place] [address] Rlyee Cruz MD Refill Request (Contour Next Test Strips) from Last 3 Months Immunizations Name Administration Dates Next Due AMB INFLUENZA IIV3 (AGE 65+ YRS) PF (Flu Clinic Only) 11/21/2017,11/21/2016 AMB Influenza, IIV3 (Age >=3 years)(Flu Clinic Only) 11/26/2012,12/06/2010 AMB Influenza, IIV4 PF (=>6 mos Flulaval,Fluzone Fluarix)(Flu Clinic Only) 2013 Amb Influenza, Inact (High-d ose) (Flu Clinic Only) 11/30/2015,12/03/2014 COVID-19 VACCINE SPIKEVAX (M ODERNA 50MCG/0.5ML) 12YO+ PFS 04/15/2023 COVID-19 vaccine (Moderna 100mcg/0.5mL) PF, MDV [...] Answer Date Recorded PHQ-2 TOTAL SCORE 0 09/17/2023 Social Connections Answer Date Recorded Frequency of [...] Sign Reading Time Taken Comments Blood Pressure 112/75 10/31/2023 9:47 AM CDT Pulse 70 10/31/2023 9:47 AM CDT Temperature 36.3 ??C (97.4 ??F) 04/09/2022 11:[address] Respiratory Rate 16 10/31/2023 9:47 AM CDT Oxygen Saturation 95% 10/31/2023 9:47 AM CDT Inhaled Oxygen Concentration - - Weight 68.3 kg (150 lb 9.6 oz) 10/31/2023 9:11 A M CDT Height 157.5 cm (5' 2) 04/15/2023 11:11 AM AGRI BUSINESS AGENT Body Mass Index 27.55 04/15/2023 11:11 AM AGRI BUSINESS AGENT Plan of Treatment Upcoming Encounters Date Type Department Care Team (Late st Contact Info) Description 12/31/2023 11:00 AM AGRI BUSINESS AGENT Office Visit [facility] [place] [facility] [address] [place] [address] South López MD [address] [place] [address] Health Maintenance Due Date Last Done Comments Mammogram for age 45-75 01/03/2023 01/04/20, 11/13/2018, 08/06/2017, Additional history exists Tetanus booster 08/12/2023 08/11/2013, 02/18, 10/30/1994 COVID-19 vaccine series ( season) 2023 04/15/2023, 03/12/2022, 01/13/2021, Additional history exists Influenza for age 65+ 10/20/2023 12/07/2022 , 11/29/2021, 11/23/2020, Additional history exists Fecal testing non-DNA (FIT,FOBT,iFOBT) for age 45-75 12/13/2023 12/12/2022, 03/16/2021, 02/22/2020, Additional history exists BMI (ht and wt on same day) for age 18+ 04/15/2024 04/15/2023, 05/28/2022, 03/12/2022, Additional history exists Medicare Wellness for age 65+ 04/15/2024, 02/23/2021, 01/26/2020, Additional history exists Depression screening for age 12+ 09/16/2024 09/17/2023, 04/15/2023, 04/15/2023, Additional history exists Lipids for age 45-75 04/15/2028 04/15/2023, 03/12/2022, 01/19/2021, Additional history exists Tdap Completed 08/11/2013 Hepatitis C screening for ag e 18-79 Completed 09/10/2013 Pneumococcal series for age 65+ Completed 6, 12/24/2014 DEXA/DXA scan for age 65+ Completed 2018, 09/10/2013, 03/27/2007 Zoster (shingles) series for age 50+ Completed 07/21/2018, 05/05/2018, 07/31/2010 Procedures Procedure Name Priority Date/Time Associated Diagnosis Comments GLUCOSE, RANDOM Routine 10/31/2023 9:46 AM CDT [facility] HEMOGLOBIN A1C Routine 10/31/2023 8:49 AM CDT Type II or unspecified type diabetes mellitus without mention of complication, not stated as uncontrolled ECHO TTE COMPLETE WO CONTRAST Routine 10/14/2023 2:34 PM CDT Paroxysmal atrial fibrillation (HC) LIPID PANEL W REFLEX MEASURED LDL Routine 04/15/2023 12:20 PM AGRI BUSINESS AGENT Type II or unspecified type diabetes mellitus without mention of complication, not stated as uncontrolled OCCULT BLOOD IFOBT STOOL Routine 12/12/2022 2:46 PM CDT Screening for colorectal cancer XR MAMMO RASHIDA BILAT SCREEN Routine 01/03/2022 11:15 AM AGRI BUSINESS AGENT Visit for screening mammogram XR DXA BONE DENSITY 2 SITES AXIAL Routine 03/06/2018 11:09 AM AGRI BUSINESS AGENT Menopause ANTI HCV Routine 09/10/2013 12:57 PM CDT Need for hepatitis C screening test from Last 3 Months or Most Recently Relevant to Health Maintenance Results * GLUCOSE, RANDOM (10/31/2023 9:46 AM CDT) GLUCOSE,RANDOM 118 70 - 139 mg/dL 10/31/2023 9:47 AM CDT [facility] Blood BLOOD SPECIMEN / Unknown Capillary / Unknown 10/31/2023 9:46 AM CDT 10/31/2023 9:46 AM CDT Rylee Cruz MD CHEMISTRY Performing Organization Address [facility] Co de Phone Number [facility] [address] [place] [address], * HEMOGLOBIN A1C MONITORING (POCT) (10/31/2023 8:49 AM CDT) HEMOGLOBIN A1C MONITORING (POCT) 6.1 <=6.4 % 10/31/2023 8:59 AM CDT [facility] Blood BLOOD SPECIMEN / Unknown Venipuncture / Unknown 10/31/2023 8:49 AM CDT 10/31/2023 8:49 AM CDT Narrative [facility] - 10/31/2023 8:59 AM CDT ? (<=6.9%) ? Indicates good control ? (7.0% to 7.9%) ? Indicates fair control ? (>=8.0%) ? Indicates poor control ?? NOTE: ??These thresholds are guidelines and ?individual targets may vary. Falsely low levels may be seen with: Recent Transfusion, Recent Significant Blood Loss, Hemolytic Diseases, or Falsely elevated levels may be seen with: Untreated Anemias, Splenectomy ? Rylee Cruz MD CHEMISTRY Performing Organization Address [facility] Co de Phone Number [facility] [address] [place] [address], [place] [phone] * ECHO TTE COMPLETE WO CONTRAST (10/14/2023 2:34 PM CDT) AORTIC VALVE MEAN PG 7 mmHg EJECTION FRACTION 42 % LVEDD 2.9 cm EJECTION FRACTION 50 - 55% Anatomical Region Laterality Modality Ultrasound 10/14/2023 2:00 PM CDT Narrative 10/14/2023 3:02 PM CDT ECHOCARDIOGRAM KYLE YAÑEZ ? Accession#: ?? [id number] : ?1950 72 years Study Date: ?? 10/14/2023 2:00:05 PM Gender: F ?BP: ? 111/74 mmHg Height: 157.00 cm ?BSA: ?1.67 m? ? ? Weight: 66.00 kg ? Tech: ? MHR ? Referring MD: RICHI SULLIVAN Site: ? [facility] Reading Location: MOBILE OP Patient Location: Outpatient. Procedure: 2D, Color Doppler and Spectral Doppler. Indication for study: atrial fibrillation Cardiac Rhythm: Regular.Study quality: Fair. Final Impressions: 1. Normal LV size, not well visualized wall thickness, mildly reduced global systolic function with an estimated EF of 50 - 55%. 2. Right ventricular cavity size is normal, global systolic RV function is normal. Chamber Sizes and Function Normal left ventricular size, not well visualized wall thickness, mildly reduced global systolic function with an estimated EF of 50 - 55%. Left atrial size is normal. Right ventricular cavity size is normal, global systolic RV function is normal. The right atrium is mildly enlarged. Right atrial volume index is 17 ml/m? ? ?. Right atrial area is 12 cm? ? ?. The pulmonary artery is not well visualized. The sinus of Valsalva is normal sized. The ascending aorta is normal sized. Valves, RV Pressures and Diastolic Function The aortic valve is trileaflet and sclerotic, no stenosis and no regurgitation. The mitral valve is normal in structure, trace mitral regurgitation. Spectral Doppler shows Grade 1 pattern of LV diastolic filling. The tricuspid valve is normal in structure. Tricuspid regurgitation is mild regurgitation. Unable to assess right ventricular systolic pressure. The pulmonic valve is not well visualized. Trace pulmonary regurgitation. Masses, Effusion, Shunts There is no pericardial effusion. The inferior vena cava is not well visualized, respiratory size variation not well visualized. No left to right shunting was detected by limited color flow Doppler interrogation of the interatrial septum. MEASUREMENTS AND CALCULATIONS 2-D Measurements and LV Function: LVID (d) ?2.9 cm LV FS% (2D) ?? 11 % LVID (s) ?2.6 cm LVOT diameter 1.9 cm LVPW (d) ?1.0 cm HR ?66 bpm Ao Sinus ?3.7 cm LA Vol index ??26 ml/m2 Ao ST junct 2.9 cm RA Vol index ??17 ml/m2 Asc Ao ?3.6 cm RA area ? 12 cm? ? ? LA ?3.4 cm RV Max 4C (d) 2.8 cm Diastology: Mitral ?Tissue Doppler E Peak 0.7 m/s ??e', Septum ? 0.05 m/s A Peak 0.9 m/s ??e', Lateral ?0.07 m/s E/A ?0.7 ?E/e' Average ?? 11.21 DT ? 337 msec Aortic Valve: Vmax ? 1.7 m/s ??SIMONA (V) ?? 1.44 cm? ? ? VTI ?0.30 m ?? SIMONA (I) ?? 1.63 cm? ? ? LVOT V max 0.9 m/s ??Max PG ?12 mmHg LVOT VTI ?? 0.17 m ?? Mean PG ?? 7 mmHg SV ? 49 ml ?Dim Index 0.57 SV index ?? 29 ml/m? ? ? CO ?3.2 l/min ?CI ?1.9 l/min/m? ? ? Mitral Valve: MVA ?2.3 cm? ? ? MV P 1/2 98 msec Tricuspid Valve and estimated PA pressures: TAPSE 1.4 cm . This study was interpreted by an [facility] accredited facility. ??Final ?? Procedure Note Gio Santos MD - 10/14/2023 ECHOCARDIOGRAM KYLE YAÑEZ : 1950 72 years Study Date: 10/14/2023 2:00:05 PM Gender: F BP: 111/74 mmHg Height: 157.00 cm BSA: 1.67 m? ? ? Weight: 66.00 kg Tech: [facility] Referring MD: RICHI SULLIVAN Site: [facility] Reading Location: [facility] OP Patient Location: Outpatient. Procedure: 2D, Color Doppler and Spectral Doppler. Indication for study: atrial fibrillation Cardiac Rhythm: Regular.Study quality: Fair. Final Impressions: 1. Normal LV size, not well visualized wall thickness, mildly reducedglobal systolic function with an estimated EF of 50 - 55%. 2. Right ventricular cavity size is normal, global systolic RV functionis normal. Chamber Sizes and Function Normal left ventricular size, not well visualized wall thickness, mildlyreduced global systolic function with an estimated EF of 50 - 55%. Leftatrial size is normal. Right ventricular cavity size is normal, globalsystolic RV function is normal. The right atrium is mildly enlarged. Rightatrial volume index is 17 ml/m? ? ?. Right atrial area is 12 cm? ? ?. Thepulmonary artery is not well visualized. The sinus of Valsalva is normalsized. The ascending aorta is normal sized. Valves, RV Pressures and Diastolic Function The aortic valve is trileaflet and sclerotic, no stenosis and noregurgitation. The mitral valve is normal in structure, trace mitralregurgitation. Spectral Doppler shows Grade 1 pattern of LV diastolicfilling. The tricuspid valve is normal in structure. Tricuspidregurgitation is mild regurgitation. Unable to assess right ventricularsystolic pressure. The pulmonic valve is not well visualized. Tracepulmonary regurgitation. Masses, Effusion, Shunts There is no pericardial effusion. The inferior vena cava is not wellvisualized, respiratory size variation not well visualized. No left toright shunting was detected by limited color flow Doppler interrogation ofthe interatrial septum. MEASUREMENTS AND CALCULATIONS 2-D Measurements and LV Function: LVID (d) 2.9 cm LV FS% (2D) 11 % LVID (s) 2.6 cm LVOT diameter 1.9 cm LVPW (d) 1.0 cm HR 66 bpm Ao Sinus 3.7 cm LA Vol index 26 ml/m2 Ao ST junct 2.9 cm RA Vol index 17 ml/m2 Asc Ao 3.6 cm RA area 12 cm? ? ? LA 3.4 cm RV Max 4C (d) 2.8 cm Diastology: Mitral Tissue Doppler E Peak 0.7 m/s e', Septum 0.05 m/s A Peak 0.9 m/s e', Lateral 0.07 m/s E/A 0.7 E/e' Average 11.21 DT 337 msec Aortic Valve: Vmax 1.7 m/s SIMONA (V) 1.44 cm? ? ? VTI 0.30 m SIMONA (I) 1.63 cm? ? ? LVOT V max 0.9 m/s Max PG 12 mmHg LVOT VTI 0.17 m Mean PG 7 mmHg SV 49 ml Dim Index 0.57 SV index 29 ml/m? ? ? CO 3.2 l/min CI 1.9 l/min/m? ? ? Mitral Valve: MVA 2.3 cm? ? ? MV P 1/2 98 msec Tricuspid Valve and estimated PA pressures: TAPSE 1.4 cm . This study was interpreted by an [facility] accredited facility. Final Richi Sullivan MD ECHO ORD * LIPID PANEL W REFLEX MEASURED LDL (04/15/2023 12:20 PM AGRI BUSINESS AGENT) [facility] CHOLESTEROL,TOTAL 114 100 - 199 mg/dL 04/15/2023 9:21 PM AGRI BUSINESS AGENT [facility] Comment: Cholesterol, Total Reference Ranges Desirable <200 mg/dL Borderline 200-239 mg/dL High >=240 mg/dL TRIGLYCERIDES 71 <150 mg/dL 04/15/2023 9:21 PM [facility] HDL CHOLESTEROL 50 >40 mg/dL 9:21 PM [facility] NON-HDL CHOLESTEROL 64 <145 mg/dl 04/15/2023 9:21 PM [facility] CHOL/HDL RATIO 2.28 <4.50 04/15/2023 9:21 PM [facility] LDL CHOLESTEROL 50 <=130 mg/dL 04/15/2023 9:21 PM [facility] VLDL CHOLESTEROL 14 <=30 mg/dL 04/15/2023 9:21 PM [facility] PROVIDER ORDERED STATUS RANDOM 04/15/2023 9:21 PM [facility] Blood BLOOD SPECIMEN / Unknown Venipuncture / Unknown 04/15/2023 12:20 PM AGRI BUSINESS AGENT 04/15/2023 12:21 PM AGRI BUSINESS AGENT Padmini JEFFERY CHEMISTRY [facility] [address] [place] [address], * OCCULT BLOOD IFOBT STOOL (12/12/2022 2:46 PM CDT) STOOL BLOOD ,IFOBT Negative Negative 12/17/2022 3:04 PM CDT [facility] Stool STOOL SPECIMEN / Unknown Non-Blood / Unknown 12/12/2022 2:46 PM CDT 12/17/2022 2:46 PM CDT Rylee Cruz MD LABORATORY [facility] [address] [place] [address], * XR MAMMO RASHIDA BILAT SCREEN (01/03/2022 11:15 AM AGRI BUSINESS AGENT) Anatomical Region Laterality Modality BREASTS, Breast Left, Breast Right Bilateral Mammography Impressions 01/03/2022 3:46 PM AGRI BUSINESS AGENT ??There is no radiographic evidence for malignancy. ??Recommend annual mammograms. MAMMOGRAM ASSESSMENT: ??ACR 1 Negative PATIENTS: You will also receive a letter with your examination results in an easy to read format. ??If you have questions about your results, please contact your referring provider. Narrative 01/03/2022 3:46 PM AGRI BUSINESS AGENT For Patients: As a result of the Century Cures Act, medical imaging exams and procedure reports are released immediately into your electronic medical record. You may view this report before your referring provider. If you have questions, please contact your health care provider. XR MAMMO RASHIDA BILAT SCREEN [[id number]] CLINICAL HISTORY: ??This is an asymptomatic 71 y.o. patient. INDICATION FOR EXAM: Mammogram Screening. TECHNIQUE: CC & MLO views were obtained. ??This study was evaluated with the assistance of Computer-Aided Detection. Breast Tomosynthesis was used in interpretation. COMPARISON FILM: Yes 11/13/18 COINPLUS 01/16/17 COINPLUS FINDINGS: ??The breasts are almost entirely fatty. There are no dominant masses, suspicious micro calcifications or areas of architectural distortion. Rylee Cruz MD MAMMO * (ABNORMAL) XR DXA BONE DENSITY 2 SITES AXIAL [[id number]] (03/06/2018 11:09 AM AGRI BUSINESS AGENT) Anatomical Region Laterality Modality Spine, HIPS, HIPL, HIPR Other Narrative 03/19/2018 12:23 PM AGRI BUSINESS AGENT Please see scanned document for results of this study. Rylee Cruz MD DEXA * ANTI HCV [[id number]] (09/10/2013 12:57 PM CDT) HEPATITIS C ANTIBODY Non-Reacti ve Non-Reacti ve 09/10/2013 8:34 PM CDT [facility] Blood specimen (specimen) BLOOD SPECIMEN / Unknown Venipuncture / Unknown 09/10/2013 12:57 PM CDT 09/10/2013 12:57 PM CDT Narrative [facility] - 09/10/2013 8:34 PM CDT Antibodies to HCV not detected; does not exclude the possibility of exposure to HCV. Erin Gomes SEND OUTS [facility] [address] [place] [address], from Last 3 Months or Most Recently Relevant to Health Maintenance Advance Directives Documents on File Type Date Recorded Patient Clarity Developer Expl anation Healthcare Directive 11/08/2016 017 Healthcare Directive 07/31/2004 health care directive, [facility], 07/31/06 * Full Code (Latest Code Status on File) Date Activated Date Inactivated Comments 03/18/2022 2:59 AM 03/19/2022 7:01 PM Question Answer Comments Code Status Discussion: Unable to Assess Preferences, Provider to review later Care Teams Digital Advisor Relationship Specialty Start Date End Date Rylee Cruz MD [address] [place] [address] PCP - General Family Practice 02/23/21 Jovanni Aguayo MD Psychiatry Psychiatry 01/10/16
[2023-10-31 12:08] LABS: Lactate* 1.6 mmol/L (0.5-1.9)
[2023-10-31 12:18] LABS: Slide Review Reflex No
[2023-10-31 12:26] LABS: Chloride* 93 mmol/L (96-114)
[2023-10-31 12:27] LABS: Potassium* 4.2 mmol/L (3.6-5.1); Sodium* 126 mmol/L (135-149)
[2023-10-31 12:29] LABS: Creatinine* 0.6 mg/dL (0.5-1.5); Est. Creatinine Clearance* 39.63; Estimated Glomerular Filt Rate 95 ml/min
[2023-10-31 12:30] LABS: Alanine Aminotransferase* 15 U/L (4-35); Alkaline Phosphatase* 62 U/L (40-150); Anion Gap 8 mEq/L (7-15); Aspartate Amino Transferase* 23 U/L (12-35); Bilirubin Total* 0.4 mg/dL (0.1-1.5); Blood Urea Nitrogen* 17 mg/dL (7-30); Carbon Dioxide* 25 mmol/L (20-32); Glucose* 150 mg/dL (60-115); Total Protein* 6.6 g/dL (6.0-8.3)
[2023-10-31 12:31] LABS: Calcium* 8.9 mg/dL (8.4-10.6)
[2023-10-31 12:33] LABS: C Reactive Protein* < 0.5 mg/dL (0.5-1.0)
[2023-10-31 12:40] LABS: D Dimer Quantitative* 0.25 ug/ml (0.00-0.50); NT Pro B Type NatriureticPept* 254 pg/mL
[2023-10-31 12:42] LABS: Troponin I* < 0.01 ng/mL (0.01-0.04)
[2023-10-31] MEDS: 0.9 % SODIUM CHLORIDE 250 ml 250 ML IV (13:00)
[2023-10-31 13:17] LABS: Troponin, Point-of-Care* 0.01 ng/ml (0.01-0.04)
--- NOTE | 2023-10-31 15:01 | PM.IMHP1 ---
Hospitalist- H&P: HPI History of Present Illness Date Seen: 10/31/23 Chief complaint: syncope Narrative: Kyle Yañez is a 72 year old female past medical history significant for type 2 diabetes mellitus, not insulin dependent, hypertension, hyperlipidemia, hypothyroidism, vitamin-D deficiency, history of chronic diarrhea, iron deficiency anemia, schizophrenia, history of GI bleed, atrial fibrillation on chronic anticoagulation. Patient was in the clinic with Dr. Cruz for a routine diabetic check this afternoon. Feeling her normal self. Patient remembers sitting in the chair and feeling as though she might faint. Per clinicians report, patient had a loss of consciousness for a brief period 2-3 minutes, unresponsive. Her blood sugar at that time was 118. She was given juice and transported by EMS to the ED. workup in the ED has revealed a mild hyponatremia 126, she does have a chronic hyponatremia as well. CT the head was unremarkable for acute findings. Currently, patient denies recent headache or dizziness, outside of event in the clinic. Did experience a brief episode of chest pain which she tells me lasted only a few seconds while they were getting her blood sugar in the clinic. This has since resolved. Denies shortness of breath. Denies recent fevers. Denies recent nausea, vomiting, diarrhea. No recent changes in her medications. Nonsmoker. Denies alcohol use. Full code. Review of Systems Narrative: REVIEW OF SYSTEMS: Complete review of systems performed and negative unless otherwise stated in HPI or below. [facility] Medical History Resting tremor ?G25.2 - Other specified forms of tremor (ICD-10) GI bleed ?K92.2 - Gastrointestinal hemorrhage, unspecified (ICD-10) Protein calorie malnutrition ?E46 - Unspecified protein-calorie malnutrition (ICD-10) Anemia ?D64.9 - Anemia, unspecified (ICD-10) Altered mental status ?R41.82 - Altered mental status, unspecified (ICD-10) Chronic diarrhea ?K52.9 - Noninfective gastroenteritis and colitis, unspecified (ICD-10) Unstable gait ?R26.81 - Unsteadiness on feet (ICD-10) History of intracranial hemorrhage ?Z86.79 - Personal history of other diseases of the circulatory system (ICD-10) Osteopenia ?M85.80 - Other specified disorders of bone density and structure, unspecified site (ICD-10) Vitamin D deficiency ?E55.9 - Vitamin D deficiency, unspecified (ICD-10) Chronic schizophrenia ?F20.9 - Schizophrenia, unspecified (ICD-10) Diabetes mellitus type 2 in nonobese ?E11.9 - Type 2 diabetes mellitus without complications (ICD-10) Hyperlipidemia ?E78.5 - Hyperlipidemia, unspecified (ICD-10) Tremor ?R25.1 - Tremor, unspecified (ICD-10) Diabetes mellitus ?E11.9 - Type 2 diabetes mellitus without complications (ICD-10) Hypothyroidism ?E03.9 - Hypothyroidism, unspecified (ICD-10) Hypertension ?I10 - Essential (primary) hypertension (ICD-10) Anxiety ?F41.9 - Anxiety disorder, unspecified (ICD-10) Intraparenchymal hemorrhage of brain ?I61.9 - Nontraumatic intracerebral hemorrhage, unspecified (ICD-10) Surgical History History of tonsillectomy and adenoidectomy ?Z90.89 - Acquired absence of other organs (ICD-10) History of breast biopsy ?Z98.890 - Other specified postprocedural states (ICD-10) Family History Mother Alcohol dependence Asthma Heart disease Paternal Grandfather Alcohol dependence Paternal Grandmother Diabetes Brother Down syndrome Alzheimers disease Father Heart disease Maternal Grandmother High blood pressure Social History What is your current living situation?: I presently have a place to live Problems where you live: no known problems Problems where you live details: N/A In the past 12 months, utilities in danger of being shut off: no In past 12 months, lack of transportation kept you from medical appts, meetings, work, or getting things needed for daily living: no Highest level of school completed/degree received: Master's degree Smoking Status: Former smoker Do you use any of these nicotine containing products: None Second hand tobacco smoke exposure: No How often do you have a drink containing alcohol: never How often do you have six or more drinks on one occasion: Never AUDIT-C Alcohol total score: 0 Non-prescribed substance use: denies use Caffeine: Yes (1 cup daily) How often does anyone, including family, friends and others, physically hurt you: never How often does anyone, including family, friends and others, insult or talk down to you: never How often does anyone, including family, friends and others, threaten you with harm: never How often does anyone, including family, friends and others, scream or curse at you: never service: No Meds Home Medications and Allergies Home Medications ?Medication ?Instructions ?Recorded ?Confirmed ?Type acetaminophen 500 mg tablet 1,000 mg PO Q6H PRN 10/16/21 10/31/23 History lorazepam 0.5 mg tablet 0.5 mg PO DAILY PRN anxiety 10/16/21 10/31/23 History metformin 500 mg tablet 1,000 mg PO BIDWM 10/16/21 10/31/23 History nortriptyline 25 mg capsule 25 mg PO HS 10/16/21 10/31/23 History potassium chloride 10 mEq 10 meq PO DAILY 10/16/21 10/31/23 History tablet,extended release risperidone 1 mg tablet 1 mg PO QAM 10/16/21 10/31/23 History risperidone 2 mg tablet 2 mg PO HS 10/16/21 10/31/23 History levothyroxine 100 mcg tablet 100 mcg PO QAM 04/26/23 10/31/23 History atorvastatin 20 mg tablet 20 mg PO HS 05/04/23 10/31/23 History apixaban 5 mg tablet (Eliquis) 5 mg PO BID 10/31/23 10/31/23 History ferrous sulfate 325 mg (65 mg 325 mg PO DAILY 10/31/23 10/31/23 History iron) tablet metoprolol succinate 100 mg 100 mg PO DAILY 10/31/23 10/31/23 History tablet,extended release 24 hr nystatin 100,000 unit/gram topical 1 applic topical BID PRN 10/31/23 10/31/23 History ointment Allergies Allergy/AdvReac Type Severity Reaction Status Date / Time cholecalciferol (vitamin D3) Allergy Unknown Confusion Verified 10/31/23 10:54 [From Vitamin D3] cyanocobalamin (vitamin B12) Allergy Unknown Verified 10/31/23 10:54 grapefruit Allergy Unknown Verified 10/31/23 10:54 Penicillins Allergy Unknown Verified 10/31/23 10:54 Sulfa (Sulfonamide Allergy Unknown Verified 10/31/23 10:54 Antibiotics) eucalyptus AdvReac Unknown Verified 10/31/23 10:54 lisinopril AdvReac Confusion Verified 10/31/23 10:54 Exam Narrative: Exam Narrative: PHYSICAL EXAM General: Pleasant, conversant, NAD HEENT: Normocephalic, atraumatic, sclera white, EOMI, oral mucosa moist Cardiovascular: RRR, S1S2. No pitting edema Pulmonary: CTA bilaterally without rhonchi, rales, expiratory wheezes. No dyspnea on room air Abdominal: Soft, nondistended, NTTP Neurological: Alert, answering questions appropriately, cranial nerves intact, no focal findings Extremities: No gross joint deformity or swelling. AROMI. Neurovascularly intact. Resting tremor noted of left hand Skin: Warm, dry. Const: Vital Signs, click to edit/add: Vital Signs - 24 hr 10/31/23 10:23 10/31/23 10:38 10/31/23 10:45 Temperature 96.5 F L Pulse Rate 59 L 57 L Pulse Rate [Pulse Oximeter] 60 Pulse Rate [orthos tatic lying] Pulse Rate [orthos tatic standing] Respiratory Rate 16 Blood Pressure Blood Pressure [Ri ght Upper Arm] 127/70 Blood Pressure [or thostatic lying Ri ght Arm] Blood Pressure [or thostatic sitting] Blood Pressure [or thostatic standing ] Pulse Oximetry 96 97 94 Oxygen Delivery Me thod Room Air 10/31/23 11:00 10/31/23 11:02 10/31/23 11:15 Temperature Pulse Rate 65 62 65 Pulse Rate [Pulse Oximeter] Pulse Rate [orthos tatic lying] Pulse Rate [orthos tatic standing] Respiratory Rate Blood Pressure 117/64 Blood Pressure [Ri ght Upper Arm] Blood Pressure [or thostatic lying Ri ght Arm] Blood Pressure [or thostatic sitting] Blood Pressure [or thostatic standing ] Pulse Oximetry 92 96 95 Oxygen Delivery Me thod 10/31/23 11:30 10/31/23 11:32 10/31/23 11:45 Temperature Pulse Rate 63 65 66 Pulse Rate [Pulse Oximeter] Pulse Rate [orthos tatic lying] Pulse Rate [orthos tatic standing] Respiratory Rate Blood Pressure 118/64 Blood Pressure [Ri ght Upper Arm] Blood Pressure [or thostatic lying Ri ght Arm] Blood Pressure [or thostatic sitting] Blood Pressure [or thostatic standing ] Pulse Oximetry 99 98 90 Oxygen Delivery Me thod 10/31/23 12:00 10/31/23 12:02 10/31/23 12:23 Temperature Pulse Rate 61 64 Pulse Rate [Pulse Oximeter] Pulse Rate [orthos tatic lying] Pulse Rate [orthos tatic standing] Respiratory Rate Blood Pressure 131/71 145/78 H Blood Pressure [Ri ght Upper Arm] Blood Pressure [or thostatic lying Ri ght Arm] Blood Pressure [or thostatic sitting] Blood Pressure [or thostatic standing ] Pulse Oximetry 96 96 Oxygen Delivery Me thod 10/31/23 12:25 10/31/23 12:26 10/31/23 12:28 Temperature Pulse Rate 70 Pulse Rate [Pulse Oximeter] Pulse Rate [orthos tatic lying] Pulse Rate [orthos tatic standing] Respiratory Rate Blood Pressure 127/81 119/69 Blood Pressure [Ri ght Upper Arm] Blood Pressure [or thostatic lying Ri ght Arm] Blood Pressure [or thostatic sitting] Blood Pressure [or thostatic standing ] Pulse Oximetry 89 Oxygen Delivery Me thod 10/31/23 12:30 10/31/23 12:32 10/31/23 12:33 Temperature Pulse Rate 78 73 Pulse Rate [Pulse Oximeter] 78 Pulse Rate [orthos tatic lying] 72 Pulse Rate [orthos tatic standing] 83 Respiratory Rate Blood Pressure 147/79 H Blood Pressure [Ri ght Upper Arm] Blood Pressure [or thostatic lying Ri ght Arm] 145/78 H Blood Pressure [or thostatic sitting] 127/81 Blood Pressure [or thostatic standing ] 119/69 Pulse Oximetry 93 98 Oxygen Delivery Me thod 10/31/23 12:33 10/31/23 12:45 10/31/23 13:00 Temperature Pulse Rate 75 83 63 Pulse Rate [Pulse Oximeter] Pulse Rate [orthos tatic lying] Pulse Rate [orthos tatic standing] Respiratory Rate Blood Pressure Blood Pressure [Ri ght Upper Arm] Blood Pressure [or thostatic lying Ri ght Arm] Blood Pressure [or thostatic sitting] Blood Pressure [or thostatic standing ] Pulse Oximetry 96 91 97 Oxygen Delivery Me thod 10/31/23 13:01 10/31/23 13:15 10/31/23 13:30 Temperature Pulse Rate 62 67 75 Pulse Rate [Pulse Oximeter] Pulse Rate [orthos tatic lying] Pulse Rate [orthos tatic standing] Respiratory Rate Blood Pressure 139/73 Blood Pressure [Ri ght Upper Arm] Blood Pressure [or thostatic lying Ri ght Arm] Blood Pressure [or thostatic sitting] Blood Pressure [or thostatic standing ] Pulse Oximetry 96 96 95 Oxygen Delivery [facility] 10/31/23 13:45 10/31/23 13:46 Temperature Pulse Rate 72 73 Pulse Rate [Pulse Oximeter] Pulse Rate [orthos tatic lying] Pulse Rate [orthos tatic standing] Respiratory Rate Blood Pressure 139/86 Blood Pressure [Ri ght Upper Arm] Blood Pressure [or thostatic lying Ri ght Arm] Blood Pressure [or thostatic sitting] Blood Pressure [or thostatic standing ] Pulse Oximetry 97 95 Oxygen Delivery [facility] Hospitalist - H&P: Result Labs Labs: Short CBC 10/31/23 Range/Units 11:58 WBC 9.43 (4.50-11.00) K/uL Hgb 11.2 L (12.0-16.0) gm/dL Hct 34.5 (33.0-51.0) % Plt Count 287 (140-440) K/uL BMP 10/31/23 11:58 Sodium 126 L Potassium 4.2 Chloride 93 L Carbon Dioxide 25 BUN 17 Creatinine 0.6 Glucose 150 H Calcium 8.9 Cardiac Enzymes 10/31/23 Range/Units 11:58 Troponin I < 0.01 L (0.01-0.04) ng/mL Liver Function 10/31/23 Range/Units 11:58 Total Bilirubin 0.4 (0.1-1.5) mg/dL AST 23 (12-35) U/L ALT 15 (4-35) U/L Alkaline Phosphatase 62 (40-150) U/L Albumin 4.0 (3.3-5.0) g/dL ECG Attestation: I personally reviewed and interpreted this ECG as follows: Interpretation: EKG shows sinus bradycardia with PACs, ventricular rate 59, QTC 388. Repeat EKG not readily available. Imaging CT scan - head: Attestation: I have reviewed the pertinent imaging results. Radiologist's impression: Persistent left awan radiata hyperdense linear (best appreciated on the coronal and sagittal 2D reformations) focus with surrounding hypoattenuation. The linear hyperattenuating element is not significantly changed compared to prior examinations (this characteristic is best assessed on the sagittal and coronal 2D reformations, compared to the axial series). Preserved acosta-white matter differentiation. Bilateral cerebral white matter hypoattenuation is consistent with chronic ischemic gliotic change. No hydrocephalus. No mass or mass effect. No intracranial hemorrhage. Intact skull base and cranial vault. 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 Visualized orbits are without significant incidental findings. Visualized paranasal sinuses and mastoid air cells are clear. IMPRESSION: No acute findings. Incidental findings described in the body of the report. Chest x-ray: Attestation: I have reviewed the pertinent imaging results. Radiologist's impression: Findings/Impression: Cardiovascular and mediastinum: Normal heart size with aortic tortuosity. Lungs and pleural space: Lungs are clear. No sign of infiltrate or mass. No sign of pleural effusion. No pneumothorax. Bones and soft tissues: Deformity of the left proximal humerus with a mixture of sclerosis and periosteal reaction suggesting an old proximal humeral fracture. Assessment and Plan Assessment and plan (1) Syncope: Problem comment: Patient reported feeling warm as though she was going to pass out. Reported to become unresponsive while seated in the clinic. Blood sugar at that time 118, systolic blood pressure 96 Orthostatics in ED unremarkable EKG reported to have T-wave inversions in the inferior and lateral leads which were reported to resolved on a repeat EKG - I have not yet reviewed these Troponin flat <0.01 CT head shows no acute findings. CXR without acute abnormalities. Admitted for overnight observation Telemetry - recent Holter monitor this spring shows runs of SVT Gentle IV hydration PT/OT UA ordered Status: Acute (2) Paroxysmal atrial fibrillation: Problem comment: Onset April 2023 following Pseudomonas urosepsis Echo 05/05/2023 Final Impressions: 1. Normal left ventricular size, normal wall thickness, mildly reduced global systolic function, calculated EF of 46 %. 2. No significant valvular abnormalities. 3. No pericardial effusion. 4. Normal estimated pulmonary pressures by tricuspid regurgitation velocity and right atrial pressure (16 mmHg plus RAP) Last saw [facility] Cardiology 09/10/2023. [id number] 4. Recommending apixaban 5 mg twice daily, continuing metoprolol succinate. Rhythm monitor 06/16-06/30 showed 2 runs of V-tach as well as some episodes of SVT. Cardiology interpreted VT to be more consistent with SVT Repeat echo 10/14/2023 Final Impressions: 1. Normal LV size, not well visualized wall thickness, mildly reduced global systolic function with an estimated EF of 50 - 55%. 2. Right ventricular cavity size is normal, global systolic RV function is normal. Status: Acute (3) Hyponatremia: Problem comment: Sodium 126 on admission, baseline 129-133. Suspected not to be source of syncopal episode Fluid restriction 1500 mL. Recheck in a.m. Status: Acute (4) Protein calorie malnutrition: Problem comment: Nutritional Services consultation during last hospitalization Status: Chronic (5) Chronic schizophrenia: Problem comment: Continue home medications when reviewed by pharmacy. No recent changes in dosing per patient Status: Acute (6) Hypertension: Problem comment: Continue home medications. Orthostatics in ED rather unremarkable Status: Acute (7) Hypothyroidism: Problem comment: TSH 1.28. Continue home levothyroxine Status: Acute (8) Diabetes mellitus type 2 in nonobese: Problem comment: A1c 6.1 Hold metformin Glucose checks ACHS, low insulin sliding scale Status: Acute (9) Hyperlipidemia: Problem comment: Continue statin Status: Acute (10) Resting tremor: Problem comment: Left hand. Evaluated by Neurology in the past. Not thought to be Parkinson's, suspect likely related to psychiatric medications Status: Acute Plan Overnight observation, telemetry. Just had a repeat echocardiogram in September so will not repeat this. Likely discharge tomorrow Total Time Spent Total Time Spent: Total time spent caring for the patient today was 75 minutes. This includes time spent for the visit reviewing the chart, time spent during the visit, time spent after the visit and documentation and planning in coordination of care.
--- NOTE | 2023-10-31 15:59 | PC.NURSE ---
Nursing admission: Pt admitted to the M/S floor at 1440 via ED. She arrived by W/C. Pt is A&O, afebrile and VSS. PIV in right wrist SL and C/D/I. Pt requests to have a LUE restriction d/t shoulder fracture & pain with movement. She is SBA for ambulation. Continent of B&B. Noted to have redness under left breast fold; uses nystatin ointment at home. Last BM was 10/28 and pt reports she normally goes every few days without issue. Rates left shoulder pain at chronic 10 which is tolerable for her. Denies any dizziness, nausea or CP.
[2023-10-31] MEDS: 0.9 % SODIUM CHLORIDE 1000 ml 1,000 ML 75 ML IV (16:30)
[2023-10-31] MEDS: METFORMIN 500 MG TABLET 1000 MG PO (18:08)
[2023-10-31 21:12] LABS: Appearance Urine Clear (Clear); Bilirubin Urine Negative (Negative); Blood Urine Trace-lysed (Negative); Color Urine Yellow (Yellow); Glucose Urine Negative (Negative); Ketones Urine Negative (Negative); Leukocyte Esterase Urine 1+ (Negative); Nitrite Urine Negative (Negative); Protein Urine Negative (Negative); Urobilinogen Urine 0.2 (0.2-1.0)
[2023-10-31] MEDS: APIXABAN 5 MG TABLET PO (21:13)
[2023-10-31] MEDS: ATORVASTATIN 10 MG TABLET 20 MG PO (21:13)
[2023-10-31] MEDS: risperiDONE 1 MG TABLET 2 MG PO (21:14)
[2023-10-31] MEDS: NORTRIPTYLINE HCL 25 MG CAPSULE PO (21:14)
[2023-10-31 21:36] LABS: Bacteria Urine Few; RBC Urine 0-2 (0-2)
--- NOTE | 2023-10-31 22:29 | PC.NURSE ---
End of shift [id number] - Pt alert, oriented, cooperative. Up with standby assistance to bathroom. Continent of bowel and bladder during shift. Tolerating RA, regular diet/fluids. Denied lightheadedness, dizziness, chest heaviness during ambulation and at rest. Pt denied pain, observed to sleep during shift and appears to be resting comfortably at end of shift with call light within reach.
[2023-11-01 00:05] VITALS: BP 154/70; PULSE 72; PULSE 95; RESP 18; TEMP 36.8; O2SAT 96
[2023-11-01 02:10] VITALS: BP 147/73; PULSE 80; RESP 16; TEMP 36.4; O2SAT 100
[2023-11-01] MEDS: 0.9 % SODIUM CHLORIDE 1000 ml 1,000 ML 75 ML IV (03:35)
[2023-11-01] MEDS: LEVOTHYROXINE 100 MCG TABLET PO (06:06)
[2023-11-01 06:26] LABS: Hemoglobin* 11.7 gm/dL (12.0-16.0); Mean Corpuscular HGB Conc 33 gm/dL (32-36); Mean Corpuscular Hemoglobin 28 pg (26-34); Mean Corpuscular Volume 86 fL (80-100); Platelet Count* 291 K/uL (140-440); White Blood Count* 5.94 K/uL (4.50-11.00)
[2023-11-01 06:29] LABS: Slide Review Reflex No
--- NOTE | 2023-11-01 06:39 | PC.NURSE ---
END OF SHIFT NOTE: PT A&O. DENIES CP, SOB, N/V. AMBULATES WITH SBA. VSS ON RA; AFEBRILE. TELE READS NSR. INCONTINENT OF BLADDER x2. PIV RUNNING NS@75ML/HR. CALL LIGHT WITHIN PT?S REACH. UNEVENTFUL SHIFT.
[2023-11-01 06:45] LABS: Chloride* 100 mmol/L (96-114); Potassium* 4.1 mmol/L (3.6-5.1); Sodium* 131 mmol/L (135-149)
[2023-11-01 06:48] LABS: Anion Gap 6 mEq/L (7-15); Blood Urea Nitrogen* 14 mg/dL (7-30); Carbon Dioxide* 25 mmol/L (20-32); Creatinine* 0.5 mg/dL (0.5-1.5); Est. Creatinine Clearance* 37.81; Estimated Glomerular Filt Rate 99 ml/min; Glucose* 121 mg/dL (60-115)
[2023-11-01 07:00] VITALS: BP 141/73; PULSE 79; RESP 16; TEMP 36; O2SAT 79
[2023-11-01] MEDS: risperiDONE 1 MG TABLET PO (09:37)
[2023-11-01] MEDS: METOPROLOL SUCCINATE (XL) 100 MG TAB PO (09:38)
[2023-11-01] MEDS: POTASSIUM CHLORIDE 10 MEQ CAPSULE ER PO (09:38)
[2023-11-01] MEDS: APIXABAN 5 MG TABLET PO (09:38)
[2023-11-01] MEDS: FERROUS SULFATE 325 MG TABLET PO (09:38)
[2023-11-01] MEDS: SODIUM CHLORIDE 0.9 % (FLUSH) 10 ML SYRINGE 5 ML IVF (09:39)
--- NOTE | 2023-11-01 10:02 | P.DS_ITS ---
DS: Providers Provider Date Seen: 11/01/23 Date of admission: 10/31/23 14:38 Primary care physician: Rylee Cruz MD Admitting Clinician: Claudine Varma MD Consults: 10/31/23 15:24 Consult to Occupational Therapy [CONS] Routine Comment: Reason(s) for OT Consult:: Evaluate and Treat Any Restrictions?:: No Restrictions Consult to Physical Therapy [CONS] Routine Comment: Reason(s) for PT Consult:: Evaluate and Treat Any Restrictions?:: No Restrictions Attending Physician on discharge: Faiza Monroe PA-C Date of Discharge: 11/01/23 DS: Diagnosis Discharge Diagnosis (1) Syncope: Status: Acute Problem details: Patient reported feeling warm as though she was going to pass out. Reported to become unresponsive while seated in the clinic. Blood sugar at that the clinic 118 (she reports missing mid morning snack), systolic blood pressure 96 Orthostatics in ED unremarkable, no further hypotensive episodes. EKG reported to have T-wave inversions in the inferior and lateral leads which were reported to resolved on a repeat EKG - I have not yet reviewed these Troponin flat <0.01. No evidence of acute infectious process or significant electrolyte abnormality as etiology. CT head shows no acute findings. CXR without acute abnormalities. UA rather unremarkable, UC pending at time of discharge. Telemetry overnight shows few PVCs, no overt runs of VT/SVT. Recommend repeat outpatient holter monitor which can be arranged with PCP. (2) Paroxysmal atrial fibrillation: Status: Acute Problem details: Onset April 2023 following Pseudomonas urosepsis Echo 05/05/2023 Final Impressions: 1. Normal left ventricular size, normal wall thickness, mildly reduced global systolic function, calculated EF of 46 %. 2. No significant valvular abnormalities. 3. No pericardial effusion. 4. Normal estimated pulmonary pressures by tricuspid regurgitation velocity and right atrial pressure (16 mmHg plus RAP) Last saw [facility] Cardiology 09/10/2023. [id number] 4. Recommending apixaban 5 mg twice daily, continuing metoprolol succinate. Rhythm monitor 06/16-06/30 showed 2 runs of V-tach as well as some episodes of SVT. Cardiology interpreted VT to be more consistent with SVT Repeat echo 10/14/2023 Final Impressions: 1. Normal LV size, not well visualized wall thickness, mildly reduced global systolic function with an estimated EF of 50 - 55%. 2. Right ventricular cavity size is normal, global systolic RV function is normal. (3) Hyponatremia: Status: Acute Problem details: Sodium 126 on admission, baseline 129-133. Not significant source of syncope. Improved to 131 prior to discharge. (4) Protein calorie malnutrition: Status: Chronic Problem details: Nutritional Services consultation during last hospitalization (5) Chronic schizophrenia: Status: Acute Problem details: Continue home medications. No recent changes in dosing per patient (6) Hypertension: Status: Acute Problem details: Continue home medications. Orthostatics in ED rather unremarkable (7) Hypothyroidism: Status: Acute Problem details: TSH 1.28. Continue home levothyroxine (8) Diabetes mellitus type 2 in nonobese: Status: Acute Problem details: A1c 6.1. Metformin held during hospitalization, resuming on discharge. (9) Hyperlipidemia: Status: Acute Problem details: Continue statin (10) Resting tremor: Status: Acute Problem details: Left hand. Evaluated by Neurology in the past. Not thought to be Parkinson's, suspect likely related to psychiatric medications DS: Summary Hospital Course Hospital Course: [age] year old female was admitted to the medical floor for overnight observation following syncopal episode. Course of care and details as noted above. No etiology identified for single syncopal episode. No recurrence. Follow-up with PCP for re-evaluation, further workup. Remainder of chronic medical comorbidities were monitored and managed with home medications. Status at Discharge Functional status at discharge: independent ambulation Overall status at discharge: patient is back to baseline Time Spent with Patient Time attestation: Total time spent providing and/or coordinating discharge services: Time spent: Greater than 30 minutes Exam Narrative: Exam Narrative: PHYSICAL EXAM General: Pleasant, conversant, NAD Cardiovascular: RRR Pulmonary: No dyspnea Neurological: Alert, answering questions appropriately Skin: Warm, dry. Const: Vital Signs, click to edit/add: Vital Signs - 24 hr 10/31/23 10:23 10/31/23 10:38 10/31/23 10:45 Temperature 96.5 F L Pulse Rate 59 L 57 L Pulse Rate [Pulse Oximeter] 60 Pulse Rate [orthos tatic lying] Pulse Rate [orthos tatic standing] Respiratory Rate 16 Blood Pressure Blood Pressure [Ri ght Arm] Blood Pressure [Ri ght Upper Arm] 127/70 Blood Pressure [or thostatic lying Ri ght Arm] Blood Pressure [or thostatic sitting] Blood Pressure [or thostatic standing ] Pulse Oximetry 96 97 94 Oxygen Delivery Me thod Room Air 10/31/23 11:00 10/31/23 11:02 10/31/23 11:15 Temperature Pulse Rate 65 62 65 Pulse Rate [Pulse Oximeter] Pulse Rate [orthos tatic lying] Pulse Rate [orthos tatic standing] Respiratory Rate Blood Pressure 117/64 Blood Pressure [Ri ght Arm] Blood Pressure [Ri ght Upper Arm] Blood Pressure [or thostatic lying Ri ght Arm] Blood Pressure [or thostatic sitting] Blood Pressure [or thostatic standing ] Pulse Oximetry 92 96 95 Oxygen Delivery Me thod 10/31/23 11:30 10/31/23 11:32 10/31/23 11:45 Temperature Pulse Rate 63 65 66 Pulse Rate [Pulse Oximeter] Pulse Rate [orthos tatic lying] Pulse Rate [orthos tatic standing] Respiratory Rate Blood Pressure 118/64 Blood Pressure [Ri ght Arm] Blood Pressure [Ri ght Upper Arm] Blood Pressure [or thostatic lying Ri ght Arm] Blood Pressure [or thostatic sitting] Blood Pressure [or thostatic standing ] Pulse Oximetry 99 98 90 Oxygen Delivery Me thod 10/31/23 12:00 10/31/23 12:02 10/31/23 12:23 Temperature Pulse Rate 61 64 Pulse Rate [Pulse Oximeter] Pulse Rate [orthos tatic lying] Pulse Rate [orthos tatic standing] Respiratory Rate Blood Pressure 131/71 145/78 H Blood Pressure [Ri ght Arm] Blood Pressure [Ri ght Upper Arm] Blood Pressure [or thostatic lying Ri ght Arm] Blood Pressure [or thostatic sitting] Blood Pressure [or thostatic standing ] Pulse Oximetry 96 96 Oxygen Delivery Me thod 10/31/23 12:25 10/31/23 12:26 10/31/23 12:28 Temperature Pulse Rate 70 Pulse Rate [Pulse Oximeter] Pulse Rate [orthos tatic lying] Pulse Rate [orthos tatic standing] Respiratory Rate Blood Pressure 127/81 119/69 Blood Pressure [Ri ght Arm] Blood Pressure [Ri ght Upper Arm] Blood Pressure [or thostatic lying Ri ght Arm] Blood Pressure [or thostatic sitting] Blood Pressure [or thostatic standing ] Pulse Oximetry 89 Oxygen Delivery Me thod 10/31/23 12:30 10/31/23 12:32 10/31/23 12:33 Temperature Pulse Rate 78 73 Pulse Rate [Pulse Oximeter] 78 Pulse Rate [orthos tatic lying] 72 Pulse Rate [orthos tatic standing] 83 Respiratory Rate Blood Pressure 147/79 H Blood Pressure [Ri ght Arm] Blood Pressure [Ri ght Upper Arm] Blood Pressure [or thostatic lying Ri ght Arm] 145/78 H Blood Pressure [or thostatic sitting] 127/81 Blood Pressure [or thostatic standing ] 119/69 Pulse Oximetry 93 98 Oxygen Delivery Me thod 10/31/23 12:33 10/31/23 12:45 10/31/23 13:00 Temperature Pulse Rate 75 83 63 Pulse Rate [Pulse Oximeter] Pulse Rate [orthos tatic lying] Pulse Rate [orthos tatic standing] Respiratory Rate Blood Pressure Blood Pressure [Ri ght Arm] Blood Pressure [Ri ght Upper Arm] Blood Pressure [or thostatic lying Ri ght Arm] Blood Pressure [or thostatic sitting] Blood Pressure [or thostatic standing ] Pulse Oximetry 96 91 97 Oxygen Delivery Me thod 10/31/23 13:01 10/31/23 13:15 10/31/23 13:30 Temperature Pulse Rate 62 67 75 Pulse Rate [Pulse Oximeter] Pulse Rate [orthos tatic lying] Pulse Rate [orthos tatic standing] Respiratory Rate Blood Pressure 139/73 Blood Pressure [Ri ght Arm] Blood Pressure [Ri ght Upper Arm] Blood Pressure [or thostatic lying Ri ght Arm] Blood Pressure [or thostatic sitting] Blood Pressure [or thostatic standing ] Pulse Oximetry 96 96 95 Oxygen Delivery Me thod 10/31/23 13:45 10/31/23 13:46 10/31/23 15:45 Temperature 97.3 F L Pulse Rate 72 73 Pulse Rate [Pulse Oximeter] 72 Pulse Rate [orthos tatic lying] Pulse Rate [orthos tatic standing] Respiratory Rate 20 Blood Pressure 139/86 Blood Pressure [Ri ght Arm] 144/83 H Blood Pressure [Ri ght Upper Arm] Blood Pressure [or thostatic lying Ri ght Arm] Blood Pressure [or thostatic sitting] Blood Pressure [or thostatic standing ] Pulse Oximetry 97 95 99 Oxygen Delivery Me thod Room Air 10/31/23 15:45 10/31/23 17:54 10/31/23 17:56 Temperature 97.1 F L Pulse Rate 61 Pulse Rate [Pulse Oximeter] 70 Pulse Rate [orthos tatic lying] Pulse Rate [orthos tatic standing] Respiratory Rate 16 20 Blood Pressure Blood Pressure [Ri ght Arm] 138/73 Blood Pressure [Ri ght Upper Arm] Blood Pressure [or thostatic lying Ri ght Arm] Blood Pressure [or thostatic sitting] Blood Pressure [or thostatic standing ] Pulse Oximetry 95 99 Oxygen Delivery Me thod Room Air Room Air 10/31/23 21:29 11/01/23 00:05 11/01/23 00:05 Temperature 97.8 F Pulse Rate 95 Pulse Rate [Pulse Oximeter] 67 72 Pulse Rate [orthos tatic lying] Pulse Rate [orthos tatic standing] Respiratory Rate 16 18 Blood Pressure Blood Pressure [Ri ght Arm] Blood Pressure [Ri ght Upper Arm] Blood Pressure [or thostatic lying Ri ght Arm] Blood Pressure [or thostatic sitting] Blood Pressure [or thostatic standing ] Pulse Oximetry Oxygen Delivery Ny thod Room Air 11/01/23 00:05 11/01/23 02:10 Temperature 98.3 F 97.6 F Pulse Rate Pulse Rate [Pulse Oximeter] 72 80 Pulse Rate [orthos tatic lying] Pulse Rate [orthos tatic standing] Respiratory Rate 18 16 Blood Pressure Blood Pressure [Ri ght Arm] 154/70 H 147/73 H Blood Pressure [Ri ght Upper Arm] Blood Pressure [or thostatic lying Ri ght Arm] Blood Pressure [or thostatic sitting] Blood Pressure [or thostatic standing ] Pulse Oximetry 96 100 Oxygen Delivery Ny thod Room Air Room Air DS: Data Data Completed and Pending Completed studies during hospitalization: Procedures Excision of Stomach, Via Natural or Artificial Opening Endoscopic, Diagnostic (05/01/23) Pending studies at discharge: Labs on day of discharge: Labs from last 24 hours 11/01/23 10/31/23 10/31/23 06:15 21:06 13:33 WBC 5.94 RBC 4.20 Hgb 11.7 L Hct 36.0 MCV 86 MCH 28 MCHC 33 RDW Coeff of Emily Plt Count 291 Neut % (Auto) Lymph % (Auto) [place] % (Auto) Eos % (Auto) Baso % (Auto) Neut # (Auto) Lymph # (Auto) [place] # (Auto) Eos # (Auto) Baso # (Auto) Abs Immat Gran (auto) Imm/Tot Granulo (auto) D-Dimer Quant (PE/DVT) Sodium 131 L Potassium 4.1 Chloride 100 Carbon Dioxide 25 Anion Gap 6 L BUN 14 Creatinine 0.5 Estimated Creat Clear 37.81 Estimated GFR 99 Glucose 121 H Lactate Calcium 9.0 Total Bilirubin AST ALT Alkaline Phosphatase Troponin I C-Reactive Protein NT-Pro-B Natriuret Pep Total Protein Albumin TSH Urine Color Yellow Urine Appearance Clear Urine pH 6.0 Ur Specific [place] 1.010 Urine Protein Negative Urine Glucose (UA) Negative Urine Ketones Negative Urine Blood Trace-lysed A Urine Nitrite Negative Urine Bilirubin Negative Urine Urobilinogen 0.2 Ur Leukocyte Esterase 1+ A Urine RBC 0-2 Urine WBC 2-5 Ur Squamous Epith Cells None Urine Bacteria Few A Lab Acknowledgement Test Added POC Troponin I 10/31/23 10/31/23 10/31/23 12:45 11:58 10:50 WBC 9.43 RBC 3.98 L Hgb 11.2 L Hct 34.5 MCV 87 MCH 28 MCHC 33 RDW Coeff of Emily 15.8 H Plt Count 287 Neut % (Auto) 81.8 H Lymph % (Auto) 6.4 L [place] % (Auto) 10.6 Eos % (Auto) 0.5 Baso % (Auto) 0.4 Neut # (Auto) 7.70 H Lymph # (Auto) 0.60 L [place] # (Auto) 1.00 H Eos # (Auto) 0.05 Baso # (Auto) 0.04 Abs Immat Gran (auto) 0.03 Imm/Tot Granulo (auto) 0.3 D-Dimer Quant (PE/DVT) 0.25 Sodium 126 L Potassium 4.2 Chloride 93 L Carbon Dioxide 25 Anion Gap 8 BUN 17 Creatinine 0.6 Estimated Creat Clear 39.63 Estimated GFR 95 Glucose 150 H Lactate 1.6 Calcium 8.9 Total Bilirubin 0.4 AST 23 ALT 15 Alkaline Phosphatase 62 Troponin I < 0.01 L C-Reactive Protein < 0.5 L NT-Pro-B Natriuret Pep 254 Total Protein 6.6 Albumin 4.0 TSH 1.280 Urine Color Urine Appearance Urine pH Ur Specific [place] Urine Protein Urine Glucose (UA) Urine Ketones Urine Blood Urine Nitrite Urine Bilirubin Urine Urobilinogen Ur Leukocyte Esterase Urine RBC Urine WBC Ur Squamous Epith Cells Urine Bacteria Lab Acknowledgement POC Troponin I 0.01 0.01 Preliminary micro results at discharge 10/31/23 21:06 Urine Culture - Preliminary Urine,Clean Catch Culture in Progress Imaging CT scan - head: Attestation: I have reviewed the pertinent imaging results. Radiologist's impression: Persistent left awan radiata hyperdense linear (best appreciated on the coronal and sagittal 2D reformations) focus with surrounding hypoattenuation. The linear hyperattenuating element is not significantly changed compared to prior examinations (this characteristic is best assessed on the sagittal and coronal 2D reformations, compared to the axial series). Preserved acosta-white matter differentiation. Bilateral cerebral white matter hypoattenuation is consistent with chronic ischemic gliotic change. No hydrocephalus. No mass or mass effect. No intracranial hemorrhage. Intact skull base and cranial vault. 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 Visualized orbits are without significant incidental findings. Visualized paranasal sinuses and mastoid air cells are clear. IMPRESSION: No acute findings. Incidental findings described in the body of the report. Chest x-ray: Attestation: I have reviewed the pertinent imaging results. Radiologist's impression: Findings/Impression: Cardiovascular and mediastinum: Normal heart size with aortic tortuosity. Lungs and pleural space: Lungs are clear. No sign of infiltrate or mass. No sign of pleural effusion. No pneumothorax. Bones and soft tissues: Deformity of the left proximal humerus with a mixture of sclerosis and periosteal reaction suggesting an old proximal humeral fracture. Discharge Plan Discharge Disposition: Home, Self-Care Date of Admission: 10/31/23 14:38 Attending Provider on Discharge: Faiza Monroe Primary Care Provider: Rylee Cruz Condition: Improved Anticipated Discharge Date/Time: 11/01/23 09:53 Discharge Medications: Continued metformin 500 mg tablet 1,000 mg PO BIDWM potassium chloride 10 mEq tablet extended release 10 meq PO DAILY nortriptyline 25 mg capsule 25 mg PO HS risperidone 2 mg tablet 2 mg PO HS lorazepam 0.5 mg tablet 0.5 mg PO DAILY PRN (Reason: anxiety) risperidone 1 mg tablet 1 mg PO QAM acetaminophen 500 mg tablet 1,000 mg PO Q6H PRN levothyroxine 100 mcg tablet 100 mcg PO QAM atorvastatin 20 mg tablet 20 mg PO HS metoprolol succinate 100 mg tablet extended release 24 hr 100 mg PO DAILY Eliquis 5 mg tablet 5 mg PO BID nystatin 100,000 unit/gram ointment 1 applic topical BID PRN ferrous sulfate 325 mg (65 mg iron) Tablet 325 mg PO DAILY Discharge Orders: Discharge Order (Routine); Ordered 11/01/23 Ordered By: Faiza Monroe Patient Education: Hyponatremia (GEN), Syncope (GEN) Activity Level: Activity as Tolerated and No strenuous activity Discharge Diet: Diabetic Follow Up Appointments: Rylee Cruz MD [Primary Care Provider] - 11/05/23 11:10 am ([facility] for post hospital follow-up.) Forms: [email or web address] Info Instructions
[2023-11-01] MEDS: ACETAMINOPHEN 325 MG TABLET 650 MG PO (10:23)
--- NOTE | 2023-11-01 12:14 | REH.OT ---
Orders received for OT eval and treat. Patient discharged prior to therapist arrival. Did well with PT. Discharged home.
--- NOTE | 2023-11-01 13:17 | PC.NURSE ---
Discharge Note: Pt friendly and cooperative, ambulates with SBA. VS WNL and LS COA. Afebrile. Rates pain to left shoulder 05/28. Pt states it is chronic pain from an old injury. PRN Tylenol given. Discussed hyponatremia signs/symptoms, how to incorporate more variety in fluid intake, and ways to incorporate additional sodium into her diet. Pt and friend verbalized understanding of discharge instructions and follow up appointments. Pt was discharged to home via wheelchair in the care of her friend at 1312.
== END 2023-11-01 13:12 | disposition home or self-care (01) ==
LOC: ED 12:05 → MEDSURG 14:39
PROVIDERS: Physician Assistant; Admitting Provider Family Medicine; Emergency Provider Family Medicine; PCP Family Medicine; Visit Provider Family Medicine
DX: R55 Syncope and collapse (principal); I48.91 Unspecified atrial fibrillation; Z79.02 Long term (current) use of antithrombotics/antiplatelets; E87.1 Hypo-osmolality and hyponatremia; F20.89 Other schizophrenia; I10 Essential (primary) hypertension; E03.9 Hypothyroidism, unspecified; E11.9 Type 2 diabetes mellitus without complications; Z79.84 Long term (current) use of oral hypoglycemic drugs; E78.5 Hyperlipidemia, unspecified
CPT/HCPCS: 36415; 70450; 71045; 80048; 80053; 81001; 82962; 83605; 83880; 84443; 84484; 85025; 85027; 85379; 86140; 87086; 93005; 94761; 96360; 96361; 97116; 97161; 99284; G0378; A9270; J7030; J7050

== ENCOUNTER 2023-11-11 09:59 | Outpatient (CLI) | payer MEDICARE, BC, SELFPAY ==
--- OUTSIDE RECORDS SUMMARY | 2023-11-15 01:57 | XMS_ITS | Clinical Summary ---
Author Organization [facility] Address [place], [place] [address] Care Team Providers Care Epic [facility] Name Role Phone Jovanni Aguayo MD Unavailable [phone] Rylee Cruz MD Primary Care Prov ider [...] Encounters Date Type Department Care Team Description 11/12/2023 Orders Only [facility] Scanner 1 scan: (1-Ord) [facility], XR CHEST 2V, 11/12/2023 11/12/2023 Orders Only [facility] SERVICES Scanner 1 scan: (1-Ord) [place], HEAD, 11/12/2023 11/07/2023 Telephone [facility] [address] [facility] [address] Rylee Cruz MD Error-please disregard (Duplicate ) 11/07/2023 Telephone [facility] [address] [facility] [address] Rylee Cruz MD Results 11/05/2023 11:10 AM CDT Office Visit [facility] [address] [facility] [address] Rylee Cruz MD Hospital F/U 11/05/2023 Travel 11/05/2023 Orders Only [facility] [address] [facility] [address] Rylee Cruz MD 1 scan: (1-Ord) NFLD-EKG-10/31/23 11/04/2023 Telephone [facility] [address] [facility] [address] Rylee Cruz MD Health Maintenance Update 11/04/2023 Telephone [facility] [address] [facility] [address] Rylee Cruz MD Follow Up 10/31/2023 9:25 AM CDT Office Visit [facility] [address] [place] [address] Rylee Cruz MD Diabetes 10/31/2023 Orders Only [facility] Scanner 1 scan: (1-Ord) [place], [place] HEAD/BRAIN WO CON, 10/31/2023 10/31/2023 Orders Only [facility] Scanner 1 scan: (1-Ord) [facility], CHEST 1 VIEW, 10/31/2023 10/31/2023 Travel 10/15/2023 Telephone [facility] [place] [phone] Richi Sullivan MD Results (TTE results) 10/14/2023 2:00 PM CDT Ancillary Procedure [address] [phone] 10/14/2023 Travel 10/11/[address] [address] Padmini Rodriguez PA Refill Request (Metformin) 09/17/2023 10:45 AM CDT Phone Office Visit [address] [address] Lizette Mccloud MD Phone Visit; Medication Management (Things have been topsy turvy, room mate fell and broke hip, comes home ) 09/17/2023 Travel 09/10/2023 11:00 AM CDT Office Visit [address] [address] Richi Sullivan MD Follow Up (Paroxysmal atrial fibrillation ) 09/10/2023 Travel 08/23/[address] [address] Lizette Mccloud MD Refill Request (Nortriptyline, Risperidone, [...] 157.5 cm (5' 2) 04/15/2023 11:11 AM CREDIT SUPPORT SPECIALIST Body Mass Index 27.44 04/15/2023 11:11 AM CREDIT SUPPORT SPECIALIST Plan of Treatment Upcoming Encounters Date Type Department Care Team (Late st Contact Info) Description 11/26/2023 8:40 AM CDT Office Visit [facility] [address] [place] [address] Rylee Cruz MD [address] [place] [address] 12/31/2023 11:00 AM CREDIT SUPPORT SPECIALIST Office Visit [facility] [place] [facility] [address] [address] South López MD [address] [place] [address] Health Maintenance Due Date Last Done Comments [...] Procedure Name Priority Date/Time Associated Diagnosis Comments SCAN-RADIOLOGY REPORT 11/12/2023 12:00 AM CDT SCAN-CT INTERPRETATION 12:00 AM CDT FERRITIN Routine 11/05/2023 12:12 PM CDT Anemia, [...] CDT Dizzy LOC (loss of consciousness) (HC) NC READING EKG - NO CHARGE, COMP ONLY Routine 11/05/2023 9:14 AM CDT Dizzy LOC (loss of consciousness) (HC) GLUCOSE, RANDOM Routine 10/31/2023 9:46 AM CDT [facility] HEMOGLOBIN A1C MONITORING (POCT) Routine 10/31/2023 8:49 AM CDT Type II or unspecified type diabetes mellitus without mention of complication, not stated as uncontrolled SCAN-CT INTERPRETATION 12:00 AM CDT SCAN-RADIOLOGY REPORT 10/31/2023 12:00 AM CDT ECHO TTE COMPLETE WO CONTRAST Routine 10/14/2023 2:34 PM CDT Paroxysmal atrial fibrillation (HC) LIPID PANEL W REFLEX MEASURED LDL Routine 04/15/2023 12:20 PM CREDIT SUPPORT SPECIALIST Type II or unspecified type diabetes mellitus without mention of complication, not stated as uncontrolled OCCULT BLOOD IFOBT STOOL Routine 12/12/2022 2:46 PM CDT Screening for colorectal cancer XR MAMMO RASHIDA BILAT SCREEN Routine 01/03/2022 11:15 AM CREDIT SUPPORT SPECIALIST Visit for screening mammogram XR DXA BONE DENSITY 2 SITES AXIAL Routine 03/06/2018 11:09 AM CREDIT SUPPORT SPECIALIST Menopause ANTI HCV Routine 09/10/2013 12:57 PM CDT Need for hepatitis C screening test from Last 3 Months or Most Recently Relevant to Health Maintenance Results * SCAN-RADIOLOGY REPORT (11/12/2023 12:00 AM CDT) Only the most recent of2 resultswithin the time period is included. Anatomical Region Laterality Modality Other Scanner OTHER * SCAN-CT INTERPRETATION (11/12/2023 12:00 AM CDT) Only the most recent of2 resultswithin the time period is included. Anatomical Region Laterality Modality Other Scanner OTHER * IRON PLUS IRON BINDING CAP (11/05/2023 12:12 PM CDT) IRON, TOTAL 81 45 - 160 mcg/dL [facility] IRON BINDING CAPACITY 342 250 - 450 mcg/dL (calc) [facility] % SATURATION 24 16 - 45 % (calc) [facility] Blood BLOOD SPECIMEN / Unknown 11/05/2023 12:12 PM CDT 11/05/2023 12:13 PM CDT Rylee Cruz MD CHEMISTRY [facility] [address] [place] [address], [place] [phone] [facility] [address] [facility] [place] [address] * (ABNORMAL) CBC W PLT NO DIFF (11/05/2023 12:12 PM CDT) [facility] WHITE BLOOD CELL COUNT 9.3 3.8 [...] 27.0 - 33.0 pg [facility] MCHC 31.5(L) 32.0 - 36.0 g/dL [facility] RDW 14.9 11.0 - 15.0 % [facility] PLATELET COUNT 388 140 - 400 Thousand/u L [facility] MPV 10.6 7.5 - 12.5 fL [facility] Blood BLOOD SPECIMEN / Unknown 11/05/2023 12:12 PM CDT 11/05/2023 12:13 PM CDT Rylee Cruz MD HEMATOLOGY [facility] [address] [place] [address], [place] [phone] [facility] [address] [place] [address] * (ABNORMAL) FERRITIN (11/05/2023 12:12 PM CDT) Pathologist [facility] FERRITIN 9(L) 16 - 288 ng/mL [facility] Blood BLOOD SPECIMEN / Unknown 11/05/2023 12:12 PM CDT 11/05/2023 12:13 PM CDT Rylee Cruz MD CHEMISTRY [facility] [address] [place] [address], [facility] [address] [place] [address] * (ABNORMAL) BASIC METABOLIC PANEL (11/05/2023 12:12 PM CDT) [facility] GLUCOSE 138(H) 65 - 99 mg/dL [facility] Comment: ? Fasting reference interval For someone without known diabetes, a glucose value >125 mg/dL indicates that they may have diabetes and this should be confirmed with a follow-up test. UREA NITROGEN (BUN) 15 7 - 25 mg/dL [facility] CREATININE 0.67 0.60 - 1.00 mg/dL [facility] EGFR 92 > OR = 60 mL/min/1. 73m2 [facility] BUN/CREATININE RATIO SEE NOTE: 6 [...] Rylee Cruz MD CHEMISTRY Performing Organization Address City/[facility]/ZIP Co de Phone Number [facility] [address] [place] [address], [facility] [address] [place] [address] * TSH (11/05/2023 12:10 PM CDT) TSH 0.57 0.40 - 4.50 mIU/L [facility] BLOOD SPECIMEN / Unknown 11/05/2023 12:10 PM CDT 11/05/2023 12:11 PM CDT Rylee Cruz MD CHEMISTRY Performing Organization Address [facility] Co de Phone Number [facility] [address] [place] [address], [facility] [address] [place] [phone] * EKG 12 LEAD (11/05/2023 9:15 AM CDT) Rylee Cruz MD EKG ORD * NC READING EKG - NO CHARGE, COMP ONLY (11/05/2023 9:14 AM CDT) Rylee Cruz MD PB - PROVI LACEY READINGS * GLUCOSE, RANDOM (10/31/2023 9:46 AM CDT) GLUCOSE,RANDOM 118 70 - 139 mg/dL 10/31/2023 9:47 AM CDT [facility] Blood BLOOD SPECIMEN / Unknown Capillary / Unknown 10/31/2023 9:46 AM CDT 10/31/2023 9:46 AM CDT Rylee Cruz MD CHEMISTRY Performing Organization Address [facility] de Phone Number [facility] [address] [place] [address], * HEMOGLOBIN A1C MONITORING (POCT) (10/31/2023 8:49 AM CDT) HEMOGLOBIN A1C MONITORING (POCT) 6.1 <=6.4 % 10/31/2023 8:59 AM CDT [facility] Blood BLOOD SPECIMEN / Unknown Venipuncture / Unknown 10/31/2023 8:49 AM CDT 10/31/2023 8:49 AM CDT Narrative [facility] - 10/31/2023 8:59 AM CDT ? (<=6.9%) [...] Rylee Cruz MD CHEMISTRY Performing Organization Address [facility] Co de Phone Number [facility] [address] [place] [address], * ECHO TTE COMPLETE WO CONTRAST (10/14/2023 2:34 PM CDT) Pathologist [facility] AORTIC VALVE MEAN PG 7 mmHg EJECTION FRACTION 42 % LVEDD 2.9 cm EJECTION FRACTION 50 - 55% Anatomical Region Laterality Modality Ultrasound 10/14/2023 2:00 PM CDT Narrative 10/14/2023 3:02 PM CDT ECHOCARDIOGRAM KYLE YAÑEZ ? Accession#: ?? [id number] : ?1950 72 years Study Date: ?? 10/14/2023 2:00:05 PM Gender: F ?BP: ? 111/74 mmHg Height: 157.00 cm ?BSA: ?1.67 m? ? ? Weight: 66.00 kg ? Tech: ? MHR ? Referring MD: RICHI SULLIVAN Site: ? [facility] Reading Location: MOBILE OP Patient Location: [...] . This study was interpreted by an [facility] accredited facility. ??Final ?? Procedure Note Gio Santos MD - 10/14/2023 ECHOCARDIOGRAM KYLE YAÑEZ : 1950 72 years Study Date: 10/14/2023 2:00:05 PM Gender: F BP: 111/74 mmHg Height: 157.00 cm BSA: 1.67 m? ? ? Weight: 66.00 kg Tech: R Referring MD: RICHI SULLIVAN Site: [facility] Reading Location: [facility] Patient Location: Outpatient. Procedure: 2D, Color [...] was interpreted by an [facility] accredited facility. Final Richi Sullivan MD ECHO ORD * LIPID PANEL W REFLEX MEASURED LDL (04/15/2023 12:20 PM CREDIT SUPPORT SPECIALIST) CHOLESTEROL,TOTAL 114 100 - 199 mg/dL 04/15/2023 9:21 PM CREDIT SUPPORT SPECIALIST [facility] Comment: Cholesterol, Total Reference Ranges Desirable <200 mg/dL Borderline 200-239 mg/dL High >=240 mg/dL TRIGLYCERIDES 71 <150 mg/dL 04/15/2023 9:21 PM CREDIT SUPPORT SPECIALIST [facility] HDL CHOLESTEROL 50 >40 mg/dL 9:21 PM CREDIT SUPPORT SPECIALIST [facility] NON-HDL CHOLESTEROL 64 <145 mg/dl 04/15/2023 9:21 PM CREDIT SUPPORT SPECIALIST [facility] CHOL/HDL RATIO 2.28 <4.50 04/15/2023 9:21 PM CREDIT SUPPORT SPECIALIST [facility] LDL CHOLESTEROL 50 <=130 mg/dL 04/15/2023 9:21 PM CREDIT SUPPORT SPECIALIST [facility] VLDL CHOLESTEROL 14 <=30 mg/dL 04/15/2023 9:21 PM CREDIT SUPPORT SPECIALIST [facility] PROVIDER ORDERED STATUS RANDOM 04/15/2023 9:21 PM CREDIT SUPPORT SPECIALIST [facility] Blood BLOOD SPECIMEN / Unknown Venipuncture / Unknown 04/15/2023 12:20 PM CREDIT SUPPORT SPECIALIST 04/15/2023 12:21 PM CREDIT SUPPORT SPECIALIST Padmini JEFFERY CHEMISTRY [facility] [address] [place] [address], * OCCULT BLOOD IFOBT STOOL (12/12/2022 2:46 PM CDT) STOOL BLOOD ,IFOBT Negative Negative 12/17/2022 3:04 PM CDT [facility] [place] Stool STOOL SPECIMEN / Unknown Non-Blood / Unknown 12/12/2022 2:46 PM CDT 12/17/2022 2:46 PM CDT Rylee Cruz MD LABORATORY [facility] [address] [place] [address], * XR MAMMO RASHIDA BILAT SCREEN (01/03/2022 11:15 AM CREDIT SUPPORT SPECIALIST) Anatomical Region Laterality Modality BREASTS, Breast Left, Breast Right Bilateral Mammography Impressions 01/03/2022 3:46 PM CREDIT SUPPORT SPECIALIST ??There is no radiographic evidence for malignancy. ??Recommend annual mammograms. MAMMOGRAM ASSESSMENT: ??ACR 1 Negative PATIENTS: You will also receive a letter with your examination results in an easy to read format. ??If you have questions about your results, please contact your referring provider. Narrative 01/03/2022 3:46 PM CREDIT SUPPORT SPECIALIST For Patients: As a result of the Century Cures Act, medical imaging exams and procedure reports are released immediately into your electronic medical record. You may view this report before your referring provider. If you have questions, please contact your health care provider. XR MAMMO RASHIDA BILAT SCREEN [[id number]] CLINICAL HISTORY: ??This is an asymptomatic 71 y.o. patient. INDICATION FOR EXAM: Mammogram Screening. TECHNIQUE: CC & MLO views were obtained. ??This study was evaluated with the assistance of Computer-Aided Detection. Breast Tomosynthesis was used in interpretation. COMPARISON FILM: Yes 11/13/18 [facility] 01/16/17 [facility] FINDINGS: ??The breasts are almost entirely fatty. There are no dominant masses, suspicious micro calcifications or areas of architectural distortion. Rylee Cruz MD MAMMO * (ABNORMAL) XR DXA BONE DENSITY 2 SITES AXIAL [93395.1] (03/06/2018 11:09 AM CREDIT SUPPORT SPECIALIST) Anatomical Region Laterality Modality Spine, HIPS, HIPL, HIPR Other Narrative 03/19/2018 12:23 PM CREDIT SUPPORT SPECIALIST Please see scanned document for results of this study. Rylee Cruz MD DEXA * ANTI HCV [14069.2] (09/10/2013 12:57 PM CDT) HEPATITIS C ANTIBODY Non-Reacti ve Non-Reacti ve 09/10/2013 8:34 PM CDT [facility] Blood specimen (specimen) BLOOD SPECIMEN / Unknown Venipuncture / Unknown 09/10/2013 12:57 PM CDT 09/10/2013 12:57 PM CDT Narrative [facility] - 09/10/2013 8:34 PM CDT Antibodies to HCV not detected; does not exclude the possibility of exposure to HCV. Erin Gomes [facility] [employer] [facility] 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 Healthcare Directive 11/08/2016 017 Healthcare Directive 07/31/2004 health care directive, [facility], 07/31/06 * Full Code (Latest Code Status on File) Date Activated Date Inactivated Comments 03/18/2022 2:59 AM 03/19/2022 7:01 PM Question Answer Comments Code Status Discussion: Unable to Assess Preferences, Provider to review later Care Teams Epic [facility] Relationship Specialty Start Date End Date Rylee Cruz MD [address] [facility] [address] PCP - General Family Practice 02/23/21 Jovanni Aguayo MD Psychiatry Psychiatry 01/10/16
== END 2023-11-11 10:00 | disposition home or self-care (01) ==
LOC: AMB 11-15 01:56
PROVIDERS: PCP Family Medicine; Visit Provider Family Medicine
DX: S49.92XA Unspecified injury of left shoulder and upper arm, initial encounter (principal); W18.30XA Fall on same level, unspecified, initial encounter; Y92.009 Unspecified place in unspecified non-institutional (private) residence as the place of occurrence of the external cause
CPT/HCPCS: A0425; A0427

== ENCOUNTER 2023-11-12 11:15 | Emergency (ER) | payer MEDICARE, BC, SELFPAY ==
[2023-11-12] VITALS (11 sets, daily range): BP systolic 93–151; BP diastolic 61–78; PULSE 76–92; RESP 20; TEMP 36.6; O2SAT 97–100; BMI 26.5
--- NOTE | 2023-11-12 11:31 | CRLHL7_ITS ---
For Patients: As a result of the Cures Act, medical imaging exams and procedure reports are released immediately into your electronic medical record. You may view this report before your referring provider. If you have questions, please contact your health care provider. Indication: Syncope Technique: Chest 2 views Comparison: Chest x-ray 10/31/2023 Findings/Impression: Cardiovascular and mediastinum: Normal heart size with aortic tortuosity. Lungs and pleural spaces: Lungs are clear. No sign of infiltrate or mass. No sign of pleural effusion. No pneumothorax. 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 Dictated by Onel Downing MD @ 11/12/2023 2:09:37 PM (Electronically Signed)
--- NOTE | 2023-11-12 11:31 | CRLHL7_ITS ---
For Patients: As a result of the Century Cures Act, medical imaging exams and procedure reports are released immediately into your electronic medical record. You may view this report before your referring provider. If you have questions, please contact your health care provider. INDICATION: Syncope, fall TECHNIQUE: CT head without contrast. COMPARISON: Head CT 10/31/2023 FINDINGS: CSF spaces: Within normal limits for age. Brain parenchyma: No intracranial bleed or mass effect. Moderate low-density within the deep white matter. Linear calcification within the left parietal lobe redemonstrated. Skull base and calvarium: The visualized paranasal sinuses and mastoid air cells demonstrate no acute or significant findings. The visualized orbits are grossly unremarkable. No skull fractures. Hyperostosis frontalis interna. Atherosclerosis. IMPRESSION: 1. No calvarial fracture or intracranial bleed. 2. Nonspecific white matter disease, likely microangiopathy. Stable linear calcification within the left parietal lobe. Please note that all CT scans at this facility use dose modulation, iterative reconstruction, and/or weight-based dosing when appropriate to reduce radiation dose to as low as reasonably achievable. Dictated by Onel Downing MD @ 11/12/2023 2:03:57 PM (Electronically Signed)
--- NOTE | 2023-11-12 11:31 | CRLHL7_ITS ---
For Patients: As a result of the Cures Act, medical imaging exams and procedure reports are released immediately into your electronic medical record. You may view this report before your referring provider. If you have questions, please contact your health care provider. INDICATION: Syncope, fall TECHNIQUE: CT cervical spine without contrast. COMPARISON: Cervical spine CT 03/17/2022 FINDINGS: Vertebrae: Alignment is normal. There are no fractures or suspicious bony lesions. Discs and facet joints: Posterior osteophytes C5-6 causing mild left foraminal stenosis. Posterior osteophytes C6-7 causing moderate left foraminal stenosis. Facet hypertrophy C7-T1 without significant stenosis. Extraspinal findings: Prevertebral soft tissues, visualized airway, and visualized lungs are unremarkable. IMPRESSION: Mild degenerative changes cervical spine without evidence of cervical spine fracture. Please note that all CT scans at this facility use dose modulation, iterative reconstruction, and/or weight-based dosing when appropriate to reduce radiation dose to as low as reasonably achievable. Dictated by Onel Downing MD @ 11/12/2023 2:07:20 PM (Electronically Signed)
--- NOTE | 2023-11-12 11:47 | ED_ITS ---
HPI - Syncope General Date Seen: 11/12/23 Chief Complaint: Dizziness/Vertigo Stated Complaint: dizziness Time Seen by Provider: 11/12/23 11:17 Source: patient Mode of arrival: ambulatory Limitations: no limitations History of Present Illness HPI narrative: Patient is a 73-year-old female with a history of diabetes, schizophrenia AFib presenting to the emergency department for up so syncope. She states this morning 06:00 she was on Avastin she got very lightheaded and fell to the ground. She states she never lost consciousness but was too weak get up. She does with her roommate and her roommate found her at about 09:30 and at that time tried to help her up but was unable to so EMS was called. When EMS arrived they noted she was hypotensive in the 80s after multiple checks. They then bottom emergency department by time she arrived her blood pressure has improved to about 110/70 systolic. Patient says she still feels slightly lightheaded but not as bad as she initially did. Is complaining about left shoulder pain with states that is chronic and not any different than normal. States she has had similar symptoms couple weeks ago she was hospitalized for. Patient was hemanth ntually discharged she states she was feeling at baseline at time of discharge. Denies chest pain, dizziness, shortness of breath, abdominal pain, diarrhea, constipation. Is feeling some generalized weakness. Does think she has been eating and drinking normally at home. Related Data Home Medications ?Medication ?Instructions ?Recorded ?Confirmed acetaminophen 500 mg tablet 1,000 mg PO Q6H PRN 10/16/21 10/31/23 lorazepam 0.5 mg tablet 0.5 mg PO DAILY PRN anxiety 10/16/21 10/31/23 metformin 500 mg tablet 1,000 mg PO BIDWM 10/16/21 10/31/23 nortriptyline 25 mg capsule 25 mg PO HS 10/16/21 10/31/23 potassium chloride 10 mEq 10 meq PO DAILY 10/16/21 10/31/23 tablet,extended release risperidone 1 mg tablet 1 mg PO QAM 10/16/21 10/31/23 risperidone 2 mg tablet 2 mg PO HS 10/16/21 10/31/23 levothyroxine 100 mcg tablet 100 mcg PO QAM 04/26/23 10/31/23 atorvastatin 20 mg tablet 20 mg PO 05/04/23 10/31/23 apixaban 5 mg tablet (Eliquis) 5 mg PO BID 10/31/23 10/31/23 ferrous sulfate 325 mg (65 mg 325 mg PO DAILY 10/31/23 10/31/23 iron) tablet metoprolol succinate 100 mg 100 mg PO DAILY 10/31/23 10/31/23 tablet,extended release 24 hr nystatin 100,000 unit/gram topical 1 applic topical BID PRN 10/31/23 10/31/23 ointment Allergies Allergy/AdvReac Type Severity Reaction Status Date / Time cholecalciferol (vitamin D3) Allergy Unknown Confusion Verified 10/31/23 10:54 [From Vitamin D3] cyanocobalamin (vitamin B12) Allergy Unknown Verified 10/31/23 10:54 grapefruit Allergy Unknown Verified 10/31/23 10:54 Penicillins Allergy Unknown Verified 10/31/23 10:54 Sulfa (Sulfonamide Allergy Unknown Verified 10/31/23 10:54 Antibiotics) eucalyptus AdvReac Unknown Verified 10/31/23 10:54 lisinopril AdvReac Confusion Verified 10/31/23 10:54 Review of Systems Status of ROS: Reports: 10 or more systems reviewed and unremarkable except as noted in History and below [facility] Medical History Resting tremor ?G25.2 - Other specified forms of tremor (ICD-10) GI bleed ?K92.2 - Gastrointestinal hemorrhage, unspecified (ICD-10) Protein calorie malnutrition ?E46 - Unspecified protein-calorie malnutrition (ICD-10) Anemia ?D64.9 - Anemia, unspecified (ICD-10) Altered mental status ?R41.82 - Altered mental status, unspecified (ICD-10) Chronic diarrhea ?K52.9 - Noninfective gastroenteritis and colitis, unspecified (ICD-10) Unstable gait ?R26.81 - Unsteadiness on feet (ICD-10) History of intracranial hemorrhage ?Z86.79 - Personal history of other diseases of the circulatory system (ICD- 10) Osteopenia ?M85.80 - Other specified disorders of bone density and structure, unspecified site (ICD-10) Vitamin D deficiency ?E55.9 - Vitamin D deficiency, unspecified (ICD-10) Chronic schizophrenia ?F20.9 - Schizophrenia, unspecified (ICD-10) Diabetes mellitus type 2 in nonobese ?E11.9 - Type 2 diabetes mellitus without complications (ICD-10) Hyperlipidemia ?E78.5 - Hyperlipidemia, unspecified (ICD-10) Tremor ?R25.1 - Tremor, unspecified (ICD-10) Diabetes mellitus ?E11.9 - Type 2 diabetes mellitus without complications (ICD-10) Hypothyroidism ?E03.9 - Hypothyroidism, unspecified (ICD-10) Hypertension ?I10 - Essential (primary) hypertension (ICD-10) Anxiety ?F41.9 - Anxiety disorder, unspecified (ICD-10) Intraparenchymal hemorrhage of brain ?I61.9 - Nontraumatic intracerebral hemorrhage, unspecified (ICD-10) Surgical History History of tonsillectomy and adenoidectomy ?Z90.89 - Acquired absence of other organs (ICD-10) History of breast biopsy ?Z98.890 - Other specified postprocedural states (ICD-10) Family History Mother Alcohol dependence Asthma Heart disease Paternal Grandfather Alcohol dependence Paternal Grandmother Diabetes Brother Down syndrome Alzheimers disease Father Heart disease Maternal Grandmother High blood pressure Social History What is your current living situation?: I presently have a place to live Problems where you live: no known problems Problems where you live details: N/A In the past 12 months, utilities in danger of being shut off: no In past 12 months, lack of transportation kept you from medical appts, meetings, work, or getting things needed for daily living: no In the past 12 mos, have been you worried that your food would run out before you had money to buy more?: never true In the past 12 mos, the food you bought just didn't last and you didn't have money to buy more?: never true Highest level of school completed/degree received: Master's degree Smoking Status: Former smoker Do you use any of these nicotine containing products: None Second hand tobacco smoke exposure: No How often do you have a drink containing alcohol: never How often do you have six or more drinks on one occasion: Never AUDIT-C Alcohol total score: 0 Non-prescribed substance use: denies use Caffeine: Yes (1 cup daily) How often does anyone, including family, friends and others, physically hurt you : never How often does anyone, including family, friends and others, insult or talk down to you: never How often does anyone, including family, friends and others, threaten you with harm: never How often does anyone, including family, friends and others, scream or curse at you: never service: No Exam Narrative: Exam Narrative: Const: Well-nourished, Well-developed, in no distress Eyes: PERRL, no conjunctival injection, and symmetrical lids HENT: Atraumatic external nose and ears. Moist mucous membranes. Neck: Symmetric, trachea midline, No thyromegaly. CVS: RRR, No murmurs or gallops. Peripheral pulses 2+ and equal in all extremities RESP: Unlabored respiratory effort. Clear to auscultation bilaterally. GI: Nontender/Nondistended, No rebound or guarding. MSK:Extremities w/o deformity, Normal Active ROM Skin: Warm, Dry. No rashes or lesions. Neuro: Normal Muscle tone, No focal neurological deficits. Psych: Awake, Alert, & Oriented x3. Appropriate mood and affect. Const: Vital Signs, click to edit/add: Vital Signs - 24 hr 11/12/23 11:20 11/12/23 11:48 11/12/23 11:57 Temperature 97.8 F Pulse Rate 82 Pulse Rate [Right Pulse Oximeter] 86 Pulse Rate [orthos tatic lying] Pulse Rate [orthos tatic sitting] Pulse Rate [orthos tatic standing] Respiratory Rate 20 Blood Pressure Blood Pressure [Ri ght Upper Arm] 116/68 Blood Pressure [or thostatic lying Ri ght Arm] 124/76 Blood Pressure [or thostatic sitting Right Arm] 122/72 Blood Pressure [or thostatic standing Right Arm] 93/62 Pulse Oximetry 100 99 Oxygen Delivery Me thod Room Air 11/12/23 12:00 11/12/23 12:15 11/12/23 13:18 Temperature Pulse Rate 85 76 Pulse Rate [Right Pulse Oximeter] Pulse Rate [orthos tatic lying] Pulse Rate [orthos tatic sitting] Pulse Rate [orthos tatic standing] Respiratory Rate Blood Pressure 151/67 H Blood Pressure [Ri ght Upper Arm] Blood Pressure [or thostatic lying Ri ght Arm] Blood Pressure [or thostatic sitting Right Arm] Blood Pressure [or thostatic standing Right Arm] Pulse Oximetry 97 98 Oxygen Delivery Me thod 11/12/23 13:20 11/12/23 13:21 11/12/23 13:23 Temperature Pulse Rate 85 Pulse Rate [Right Pulse Oximeter] Pulse Rate [orthos tatic lying] Pulse Rate [orthos tatic sitting] Pulse Rate [orthos tatic standing] Respiratory Rate Blood Pressure 146/77 H 111/61 Blood Pressure [Ri ght Upper Arm] Blood Pressure [or thostatic lying Ri ght Arm] Blood Pressure [or thostatic sitting Right Arm] Blood Pressure [or thostatic standing Right Arm] Pulse Oximetry 100 Oxygen Delivery Hi thod 11/12/23 13:24 11/12/23 14:26 Temperature Pulse Rate 78 Pulse Rate [Right Pulse Oximeter] Pulse Rate [orthos tatic lying] 85 Pulse Rate [orthos tatic sitting] 90 Pulse Rate [orthos tatic standing] 92 Respiratory Rate Blood Pressure 124/78 Blood Pressure [Ri ght Upper Arm] Blood Pressure [or thostatic lying Ri ght Arm] 142/78 H Blood Pressure [or thostatic sitting Right Arm] 125/69 Blood Pressure [or thostatic standing Right Arm] 117/69 Pulse Oximetry 100 [facility] Vital signs: Initial Vital Signs Temperature 97.8 F 11/12/23 11:20 Temperature Source Temporal Artery Scan 11/12/23 11:20 Pulse Rate 86 11/12/23 11:20 Respiratory Rate 11/12/23 11:20 Blood Pressure 116/68 11/12/23 11:20 Blood Pressure Mean 84 11/12/23 11:20 Blood Pressure Position Supine 11/12/23 11:20 Pulse Oximetry 100 11/12/23 11:20 Oxygen Delivery Method Room Air 11/12/23 11:20 Vital Signs Temperature 97.8 F 11/12/23 11:20 Pulse Rate 86 11/12/23 11:20 Respiratory Rate 11/12/23 11:20 Blood Pressure 116/68 11/12/23 11:20 Pulse Oximetry 100 11/12/23 11:20 Oxygen Delivery Method Room Air 11/12/23 11:20 Temperature 97.8 F 11/12/23 11:20 Pulse Rate 85 11/12/23 14:26 Respiratory Rate 20 11/12/23 11:20 Blood Pressure 142/78 H 11/12/23 14:26 Pulse Oximetry 100 11/12/23 13:24 Oxygen Delivery Method Room Air 11/12/23 11:20 Medications Administered Medications: Discontinued Medications Generic Name Dose Route Start Last Admin Trade Name Estrella PRN Reason Stop Dose Admin Acetaminophen 1,000 mg 11/12/23 15:18 11/12/23 15:22 Acetaminophen 500 Mg Tablet PO 11/12/23 15:19 1,000 mg ONCE ONE Administration Sodium Chloride 1,000 mls @ 1,000 mls/hr 11/12/23 12:15 11/12/23 14:26 0.9 % Sodium Chloride 1000 Ml IV 11/12/23 13:14 Infused .Q1H LARRY Infusion MDM - Syncope MDM Narrative Medical decision making narrative: Patient is 73-year-old female presenting to emergency department for syncope. Initially she described as dizziness but once I spoke to her more does somewhat like this was syncope she is not having any dizziness. She did have similar symptoms a few weeks ago and they resolved the next day. She was hypotension with that point but hospitalist do not think that was a significant source of the syncope. Does a history of malnutrition also. Will do a CBC, BMP, COVID/flu, magnesium, troponin, urinalysis, chest x-ray. Will also do CT scan of the head and cervical spine due to falling. Creatinine kinase ordered as she was known for extended period of time. Lab work returned with a white count 19.45 that is neutrophil predominant. Urinalysis was done showing no signs of UTI chest x-ray shows no signs pneumonia. I am not sure this is it infection or result of her being on the ground for extended amount of time. CRP is normal pro count is elevated which could be signs of infection but again I do not see any obvious sources. EKG and troponin showed no concerning abnormalities. Glucose is slightly elevated to wait magnesium is slightly low 1.4 but this is unlikely to cause his symptoms. Sodiums are baseline 130. Imaging reviewed by myself and radiologist all showed no concerning abnormalities. She is doing well at this time initial orthostatic blood pressures showed that they dropped a L of fluids was given. At this L her blood pressures improved significantly but she was still technically orthostatic hypotensive. Was asymptomatic throughout all of this. She is otherwise doing well though and due to that I believe she is safe for discharge and will follow up outpatient with his Zio patch. Repeat troponin within normal limits. I cannot definitively say what caused her syncope more her white blood cell count but we will do blood cultures and call her if they come back positive. She is agreeable to this plan. Lab Data Labs: Lab Results 11/12/23 11/12/23 11/12/23 Range/Units 11:51 12:17 12:25 WBC 19.45 H (4.50-11.00) K/uL RBC 4.41 (4.00-5.20) m/uL Hgb 12.6 (12.0-16.0) gm/dL Hct 38.7 (33.0-51.0) % MCV 88 (80-100) fL MCH 29 (26-34) pg MCHC 33 (32-36) gm/dL RDW Coeff of Emily 15.2 (11.5-15.5) % Plt Count 344 (140-440) K/uL Neut % (Auto) 92.8 H (42.0-72.0) % Lymph % (Auto) 1.0 L (20-44) % Bay % (Auto) 5.9 (0.0-11.0) % Eos % (Auto) 0.0 (0.0-7.0) % Baso % (Auto) 0.1 (0.0-3.0) % Neut # (Auto) 18.00 H (1.7-7.0) K/uL Lymph # (Auto) 0.20 L (0.90-2.90) K/uL Bay # (Auto) 1.10 H (0.00-0.90) K/UL Eos # (Auto) 0.00 (0.00-0.50) K/uL Baso # (Auto) 0.00 (0.00-0.30) K/uL Abs Immat Gran (auto) 0.00 (0.00-0.30) K/uL Imm/Tot Granulo (auto) 0.2 % Sodium 130 L (135-149) mmol/L Potassium 3.6 (3.6-5.1) mmol/L Chloride 94 L (96-114) mmol/L Carbon Dioxide 25 (20-32) mmol/L Anion Gap 11 (7-15) mEq/L BUN 12 (7-30) mg/dL Creatinine 0.5 (0.5-1.5) mg/dL Estimated Creat Clear 37.24 Estimated GFR 98 ml/min Glucose 208 H (60-115) mg/dL Calcium 9.2 (8.4-10.6) mg/dL Magnesium 1.4 L (1.5-2.6) mg/dL Total Creatine Kinase 42 (41-117) U/L Troponin I < 0.01 L (0.01-0.04) ng/mL C-Reactive Protein 0.7 (0.5-1.0) mg/dL Procalcitonin 0.99 H (<0.50) ng/mL Urine Color (Yellow) Urine Appearance (Clear) Urine pH (5.0-8.5) Ur Specific [place] (1.000-1.030) Urine Protein (Negative) Urine Glucose (UA) (Negative) Urine Ketones (Negative) Urine Blood (Negative) Urine Nitrite (Negative) Urine Bilirubin (Negative) Urine Urobilinogen (0.2-1.0) Ur Leukocyte Esterase (Negative) Urine RBC (0-2) Urine WBC (0-5) Ur Squamous Epith Cells (None-Few) Urine Bacteria (None) SARS-CoV-2 (PCR) Negative SARS-CoV-2 (Negative) Influenza Type A (PCR) Negative PCR FLU A (Negative) Influenza Type B (PCR) Negative PCR FLU B (Negative) Lab Acknowledgement Test Added POC Troponin I (0.01-0.04) ng/ml 11/12/23 11/12/23 Range/Units 14:50 15:19 WBC (4.50-11.00) K/uL RBC (4.00-5.20) m/uL Hgb (12.0-16.0) gm/dL Hct (33.0-51.0) % MCV (80-100) fL MCH (26-34) pg MCHC (32-36) gm/dL RDW Coeff of Emily (11.5-15.5) % Plt Count (140-440) K/uL Neut % (Auto) (42.0-72.0) % Lymph % (Auto) (20-44) % Bay % (Auto) (0.0-11.0) % Eos % (Auto) (0.0-7.0) % Baso % (Auto) (0.0-3.0) % Neut # (Auto) (1.7-7.0) K/uL Lymph # (Auto) (0.90-2.90) K/uL Bay # (Auto) (0.00-0.90) K/UL Eos # (Auto) (0.00-0.50) K/uL Baso # (Auto) (0.00-0.30) K/uL Abs Immat Gran (auto) (0.00-0.30) K/uL Imm/Tot Granulo (auto) % Sodium (135-149) mmol/L Potassium (3.6-5.1) mmol/L Chloride (96-114) mmol/L Carbon Dioxide (20-32) mmol/L Anion Gap (7-15) mEq/L BUN (7-30) mg/dL Creatinine (0.5-1.5) mg/dL Estimated Creat Clear Estimated GFR ml/min Glucose (60-115) mg/dL Calcium (8.4-10.6) mg/dL Magnesium (1.5-2.6) mg/dL Total Creatine Kinase (41-117) U/L Troponin I (0.01-0.04) ng/mL C-Reactive Protein (0.5-1.0) mg/dL Procalcitonin (<0.50) ng/mL Urine Color Yellow (Yellow) Urine Appearance Clear (Clear) Urine pH 7.5 (5.0-8.5) Ur Specific [place] 1.015 (1.000-1.030) Urine Protein Negative (Negative) Urine Glucose (UA) Trace A (Negative) Urine Ketones Negative (Negative) Urine Blood Negative (Negative) Urine Nitrite Negative (Negative) Urine Bilirubin Negative (Negative) Urine Urobilinogen 1.0 (0.2-1.0) Ur Leukocyte Esterase Negative (Negative) Urine RBC 0-2 (0-2) Urine WBC 0-2 (0-5) Ur Squamous Epith Cells None (None-Few) Urine Bacteria None (None) SARS-CoV-2 (PCR) (Negative) Influenza Type A (PCR) (Negative) Influenza Type B (PCR) (Negative) Lab Acknowledgement POC Troponin I 0.02 (0.01-0.04) ng/ml Imaging Data CT scan head: Attestation: I have reviewed the pertinent imaging results. Radiologist's impression: 1. No calvarial fracture or intracranial bleed. 2. Nonspecific white matter disease, likely microangiopathy. Stable linear calcification within the left parietal lobe. Please note that all CT scans at this facility use dose modulation, iterative reconstruction, and/or weight-based dosing when appropriate to reduce radiation dose to as low as reasonably achievable. Dictated by Onel Downing MD @ 11/12/2023 2:03:[address] scan cervical spine: Attestation: I have reviewed the pertinent imaging results. Radiologist's impression: Mild degenerative changes cervical spine without evidence of cervical spine fracture. Please note that all CT scans at this facility use dose modulation, iterative reconstruction, and/or weight-based dosing when appropriate to reduce radiation dose to as low as reasonably achievable. Dictated by Onel Downing MD @ 11/12/2023 2:07:20 PM Chest x-ray: Attestation: I have reviewed the pertinent imaging results. Radiologist's impression: Cardiovascular and mediastinum: Normal heart size with aortic tortuosity. Lungs and pleural spaces: Lungs are clear. No sign of infiltrate or mass. No sign of pleural effusion. No pneumothorax. 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 Dictated by Onel Downing MD @ 11/12/2023 2:09:37 PM ECG Data Attestation: I personally reviewed and interpreted this ECG as follows: Prior ECG tracings: available for review Interpretation: Normal sinus rhythm with rate of 78 beats per minute, normal axis, normal intervals, eyes ears T-wave abnormalities. Appears similar previous EKG on file Discharge Plan Discharge Clinical Impression: Orthostatic hypotension Patient Disposition: Home, Self-Care Condition: Improved Instructions: Hypotension (DC), Syncope in Older Adults (ED) Additional Instructions: Follow-up with your primary care provider and ask for repeat Holter monitor or Zio patch due to her multiple episodes of syncope over the past few weeks. Blood cultures were done for elevated white blood cell count and we will call you with they are positive. Return to the emergency department for any new or worsening symptoms. Prescriptions: No Action metformin 500 mg tablet 1,000 mg PO BIDWM potassium chloride 10 mEq tablet extended release 10 meq PO DAILY nortriptyline 25 mg capsule 25 mg PO HS risperidone 2 mg tablet 2 mg PO HS lorazepam 0.5 mg tablet 0.5 mg PO DAILY PRN (Reason: anxiety) risperidone 1 mg tablet 1 mg PO QAM acetaminophen 500 mg tablet 1,000 mg PO Q6H PRN levothyroxine 100 mcg tablet 100 mcg PO QAM atorvastatin 20 mg tablet 20 mg PO HS metoprolol succinate 100 mg tablet extended release 24 hr 100 mg PO DAILY Eliquis 5 mg tablet 5 mg PO BID nystatin 100,000 unit/gram ointment 1 applic topical BID PRN ferrous sulfate 325 mg (65 mg iron) Tablet 325 mg PO DAILY Follow Up/Referrals: Rylee Cruz MD [Primary Care Provider] - Stand Alone Forms: [facility] Info Instructions
--- OUTSIDE RECORDS SUMMARY | 2023-11-12 11:53 | XMS_ITS | Clinical Summary ---
Author Organization [facility] Address [place], [place] [address] Care Team Providers Care Bleach Boiler Filler Name Role Phone Jovanni Aguayo MD Unavailable Rylee Cruz MD Primary Care Prov ider [...] Encounters Date Type Department Care Team Description 11/07/2023 Telephone [facility] [address] [facility] [place] [address] Rylee Cruz MD Error-please disregard (Duplicate ) 11/07/2023 Telephone [facility] [address] [facility] [address] Rylee Cruz MD Results 11/05/2023 11:10 AM CDT Office Visit [facility] [address] [place] [address] Rylee Cruz MD Hospital F/U 11/05/2023 Travel 11/05/2023 Orders Only [facility] [address] [facility] [place] [address] Rylee Cruz MD 1 scan: (1-Ord) NFLD-EKG-10/31/23 11/04/2023 Telephone [facility] [address] [facility] [place] [address] Rylee Cruz MD Health Maintenance Update 11/04/2023 Telephone [facility] [address] [facility] [place] [address] Rylee Cruz MD Follow Up 10/31/2023 9:25 AM CDT Office Visit [facility] [address] [place] [address] Rylee Cruz MD Diabetes 10/31/2023 Orders Only [facility] Scanner 1 scan: (1-Ord) [facility] HEAD/BRAIN WO CON, 10/31/2023 10/31/2023 Orders Only [facility] Scanner 1 scan: (1-Ord) [facility], CHEST 1 VIEW, 10/31/2023 10/31/2023 Travel 10/15/2023 Telephone [facility] [address] [address] [place] [address] [id number] Richi Sullivan MD Results (TTE results) 10/14/2023 2:00 PM CDT Ancillary Procedure [facility] [address] [place] [address] 10/14/2023 Travel 10/11/2023 Refill [facility] [address] [place] [address] Padmini Rodriguez PA Refill Request (Metformin) 09/17/2023 10:45 AM CDT Phone Office Visit [facility] [address] [place] [address] Lizette Mccloud MD Phone Visit; Medication Management (Things have been topsy turvy, room mate fell and broke hip, comes home ) 09/17/2023 Travel 09/10/2023 11:00 AM CDT Office Visit [facility] [address] [place] [address] Richi Sullivan MD Follow Up (Paroxysmal atrial fibrillation ) 09/10/2023 Travel 08/23/2023 Refill [facility] [address] [place] [address] Lizette Mccloud MD Refill Request (Nortriptyline, Risperidone, Risperidone) from Last 3 Months Immunizations Name Administration [...] Sign Reading Time Taken Comments Blood Pressure 106/71 11/05/2023 11:00 AM CDT Pulse 73 11/05/2023 11:00 AM CDT Temperature 36.3 ??C (97.4 ??F) 04/09/2022 11:[address] Respiratory Rate 16 10/31/2023 9:47 AM CDT Oxygen Saturation 98% 11/05/2023 11:00 AM CDT Inhaled Oxygen Concentration - - Weight 68 kg (150 lb) 11/05/2023 11:00 AM CDT Height 157.5 cm (5' 2) 04/15/2023 11:11 AM ELECTRIC SYSTEM OPERATOR Body Mass Index 27.44 04/15/2023 11:11 AM ELECTRIC SYSTEM OPERATOR Plan of Treatment Upcoming Encounters Date Type Department Care Team (Late st Contact Info) Description 12/31/2023 11:00 AM ELECTRIC SYSTEM OPERATOR Office Visit [facility] [place] [facility] [place] [facility] [address] [place] L[place] MD [address] [place] [address] Health Maintenance Due Date Last Done Comments [...] Procedure Name Priority Date/Time Associated Diagnosis Comments FERRITIN Routine 11/05/2023 12:12 PM CDT Anemia, unspecified type IRON PLUS IRON BINDING CAP Routine 11/05/2023 12:12 PM CDT Anemia, unspecified type CBC W PLT NO DIFF Routine 11/05/2023 12: 12 PM CDT Anemia, unspecified type BASIC METABOLIC PANEL Routine 11/05/2023 12:12 PM CDT LOC (loss of consciousness) (HC) Hyponatremia TSH Routine 11/05/2023 12:10 PM CDT LOC (loss of consciousness) (HC) EKG 12 LEAD Routine 11/05/2023 9:15 AM CDT Dizzy LOC (loss of consciousness) (HC) RI READING EKG - NO CHARGE, COMP ONLY Routine 11/05/2023 9:14 AM CDT Dizzy LOC (loss of consciousness) (HC) GLUCOSE, RANDOM Routine 10/31/2023 9:46 AM CDT [...] REFLEX MEASURED LDL Routine 04/15/2023 12:20 PM ELECTRIC SYSTEM OPERATOR Type II or unspecified type diabetes mellitus without mention of complication, not stated as uncontrolled OCCULT BLOOD IFOBT STOOL Routine 12/12/2022 2:46 PM CDT Screening for colorectal cancer XR MAMMO RASHIDA BILAT SCREEN Routine 01/03/2022 11:15 AM ELECTRIC SYSTEM OPERATOR Visit for screening mammogram XR DXA BONE DENSITY 2 SITES AXIAL Routine 03/06/2018 11:09 AM ELECTRIC SYSTEM OPERATOR Menopause ANTI HCV Routine 09/10/2013 12:57 PM CDT Need for hepatitis C screening test from Last 3 Months or Most Recently Relevant to Health Maintenance Results * IRON PLUS IRON BINDING CAP (11/05/2023 12:12 PM CDT) Pathologist [facility] IRON, TOTAL 81 45 - 160 mcg/dL [facility] IRON BINDING CAPACITY 342 250 - 450 mcg/dL (calc) [facility] % SATURATION 24 16 - 45 % (calc) [facility] Blood BLOOD SPECIMEN / Unknown 11/05/2023 12:12 PM CDT 11/05/2023 12:13 PM CDT Rylee Cruz MD CHEMISTRY [facility] [address] [place] [address], [facility] [address] [place] [address] * (ABNORMAL) CBC W PLT NO DIFF (11/05/2023 12:12 PM CDT) [facility] WHITE BLOOD CELL COUNT 9.3 3.8 - 10.8 Thousand/u L [facility] RED BLOOD CELL COUNT 4.29 3.80 - 5.10 Million/uL [facility] HEMOGLOBIN 12.0 11.7 - 15.5 g/dL [facility] HEMATOCRIT 38.1 35.0 - 45.0 % [facility] MCV 88.8 80.0 - 100.0 fL [facility] MCH 28.0 27.0 - 33.0 pg [facility] MCHC 31.5(L) 32.0 - 36.0 g/dL [facility] RDW 14.9 11.0 - 15.0 % [facility] PLATELET COUNT 388 140 - 400 Thousand/u L [facility] MPV 10.6 7.5 - 12.5 fL [facility] Blood BLOOD SPECIMEN / Unknown 11/05/2023 12:12 PM CDT 11/05/2023 12:13 PM CDT Rylee Cruz MD HEMATOLOGY [facility] [address] [place] [address], [facility] [address] [place] [address] * (ABNORMAL) FERRITIN (11/05/2023 12:12 PM CDT) Pathologist [facility] FERRITIN 9(L) 16 - 288 ng/mL [facility] Blood BLOOD SPECIMEN / Unknown 11/05/2023 12:12 PM CDT 11/05/2023 12:13 PM CDT Rylee Cruz MD CHEMISTRY [employer] [facility] [address] [place] [address], [facility] [address] [place] [address] * (ABNORMAL) BASIC METABOLIC PANEL (11/05/2023 12:12 PM CDT) GLUCOSE 138(H) 65 - 99 mg/dL [facility] Comment: ? Fasting reference interval For someone without known diabetes, a glucose value >125 mg/dL indicates that they may have diabetes and this should be confirmed with a follow-up test. UREA NITROGEN (BUN) 15 7 - 25 mg/dL [facility] CREATININE 0.67 0.60 - 1.00 mg/dL [facility] EGFR 92 > OR = 60 mL/min/1. 73m2 [facility] BUN/CREATININE RATIO SEE NOTE: 6 - 22 (calc) [facility] Comment: ?? Not Reported: BUN and Creatinine are within ?? reference range. ? SODIUM 129(L) 135 - 146 mmol/L [facility] POTASSIUM 4.4 3.5 - 5.3 mmol/L [facility] CHLORIDE 94(L) 98 - 110 mmol/L [facility] CARBON DIOXIDE 21 20 - 32 mmol/L [facility] ELECTROLYTE BALANCE 14 7 - 17 mmol/L (calc) [facility] CALCIUM 9.5 8.6 - 10.4 mg/dL [facility] Blood BLOOD SPECIMEN / Unknown 11/05/2023 12:12 PM CDT 11/05/2023 12:13 PM CDT Rylee Cruz MD CHEMISTRY Performing Organization Address [facility]/ZIP Co de Phone Number [facility] [address] [facility] [place] [address], [place] [phone] [facility] [address] [place] [address] * TSH (11/05/2023 12:10 PM CDT) TSH 0.57 0.40 - 4.50 mIU/L [facility] Blood BLOOD SPECIMEN / Unknown 11/05/2023 12:10 PM CDT 11/05/2023 12:11 PM CDT Rylee Cruz MD CHEMISTRY Performing Organization Address [facility]/State/ZIP Co de Phone Number [facility] [address] [facility] [address], [place] [phone] [facility] [address] [place] [address] * EKG 12 LEAD (11/05/2023 9:15 AM CDT) Rylee Cruz MD EKG ORD * RI READING EKG - NO CHARGE, COMP ONLY (11/05/2023 9:14 AM CDT) Rylee Cruz MD PB - PROVI LACEY READINGS * GLUCOSE, RANDOM (10/31/2023 9:46 AM CDT) GLUCOSE,RANDOM 118 70 - 139 mg/dL 10/31/2023 9:47 AM CDT [facility] Blood BLOOD SPECIMEN / Unknown Capillary / Unknown 10/31/2023 9:46 AM CDT 10/31/2023 9:46 AM CDT Rylee Cruz MD CHEMISTRY Performing Organization Address City/State/[facility] Co de Phone Number [facility] [address] [place] [address], * HEMOGLOBIN A1C MONITORING (POCT) (10/31/2023 8:49 AM CDT) HEMOGLOBIN A1C MONITORING (POCT) 6.1 <=6.4 % 10/31/2023 8:59 AM CDT [facility] Blood BLOOD SPECIMEN / Unknown Venipuncture / Unknown 10/31/2023 8:49 AM CDT 10/31/2023 8:49 AM CDT Narrative [facility] - 10/31/2023 8:59 AM CDT [...] Anemias, Splenectomy ? Rylee Cruz MD CHEMISTRY [facility] [address] [place] [address], * SCAN-RADIOLOGY REPORT (10/31/2023 12:00 AM CDT) [...] CDT ECHOCARDIOGRAM KYLE YAÑEZ ? Accession#: ?? [id number] : ?1950 72 years Study Date: ?? 10/14/2023 2:00:05 PM Gender: F ?BP: ? 111/74 mmHg Height: 157.00 cm ?BSA: ?1.67 m? ? ? Weight: 66.00 kg ? Tech: ? MHR ? Referring MD: RICHI SULLIVAN Site: ? [facility] Reading Location: MOBILE OP Patient Location: Outpatient. [...] . This study was interpreted by an [facility] accredited facility. ??Final ?? Procedure Note Gio Santos MD - 10/14/2023 ECHOCARDIOGRAM KYLE YAÑEZ : 1950 72 years Study Date: 10/14/2023 2:00:05 PM Gender: F BP: 111/74 mmHg Height: 157.00 cm BSA: 1.67 m? ? ? Weight: 66.00 kg Tech: [facility] Referring MD: RICHI SULLIVAN Site: [facility] Reading Location: MOBILE OP Patient Location: Outpatient. [...] . This study was interpreted by an [facility] accredited facility. Final Richi Sullivan MD ECHO ORD * LIPID PANEL W REFLEX MEASURED LDL (04/15/2023 12:20 PM ELECTRIC SYSTEM OPERATOR) CHOLESTEROL,TOTAL 114 100 - 199 mg/dL 04/15/2023 9:21 PM ELECTRIC SYSTEM OPERATOR [facility] [employer] Comment: Cholesterol, Total Reference Ranges Desirable <200 mg/dL Borderline 200-239 mg/dL High >=240 mg/dL TRIGLYCERIDES 71 <150 mg/dL 04/15/2023 9:21 PM ELECTRIC SYSTEM OPERATOR [facility] HDL CHOLESTEROL 50 >40 mg/dL 9:21 PM ELECTRIC SYSTEM OPERATOR [facility] NON-HDL CHOLESTEROL 64 <145 mg/dl 04/15/2023 9:21 PM ELECTRIC SYSTEM OPERATOR [facility] CHOL/HDL RATIO 2.28 <4.50 04/15/2023 9:21 PM ELECTRIC SYSTEM OPERATOR [facility] LDL CHOLESTEROL 50 <=130 mg/dL 04/15/2023 9:21 PM ELECTRIC SYSTEM OPERATOR [facility] VLDL CHOLESTEROL 14 <=30 mg/dL 04/15/2023 9:21 PM ELECTRIC SYSTEM OPERATOR [facility] PROVIDER ORDERED STATUS RANDOM 04/15/2023 9:21 PM ELECTRIC SYSTEM OPERATOR [facility] Blood BLOOD SPECIMEN / Unknown Venipuncture / Unknown 04/15/2023 12:20 PM ELECTRIC SYSTEM OPERATOR 04/15/2023 12:21 PM ELECTRIC SYSTEM OPERATOR Padmini JEFFERY CHEMISTRY [facility] [address] [place] [address], [place] * OCCULT BLOOD IFOBT STOOL (12/12/2022 2:46 PM CDT) STOOL BLOOD ,IFOBT Negative Negative 12/17/2022 3:04 PM CDT [facility] Stool STOOL SPECIMEN / Unknown Non-Blood / Unknown 12/12/2022 2:46 PM CDT 12/17/2022 2:46 PM CDT Rylee Cruz MD LABORATORY Performing Organization Address City/[facility]/ZIP Co de Phone Number [facility] [address] [place] [address], [place] [phone] * XR MAMMO RASHIDA BILAT SCREEN (01/03/2022 11:15 AM ELECTRIC SYSTEM OPERATOR) Anatomical Region Laterality Modality BREASTS, Breast Left, Breast Right Bilateral Mammography Impressions 01/03/2022 3:46 PM ELECTRIC SYSTEM OPERATOR ??There is no radiographic evidence for malignancy. ??Recommend annual mammograms. MAMMOGRAM ASSESSMENT: ??ACR 1 Negative PATIENTS: You will also receive a letter with your examination results in an easy to read format. ??If you have questions about your results, please contact your referring provider. Narrative 01/03/2022 3:46 PM ELECTRIC SYSTEM OPERATOR For Patients: As a result of the Century Cures Act, medical imaging exams and procedure reports are released immediately into your electronic medical record. You may view this report before your referring provider. If you have questions, please contact your health care provider. XR MAMMO RASHIDA BILAT SCREEN [[id number]] CLINICAL HISTORY: ??This is an asymptomatic 71 y.o. patient. INDICATION FOR EXAM: Mammogram Screening. TECHNIQUE: CC & MLO views were obtained. ??This study was evaluated with the assistance of Computer-Aided Detection. Breast Tomosynthesis was used in interpretation. COMPARISON FILM: Yes 11/13/18 [facility] 01/16/17 [facility] FINDINGS: ??The breasts are almost entirely fatty. There are no dominant masses, suspicious micro calcifications or areas of architectural distortion. Rylee Cruz MD MAMMO * (ABNORMAL) XR DXA BONE DENSITY 2 SITES AXIAL [17261.1] (03/06/2018 11:09 AM ELECTRIC SYSTEM OPERATOR) Anatomical Region Laterality Modality Spine, HIPS, HIPL, HIPR Other Narrative 03/19/2018 12:23 PM ELECTRIC SYSTEM OPERATOR Please see scanned document for results of this study. Rylee Cruz MD DEXA * ANTI HCV [19502.2] (09/10/2013 12:57 PM CDT) HEPATITIS C ANTIBODY Non-Reacti ve Non-Reacti ve 09/10/2013 8:34 PM CDT [facility] Blood specimen (specimen) BLOOD SPECIMEN / Unknown Venipuncture / Unknown 09/10/2013 12:57 PM CDT 09/10/2013 12:57 PM CDT Narrative [facility] - 09/10/2013 8:34 PM CDT Antibodies to HCV not detected; does not exclude the possibility of exposure to HCV. Erin Gomes SEND OUTS [facility] [address] [place] [address], from Last 3 Months or Most Recently Relevant to Health Maintenance Advance Directives Documents on File Type Date Recorded Patient Corporate Quality Assurance Manager Expl anation Healthcare Directive 11/08/2016 017 Healthcare Directive 07/31/2004 health care directive, [facility], 07/31/06 * Full Code (Latest Code Status on File) Date Activated Date Inactivated Comments 03/18/2022 2:59 AM 03/19/2022 7:01 PM Question Answer Comments Code Status Discussion: Unable to Assess Preferences, Provider to review later Care Teams Bleach Boiler Filler Relationship Specialty Start Date End Date Rylee Cruz MD [address] [place] [address] PCP - General Family Practice 02/23/21 Jovanni Aguayo MD Psychiatry Psychiatry 01/10/16
[2023-11-12 11:59] LABS: Basophils Percent Auto 0.1 % (0.0-3.0); Hematocrit 38.7 % (33.0-51.0); Hemoglobin* 12.6 gm/dL (12.0-16.0); Immature Granulocytes Pct Auto 0.2 %; Mean Corpuscular HGB Conc 33 gm/dL (32-36); Mean Corpuscular Hemoglobin 29 pg (26-34); Mean Corpuscular Volume 88 fL (80-100); Monocytes Percent Auto 5.9 % (0.0-11.0); Neutrophils Percent Auto 92.8 % (42.0-72.0); Platelet Count* 344 K/uL (140-440); RDW Coefficient of Variation % 15.2 % (11.5-15.5); Red Blood Count 4.41 m/uL (4.00-5.20); White Blood Count* 19.45 K/uL (4.50-11.00)
[2023-11-12 12:05] LABS: Slide Review Reflex No
[2023-11-12 12:13] LABS: Chloride* 94 mmol/L (96-114); Potassium* 3.6 mmol/L (3.6-5.1); Sodium* 130 mmol/L (135-149)
[2023-11-12] MEDS: 0.9 % SODIUM CHLORIDE 1000 ml 1,000 ML IV (12:13)
[2023-11-12 12:16] LABS: Anion Gap 11 mEq/L (7-15); Blood Urea Nitrogen* 12 mg/dL (7-30); Carbon Dioxide* 25 mmol/L (20-32); Creatinine* 0.5 mg/dL (0.5-1.5); Est. Creatinine Clearance* 37.24; Estimated Glomerular Filt Rate 98 ml/min; Glucose* 208 mg/dL (60-115); Magnesium* 1.4 mg/dL (1.5-2.6)
[2023-11-12 12:17] LABS: Calcium* 9.2 mg/dL (8.4-10.6)
[2023-11-12 12:24] LABS: Creatine Kinase* 42 U/L (41-117)
[2023-11-12 12:33] LABS: Troponin I* < 0.01 ng/mL (0.01-0.04)
[2023-11-12 12:42] LABS: C Reactive Protein* 0.7 mg/dL (0.5-1.0)
[2023-11-12 12:56] LABS: Procalcitonin* 0.99 ng/mL (<0.50)
[2023-11-12 13:07] LABS: PCR FLU A Negative PCR FLU A (Negative); PCR FLU B Negative PCR FLU B (Negative); SARS PCR* Negative SARS-CoV-2 (Negative)
[2023-11-12 15:11] LABS: Appearance Urine Clear (Clear); Bilirubin Urine Negative (Negative); Blood Urine Negative (Negative); Color Urine Yellow (Yellow); Glucose Urine Trace (Negative); Ketones Urine Negative (Negative); Leukocyte Esterase Urine Negative (Negative); Nitrite Urine Negative (Negative); Protein Urine Negative (Negative); Specific Gravity Urine 1.015 (1.000-1.030); pH Urine 7.5 (5.0-8.5)
[2023-11-12] MEDS: ACETAMINOPHEN 500 MG TABLET 1000 MG PO (15:22)
[2023-11-12 15:26] LABS: RBC Urine 0-2 (0-2); WBC Urine 0-2 (0-5)
[2023-11-12 15:48] LABS: Troponin, Point-of-Care* 0.02 ng/ml (0.01-0.04)
== END 2023-11-12 16:16 | disposition home or self-care (01) ==
PROVIDERS: Emergency Provider Student in an Organized Health Care Education/Training Program; PCP Family Medicine
DX: I95.1 Orthostatic hypotension (principal)
CPT/HCPCS: 36415; 70450; 71046; 72125; 80048; 81001; 82550; 83735; 84145; 84484; 85025; 86140; 87040; 87631; 93005; 96360; 96361; 99283; 99284; 99285; A9270; J7030

== ENCOUNTER 2023-11-19 11:16 | Emergency (ER) | payer MEDICARE, BC, SELFPAY ==
--- NOTE | 2023-11-19 11:17 | ED.GENADULT ---
HPI - General Adult General Chief complaint: Diarrhea Stated complaint: Diarrhea chronic Time Seen by Provider: 11/19/23 11:17 History of Present Illness HPI narrative: Pt states she has had chronic diarrhea for 3 -4 years. Within the last 2 days she has had persistent diarrhea. Pt is concerned it has something to do with her liver or diabetes. Pt denies dizziness, nausea, and vomiting. 73-year-old woman presenting to the emergency department with concern of diarrhea. It has increased over the last couple of days. Is not having really any abdominal pain. She is not having any fever. No melena or hematochezia. No nausea or vomiting. This has been chronic problem for a few years. She says that she has been told that is just part of getting old. Due to this recent increase is concerned and requesting some investigation. She does feel like she has been hydrating well. I do see a history of hyponatremia in her past as well. As she lives independently it has been, particularly with this sudden increase in copious diarrhea, difficult to manage. They are thinking that might need to be in a custodial; and this has been already contemplated prior to this. Just much harder to manage now. Does not often take recommended loperamide. No history of inflammatory bowel disorders noted in family. Medications are reviewed by myself and pharmacy per request Review of records does show history of orthostatic hypotension Related Data Home Medications ?Medication ?Instructions ?Recorded ?Confirmed acetaminophen 500 mg tablet 1,000 mg PO Q6H PRN 10/16/21 10/31/23 lorazepam 0.5 mg tablet 0.5 mg PO DAILY PRN anxiety 10/16/21 10/31/23 metformin 500 mg tablet 1,000 mg PO BIDWM 10/16/21 10/31/23 nortriptyline 25 mg capsule 25 mg PO HS 10/16/21 10/31/23 potassium chloride 10 mEq 10 meq PO DAILY 10/16/21 10/31/23 tablet,extended release risperidone 1 mg tablet 1 mg PO QAM 10/16/21 10/31/23 risperidone 2 mg tablet 2 mg PO HS 10/16/21 10/31/23 levothyroxine 100 mcg tablet 100 mcg PO QAM 04/26/23 10/31/23 atorvastatin 20 mg tablet 20 mg PO HS 05/04/23 10/31/23 apixaban 5 mg tablet (Eliquis) 5 mg PO BID 10/31/23 10/31/23 ferrous sulfate 325 mg (65 mg 325 mg PO DAILY 10/31/23 10/31/23 iron) tablet metoprolol succinate 100 mg 100 mg PO DAILY 10/31/23 10/31/23 tablet,extended release 24 hr nystatin 100,000 unit/gram topical 1 applic topical BID PRN 10/31/23 10/31/23 ointment Allergies Allergy/AdvReac Type Severity Reaction Status Date / Time cholecalciferol (vitamin D3) Allergy Unknown Confusion Verified 10/31/23 10:54 [From Vitamin D3] cyanocobalamin (vitamin B12) Allergy Unknown Verified 10/31/23 10:54 grapefruit Allergy Unknown Verified 10/31/23 10:54 Penicillins Allergy Unknown Verified 10/31/23 10:54 Sulfa (Sulfonamide Allergy Unknown Verified 10/31/23 10:54 Antibiotics) eucalyptus AdvReac Unknown Verified 10/31/23 10:54 lisinopril AdvReac Confusion Verified 10/31/23 10:54 Review of Systems Status of ROS: Reports: 6 or more systems reviewed and unremarkable except as noted in History and below [facility] Medical History Resting tremor ?G25.2 - Other specified forms of tremor (ICD-10) GI bleed ?K92.2 - Gastrointestinal hemorrhage, unspecified (ICD-10) Protein calorie malnutrition ?E46 - Unspecified protein-calorie malnutrition (ICD-10) Anemia ?D64.9 - Anemia, unspecified (ICD-10) Altered mental status ?R41.82 - Altered mental status, unspecified (ICD-10) Chronic diarrhea ?K52.9 - Noninfective gastroenteritis and colitis, unspecified (ICD-10) Unstable gait ?R26.81 - Unsteadiness on feet (ICD-10) History of intracranial hemorrhage ?Z86.79 - Personal history of other diseases of the circulatory system (ICD-10) Osteopenia ?M85.80 - Other specified disorders of bone density and structure, unspecified site (ICD-10) Vitamin D deficiency ?E55.9 - Vitamin D deficiency, unspecified (ICD-10) Chronic schizophrenia ?F20.9 - Schizophrenia, unspecified (ICD-10) Diabetes mellitus type 2 in nonobese ?E11.9 - Type 2 diabetes mellitus without complications (ICD-10) Hyperlipidemia ?E78.5 - Hyperlipidemia, unspecified (ICD-10) Tremor ?R25.1 - Tremor, unspecified (ICD-10) Diabetes mellitus ?E11.9 - Type 2 diabetes mellitus without complications (ICD-10) Hypothyroidism ?E03.9 - Hypothyroidism, unspecified (ICD-10) Hypertension ?I10 - Essential (primary) hypertension (ICD-10) Anxiety ?F41.9 - Anxiety disorder, unspecified (ICD-10) Intraparenchymal hemorrhage of brain ?I61.9 - Nontraumatic intracerebral hemorrhage, unspecified (ICD-10) Surgical History History of tonsillectomy and adenoidectomy ?Z90.89 - Acquired absence of other organs (ICD-10) History of breast biopsy ?Z98.890 - Other specified postprocedural states (ICD-10) Family History Mother Alcohol dependence Asthma Heart disease Paternal Grandfather Alcohol dependence Paternal Grandmother Diabetes Brother Down syndrome Alzheimers disease Father Heart disease Maternal Grandmother High blood pressure Social History What is your current living situation?: I presently have a place to live Problems where you live: no known problems Problems where you live details: N/A In the past 12 months, utilities in danger of being shut off: no In past 12 months, lack of transportation kept you from medical appts, meetings, work, or getting things needed for daily living: no In the past 12 mos, have been you worried that your food would run out before you had money to buy more?: never true In the past 12 mos, the food you bought just didn't last and you didn't have money to buy more?: never true Highest level of school completed/degree received: Master's degree Smoking Status: Former smoker Do you use any of these nicotine containing products: None Second hand tobacco smoke exposure: No How often do you have a drink containing alcohol: never How often do you have six or more drinks on one occasion: Never AUDIT-C Alcohol total score: 0 Non-prescribed substance use: denies use Caffeine: Yes (1 cup daily) How often does anyone, including family, friends and others, physically hurt you: never How often does anyone, including family, friends and others, insult or talk down to you: never How often does anyone, including family, friends and others, threaten you with harm: never How often does anyone, including family, friends and others, scream or curse at you: never service: No Exam Narrative: Exam Narrative: Pleasant. Slightly blunted affect. Breathing easily. Skin is warm and dry. Trace dependent lower extremity edema. She is well-perfused. Lungs are clear. Heart appears to be in a regular rate and rhythm today. Abdomen with normoactive bowel sounds is soft and nontender. Const: Vital Signs, click to edit/add: Vital Signs - 24 hr 11/19/23 11:23 Temperature 98.5 F Pulse Rate [Right Pulse Oximeter] 66 Respiratory Rate 18 Blood Pressure [Ri ght Upper Arm] 134/82 Pulse Oximetry 96 Oxygen Delivery Me thod Room Air Documenting provider has reviewed patient's vital signs: yes Course Vital Signs Vital signs: Initial Vital Signs Temperature 98.5 F 11/19/23 11:23 Temperature Source Temporal Artery Scan 11/19/23 11:23 Pulse Rate 66 11/19/23 11:23 Respiratory Rate 18 11/19/23 11:23 Blood Pressure 134/82 11/19/23 11:23 Blood Pressure Mean 99 11/19/23 11:23 Pulse Oximetry 96 11/19/23 11:23 Oxygen Delivery Method Room Air 11/19/23 11:23 Vital Signs Temperature 98.5 F 11/19/23 11:23 Pulse Rate 66 11/19/23 11:23 Respiratory Rate 18 11/19/23 11:23 Blood Pressure 134/82 11/19/23 11:23 Pulse Oximetry 96 11/19/23 11:23 Oxygen Delivery Method Room Air 11/19/23 11:23 Temperature 98.5 F 11/19/23 11:23 Pulse Rate 66 11/19/23 11:23 Respiratory Rate 18 11/19/23 11:23 Blood Pressure 134/82 11/19/23 11:23 Pulse Oximetry 96 11/19/23 11:23 Oxygen Delivery Method Room Air 11/19/23 11:23 Medications Administered Medications: Discontinued Medications Generic Name Dose Route Start Last Admin Trade Name Estrella PRN Reason Stop Dose Admin Loperamide HCl 2 mg 11/19/23 13:40 11/19/23 13:47 Loperamide Hcl 2 Mg Capsule PO 11/19/23 13:41 2 mg ONCE ONE Administration Medical Decision Making MDM Narrative Medical decision making narrative: Can certainly investigate for electrolyte abnormality particular given history. Actually seems to be well hydrated. Diarrhea right be compounded by secondary infectious process; will screen for this as well. I have asked pharmacy also for medication review. I think there might be some contributors to diarrhea here. She has never had a colonoscopy; having declined them in the past. Evidently fearful of that process. Does not appear to be an allergic component. Without pain or bloody diarrhea I do not think any imaging that I could do here would be beneficial. Perhaps stool culture could be useful. No recent antibiotics to suspect C diff. Has been GI-affecting version of COVID around and would screen for that. She would appreciate a dose of loperamide provided no other evidence of infection. Labs are reassuring. Pharmacy also would look at metformin is potentially being suspect. No further events in the emergency department. See patient discharge plan for further discussion. Medical Records Medical records reviewed: Yes I reviewed the patient's medical records Lab Data Lab results reviewed: Yes I reviewed the patient's lab results Labs: Lab Results 11/19/23 Range/Units 12:06 WBC 8.87 (4.50-11.00) K/uL RBC 4.13 (4.00-5.20) m/uL Hgb 11.9 L (12.0-16.0) gm/dL Hct 37.0 (33.0-51.0) % MCV 90 (80-100) fL MCH 29 (26-34) pg MCHC 32 (32-36) gm/dL RDW Coeff of Emily 15.4 (11.5-15.5) % Plt Count 399 (140-440) K/uL Neut % (Auto) 67.4 (42.0-72.0) % Lymph % (Auto) 16.8 L (20-44) % [place] % (Auto) 12.1 H (0.0-11.0) % Eos % (Auto) 1.9 (0.0-7.0) % Baso % (Auto) 0.8 (0.0-3.0) % Neut # (Auto) 5.98 (1.7-7.0) K/uL Lymph # (Auto) 1.50 (0.90-2.90) K/uL [place] # (Auto) 1.10 H (0.00-0.90) K/UL Eos # (Auto) 0.17 (0.00-0.50) K/uL Baso # (Auto) 0.07 (0.00-0.30) K/uL Abs Immat Gran (auto) 0.09 (0.00-0.30) K/uL Imm/Tot Granulo (auto) 1.0 % Sodium 131 L (135-149) mmol/L Potassium 3.9 (3.6-5.1) mmol/L Chloride 95 L (96-114) mmol/L Carbon Dioxide 28 (20-32) mmol/L Anion Gap 8 (7-15) mEq/L BUN 13 (7-30) mg/dL Creatinine 0.6 (0.5-1.5) mg/dL Estimated Creat Clear 39.04 Estimated GFR 94 ml/min Glucose 110 (60-115) mg/dL Calcium 9.1 (8.4-10.6) mg/dL Total Bilirubin 0.5 (0.1-1.5) mg/dL Direct Bilirubin 0.5 (0.0-0.5) mg/dL AST 32 (12-35) U/L ALT 78 H (4-35) U/L Alkaline Phosphatase 132 (40-150) U/L Total Protein 7.2 (6.0-8.3) g/dL Albumin 4.1 (3.3-5.0) g/dL Discharge Plan Discharge Clinical Impression: Chronic diarrhea, Diabetes Patient Disposition: Home w/ Parent or Adult Condition: Stable Additional Instructions: I am glad you have an upcoming appointment with your primary care provider. I would discuss your medications with her. Review again metformin particularly as it relates to your diarrhea. Discuss also with your doctor your need for custodial care. You are right that if you need paperwork filled out, it would be appropriate for them to help you with that. Consider again the recommended colonoscopy. In the meantime I think you can take your loperamide more frequently as we discussed. Yes that is the Imodium :) Maybe a dose or 2 a day. Return for marked increase in diarrheal frequency, abdominal pain, fever. Prescriptions: No Action metformin 500 mg tablet 1,000 mg PO BIDWM potassium chloride 10 mEq tablet extended release 10 meq PO DAILY nortriptyline 25 mg capsule 25 mg PO HS risperidone 2 mg tablet 2 mg PO HS lorazepam 0.5 mg tablet 0.5 mg PO DAILY PRN (Reason: anxiety) risperidone 1 mg tablet 1 mg PO QAM acetaminophen 500 mg tablet 1,000 mg PO Q6H PRN levothyroxine 100 mcg tablet 100 mcg PO QAM atorvastatin 20 mg tablet 20 mg PO HS metoprolol succinate 100 mg tablet extended release 24 hr 100 mg PO DAILY Eliquis 5 mg tablet 5 mg PO BID nystatin 100,000 unit/gram ointment 1 applic topical BID PRN ferrous sulfate 325 mg (65 mg iron) Tablet 325 mg PO DAILY Follow Up/Referrals: Rylee Cruz MD [Primary Care Provider] - Stand Alone Forms: [facility] Info Instructions
[2023-11-19 11:23] VITALS: BP 134/82; PULSE 66; RESP 18; TEMP 36.9; O2SAT 96; BMI 25.6
[2023-11-19 12:12] LABS: Basophils Absolute Auto 0.07 K/uL (0.00-0.30); Basophils Percent Auto 0.8 % (0.0-3.0); Eosinophils Absolute Auto 0.17 K/uL (0.00-0.50); Eosinophils Percent Auto 1.9 % (0.0-7.0); Hemoglobin* 11.9 gm/dL (12.0-16.0); Immature Granulocytes Abs Auto 0.09 K/uL (0.00-0.30); Lymphocytes Percent Auto 16.8 % (20-44); Mean Corpuscular HGB Conc 32 gm/dL (32-36); Mean Corpuscular Hemoglobin 29 pg (26-34); Mean Corpuscular Volume 90 fL (80-100); Monocytes Percent Auto 12.1 % (0.0-11.0); Neutrophils Absolute Auto 5.98 K/uL (1.7-7.0); Neutrophils Percent Auto 67.4 % (42.0-72.0); Platelet Count* 399 K/uL (140-440); RDW Coefficient of Variation % 15.4 % (11.5-15.5); Red Blood Count 4.13 m/uL (4.00-5.20); White Blood Count* 8.87 K/uL (4.50-11.00)
[2023-11-19 12:14] LABS: Slide Review Reflex No
[2023-11-19 12:32] LABS: Albumin* 4.1 g/dL (3.3-5.0); Chloride* 95 mmol/L (96-114); Sodium* 131 mmol/L (135-149)
[2023-11-19 12:33] LABS: Potassium* 3.9 mmol/L (3.6-5.1)
[2023-11-19 12:35] LABS: Alanine Aminotransferase* 78 U/L (4-35); Alkaline Phosphatase* 132 U/L (40-150); Anion Gap 8 mEq/L (7-15); Aspartate Amino Transferase* 32 U/L (12-35); Bilirubin Direct* 0.5 mg/dL (0.0-0.5); Bilirubin Total* 0.5 mg/dL (0.1-1.5); Blood Urea Nitrogen* 13 mg/dL (7-30); Calcium* 9.1 mg/dL (8.4-10.6); Carbon Dioxide* 28 mmol/L (20-32); Creatinine* 0.6 mg/dL (0.5-1.5); Est. Creatinine Clearance* 39.04; Estimated Glomerular Filt Rate 94 ml/min; Glucose* 110 mg/dL (60-115); Total Protein* 7.2 g/dL (6.0-8.3)
--- OUTSIDE RECORDS SUMMARY | 2023-11-19 13:03 | XMS_ITS | Clinical Summary ---
Author Organization [facility] Address [place], [place] [address] Care Team Providers Care Sheltered Workshop Worker Name Role Phone Jovanni Aguayo MD Unavailable [phone] Rylee Cruz MD Primary Care Prov ider [...] Encounters Date Type Department Care Team Description 11/19/2023 Telephone [facility] [place] [address] [facility] [address] [place] [phone] Cardiology, Anw Appointment (ANY CARD/TAZ) 11/12/2023 Orders Only [facility] Scanner 1 scan: (1-Ord) [facility], XR CHEST 2V, 11/12/2023 11/12/2023 Orders Only [facility] Scanner 1 scan: (1-Ord) [place], HEAD, 11/12/2023 11/07/2023 Telephone [facility] [address] [facility] [place] [address] Rylee Cruz MD Error-please disregard (Duplicate ) 11/07/2023 Telephone [facility] [address] [place] [address] Rylee Cruz MD Results 11/05/2023 11:10 AM CDT Office Visit [facility] [address] [place] [address] Rylee Cruz MD Hospital F/U 11/05/2023 Travel 11/05/2023 Orders Only [facility] [address] [facility] [place] [address] Rylee Cruz MD 1 scan: (1-Ord) NFLD-EKG-10/31/23 11/04/2023 Telephone [facility] [address] [place] [address] Rylee Cruz MD Health Maintenance Update 11/04/2023 Telephone [facility] [address] [place] [address] Rylee Cruz MD Follow Up 10/31/2023 9:25 AM CDT Office Visit [facility] [address] [facility] [address] Rylee Cruz MD Diabetes 10/31/2023 Orders Only [facility] Scanner 1 scan: (1-Ord) [place], CT HEAD/BRAIN WO CON, 10/31/2023 10/31/2023 Orders Only [facility] Scanner 1 scan: (1-Ord) [facility], CHEST 1 VIEW, 10/31/2023 10/31/2023 Travel 10/15/2023 Telephone [facility] [address] [place] [phone] Richi Sullivan MD Results (TTE results) 10/14/2023 2:00 PM CDT Ancillary Procedure [facility] [address] [place] [address] 10/14/2023 Travel 10/11/2023 Refill [facility] [address] [place] [address] Padmini Rodriguez PA Refill Request (Metformin) 09/17/2023 10:45 AM CDT Phone Office Visit [facility] [address] [place] [address] Lizette Mccloud MD Phone Visit; Medication Management (Things have been topsy turvy, room mate fell and broke hip, comes home ) 09/17/2023 Travel 09/10/2023 11:00 AM CDT Office Visit [facility] [address] [place] [address] Richi Sullivan MD Follow Up (Paroxysmal atrial fibrillation ) 09/10/2023 Travel 08/23/2023 Refill [facility] [address] [place] [address] Lizette Mclcoud MD Refill Request (Nortriptyline, Risperidone, Risperidone) from [...] 157.5 cm (5' 2) 04/15/2023 11:11 AM FIRE PREVENTION ENGINEER Body Mass Index 27.44 04/15/2023 11:11 AM FIRE PREVENTION ENGINEER Plan of Treatment Upcoming Encounters Date Type Department Care Team (Late st Contact Info) Description 11/26/2023 8:40 AM CDT Office Visit [facility] [address] [place] [address] Rylee Cruz MD [address] [place] [address] 12/31/2023 11:00 AM FIRE PREVENTION ENGINEER Office Visit [facility] [place] [facility] [address] [place] [address] South López MD [address] [place] [address] Health Maintenance Due Date Last Done Comments [...] CDT Dizzy LOC (loss of consciousness) (HC) [place] READING EKG - NO CHARGE, COMP ONLY [...] REFLEX MEASURED LDL Routine 04/15/2023 12:20 PM FIRE PREVENTION ENGINEER Type II or unspecified type diabetes mellitus without mention of complication, not stated as uncontrolled OCCULT BLOOD IFOBT STOOL Routine 12/12/2022 2:46 PM CDT Screening for colorectal cancer XR MAMMO RASHIDA BILAT SCREEN Routine 01/03/2022 11:15 AM FIRE PREVENTION ENGINEER Visit for screening mammogram XR DXA BONE DENSITY 2 SITES AXIAL Routine 03/06/2018 11:09 AM FIRE PREVENTION ENGINEER Menopause ANTI HCV Routine 09/10/2013 12:57 PM [...] IRON, TOTAL 81 45 - 160 mcg/dL [facility] IRON BINDING CAPACITY 342 250 - 450 mcg/dL (calc) [facility] % SATURATION 24 16 - 45 % (calc) [facility] Blood BLOOD SPECIMEN / Unknown 11/05/2023 12:12 PM CDT 11/05/2023 12:13 PM CDT Rylee Cruz MD CHEMISTRY Performing Organization Address [facility]/ZIP Co de Phone Number [facility] [address] [place] [address], [place] [phone] [facility] [address] [place] [address] * (ABNORMAL) CBC W PLT NO DIFF (11/05/2023 12:12 PM CDT) WHITE BLOOD CELL COUNT 9.3 3.8 - [...] CDT Rylee Cruz MD HEMATOLOGY [facility] [address] [place] [address], [place] [phone] [facility] [address] [place] [address] * (ABNORMAL) FERRITIN (11/05/2023 12:12 PM CDT) [facility] FERRITIN 9(L) 16 - 288 ng/mL [facility] Blood BLOOD SPECIMEN / Unknown 11/05/2023 12:12 PM CDT 11/05/2023 12:13 PM CDT Rylee Cruz MD CHEMISTRY [facility] [address] [place] [address], [facility] [address] [place] [address] * (ABNORMAL) BASIC METABOLIC PANEL (11/05/2023 12:12 PM CDT) [facility] GLUCOSE 138(H) 65 - 99 mg/dL [facility] Comment: ? Fasting reference interval For someone without known diabetes, a glucose value >125 mg/dL indicates that they may have diabetes and this should be confirmed with a follow-up test. UREA NITROGEN (BUN) 15 7 - 25 mg/dL [facility] CREATININE 0.67 0.60 - 1.00 mg/dL [facility] EGFR 92 > OR = 60 mL/min/1. 73m2 [facility] BUN/CREATININE RATIO SEE NOTE: 6 - 22 (calc) [facility] Comment: ?? Not Reported: BUN and Creatinine are within ?? reference range. ? SODIUM 129(L) 135 - 146 mmol/L [facility] POTASSIUM 4.4 3.5 - 5.3 mmol/L [facility] CHLORIDE 94(L) 98 - 110 mmol/L [facility] CARBON DIOXIDE 21 20 - 32 mmol/L [facility] ELECTROLYTE BALANCE 14 7 - 17 mmol/L (calc) [facility] CALCIUM 9.5 8.6 - 10.4 mg/dL [facility] Blood BLOOD SPECIMEN / Unknown 11/05/2023 12:12 PM CDT 11/05/2023 12:13 PM CDT Rylee Cruz MD CHEMISTRY [facility] [address] [place] [address], [facility] [address] [place] [address] * TSH (11/05/2023 12:10 PM CDT) TSH 0.57 0.40 - 4.50 mIU/L [facility] Blood BLOOD SPECIMEN / Unknown 11/05/2023 12:10 PM CDT 11/05/2023 12:11 PM CDT Rylee Cruz MD CHEMISTRY [facility] [address] [place] [phone], [facility] [address] [place] [phone] * EKG 12 LEAD (11/05/2023 9:15 AM CDT) Rylee Cruz MD EKG ORD * [place] READING EKG - NO CHARGE, COMP ONLY (11/05/2023 9:14 AM CDT) Rylee Cruz MD PB - PROVI LACEY READINGS * GLUCOSE, RANDOM (10/31/2023 9:46 AM CDT) GLUCOSE,RANDOM 118 70 - 139 mg/dL 10/31/2023 9:47 AM CDT [facility] Blood BLOOD SPECIMEN / Unknown Capillary / Unknown 10/31/2023 9:46 AM CDT 10/31/2023 9:46 AM CDT Rylee Cruz MD CHEMISTRY Performing Organization Address City/[facility]/ZIP Co de Phone Number [facility] [address] [place] [address], * HEMOGLOBIN A1C MONITORING (POCT) (10/31/2023 8:49 AM CDT) HEMOGLOBIN A1C MONITORING (POCT) 6.1 <=6.4 % 10/31/2023 8:59 AM CDT [facility] Blood BLOOD SPECIMEN / Unknown Venipuncture / Unknown 10/31/2023 8:49 AM CDT 10/31/2023 8:49 AM CDT Narrative [facility] - 10/31/2023 8:59 AM CDT ? (<=6.9%) [...] Rylee Cruz MD CHEMISTRY Performing Organization Address City/[facility]/ZIP Co de Phone Number [facility] [address] [place] [address], [place] [phone] * ECHO TTE COMPLETE WO CONTRAST (10/14/2023 2:34 PM CDT) AORTIC VALVE MEAN PG 7 mmHg EJECTION FRACTION 42 % LVEDD 2.9 cm EJECTION FRACTION 50 - 55% Anatomical Region Laterality Modality Ultrasound 10/14/2023 2:00 PM CDT Narrative 10/14/2023 3:02 PM CDT ECHOCARDIOGRAM KYLE YAÑEZ ? Accession#: ?? [id number] : ?1950 72 years Study Date: ?? 10/14/2023 2:00:05 PM Gender: F ?BP: ? 111/74 mmHg Height: 157.00 cm ?BSA: ?1.67 m? ? ? Weight: 66.00 kg ? Tech: ? MHR ? Referring MD: RICHI SULLIVAN Site: ? [facility] Reading Location: MOBILE OP Patient [...] . This study was interpreted by an [facility] accredited facility. ??Final ?? Procedure Note Gio Santos MD - 10/14/2023 ECHOCARDIOGRAM KYLE YAÑEZ : 1950 72 years Study Date: 10/14/2023 2:00:05 PM Gender: F BP: 111/74 mmHg Height: 157.00 cm BSA: 1.67 m? ? ? Weight: 66.00 kg Tech: [facility] Referring MD: RICHI SULLIVAN Site: [facility] Reading Location: [facility] OP Patient Location: Outpatient. Procedure: 2D, Color [...] . This study was interpreted by an [facility] accredited facility. Final Richi Sullivan MD ECHO ORD * LIPID PANEL W REFLEX MEASURED LDL (04/15/2023 12:20 PM FIRE PREVENTION ENGINEER) [facility] CHOLESTEROL,TOTAL 114 100 - 199 mg/dL 04/15/2023 9:21 PM FIRE PREVENTION ENGINEER [facility] Comment: Cholesterol, Total Reference Ranges Desirable <200 mg/dL Borderline 200-239 mg/dL High >=240 mg/dL TRIGLYCERIDES 71 <150 mg/dL 04/15/2023 9:21 PM FIRE PREVENTION ENGINEER [facility] HDL CHOLESTEROL 50 >40 mg/dL 9:21 PM FIRE PREVENTION ENGINEER [facility] [facility] NON-HDL CHOLESTEROL 64 <145 mg/dl 04/15/2023 9:21 PM FIRE PREVENTION ENGINEER [employer] [facility] [facility] CHOL/HDL RATIO 2.28 <4.50 04/15/2023 9:21 PM FIRE PREVENTION ENGINEER [employer] [facility] [facility] LDL CHOLESTEROL 50 <=130 mg/dL 04/15/2023 9:21 PM FIRE PREVENTION ENGINEER [employer] [facility] [facility] VLDL CHOLESTEROL 14 <=30 mg/dL 04/15/2023 9:21 PM [facility] TRAL LABORATORY PROVIDER ORDERED STATUS RANDOM 04/15/2023 9:21 PM [facility] Blood BLOOD SPECIMEN / Unknown Venipuncture / Unknown 04/15/2023 12:20 PM FIRE PREVENTION ENGINEER 04/15/2023 12:21 PM FIRE PREVENTION ENGINEER Padmini JEFFERY [facility] [address] [place] [address], * OCCULT BLOOD IFOBT STOOL (12/12/2022 2:46 PM CDT) STOOL BLOOD ,IFOBT Negative Negative 12/17/2022 3:04 PM CDT [facility] Stool STOOL SPECIMEN / Unknown Non-Blood / Unknown 12/12/2022 2:46 PM CDT 12/17/2022 2:46 PM CDT Rylee Cruz MD LABORATORY [facility] [address] [place] [address], * XR MAMMO RASHIDA BILAT SCREEN (01/03/2022 11:15 AM FIRE PREVENTION ENGINEER) Anatomical Region Laterality Modality BREASTS, Breast Left, Breast Right Bilateral Mammography Impressions 01/03/2022 3:46 PM FIRE PREVENTION ENGINEER ??There is no radiographic evidence for malignancy. ??Recommend annual mammograms. MAMMOGRAM ASSESSMENT: ??ACR 1 Negative PATIENTS: You will also receive a letter with your examination results in an easy to read format. ??If you have questions about your results, please contact your referring provider. Narrative 01/03/2022 3:46 PM FIRE PREVENTION ENGINEER For Patients: As a result of the Century Cures Act, medical imaging exams and procedure reports are released immediately into your electronic medical record. You may view this report before your referring provider. If you have questions, please contact your health care provider. XR MAMMO RASHIDA BILAT SCREEN [[id number]] CLINICAL HISTORY: ??This is an asymptomatic 71 y.o. patient. INDICATION FOR EXAM: Mammogram Screening. TECHNIQUE: CC & MLO views were obtained. ??This study was evaluated with the assistance of Computer-Aided Detection. Breast Tomosynthesis was used in interpretation. COMPARISON FILM: Yes 11/13/18 [facility] 01/16/17 [facility] FINDINGS: ??The breasts are almost entirely fatty. There are no dominant masses, suspicious micro calcifications or areas of architectural distortion. Rylee Cruz MD MAMMO * (ABNORMAL) XR DXA BONE DENSITY 2 SITES AXIAL [83465.1] (03/06/2018 11:09 AM FIRE PREVENTION ENGINEER) Anatomical Region Laterality Modality Spine, HIPS, HIPL, HIPR Other Narrative 03/19/2018 12:23 PM FIRE PREVENTION ENGINEER Please see scanned document for results of this study. Rylee Cruz MD DEXA * ANTI HCV [10840.2] (09/10/2013 12:57 PM CDT) HEPATITIS C ANTIBODY Non-Reacti ve Non-Reacti ve 09/10/2013 8:34 PM CDT [facility] Blood specimen (specimen) BLOOD SPECIMEN / Unknown Venipuncture / Unknown 09/10/2013 12:57 PM CDT 09/10/2013 12:57 PM CDT Narrative [facility] - 09/10/2013 8:34 PM CDT Antibodies to HCV not detected; does not exclude the possibility of exposure to HCV. Erin Gomes SEND OUTS [facility] 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
[2023-11-19] MEDS: LOPERAMIDE HCL 2 MG CAPSULE PO (13:47)
== END 2023-11-19 13:53 | disposition home or self-care (01) ==
PROVIDERS: Emergency Provider Family Medicine; PCP Family Medicine
DX: R19.7 Diarrhea, unspecified (principal); E11.9 Type 2 diabetes mellitus without complications
CPT/HCPCS: 36415; 80048; 80076; 85025; 87045; 87046; 87427; 87493; 99283; 99284; A9270